=== PATIENT | female | born 1945 | race Caucasian/White ===

== ENCOUNTER → 2016-10-24 | Outpatient (CLI) | payer OTHER ==
[~2016-10-24] MED LIST: ALBUAER2; ATOR-24 PO; CHOL100010 PO; CRG25 PO; DFL150 PO; FURO-85 PO; GLCSC750600; GLIP5TAB11 PO; HYT2 PO; INSDGI SQ; LEVO100T PO; LISI20TA3 PO; MULT-506 PO; NAPR1TAB9 PO; NVLGI SC; NXM/40 PO; SPR25 PO; TOPI100T20 PO; TOPI50TA16 PO; TRAM-10 PO
[2016-10-24 17:45] LABS: BLOOD UREA NITROGEN 21 mg/dl (7-18); CREATININE 0.97 mg/dl (0.60-1.20)
== END | disposition home or self-care (01) ==
LOC: C.LAB1850 16:20
PROVIDERS: ATTEND Surgery
DX: E11.22 Type 2 diabetes mellitus with diabetic chronic kidney disease (principal); N18.1 Chronic kidney disease, stage 1

== ENCOUNTER → 2016-10-31 | Outpatient (CLI) | payer OTHER ==
[~2016-10-31] MED LIST changes: +OPTIRAY 320 IV PRN
--- NOTE | 2016-10-31 08:54 | DIAGNOSTIC IMAGING REPORT ---
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 Change in mental status. TECHNIQUE: Transaxial acquisition pre and postcontrast administration COMPARISON STUDY: None FINDINGS: Normal study. Normal density characteristics of the cerebellar as well as cerebral hemispheres. No evidence for abnormal postcontrast enhancement. IMPRESSION: Normal study Electronically signed by: Bassam Trevino M.D. 10/31/2016 8:53 AM Dictated Date/Time: 10/31/2016 8:51 AM
== END | disposition home or self-care (01) ==
LOC: C.CTS 08:04
PROVIDERS: ATTEND Surgery
DX: R42 Dizziness and giddiness (principal)

== ENCOUNTER → 2017-02-13 | Outpatient (CLI) | payer OTHER ==
[~2017-02-13] MED LIST changes: +ASPI81TA28 PO; +ERGO500037 PO; +INSDGI SC; +IPRA0.03; +METO25TA56 PO; -OPTIRAY 320 IV PRN; +REPA1TAB42 PO; +REPA2TAB13 PO; +SITA100T3 PO; +TRMCR515 TOP
== END | disposition home or self-care (01) ==
LOC: C.LABSPEC 13:59
PROVIDERS: ATTEND Obstetrics & Gynecology
DX: L90.0 Lichen sclerosus et atrophicus (principal)

== ENCOUNTER → 2017-03-25 | Outpatient (CLI) | payer OTHER ==
--- NOTE | 2017-03-26 07:43 | MAMMOGRAPHY REPORT ---
BILATERAL DIGITAL SCREENING MAMMOGRAM WITH CAD: 03/25/2017 CLINICAL HISTORY: Routine screening. Patient has no complaints. TECHNIQUE: Bilateral CC and MLO views were obtained. Current study was also evaluated with a Compute r Aided Detection (CAD) system. COMPARISON: Comparison is made to exams dated: 03/22/2016 mammogram, 11/21/2011 mammogram, 01/26/2010 [facility], 02/15/2008, 08/28/2007, and 08/28/2007. BREAST COMPOSITION: The tissue of both breasts is heterogeneously dense, which may obscure small mas ses. FINDINGS: There is a cluster of microcalcifications in the far posterior lower inner right breast th at has likely been present on prior mammograms dating back to 2009. However, given the far posterior location, additional spot magnification views are recommended for full assessment. There are scattered benign rounded calcifications elsewhere in the breasts. No other suspicious mass , architectural distortion or cluster of suspicious microcalcifications is seen. IMPRESSION: ACR BI-RADS CATEGORY 0: INCOMPLETE EVALUATION: NEED ADDITIONAL IMAGING EVALUATION The cluster of microcalcifications in the lower inner posterior right breast needs additional evaluat ion. The patient will be called to schedule an appointment. Approximately 10% of breast cancers are not detected with mammography. A negative mammographic report should not delay biopsy if a clinically suggestive mass is present. Pamela Morales M.D. ay/:03/25/2017 15:28:51 Safety Advisor: Gosia Angel [facility] letter sent: Addl Imaging 0 BI-RADS Code: ACR BI-RADS Category 0: Incomplete Evaluation: Need Additional Imaging Evaluation
== END | disposition home or self-care (01) ==
LOC: C.MAMM 10:22
PROVIDERS: ATTEND Obstetrics & Gynecology
DX: Z12.31 Encounter for screening mammogram for malignant neoplasm of breast (principal)

== ENCOUNTER → 2017-04-01 | Outpatient (CLI) | payer OTHER ==
--- NOTE | 2017-04-01 14:37 | MAMMOGRAPHY REPORT ---
UNILATERAL RIGHT DIGITAL DIAGNOSTIC MAMMOGRAM: 04/01/2017 CLINICAL HISTORY: 72-year-old woman called back from screening mammography for right breast microcalc ifications. No family history of breast cancer. She has a personal history of sarcoma. TECHNIQUE: Spot magnification right CC and ML views were obtained. COMPARISON: Comparison is made to exams dated: 03/25/2017 mammogram, 03/22/2016 mammogram, 11/21/2011 mamm ogram, 01/26/2010 mammogram - [facility], 02/15/2008, and 08/28/2007. BREAST COMPOSITION: There are scattered areas of fibroglandular density in the right breast. FINDINGS: There is a 13 mm grouping of amorphous microcalcifications in the lower inner posterior ri ght breast. These calcifications appear similar to the 2015 mammograms and were likely present on e 2011 mammograms based on the CC view, but not definitely presents prior to 2011. Given the amorpho us morphology and linear distribution they are indeterminate. Definitive characterization with a natan reotactic guided biopsy is recommended. No associated asymmetry, architectural distortion or mass is identified. IMPRESSION: ACR BI-RADS CATEGORY 4B: INTERMEDIATE SUSPICION FOR MALIGNANCY 1. Right breast stereotactic guided biopsy is recommended for a 13 mm grouping of amorphous microcal cifications in a linear distribution in the lower inner posterior right breast. These results and recommendations were discussed with the patient at the time of the exam. She tenta tively scheduled the biopsy prior to leaving our department. Approximately 10% of breast cancers are not detected with mammography. A negative mammographic report should not delay biopsy if a clinically suggestive mass is present. Pamela Morales M.D. ay/:04/01/2017 10:29:51 Enterprise Application Developer: Dina ROSENBERG(Tc)(Monica), [facility] letter sent: Abnormal 4/5 BI-RADS Code: ACR BI-RADS Category 4B: Intermediate Suspicion For Malignancy
== END | disposition home or self-care (01) ==
LOC: C.MAMM 09:59
PROVIDERS: ATTEND Obstetrics & Gynecology
DX: R92.0 Mammographic microcalcification found on diagnostic imaging of breast (principal)

== ENCOUNTER → 2017-04-08 | Outpatient (CLI) | payer OTHER ==
--- NOTE | 2017-04-08 13:42 | Discharge Instructions ---
Discharge Instructions Procedure Procedure Date: Apr 08, 2017. Reason for visit: Right Calcifications. Discharge Discharge Date: Apr 08, 2017. Discharge Diagnosis: post right breast stereotactic guided biopsy Instructions Activity Recommendations: Additional Limitations (see below) Return to School/Work: no limitations Recommended Home Diet: No Limitations Provider Instructions: ACTIVITY RECOMMENDATIONS: * No lifting, pushing, pulling or exercising the affected side for three days. RETURN TO SCHOOL/WORK: * You may return to work/school after the procedure, but do not perform any strenuous activities for 24 to 48 hours. MEDICATIONS: * Tylenol (two 325 mg) every four to six hours if needed for mild pain (if not allergic to Tylenol). DIET: * Resume previous diet. SPECIAL CARE INSTRUCTIONS: * Keep biopsy site dry for 24 hours. May shower after 24 hours, but do not soak (bathe) incision. * May remove Tegaderm (plastic patch) tomorrow AFTER showering. * Leave the steri-strips on for one week. Allow the steri-strips to fall off by themselves. If not off after one week, you may remove them. You may place a Bandaid crosswise over the strips, if desired. * Apply ice 10 minutes on and 10 minutes off as needed. * Wear a bra at bedtime to sleep more comfortably for 2-3 days. * Your referring physician should have the results after approximately 5 to 7 business days. * Call for unusual bleeding, fever, drainage, etc or if you have any questions call [phone] during normal business hours or after hours call Dr Morales, . FOLLOW UP VISIT: Follow-up with Referring Physician as scheduled. Allergies Coded Allergies: Adhesives (Verified Allergy, Unknown, UNKNOWN, 04/11/15) Barbiturates (Verified Allergy, Unknown, 09/22/09) Hydrochlorothiazide w/Triamterene (Verified Allergy, Unknown, UNKNOWN, ) Loratadine (Verified Allergy, Unknown, UNKNOWN, 04/11/15) Phenobarbital (Verified Allergy, Unknown, UNKNOWN, 04/11/15) Propoxyphene (Verified Allergy, Unknown, 04/11/15) Pseudoephedrine (Verified Allergy, Unknown, UNKNOWN, 04/11/15) Sertraline (Verified Allergy, Unknown, UNKNOWN, 04/11/15) Sulfa Drugs (Verified Allergy, Unknown, 04/11/15) Odalys Hsu Recommendations: Call your doctor if: * Temperature above 101 degrees * Pain not relieved by pain medicine ordered * There is increased drainage or redness from any incision * You have any unanswered questions or concerns. Your Doctors Instructions noted above were prepared by provider Pamela Morales. Patient Signature Section: Patient Instructions Signature Page Yolis Lu Patient (or Guardian) Signature/Date: I have read and understand the instructions given to me by my caregivers. Caregiver/RN/Doctor Signature/Date: The above-named patient and/or guardian has received patient instructions on this date. + Original Patient Signature Page (only) stays with chart. Please make copy for patient.
--- NOTE | 2017-04-08 14:53 | MAMMOGRAPHY REPORT ---
UNILATERAL RIGHT DIGITAL DIAGNOSTIC MAMMOGRAM: 04/08/2017 CLINICAL HISTORY: Status posterior stereotactic biopsy of amorphous microcalcifications in a linear d istribution in the 5:00 posterior right breast. Please refer to the report from right breast stereotactic biopsy performed at the same time for full detail. IMPRESSION: POST PROCEDURE IMAGING FOR MARKER PLACEMENT Please refer to the report from right breast stereotactic biopsy performed at the same time for full detail. Approximately 10% of breast cancers are not detected with mammography. A negative mammographic report should not delay biopsy if a clinically suggestive mass is present. Pamela Morales M.D. ay/:04/08/2017 14:36:58 Production Broacher: Lashonda ROSENBERG(R)(M), [facility] BI-RADS Code: Post Procedure Imaging For Marker Placement
--- NOTE | 2017-04-08 14:53 | MAMMOGRAPHY REPORT ---
STEREOTACTIC GUIDED BIOPSY RIGHT BREAST: 04/08/2017 CLINICAL HISTORY: 13 mm grouping of amorphous microcalcifications in a linear distribution in the 5:0 0 posterior right breast. Patient presents for stereotactic guided biopsy. COMPARISON: Comparison is made to exams dated: 04/01/2017 mammogram, 03/25/2017 mammogram, 03/22/2016 jazzy mogram, 11/21/2011 mammogram, 01/26/2010 mammogram - [facility], and 02/15/2008. PATIENT CONSENT: After explaining the risks, benefits and alternatives of the procedure to the patien t, informed consent was obtained both verbally and in writing. Specific risks include: Bleeding, inf ection, puncture of adjacent structure, pain, nontarget biopsy, sampling error, metal allergy and med ication reaction. PROCEDURE DESCRIPTION: A time-out was performed and the right breast was confirmed as the site of bio psy. The patient was placed prone on the stereotactic biopsy table and the breast was placed in CC fr om below compression. A revenue liaison image was obtained that demonstrated the amorphous microcalcifications in a linear distribution in question. They are amenable to sterotactic biopsy. Then +15 [address] -[address] ereo pair images were obtained. The calcifications were targeted utilizing the coordinates obtained b y the computer. The skin was prepped with Betadine. 1% Lidocaine with and without epinipherine was a dministered as local anesthesia. A small skin incision was made. Through the incision, the needle wa s inserted to the depth determined by the computer. 7 samples were obtained using a [employer] vacuum-assisted biopsy device. The specimen radiograph demonstrated several new accounts banking representative microca lcifications, therefore, a metallic marker was placed at the biopsy site. There was no immediate comp lication. Hemostasis was achieved after several minutes of manual compression. The samples were sent to pathology in a single appropriately labeled container, as calcifications were identified within n early all of the core samples. Postprocedure CC and ML views of the right breast were obtained. A new dumbbell-shaped metallic bio psy marker is seen within the 4-5:00 posterior right breast, at the site of the biopsied microcalcifi cations. Based on the CC projection, there are a few residual amorphous microcalcifications located 12 mm postero-lateral to the biopsy marker clip. During the procedure on the spot magnification views additional small groupings of microcalcification s were seen anterior to the biopsied cluster. They are denoted by an oval annotation #1 on the post procedure right CC view. Pending benign pathology results, would recommend follow-up diagnostic mamm ograms including spot magnification views of these additional non-biopsied microcalcifications, ident ified during the procedure. IMPRESSION: STEREOTACTIC GUIDED BIOPSY 1. Status post stereotactic guided biopsy of amorphous microcalcifications in a linear distribution in the 4:00 to 5:00 posterior right breast, with biopsy marker placed at the site. 2. During the stereotactic biopsy guidance images, a few additional small groupings of amorphous janine rocalcifications were identified anterior to the biopsied cluster. Pending benign pathology results, would recommend follow-up spot magnification views of these additional microcalcifications in 6 susanna hs. The patient will receive notification of the biopsy results from her referring physician. Pamela Morales M.D. ay/:04/08/2017 14:40:51 Mixer Operator: Lashonda MARIE)(Monica), [facility]
== END | disposition home or self-care (01) ==
LOC: C.MAMM 12:54
PROVIDERS: ATTEND Obstetrics & Gynecology
DX: R92.0 Mammographic microcalcification found on diagnostic imaging of breast (principal)

== ENCOUNTER → 2017-05-22 | Outpatient (CLI) | payer OTHER ==
[~2017-05-22] MED LIST changes: -ASPI81TA28 PO; -ERGO500037 PO; -INSDGI SC; -IPRA0.03; -METO25TA56 PO; -REPA1TAB42 PO; -REPA2TAB13 PO; -SITA100T3 PO; -TRMCR515 TOP
[2017-05-22 13:43] LABS: ALT/SGPT 29 U/L (12-78); BLOOD UREA NITROGEN 25 mg/dl (7-18); BUN/CREATININE RATIO 26.3 (10-20); CARBON DIOXIDE 30 mmol/L (21-32); CHLORIDE 104 mmol/L (98-107); CREATININE 0.96 mg/dl (0.60-1.20); GLUCOSE 125 mg/dl (70-99); POTASSIUM 3.5 mmol/L (3.5-5.1); SODIUM 141 mmol/L (136-145)
[2017-05-22 13:56] LABS: CHOLESTEROL 135 mg/dl (0-200); HDL CHOLESTEROL 45 mg/dl; LDL CHOLESTEROL CALCULATED 56 mg/dl; THYROID STIMULATING HORMONE 0.673 uIu/ml (0.300-4.500); TRIGLYCERIDES 168 mg/dl (0-150); VERY LOW DENSITY LIPOPROT CALC 34 mg/dl
[2017-05-22 14:02] LABS: RATIO 27.4 mcg/mg (0-30.0)
== END | disposition home or self-care (01) ==
LOC: C.LAB1850 09:55
PROVIDERS: ATTEND Family Medicine
DX: Z11.59 Encounter for screening for other viral diseases (principal); E55.9 Vitamin D deficiency, unspecified; I12.9 Hypertensive chronic kidney disease with stage 1 through stage 4 chronic kidney disease, or unspecified chronic kidney disease; E03.9 Hypothyroidism, unspecified; E11.22 Type 2 diabetes mellitus with diabetic chronic kidney disease; N18.1 Chronic kidney disease, stage 1

== ENCOUNTER → 2017-05-27 | Outpatient (CLI) | payer OTHER ==
[~2017-05-27] MED LIST changes: +ASPI81TA28 PO; +ERGO500037 PO; +INSDGI SC; +IPRA0.03; +METO25TA56 PO; +REPA1TAB42 PO; +REPA2TAB13 PO; +SITA100T3 PO; +TRMCR515 TOP
[2017-05-27 14:33] LABS: HEMATOCRIT 42.2 % (37-47); MEAN CELL VOLUME 86.7 fL (80-100); MEAN CORPUSCULAR HEMOGLOBIN 30.4 pg (25-34); MEAN CORPUSCULAR HGB CONC 35.1 g/dl (32-36); MEAN PLATELET VOLUME 10.9 fL (7.4-10.4); PLATELET COUNT 170 K/uL (130-400); RED BLOOD COUNT 4.87 M/uL (4.2-5.4); WHITE BLOOD COUNT 5.78 K/uL (4.8-10.8)
[2017-05-27 14:39] LABS: PARTIAL THROMBOPLASTIN RATIO 0.9; PROTHROMBIN TIME (PATIENT) 10.4 SECONDS (9.0-12.0)
== END | disposition home or self-care (01) ==
LOC: C.LAB1850 12:51
PROVIDERS: ATTEND Internal Medicine Cardiovascular Disease
DX: Z01.818 Encounter for other preprocedural examination (principal)

== ENCOUNTER → 2017-05-29 | Day surgery (SDC) | payer OTHER ==
[~2017-05-29] VITALS: Ht 157.5 cm; Wt 83.0 kg
[~2017-05-29] MED LIST changes: +ACETAMINOPHEN 325 MG TAB ONE; +ADENOSINE IV SOLN 3 MG/ML 20 ML VIAL ONE; +FENTANYL CITRATE INJ 50 MCG/1 ML 2 ML VIAL ONE; +HEPARIN SOD (PORCINE) 1000 UNIT/ML 10 ML VIAL ONE; +HydrALAZINE HCL 20 MG/ML VIAL ONE; +MIDAZOLAM HCL 1 MG/ML 2ML VIAL ONE; +NITROGLYCERIN/D5W 100MCG/ML 20ML SYR ONE; +NiCARDipine HCL INJ 2.5 MG/ML 10 ML AMP ONE
[2017-05-29 09:56] VITALS: BP 174/77; PULSE 77; TEMP 36.6; O2SAT 98; Ht 157.5 cm; Wt 83.0 kg
--- NOTE | 2017-05-29 11:10 | History & Physical Bridge Note ---
H&P Re-Evaluation Bridge Note: I have examined the patient, reviewed the History & Physical and in the interval since the performance of the History & Physical I have noted the following changes of clinical significance: No changes noted
--- NOTE | 2017-05-29 11:10 | Procedure Note ---
Pre-Mod Sedation Assessment General Date of Moderate Sedation: May 29, 2017. Vital Signs: Vital Signs Past 12 Hours Date Time Temp Pulse Resp B/P (MAP) Pulse Ox O2 Delivery O2 Flow Rate FiO2 05/29/17 09:56 36.6 77 18 174/77 98 Room Air Review Cardiovascular: regular rate, rhythm, no edema Abdomen: normal bowel sounds, non tender Lungs: chest non-tender, lungs clear Pre-Sedation Airway Assessment Oral Cavity: WNL Able to Visualize Vocal Cords: No Short Thick Neck: No Hx of Sleep Apnea: No Smoking Status: Former Smoker Mallampati Classification: Class III ASA Classification: Class III Procedure Planning Contraindications-for Mod Sed: None Yes Notes The planned sedation has been discussed with the patient and consent obtained. I have identified the patient, determined the appropriateness of sedation and have assessed the patient immediately prior to the procedure. All medicine(s) and interventions are by my order.
--- NOTE | 2017-05-29 12:33 | Procedure Note ---
Post-Mod Sedation Assessment General Date of Moderate Sedation May 29, 2017. Vital Signs: Vital Signs Past 12 Hours Date Time Temp Pulse Resp B/P (MAP) Pulse Ox O2 Delivery O2 Flow Rate FiO2 05/29/17 09:56 36.6 77 18 174/77 98 Room Air Review - Discharge Criteria Vital Signs Stable: Yes Alert/Oriented/Conversant: Yes Returned to Baseline Mental St: Yes Nausea Absent/Minimal: Yes Pain/Discomfort/Absent/Minimal: Yes Normal/Baseline Respirations: Yes Active Bleeding?: No Pt Received D/C Instructions: Yes Prescriptions Given: None Specific Proced. D/C Criteria Distal Pulses Present (Cardiac: Yes Groin site assessed-Card Cath: N/A Voided Prior To Discharge: N/A Discharged Patients Adult Escort/Transportation: Yes
--- NOTE | 2017-05-29 12:43 | Cardiac Catheterization ---
Procedure Note Procedure Date May 29, 2017. Pre-Procedure Diagnosis Positive Stress Test AUC Score 7 Post-Procedure Diagnosis Moderate CAD, Elevated Intracardiac Pressures Procedure(s) Performed Coronary Angiography, Left Heart Cath, Fractional Flow [place] [employer] Referral Clerk(s) Ty Estimated Blood Loss 15 Medication(s) Fentanyl, Heparin, Nicardipine, Nitroglycerin, Versed, Lidocaine 1%, Adenosine Summary of Findings Indication: Dyspnea on exertion/Positive stress test Access: 6Fr slender left radial artery Catheters: JL4, JR4; JL3.5 guide Findings: LM - Angiographically normal LAD - Moderate caliber vessel with luminal irregularities. Circumflex - Co-dominant, mid vessel 30% at bifurcation of large OM; Mid-distal vessel with 50% diffuse stenosis. RCA - Co-dominant, mild mid segment disease, luminal irregularities distally. FFR of mid-distal circumflex : 5Fr JL3.5 guide iFR 0.94 FFR 0.91 LVEDP - 19 Arterial Closure: TR Summary: 1. Moderate non-obstructive single vessel coronary artery disease - 50% mid-distal circumflex (FFR 0.91) 2. Mildly elevated intracardiac filling pressure Recommendations: Continued ASCVD risk factor modification. Antihypertensives, diuretics per Dr. De Jesus/Ty Acharya in setting of mildly elevated filling pressure. Hemodynamics Rest Ao: 158/75/111 Final Ao: 136/58/90 LV: 158/14 Recommendations Medical therapy and/or Counseling Specimens None Radiation Exposure (mGy) 2440 Contrast (mls) 120 Visi Fluids (cc crystalloids) 150 NSS Drains None Anesthesia Moderate Procedural Complication(s) None Disposition Manager [employer]/Recovery ACC Data Cardiac Status Clinical evaluation leading to the procedure CAD Presntation: Positive Stress Test Anginal Classification: CCS III Heart Failure: No, NYHA Class: CCS I Cardiogenic Shock w/in 24Hrs: No Cardiac Arrest w/in 24Hrs: No Imaging studies past 6 months: Yes Stress studies past 6 months: Yes Stress Echocardiogram: Yes - Positive, Risk/Extent of Ischemia (High) Closure Device Percutaneous Entry Location: Radial Closure Device: Radial Band Recommendations: Medical therapy and/or Counseling Intraprocedure Events Significant Dissection: No Perforation: No
--- NOTE | 2017-05-29 12:45 | Discharge Instructions ---
Discharge Instructions Procedure Procedure Date: May 29, 2017. Reason for Visit: Abnormal Stress Test *Dr Snyder To Do*. Discharge Discharge Date: May 29, 2017. Discharge Diagnosis: Nonobstructive Coronary Artery Disease Last Recorded Wt (Kilograms): 83 Anesthesia Post Anesthesia Instructions: If you have had General Anesthesia or IV Sedation: * Do not drive today. * Resume driving when surgeon permits. * Do not make important decisions or sign legal documents today. * Call surgeon for: 1. Temperature elevations greater than 101 degrees F. 2. Uncontrollable pain. 3. Excessive bleeding. 4. Persistent nausea and vomiting. 5. Medication intolerance (nausea, vomiting or rash). * For nausea and vomiting use only clear liquids such as: tea, soda, bouillon until nausea subsides, then gradually increase diet as tolerated. * If you have any concerns or questions, call your surgeon's office. If physician is unavailable and it is an emergency, call 911 or go to the nearest emergency room. Instructions Activity Recommendations: limitations as noted below Recommended Home Diet: resume previous diet, low cholesterol Allergies: Coded Allergies: Adhesives (Verified Allergy, Unknown, UNKNOWN, 04/11/15) Barbiturates (Verified Allergy, Unknown, 09/22/09) Hydrochlorothiazide w/Triamterene (Verified Allergy, Unknown, UNKNOWN, ) Loratadine (Verified Allergy, Unknown, UNKNOWN, 04/11/15) Phenobarbital (Verified Allergy, Unknown, UNKNOWN, 04/11/15) Propoxyphene (Verified Allergy, Unknown, 04/11/15) Pseudoephedrine (Verified Allergy, Unknown, UNKNOWN, 04/11/15) Sertraline (Verified Allergy, Unknown, UNKNOWN, 04/11/15) Sulfa Drugs (Verified Allergy, Unknown, 04/11/15) Follow Up Additional Instructions: ACTIVITY RECOMMENDATIONS: It is common to feel weak and fatigue for a few days. * Do not drive or operate any motorized equipment for the next 2 days. * Limit stair usage (2 or 3 trips a day only) for the next three days. * Do not lift anything heavier than 10 pounds for the next three days. * Do not engage in vigorous exercise or any sports for the next five days. * You may shower the day after your procedure, but do not immerse the area for three days. Cleanse the site gently with soap and water. SPECIAL CARE INSTRUCTIONS: * You may replace the pressure dressing or band-aid the morning after the procedure. * After your procedure, it is normal to have a small bruise or small lump at the site. Examine your site daily for any change in the bruise or lump, redness, swelling, drainage or numbness. Notify your doctor if any change. BLEEDING: * If there is a small amount of bleeding at the site, lie down and apply firm pressure with a clean cloth for ten minutes. When the bleeding stops, lie quietly keeping the procedure limb straight for six hours. Notify your doctor as soon as possible. * If the bleeding does not stop after ten minutes or if there is a large amount of bleeding or spurting, call 911 immediately. Continue to lie down and hold firm pressure until help arrives. SKIN IRRITATION: * You may experience some redness and/or swelling in the area where radiation was administered. If any skin irritation occurs, please contact your family physician. FOLLOW UP VISIT: Keep any scheduled doctor appointments. Follow-up with: Dr. De Jesus/Gamaliel Acharya as scheduled [facility] Recommendations: Call your doctor if: * Temperature above 101 degrees * Pain not relieved by pain medicine ordered * There is increased drainage or redness from any incision * You have any unanswered questions or concerns. Your Doctors Instructions noted above were prepared by provider Faisal nSyder. Patient Signature Section: Patient Instructions Signature Page Yolis Lu Patient (or Guardian) Signature/Date: I have read and understand the instructions given to me by my caregivers. Caregiver/RN/Doctor Signature/Date: The above-named patient and/or guardian has received patient instructions on this date. + Original Patient Signature Page (only) stays with chart. Please make copy for patient.
[2017-05-29 15:30] VITALS: BP 183/99; PULSE 76; O2SAT 98
== END | disposition home or self-care (01) ==
LOC: C.CATH 07:04
PROVIDERS: ATTEND Internal Medicine Interventional Cardiology
DX: I25.10 Atherosclerotic heart disease of native coronary artery without angina pectoris (principal); R94.39 Abnormal result of other cardiovascular function study; I42.9 Cardiomyopathy, unspecified; I50.42 Chronic combined systolic (congestive) and diastolic (congestive) heart failure; R06.09 Other forms of dyspnea; I11.0 Hypertensive heart disease with heart failure; R07.9 Chest pain, unspecified; E78.5 Hyperlipidemia, unspecified; K21.9 Gastro-esophageal reflux disease without esophagitis; E03.9 Hypothyroidism, unspecified; E11.22 Type 2 diabetes mellitus with diabetic chronic kidney disease; N18.1 Chronic kidney disease, stage 1; J45.909 Unspecified asthma, uncomplicated; E66.9 Obesity, unspecified; Z98.51 Tubal ligation status; Z98.890 Other specified postprocedural states; Z88.2 Allergy status to sulfonamides; Z82.49 Family history of ischemic heart disease and other diseases of the circulatory system; Z84.89 Family history of other specified conditions; Z80.0 Family history of malignant neoplasm of digestive organs; Z82.3 Family history of stroke; Z84.1 Family history of disorders of kidney and ureter

== ENCOUNTER → 2017-06-02 | Outpatient (CLI) | payer OTHER ==
[~2017-06-02] MED LIST changes: -ACETAMINOPHEN 325 MG TAB ONE; -ADENOSINE IV SOLN 3 MG/ML 20 ML VIAL ONE; -CHOL100010 PO; -FENTANYL CITRATE INJ 50 MCG/1 ML 2 ML VIAL ONE; -FURO-85 PO; -GLIP5TAB11 PO; -HEPARIN SOD (PORCINE) 1000 UNIT/ML 10 ML VIAL ONE; -HydrALAZINE HCL 20 MG/ML VIAL ONE; -INSDGI SQ; -MIDAZOLAM HCL 1 MG/ML 2ML VIAL ONE; -NAPR1TAB9 PO; -NITROGLYCERIN/D5W 100MCG/ML 20ML SYR ONE; -NVLGI SC; -NiCARDipine HCL INJ 2.5 MG/ML 10 ML AMP ONE; -SPR25 PO; -TOPI100T20 PO; -TOPI50TA16 PO
[2017-06-02 17:45] LABS: BLOOD UREA NITROGEN 21 mg/dl (7-18); BUN/CREATININE RATIO 21.8 (10-20); CALCIUM 8.7 mg/dl (8.5-10.1); CARBON DIOXIDE 27 mmol/L (21-32); CHLORIDE 103 mmol/L (98-107); CREATININE 0.99 mg/dl (0.60-1.20); GLUCOSE 423 mg/dl (70-99); SODIUM 137 mmol/L (136-145)
[2017-06-02 17:57] LABS: BETA-HYDROXYBUTYRATE 1.51 mg/dL (0.2-2.81)
== END | disposition home or self-care (01) ==
LOC: C.LAB 14:39
PROVIDERS: ATTEND Internal Medicine Interventional Cardiology
DX: N28.9 Disorder of kidney and ureter, unspecified (principal)

== ENCOUNTER → 2017-07-30 | Outpatient (CLI) | payer OTHER ==
[~2017-07-30] MED LIST changes: +REPA1TAB40 PO; -REPA1TAB42 PO; +REPA2TAB12 PO; -REPA2TAB13 PO
== END | disposition home or self-care (01) ==
LOC: C.PATHSPEC 13:13
PROVIDERS: ATTEND Obstetrics & Gynecology
DX: L90.0 Lichen sclerosus et atrophicus (principal); L83 Acanthosis nigricans; N90.4 Leukoplakia of vulva

== ENCOUNTER → 2017-10-14 | Outpatient (CLI) | payer OTHER ==
--- NOTE | 2017-10-14 15:15 | MAMMOGRAPHY REPORT ---
UNILATERAL RIGHT DIGITAL DIAGNOSTIC MAMMOGRAM TOMOSYNTHESIS WITH CAD AND TARGETED RIGHT ULTRASOUND: CLINICAL HISTORY: 72-year-old woman presents for follow-up in the right breast for additional non-bio psied microcalcifications anterior to the biopsied calcifications in the posterior lower inner right breast which yielded a benign degenerating fibroadenoma. TECHNIQUE: Right breast CC and MLO 2-D and tomosynthesis images, spot magnification right CC and ML v iews were obtained. Current study was also evaluated with a Computer Aided Detection (CAD) system. COMPARISON: Comparison is made to exams dated: 11/21/2011 mammogram, 03/22/2016 mammogram, 03/25/2017 mamm ogram, 04/01/2017 mammogram, 04/08/2017 stereotactic biopsy, and 04/08/2017 mammogram - [facility]. BREAST COMPOSITION: The tissue of the right breast is heterogeneously dense, which may obscure small masses. FINDINGS: The glandular pattern is similar to prior mammograms on the 2-D fused. There is a conspicu ous 6.7 mm nodular asymmetry with associated coarse calcification in the lateral posterior right aysha st on CC tomosynthesis slice 35/63 that appears somewhat similar to prior 2-D mammograms although a m ass cannot be completely excluded. Further evaluation with ultrasound was performed in the lateral r ight breast. Spot magnification views of the lower inner right breast redemonstrate a dumbbell shaped biopsy marke r clip and a few punctate and coarse heterogeneous calcifications remaining posterior to the biopsy m arker clip, representing the biopsy-proven degenerating fibroadenoma. There are 2 additional faint g roupings of calcifications located 3 cm anterior to the biopsy clip in the CC projection, some of whi ch demonstrate a linear morphology. These microcalcifications appear similar to the spot magnificati on views obtained on 04/01/2017, but longer stability is needed. Repeat spot magnification views of the right breast are recommended in 6 months. Targeted ultrasound was performed in the lateral right breast. Sonographically normal tissue is seen without a discrete solid or cystic mass. This suggests the 6 mm nodular asymmetry may have represen raheel normal overlapping tissue although repeat attention at time of six-month follow-up is recommended . IMPRESSION: ACR-BI-RADS CATEGORY 3: PROBABLY BENIGN, TARGETED ULTRASOUND ACR-BI-RADS CATEGORY 3: PRO BABLY BENIGN 1. Stable postbiopsy changes in the lower inner posterior right breast, representing the biopsy prov en fibroadenoma. 2. Faint smaller groupings of punctate, amorphous and linear microcalcifications located 3 cm anteri or to the biopsy clip in the CC projection are stable compared to the prior spot magnification views although longer stability is needed. Another six-month follow-up right diagnostic mammogram includin g spot magnification views is recommended. 3. There is a conspicuous, 6.7 mm nodular asymmetry in the lateral right breast on the tomosynthesis images, without suspicious sonographic correlate identified. A six-month follow-up right diagnostic tomosynthesis mammogram and possible ultrasound is recommended to ensure stability in 6 months. 4. Annual left mammography will also be due at the time of next follow-up. These results and recommendations were discussed with the patient at the time of the exam. Approximately 10% of breast cancers are not detected with mammography. A negative mammographic report should not delay biopsy if a clinically suggestive mass is present. Pamela Morales M.D. ay/:10/14/2017 12:27:31 Set Up Mechanic Coil Winding Machines: Gosia Angel, [facility] letter sent: Follow Up Recommended 3 BI-RADS Code: ACR-BI-RADS Category 3: Probably Benign Ultrasound BI-RADS: ACR-BI-RADS Category 3: Pr obably Benign
== END | disposition home or self-care (01) ==
LOC: C.MAMM 10:02
PROVIDERS: ATTEND Obstetrics & Gynecology
DX: R20.0 Anesthesia of skin (principal); N64.89 Other specified disorders of breast; D24.1 Benign neoplasm of right breast

== ENCOUNTER → 2018-04-13 | Outpatient (CLI) | payer OTHER ==
[~2018-04-13] MED LIST changes: -HYT2 PO; +TERA2CAP PO
--- NOTE | 2018-04-13 13:56 | MAMMOGRAPHY REPORT ---
BILATERAL DIGITAL DIAGNOSTIC MAMMOGRAM TOMOSYNTHESIS WITH CAD: 04/13/2018 CLINICAL HISTORY: History of benign right breast stereotactic biopsy performed March 2017. The patie nt presents for short interval follow-up of right breast calcifications and right breast asymmetry. T he patient reports no current complaints. TECHNIQUE: Breast tomosynthesis in addition to standard 2D mammography was performed. Current study w as also evaluated with a Computer Aided Detection (CAD) system. Bilateral CC and MLO 2D and tomosynt hesis images and spot magnification right cc and ML views were obtained. COMPARISON: Comparison is made to exams dated: 10/14/2017 mammogram, 04/08/2017 mammogram, 04/01/2017 m ammogram, 03/25/2017 mammogram, 03/22/2016 mammogram, and 10/14/2017 ultrasound - [facility] nter. BREAST COMPOSITION: The tissue of both breasts is heterogeneously dense, which may obscure small mass es. FINDINGS: A biopsy clip is again noted within the right lower inner quadrant at the site of prior stereotactic biopsy right breast calcifications which yielded benign pathology. Again demonstrated are residual c oarse heterogeneous calcifications seen posterior and anterior to the biopsy clip on the cc view, whi ch are not significantly changed dating back to at least the March 2017 exam. The calcifications we re previously biopsied and yielded benign pathology. The calcifications are considered benign given the stability and given the benign pathology on biopsy. The remainder of both breasts are stable compared to prior exams, without suspicious masses, calcific ations, or areas of architectural distortion noted. Other scattered bilateral benign-appearing calci fications are not significantly changed. Small nodular asymmetry within the right lateral breast on the cc view is stable compared to multiple prior exams including the 2011 exam and is considered yoly gn given long-term stability. IMPRESSION: ACR BI-RADS CATEGORY 2: BENIGN There is no mammographic evidence of malignancy in either breast. A 1 year screening mammogram is rec ommended.(04/14/2019) The patient has been verbally notified of the results. Some breast cancers are not detected with mammography. A negative mammographic report should not riaz y biopsy if a clinically suggestive mass is present. Nicole Doll M.D. ah/:04/13/2018 10:34:53 Evaporator Repairer: RT Liana(R)(M), [facility] letter sent: Normal 1/2 BI-RADS Code: ACR BI-RADS Category 2: Benign
== END | disposition home or self-care (01) ==
LOC: C.MAMM 10:05
PROVIDERS: ATTEND Obstetrics & Gynecology
DX: R92.8 Other abnormal and inconclusive findings on diagnostic imaging of breast (principal)

== ENCOUNTER 2018-08-05 13:58 | Observation (INO) ==
--- NOTE | 2018-08-03 07:51 | Anesthesiology Consultation ---
Date of Service August 03, 2018 Assessment & Plan Chart Review Chart Review: charge entry initiated Consults Requested none History Surgery Operation Date: 08/05/18 15:30 Proposed Procedures p Colonoscopy Dr. Silvino Dubois, Height/Weight Height: 5 ft 1 in Weight: 86.183 kg Allergies Allergy/AdvReac Type Severity Reaction Status Date / Time adhesive Allergy Mild tears skin Verified 07/28/18 13:32 Barbiturates Allergy Mild Hives Verified 07/28/18 13:32 hydrochlorothiazide Allergy Mild Gastrointestinal Verified 07/28/18 13:32 Upset loratadine Allergy Mild light Verified 07/28/18 13:32 headed, dizzy, heart racing phenobarbital Allergy Mild heart Verified 07/28/18 13:32 racing pseudoephedrine Allergy Mild light Verified 07/28/18 13:32 headed, heart racing sertraline Allergy Mild light Verified 07/28/18 13:32 headed, dizzy Sulfa (Sulfonamide Allergy Mild Vomiting Verified 07/28/18 13:32 Antibiotics) triamterene Allergy Mild Gastrointestinal Verified 07/28/18 13:32 Upset Dyazide Allergy Unknown UNKNOWN Verified 04/11/15 09:31 propoxyphene Allergy Unknown Unknown Verified 07/28/18 13:32 Medications Home Medications Medication Instructions Recorded Confirmed Last Taken albuterol sulfate [Ventolin HFA] 1 - 2 puff INHALATION Q6H PRN 07/28/18 Unknown aspirin [Aspirin Low Dose] 81 mg PO QAM 07/28/18 07/28/18 Unknown atorvastatin 40 mg PO HS 07/28/18 07/28/18 Unknown biotin 1 mg PO QAM 07/28/18 07/28/18 Unknown carvedilol 25 mg PO BID 07/28/18 07/28/18 Unknown diclofenac sodium [Voltaren] 4 g TOPICAL BID 07/28/18 07/28/18 Unknown furosemide 20 mg PO QAM 07/28/18 07/28/18 Unknown glipizide 5 mg PO BID 07/28/18 07/28/18 Unknown insulin glargine [Basaglar KwikPen 15 unit SUBCUT DAILY 07/28/18 07/28/18 Unknown U-100 Insulin] insulin glargine [Basaglar KwikPen 25 unit SUBCUT QAM 07/28/18 07/28/18 Unknown U-100 Insulin] ipratropium bromide 2 spray INTRANASAL BID PRN 07/28/18 07/28/18 Unknown levothyroxine 50 mcg PO QAM 07/28/18 07/28/18 Unknown lisinopril 20 mg PO BID 07/28/18 07/28/18 Unknown metoprolol tartrate 25 mg PO QPM 07/28/18 07/28/18 Unknown metoprolol tartrate 50 mg PO QAM 07/28/18 07/28/18 Unknown multivitamin 1 tab PO QAM 07/28/18 07/28/18 Unknown omeprazole 20 mg PO BID 07/28/18 07/28/18 Unknown tramadol 50 - 100 mg PO Q6H PRN 07/28/18 07/28/18 Unknown Past Medical History Medical History Asthma inhaler prn Atrial fibrillation Cardiac murmur since childhood Cardiomyopathy Diabetes mellitus, type 2 Fibromyalgia GERD (gastroesophageal reflux disease) Hearing deficit History of anesthesia reaction difficulty waking Hyperlipidemia Hypertension Hypothyroidism 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 "mini ones", last one 2015 Osteoarthritis Poor historian 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, chemo Thrombophlebitis leg right leg Past Family History Family History Mother Family history of diabetes mellitus Grandfather (Maternal) Family history of diabetes mellitus Grandfather (Paternal) Family history of diabetes mellitus Daughter Family hx of colon cancer Past Surgical History Surgical History History of bilateral carpal tunnel release x2 History of bilateral tubal ligation History of cardiac cath 2017 @ [facility]--no stents History of left breast biopsy benign History of left cataract extraction History of surgery on arm sarcoma removal of right arm History of tooth extraction under local History of vascular access device removed 2007 Hx of varicose vein ligation right leg Social History Smoking Status: Never smoker Do You Dip or Chew Tobacco: No Hx Alcohol Use: No Hx Substance Use: No substance use type: does not use Testing Cardiac Catheterization Date: 05/29/17 Summary: 1. Moderate non-obstructive single vessel coronary artery disease - 50% mid-distal circumflex (FFR 0.91) 2. Mildly elevated intracardiac filling pressure Laboratory Results Laboratory Tests 05/27/17 05/27/17 06/09/18 12:53 12:53 14:35 WBC 5.78 Hgb 14.8 Plt Count 170 PT 10.4 INR 1.0 APTT 24.0 Sodium 138 Potassium 3.9 Chloride 102 Carbon Dioxide 30 BUN 21 H Creatinine 0.97 Glucose 283 H Hemoglobin A1c Calcium 8.6 06/09/18 14:35 WBC Hgb Plt Count PT INR APTT Sodium Potassium Chloride Carbon Dioxide BUN Creatinine Glucose Hemoglobin A1c 8.8 H Calcium
--- NOTE | 2018-08-05 15:47 | History & Physical Report ---
Date of Service August 05, 2018 Assessment & Plan (1) Positive FIT (fecal immunochemical test): Proceed with colonoscopy History of Present Illness Chief Complaint: Positive FIT testing Primary Care Provider: Anastacia Rodriges MD 73 yo CF who presents for colonoscopy secondary to positive FIT testing. Allergies Allergy/AdvReac Type Severity Reaction Status Date / Time adhesive Allergy Mild tears skin Verified 08/05/18 15:13 Barbiturates Allergy Mild Hives Verified 08/05/18 15:13 hydrochlorothiazide Allergy Mild Gastrointestinal Verified 08/05/18 15:13 Upset loratadine Allergy Mild light Verified 08/05/18 15:13 headed, dizzy, heart racing phenobarbital Allergy Mild heart Verified 08/05/18 15:13 racing pseudoephedrine Allergy Mild light Verified 08/05/18 15:13 headed, heart racing sertraline Allergy Mild light Verified 08/05/18 15:13 headed, dizzy Sulfa (Sulfonamide Allergy Mild Vomiting Verified 08/05/18 15:13 Antibiotics) triamterene Allergy Mild Gastrointestinal Verified 08/05/18 15:13 Upset Dyazide Allergy Unknown UNKNOWN Verified 04/11/15 09:31 propoxyphene Allergy Unknown Unknown Verified 08/05/18 15:13 Home Medications Home Medications Medication Instructions Recorded Confirmed Type albuterol sulfate [Ventolin HFA] 1 - 2 puff INHALATION Q6H PRN 07/28/18 History aspirin [Aspirin Low Dose] 81 mg PO QAM 07/28/18 08/05/18 History atorvastatin 40 mg PO HS 07/28/18 08/05/18 History biotin 1 mg PO QAM 07/28/18 08/05/18 History carvedilol 25 mg PO BID 07/28/18 08/05/18 History diclofenac sodium [Voltaren] 4 g TOPICAL BID 07/28/18 08/05/18 History furosemide 20 mg PO QAM 07/28/18 08/05/18 History glipizide 5 mg PO BID 07/28/18 08/05/18 History insulin glargine [Basaglar KwikPen 15 unit SUBCUT DAILY 07/28/18 08/05/18 History U-100 Insulin] insulin glargine [Basaglar KwikPen 25 unit SUBCUT QAM 07/28/18 08/05/18 History U-100 Insulin] ipratropium bromide 2 spray INTRANASAL BID PRN 07/28/18 08/05/18 History levothyroxine 50 mcg PO QAM 07/28/18 08/05/18 History lisinopril 20 mg PO BID 07/28/18 08/05/18 History metoprolol tartrate 25 mg PO QPM 07/28/18 08/05/18 History metoprolol tartrate 50 mg PO QAM 07/28/18 08/05/18 History multivitamin 1 tab PO QAM 07/28/18 08/05/18 History omeprazole 20 mg PO BID 07/28/18 08/05/18 History tramadol 50 - 100 mg PO Q6H PRN 07/28/18 08/05/18 History Past Med/Surg History Medical History Asthma inhaler prn Atrial fibrillation Cardiac murmur since childhood Cardiomyopathy Diabetes mellitus, type 2 Fibromyalgia GERD (gastroesophageal reflux disease) Hearing deficit History of anesthesia reaction difficulty waking Hyperlipidemia Hypertension Hypothyroidism 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 "mini ones", last one 2015 Osteoarthritis Poor historian 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, chemo Thrombophlebitis leg right leg Surgical History History of bilateral carpal tunnel release x2 History of bilateral tubal ligation History of cardiac cath 2016 @ [facility]--no stents History of left breast biopsy benign History of left cataract extraction History of surgery on arm sarcoma removal of right arm History of tooth extraction under local History of vascular access device removed 2007 Hx of varicose vein ligation right leg Family History Mother Family history of diabetes mellitus Grandfather (Maternal) Family history of diabetes mellitus Grandfather (Paternal) Family history of diabetes mellitus Daughter Family hx of colon cancer Social History Current Living Situation: Alone Other Information That Helps Us Care for You: No Feels Safe at Home: Yes Safety Concerns: Feels Safe At This Time Smoking Status: Never smoker Do You Dip or Chew Tobacco: No Hx Alcohol Use: No Hx Substance Use: No Beliefs That Will Affect Care: None Preferred Language: Belarusian Communication Ability: Effective Coating Machine Helper Required: No Physical Exam 2 Vital Signs (Past 24 Hours): Last Vital Signs Temp 36.6 C 08/05/18 15:10 Pulse 84 08/05/18 15:10 Resp 20 08/05/18 15:10 BP 177/87 H 08/05/18 15:10 Pulse Ox 97 08/05/18 15:10 Constitutional: WD/WN, vitals as above Respiratory: normal respiratory effort, lungs clear to auscultation Cardiovascular: RRR, no murmur, no edema Gastrointestinal (Abdomen): normal bowel sounds, soft, nontender, no hepatosplenomegaly
[2018-08-05] MEDS ORDERED: LIDOCAINE HCL 2% 2 ML VIAL/AMP(20MG/ML) INFIL ONE ×2 (15:49→15:52)
[2018-08-05] MEDS ORDERED: PROPOFOL IV EMULSION 10 MG/ML 20 ML VIAL IV ONE (15:49)
[2018-08-05] MEDS ORDERED: SODIUM CHLORIDE 0.9% 1000ML 1,000 ML IV SCH (16:00)
[2018-08-05] MEDS ORDERED: ESMOLOL HCL INJ 10 MG/ML 10ML VIAL IV ONE (16:56)
--- NOTE | 2018-08-05 17:13 | GI REPORT ---
Patient Name: Yolis Lu Procedure Date: 08/05/2018 4:38 PM Date of : 1945 Admit Type: Outpatient Age: 73 Gender: Female Attending MD: Joaquín Dubois DO Procedure: Colonoscopy Providers: Joaquín Dubois DO Referring MD: Anastacia Rodriges Md Indications: Positive fecal immunochemical test Medicines: Monitored Anesthesia Care Complications: No immediate complications. Estimated Blood Loss: Estimated blood loss: none. Procedure: Pre-Anesthesia Assessment: - Prior to the procedure, a History and Physical was performed, and patient medications and allergies were reviewed. The patient's tolerance of previous anesthesia was also reviewed. The risks and benefits of the procedure and the sedation options and risks were discussed with the patient. All questions were answered, and informed consent was obtained. Prior Anticoagulants: The patient has taken aspirin, last dose was 1 day prior to procedure. ASA Grade Assessment: III - A patient with severe systemic disease. After reviewing the risks and benefits, the patient was deemed in satisfactory condition to undergo the procedure. After I obtained informed consent, the scope was passed under direct vision. Throughout the procedure, the patient's blood pressure, pulse, and oxygen saturations were monitored continuously. The Colonoscope was introduced through the anus and advanced to the terminal ileum. The colonoscopy was performed without difficulty. The patient tolerated the procedure well. The quality of the bowel preparation was good. The terminal ileum, ileocecal valve, appendiceal orifice, and rectum were photographed. Findings: The perianal and digital rectal examinations were normal. A 10 mm polyp was found in the ascending colon. The polyp was sessile. The polyp was removed with a hot snare. Resection and retrieval were complete. Area was unsuccessfully injected with 6 mL of a 1:10,000 solution of epinephrine for hemostasis of bleeding caused by the procedure. To stop active bleeding, three hemostatic clips were successfully placed (MR conditional). Fulguration to stop the bleeding that was caused by the procedure by heater probe was successful. Non-bleeding internal hemorrhoids were found during retroflexion. The hemorrhoids were small. Impression: - One 10 mm polyp in the ascending colon, removed with a hot snare. Resected and retrieved. Treatment not successful. Clips (MR conditional) were placed. Treated with a heater probe. - Non-bleeding internal hemorrhoids. Recommendation: - Resume previous diet. - Continue present medications. - Repeat colonoscopy for surveillance based on pathology results. - Return to primary care physician as previously scheduled. Joaquín Dubois, DO 08/05/2018 5:13:20 PM This report has been signed electronically. Note Initiated On: 08/05/2018 4:38 PM Number of Addenda: 0 I attest to the content of the Intraoperative Record and orders documented therein, exceptions below {[id number]}
[2018-08-05] MEDS ORDERED: ONDANSETRON INJ 2 MG/ML 2 ML VIAL ONE (17:25)
[2018-08-05] MEDS ORDERED: ONDANSETRON INJ 2 MG/ML 2 ML VIAL IV STA (17:31)
--- NOTE | 2018-08-05 17:32 | Anesthesiology Progress Note ---
Date of Service August 05, 2018 Anesthesia Post Procedure Vital Signs Vital Signs: Temp Pulse Resp BP Pulse Ox 08/05/18 17:14 36.6 C 82 20 178/83 H 99 08/05/18 15:10 36.6 C 84 20 177/87 H 97 Notes Mental Status: alert / awake / arousable Patient Amnestic to Procedure: Yes Nausea / Vomiting: adequately controlled Pain: adequately controlled Airway Patency, RR, SpO2: stable & adequate BP & HR: stable & adequate Hydration State: stable & adequate Anesthetic Complications: no major complications apparent
[2018-08-05] MEDS ORDERED: GLUCAGON FOR INJ 1 MG VIAL SQ PRN (18:24)
[2018-08-05] MEDS ORDERED: DEXTROSE 50% 50 ML SYRINGE IV PRN (18:24)
[2018-08-05] MEDS ORDERED: GLUCOSE 40% GEL 15 GM TUBE PO PRN (18:24)
[2018-08-05] MEDS ORDERED: CARBOHYDRATES FOR HYPOGLYCEMIA PO PRN (18:24)
[2018-08-05] MEDS ORDERED: GLUCOSE 10 TABS/TUBE PO PRN (18:24)
[2018-08-05 18:28] LABS: Basophils # (auto) 0.04 K/uL (0-0.2); Basophils % (auto) 0.5 %; Eosinophils # (auto) 0.14 K/uL (0-0.5); Eosinophils % (auto) 1.8 %; Hematocrit (blood only) 44.5 % (37-47); Hemoglobin 15.8 g/dL (12.0-16.0); Immature Granulocytes # (auto) 0.02 K/uL (0.00-0.02); Immature Granulocytes % (auto) 0.3 %; Lymphocytes # (auto) 2.65 K/uL (1.2-3.4); Lymphocytes % (auto) 33.8 %; Mean Corpuscular Volume 86.1 fL (80-100); Mean Platelet Volume 10.3 fL (7.4-10.4); Monocytes # (auto) 0.57 K/uL (0.11-0.59); Monocytes % (auto) 7.3 %; Neutrophils # (auto) 4.43 K/uL (1.4-6.5); Neutrophils % (auto) 56.3 %; Platelet Count 168 K/uL (130-400); RDW Coefficient of Variation 12.2 % (11.5-14.5); RDW Standard Deviation 38.7 fL (36.4-46.3); Red Blood Count 5.17 M/uL (4.2-5.4); White Blood Count 7.85 K/uL (4.8-10.8)
--- NOTE | 2018-08-05 18:30 | History & Physical Report ---
Date of Service August 05, 2018 Assessment & Plan (1) Hypertensive urgency: 73F kept for observation after being a code purple in the endoscopy recovery suite. Pt was found to be acutely hypertensive and in distress upon awakening s/p colonoscopy polypectomy with acute abdominal pain. Pt will be kept for observation and monitoring. - Observe on telemetry - Stat CT abd/pelvis and CMP, CBC pending to r/o perforation or other organic cause of pain - pain may be due to local side effect of epinephrine injected - pt already recovering nicely with improved BP while awaiting room assignment in the endoscopy suite, likely her presentation consistent with acute pain, and subsequent anxiety. Does not have known psych issues. - ECG during code showed LBBB, rate in 90s and QTc 516. Unsure if this is new, repeat ECG in am. Optimize elytes. Other ongoing medical issues: T2DM: ISS, basal insulin ordered, BSG ACHS. Hold home glipizide. HTN: continue home meds carvedilol furosemide, lisinopril, metoprolol tartrate. HLD: continue statin CAD: hold home aspirin. Asthma: continue inhalers, O2 as needed Chronic pain: tramadol 50mg q6h PRN hypothyroid: continue levothyroxine FEN/GI: no fluids indicated at this time. Diet: heart healthy/diabetic DVT ppx: awaiting labs/r/o perforation. SCDs CODE STATUS: full DISPO: Obs tele (2) CAD (coronary artery disease): (3) Hypertension: Patient be maintained on carvedilol and lisinopril she had metoprolol also on the order sheet which we held at this time she also takes Lasix which can be an aid in blood pressure control (4) Hyperlipidemia: (5) Anxiety: (6) Abdominal pain: (7) Asthma: (8) Type 2 diabetes mellitus: Because the patient's oral intake is questionable her Lantus to be reduced by 50% to once daily 50 in the morning continuing insulin sliding scale (9) Hypothyroid: (10) GERD (gastroesophageal reflux disease): History of Present Illness Chief Complaint: acute anxiety, hypertensive urgency, abdominal pain s/p colonoscopy Primary Care Provider: Anastacia Rodriges MD 73F here after being a code purple in the endoscopy recovery suite. She is s/p colonoscopy with polypectomy after routine FIT testing was found to be positive in the outpatient setting. Per report, Dr. Dubois clipped a few polyps and injected 6 ccs of epinephrine for good hemostasis, and while awakening from anesthesia, pt began to experience acute abdominal pain and developed systolic blood pressure in low 200s. Pt complained of acute anxiety as well. Dr. Dubois and anesthesiologist were at bedside monitoring patient throughout the code, they placed a nasal cannula and gave supplemental oxygen, pt was saturating 100% . BP began to trend back down to SBP 160s. Pt never lost consciousness, was able to speak in full sentences and was aware of her surroundings. ECG was done. Stat labs and abdominal CT ordered as well. Pt's daughter Yaquelin was at bedside as well and provided history that pt struggles with high blood pressure. Allergies Allergy/AdvReac Type Severity Reaction Status Date / Time adhesive Allergy Mild tears skin Verified 08/05/18 15:13 Barbiturates Allergy Mild Hives Verified 08/05/18 15:13 hydrochlorothiazide Allergy Mild Gastrointestinal Verified 08/05/18 15:13 Upset loratadine Allergy Mild light Verified 08/05/18 15:13 headed, dizzy, heart racing phenobarbital Allergy Mild heart Verified 08/05/18 15:13 racing pseudoephedrine Allergy Mild light Verified 08/05/18 15:13 headed, heart racing sertraline Allergy Mild light Verified 08/05/18 15:13 headed, dizzy Sulfa (Sulfonamide Allergy Mild Vomiting Verified 08/05/18 15:13 Antibiotics) triamterene Allergy Mild Gastrointestinal Verified 08/05/18 15:13 Upset Dyazide Allergy Unknown UNKNOWN Verified 04/11/15 09:31 propoxyphene Allergy Unknown Unknown Verified 08/05/18 15:13 Home Medications Home Medications Medication Instructions Recorded Confirmed Type albuterol sulfate [Ventolin HFA] 1 - 2 puff INHALATION Q6H PRN 07/28/18 History aspirin [Aspirin Low Dose] 81 mg PO QAM 07/28/18 08/05/18 History atorvastatin 40 mg PO HS 07/28/18 08/05/18 History biotin 1 mg PO QAM 07/28/18 08/05/18 History carvedilol 25 mg PO BID 07/28/18 08/05/18 History diclofenac sodium [Voltaren] 4 g TOPICAL BID 07/28/18 08/05/18 History furosemide 20 mg PO QAM 07/28/18 08/05/18 History glipizide 5 mg PO BID 07/28/18 08/05/18 History insulin glargine [Basaglar KwikPen 15 unit SUBCUT DAILY 07/28/18 08/05/18 History U-100 Insulin] insulin glargine [Basaglar KwikPen 25 unit SUBCUT QAM 07/28/18 08/05/18 History U-100 Insulin] ipratropium bromide 2 spray INTRANASAL BID PRN 07/28/18 08/05/18 History levothyroxine 50 mcg PO QAM 07/28/18 08/05/18 History lisinopril 20 mg PO BID 07/28/18 08/05/18 History metoprolol tartrate 25 mg PO QPM 07/28/18 08/05/18 History metoprolol tartrate 50 mg PO QAM 07/28/18 08/05/18 History multivitamin 1 tab PO QAM 07/28/18 08/05/18 History omeprazole 20 mg PO BID 07/28/18 08/05/18 History tramadol 50 - 100 mg PO Q6H PRN 07/28/18 08/05/18 History Past Med/Surg History Medical History Asthma inhaler prn Atrial fibrillation Cardiac murmur since childhood Cardiomyopathy Diabetes mellitus, type 2 Fibromyalgia GERD (gastroesophageal reflux disease) Hearing deficit History of anesthesia reaction difficulty waking Hyperlipidemia Hypertension Hypothyroidism 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 "mini ones", last one 2015 Osteoarthritis Poor historian 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, chemo Thrombophlebitis leg right leg Surgical History History of bilateral carpal tunnel release x2 History of bilateral tubal ligation History of cardiac cath 2016 @ [facility]--no stents History of left breast biopsy benign History of left cataract extraction History of surgery on arm sarcoma removal of right arm History of tooth extraction under local History of vascular access device removed 2007 Hx of varicose vein ligation right leg Family History Mother Family history of diabetes mellitus Grandfather (Maternal) Family history of diabetes mellitus Grandfather (Paternal) Family history of diabetes mellitus Daughter Family hx of colon cancer Social History Current Living Situation: Alone Other Information That Helps Us Care for You: No Feels Safe at Home: Yes Safety Concerns: Feels Safe At This Time Smoking Status: Never smoker Do You Dip or Chew Tobacco: No Hx Alcohol Use: No Hx Substance Use: No Beliefs That Will Affect Care: None Preferred Language: Polish Communication Ability: Effective 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 Endorses abdominal pain "all over". Endorses acute anxiety.) Physical Exam 2 Vital Signs (Past 24 Hours): Last Vital Signs Temp 36.6 C 08/05/18 17:14 Pulse 76 08/05/18 17:44 Resp 20 08/05/18 17:44 BP 195/89 H 08/05/18 17:44 Pulse Ox 99 08/05/18 17:44 Physical Exam: Vitals reviewed and noted as above GENERAL: Awake, alert, in moderate distress HENT: Normocephalic, atraumatic. Nasal cannula in place. EYES: Normal conjunctiva. Sclera non-icteric. NECK: Supple. Full range of motion. no JVD RESPIRATORY: Clear to auscultation bilaterally, speaks in full sentences. CARDIAC: Regular rate, normal rhythm. Extremities warm and well perfused. Pulses equal. ABDOMEN: Soft, non-distended. Mild tenderness to palpation in LLQ. No rebound or guarding. No masses. LOWER EXTREMITIES: Calves are equal size bilaterally and non-tender. No edema. No discoloration. NEURO: No gross focal motor deficits noted. SKIN: No rash or jaundice noted. 5mm linear healed scar on RT ant forearm. Results & Data Laboratory Results 08/05/18 08/05/18 08/05/18 Range/Units 18:20 18:20 14:48 WBC 7.85 (4.8-10.8) K/uL RBC 5.17 (4.2-5.4) M/uL Hgb 15.8 (12.0-16.0) g/dL Hct 44.5 (37-47) % MCV 86.1 (80-100) fL MCH 30.6 (25-34) pg MCHC Pending RDW Std Deviation 38.7 (36.4-46.3) fL RDW Coeff of Barbara 12.2 (11.5-14.5) % Plt Count 168 (130-400) K/uL MPV 10.3 (7.4-10.4) fL Immature Gran % (Auto) 0.3 % Neut % (Auto) 56.3 % Lymph % (Auto) 33.8 % Howard % (Auto) 7.3 % Eos % (Auto) 1.8 % Baso % (Auto) 0.5 % Immature Gran # (Auto) 0.02 (0.00-0.02) K/uL Neut # (Auto) 4.43 (1.4-6.5) K/uL Lymph # (Auto) 2.65 (1.2-3.4) K/uL Howard # (Auto) 0.57 (0.11-0.59) K/uL Eos # (Auto) 0.14 (0-0.5) K/uL Baso # (Auto) 0.04 (0-0.2) K/uL Sodium Pending Potassium Pending Chloride Pending Carbon Dioxide Pending Anion Gap Pending BUN Pending Creatinine Pending Est Cr Clr Drug Dosing Pending Est GFR ( Amer) Pending Est GFR (Non-Af Amer) Pending BUN/Creatinine Ratio Pending Glucose Pending POC Glucose 157 H (70-99) Calcium Pending Total Bilirubin Pending AST Pending ALT Pending Alkaline Phosphatase Pending Total Protein Pending Albumin Pending Globulin Pending Albumin/Globulin Ratio Pending Diagnostic Findings s/p colonoscopy -- polyps found and clipped. 6 cc's Epinephrine injected for good hemostasis. Medications Administered Current Inpatient Medications Dextrose (Dextrose 50%) 25 - 50 ml IV UD PRN; Protocol PRN Reason: Hypoglycemia Protocol Stop: 09/04/18 18:23 Glucagon (Glucagen) 1 mg SQ UD PRN; Protocol PRN Reason: Hypoglycemia Protocol Stop: 09/04/18 18:23 Glucose (Dex4 Glucose) 4 - 8 tabs PO UD PRN; Protocol PRN Reason: Hypoglycemia Protocol Stop: 09/04/18 18:23 Glucose (Glucose 40%) 15 - 30 gm PO UD PRN; Protocol PRN Reason: Hypoglycemia Protocol Stop: 09/04/18 18:23 Sodium Chloride (Nss 1000ml) 1,000 mls @ 15 mls/hr IV .Q24H [facility] Stop: 09/04/18 15:59 Insulin Aspart (Novolog Flexpen) 0 units SC ACHS [facility] Stop: 09/04/18 20:59 Insulin Glargine (Lantus Solostar Pen) 15 units SC Q12H [facility] Stop: 09/04/18 18:29 Miscellaneous (Carbohydrates For Hypoglycemia) 15 - 30 gm PO UD PRN PRN Reason: Hypoglycemia Treatment Stop: 09/04/18 18:23 Code Status & VTE Plan Code Status FULL VTE Prophylaxis Plan VTE Prophylaxis will be ordered: No Reason for no VTE drug order: Contraindicated (pending CT abdomen eval to r/o perforation from colonoscopy) Critical Care Time 35min Critical Care Time: Yes Supervising Physician Co-Signing Physician Notes Resident Physician Supervision Note: I was present with Dr. Charlotte Mcrae during the history and exam. I discussed the case with the resident and agree with the findings and plan as documented in the note. Any exceptions or clarifications are listed here: None Patient is seen in the presence of Dr. Mcrae and post EGD suite. Patient was hypertensive and shaky she appeared anxious and agitated she is focused on some pain on the right side abdomen which was be expected due to her epinephrine injection at the site of the polyp removal she had no acute abdomen on physical exam vital signs other than hypertension and tachycardia were normal. I discussed the case with Dr. Mcrae will have the patient brought in for observation controlling her anxiety with lorazepam continuing her home medications of carvedilol lisinopril. She was entered metoprolol but will hold that at this time in lieu of the carvedilol will use as needed blood pressure control with IV hydralazine and clonidine Documented By: Bhupendra Elliott MD Resident Activity Tracking Resident Involvement: Resident Care Provided Care Provided: Adult Hospital Medicine
[2018-08-05] MEDS ORDERED: TRAMADOL HCL 50 MG TABLET PO PRN (18:40)
[2018-08-05] MEDS ORDERED: ALBUTEROL HFA 8 GM INHALER INH PRN (18:40)
[2018-08-05 18:45] LABS: Albumin Level 3.6 gm/dl (3.4-5.0); BUN Creatinine Ratio 11.4 (10-20); Calcium 8.8 mg/dl (8.5-10.1); Creatinine Clr Calc Pharmacy 59.9 ml/min; Est GFR (African American) 80.5; Est GFR (Non-African American) 69.4; Potassium 3.7 mmol/L (3.5-5.1)
[2018-08-05 18:48] LABS: Albumin Globulin Ratio 0.9 (0.9-2); Bilirubin,Total 0.6 mg/dl (0.1-1); Total Protein 7.6 gm/dl (6.4-8.2)
[2018-08-05 18:53] LABS: Mean Corpuscular Hgb Conc 35.5 g/dL (32-36)
--- NOTE | 2018-08-05 19:00 | CT Scan Report ---
ABDOMEN AND PELVIS CT WITHOUT CONTRAST CT DOSE: 711.43 mGy.cm HISTORY: Acute mid abdominal pain with tachycardia and hypertension Large polypectomy with post-proc edure pain TECHNIQUE: Multiaxial CT images of the abdomen and pelvis were performed without contrast. A dose lo wering technique was utilized adhering to the principles of ALARA. COMPARISON STUDY: CT chest 05/14/2010, PET CT 02/05/2006. FINDINGS: Imaged lung bases are generally clear. No pneumatosis or pneumoperitoneum identified. Image d inferior cardiac chambers are unremarkable with coronary arterial and mitral annular calcifications . Trace pericardial effusion. Cholelithiasis without CT evidence of acute cholecystitis. No evidence of choledocholithiasis or intr ahepatic biliary ductal dilation. Liver is unremarkable. Spleen, pancreas and adrenal glands are unre markable. Kidneys and ureters are unremarkable. Mild distention of the urinary bladder. 10 mm cystic structure of the right vagina incidentally noted. Multiple phleboliths of the pelvis. No aortic aneurysm. No adenopathy. There is no bowel obstruction. Linear metallic density structure o f the cecum suggesting postoperative suture measures up to approximately 2 cm in length. Mild wall th ickening of the colon within this distribution. Mildly prominent lymph nodes of the right lower quadr ant mesentery measure up to 7 mm in short axis. No evidence of acute appendicitis. Tiny fat filled pa in focal hernia, diastases 1.4 cm. Bones appear intact. Multilevel spondylitic spurring with facet ar throsis. IMPRESSION: 1. Linear metallic density structure of the cecum suggests surgical suture material measuring up to a pproximately 2.0 cm in length. Mild wall thickening of the adjacent cecum may be on a postprocedural bases. 2. No pneumatosis or pneumoperitoneum. 3. No bowel obstruction. 4. Cholelithiasis without CT evidence of acute cholecystitis. 5. Additional findings as above. Electronically signed by: Parish Jo M.D. 08/05/2018 6:58 PM
[2018-08-05] MEDS ORDERED: LORazepam 0.5 MG/1 ML VIAL IV PRN (19:34)
[2018-08-05] MEDS ORDERED: HydrALAZINE HCL 20 MG/ML VIAL IV PRN (19:42)
[2018-08-05] MEDS ORDERED: cloNIDine HCl 0.1 MG TAB PO PRN (19:42)
[2018-08-05] MEDS ORDERED: MoRPHine SULFATE 4 MG/ML 1 ML CARP\\VIAL IV PRN (19:43)
[2018-08-05] MEDS ORDERED: MoRPHine SULFATE 2 MG/ML CARP IV PRN (19:43)
[2018-08-05] MEDS ORDERED: INSULIN GLARGINE SOLOSTAR 100 UNITS/ML 3 ML PEN SC SCH (20:00)
--- NOTE | 2018-08-05 20:39 | Progress Note ---
DATE: 08/05/2018 RACE: . Yolis Wiley underwent a colonoscopy this afternoon in the GI lab. She underwent a polypectomy of the ascending colon of an approximately 1.5 cm polyp which was removed. She did have bleeding noted postpolypectomy and did have epinephrine 1:10,000 mix, 6 mL was injected into the base of the polypectomy site. She also had 3 Endoclips placed to that site and had heater probe therapy to obliterate a bleeding vessel. Following the procedure, she was taken to the recovery area where she experienced an episode of tachycardia, tachypnea, and hypertension. A code purple was called and the patient was noted to have no signs of decompensation and did have improvement in her vital signs with resumption of normal respiratory rate, pulse rate, and blood pressure. The case was discussed with both Dr. Merino as well as Dr. Elliott who responded to the code purple and decision was made to admit the patient for 23-hour observation. Because the patient had a polypectomy and was complaining of some abdominal pain in the postprocedural area, a CT scan of the abdomen and pelvis was performed which showed no evidence of pneumoperitoneum or evidence of perforation. She had normal postprocedural findings based on the procedure that was performed. Laboratory studies were also performed at that time and she was noted to have a normal CBC with differential as well as a normal CMP with the exception of a slightly elevated alkaline phosphatase and a slightly elevated blood glucose level. The patient subsequently was transferred to the PCU where she will be in observation status. Once again, thank you for allowing me to participate in the care of this patient. If you have any further questions, please do not hesitate in contacting me. Her colonoscopy report is available in [email or web address].
[2018-08-05] MEDS: CARVEDILOL 25 MG TAB PO SCH (20:40)
[2018-08-05] MEDS: DICLOFENAC SOD 1% GEL 100 GM TUBE EXT SCH (20:41)
[2018-08-05] MEDS: LISINOPRIL 20 MG TAB PO SCH (20:41)
[2018-08-05] MEDS: PANTOprazole 40 MG TAB PO SCH (20:41)
[2018-08-05] MEDS ORDERED: METOPROLOL TARTRATE 25 MG TAB PO SCH (21:00)
[2018-08-05] MEDS ORDERED: ATORVASTATIN 40 MG TAB PO SCH (21:00)
[2018-08-05] MEDS: INSULIN ASPART 100 UNITS/ML 3 ML PEN SC SCH (21:54)
[2018-08-06] MEDS ORDERED: LEVOTHYROXINE SODIUM 50 MCG TABLET PO SCH (06:30)
[2018-08-06] MEDS: LISINOPRIL 20 MG TAB PO SCH (07:52)
[2018-08-06] MEDS: CARVEDILOL 25 MG TAB PO SCH (07:52)
[2018-08-06] MEDS: DICLOFENAC SOD 1% GEL 100 GM TUBE EXT SCH (07:52)
[2018-08-06] MEDS: PANTOprazole 40 MG TAB PO SCH (07:53)
[2018-08-06] MEDS: INSULIN ASPART 100 UNITS/ML 3 ML PEN SC SCH ×2 (07:55→12:20)
[2018-08-06] MEDS ORDERED: FUROSEMIDE 20 MG TAB PO SCH (09:00)
[2018-08-06] MEDS ORDERED: MULTIVITAMIN TAB PO SCH (09:00)
[2018-08-06] MEDS ORDERED: NON-FORMULARY MEDICATION (Biotin [Biotin] 1 MG) PO SCH (09:00)
[2018-08-06] MEDS ORDERED: INSULIN GLARGINE SOLOSTAR 100 UNITS/ML 3 ML PEN SC SCH (09:00)
[2018-08-06] MEDS ORDERED: METOPROLOL TARTRATE 50 MG TAB PO SCH (09:00)
--- NOTE | 2018-08-06 09:33 | Discharge Summary ---
Date of Service August 06, 2018 Admission HPI Per Admitting Provider 73F here after being a code purple in the endoscopy recovery suite. She is s/p colonoscopy with polypectomy after routine FIT testing was found to be positive in the outpatient setting. Per report, Dr. Dubois clipped a few polyps and injected 6 ccs of epinephrine for good hemostasis, and while awakening from anesthesia, pt began to experience acute abdominal pain and developed systolic blood pressure in low 200s. Pt complained of acute anxiety as well. Dr. Dubois and anesthesiologist were at bedside monitoring patient throughout the code, they placed a nasal cannula and gave supplemental oxygen, pt was saturating 100% . BP began to trend back down to SBP 160s. Pt never lost consciousness, was able to speak in full sentences and was aware of her surroundings. ECG was done. Stat labs and abdominal CT ordered as well. Pt's daughter Yaquelin was at bedside as well and provided history that pt struggles with high blood pressure. Principal Diagnosis acute abdominal pain, hypertensive urgency Discharge Exam GENERAL: Awake, alert, well-appearing, in no distress HENT: Normocephalic, atraumatic. EYES: Normal conjunctiva. Sclera non-icteric. NECK: Supple. Full range of motion. no JVD RESPIRATORY: Clear to auscultation. CARDIAC: Regular rate, normal rhythm. Extremities warm and well perfused. Pulses equal. ABDOMEN: Soft, non-distended. No tenderness to palpation. No rebound or guarding. No masses. LOWER EXTREMITIES: Calves are equal size bilaterally and non-tender. No edema. No discoloration. NEURO: No motor deficits noted. SKIN: No rash or jaundice noted. Discharge Data Allergies Allergy/AdvReac Type Severity Reaction Status Date / Time adhesive Allergy Mild tears skin Verified 08/05/18 15:13 Barbiturates Allergy Mild Hives Verified 08/05/18 15:13 hydrochlorothiazide Allergy Mild Gastrointestinal Verified 08/05/18 15:13 Upset loratadine Allergy Mild light Verified 08/05/18 15:13 headed, dizzy, heart racing phenobarbital Allergy Mild heart Verified 08/05/18 15:13 racing pseudoephedrine Allergy Mild light Verified 08/05/18 15:13 headed, heart racing sertraline Allergy Mild light Verified 08/05/18 15:13 headed, dizzy Sulfa (Sulfonamide Allergy Mild Vomiting Verified 08/05/18 15:13 Antibiotics) triamterene Allergy Mild Gastrointestinal Verified 08/05/18 15:13 Upset Dyazide Allergy Unknown UNKNOWN Verified 04/11/15 09:31 propoxyphene Allergy Unknown Unknown Verified 08/05/18 15:13 Procedures Performed Operation Date: 08/05/18 15:00 Actual Procedures p Colonoscopy Polypectomy - Joaquín G Case, DO s Colonoscopy Hemostasis - Joaquín G Case, DO s Injection Therapy / Sclerotherapy - Joaquín G Case, DO Ordered Studies 08/05/18 18:10 CT abd pelvis wo con Stat Hospital Course (1) Hypertensive urgency: 73F kept for observation after being a code purple in the endoscopy recovery suite. Pt was found to be acutely hypertensive and in distress upon awakening s/p colonoscopy polypectomy with acute abdominal pain. Pt will be kept for observation and monitoring. ECG during code showed LBBB, rate in 90s and QTc 516. - Observed on telemetry -- no issues overnight. Repeat ECG shows improved QTc to normal. - Normal CT abd/pelvis and CMP, CBC. - Hypertensive reaction possibly due to pain/anxiety - pain subsided -- may have been due to local side effect of epinephrine injected. Other ongoing medical issues: T2DM: no acute issues, continue home meds. HTN: continue home meds carvedilol furosemide, lisinopril, metoprolol tartrate. HLD: continue statin CAD: continue home aspirin. Asthma: continue inhalers Chronic pain: tramadol 50mg q6h PRN hypothyroid: continue levothyroxine (2) CAD (coronary artery disease): (3) Hypertension: (4) Hyperlipidemia: (5) Anxiety: (6) Abdominal pain: (7) Asthma: (8) Type 2 diabetes mellitus: (9) Hypothyroid: (10) GERD (gastroesophageal reflux disease): Total Time Total Time Spent Total Time Spent (In Minutes): 35 Discharge Plan Discharge Items Patient Disposition: Home - Self-Care Reason For Visit: HYPERTENSION URGENCY Discharge Diagnosis: Colon polyp Internal hemorrhoids Hypertensive urgency Condition: Good Discharge Goals: Decrease discomfort, Diagnostic testing, Increase independence and Prevent disease Activity: Per 'Additional Instructions' section Lifting: Gradually increase as tolerated Bathing: No limitations Sexual Activity: When tolerated Exercise/Sports: Gradually increase as tolerated Non-emergency contact: Primary Care Provider and Cheese Maker Call non-emergency contact if: your pain is unusual for you and your temperature is above 101 Follow-up/Referrals: Anastacia Rodriges MD [Primary Care Provider] - Diet: Carb Consistent or DM2 and Heart Healthy Addtl Provider Instructions: You were monitored overnight given your acute symptoms of abdominal pain, anxiety and increased blood pressure. We also did a cat scan of your abdomen to make sure there were no organic complications from your colonoscopy, and the scan appears normal. We recommend you follow up with your primary care provider to discuss your hospital stay within 2-4 weeks from discharge. Please call their office to make this appointment. IF YOU EXPERIENCE ANY OF THE FOLLOWING SYMPTOMS AFTER YOUR PROCEDURE CALL YOUR PRIMARY CARE PHYSICIAN IMMEDIATELY OR SEEK MEDICAL ATTENTION AT YOUR NEAREST EMERGENCY ROOM: 1. SEVERE abdominal pain or bloating 2. FEVER greater than 101.1 degrees within 24 hours after the procedure 3. LARGE AMOUNTS OF BLEEDING greater than 2-3 tablespoons. If you had a polyp/s removed or have hemorrhoids, a small amount of blood from the rectum is to be expected. 4. A localized irritation of the vein may occur at the site of the IV injection. Hot moist packs to the vein applied 4-6 times per day may reduce pain and irritation. A tender lump may develop and remain for several weeks to several months, but goes away eventually. If the area continues to be painful or becomes red and hot to the touch. For routine questions call [facility] at [phone]. * Avoid the use of alcohol and sedatives for 24 hours. Prescriptions: Continue multivitamin Tablet 1 tab PO QAM RF: 0 atorvastatin 40 mg Tablet 40 mg PO HS RF: 0 carvedilol 25 mg Tablet 25 mg PO BID RF: 0 lisinopril 20 mg Tablet 20 mg PO BID RF: 0 aspirin [Aspirin Low Dose] 81 mg Tablet,Delayed Release (Dr/Ec) 81 mg PO QAM RF: 0 tramadol 50 mg Tablet 50 - 100 mg PO Q6H PRN (Reason: Pain) RF: 0 levothyroxine 50 mcg Tablet 50 mcg PO QAM RF: 0 furosemide 20 mg Tablet 20 mg PO QAM RF: 0 albuterol sulfate [Ventolin HFA] 90 mcg/actuation Hfa Aerosol Inhaler 1 - 2 puff INHALATION Q6H PRN (Reason: Shortness Of Breath) RF: 0 ipratropium bromide 0.03 % [place],Non-Aerosol 2 spray INTRANASAL BID PRN (Reason: Nasal Congestion) RF: 0 glipizide 5 mg Tablet 5 mg PO BID RF: 0 metoprolol tartrate 25 mg Tablet 25 mg PO QPM RF: 0 metoprolol tartrate 25 mg Tablet 50 mg PO QAM RF: 0 biotin 1 mg Tablet 1 mg PO QAM RF: 0 insulin glargine [Basaglar KwikPen U-100 Insulin] 100 unit/mL (3 mL) Insulin Pen 25 unit SUBCUT QAM RF: 0 insulin glargine [Basaglar KwikPen U-100 Insulin] 100 unit/mL (3 mL) Insulin Pen 15 unit SUBCUT DAILY RF: 0 diclofenac sodium [Voltaren] 1 % Gel 4 g TOPICAL BID RF: 0 omeprazole 20 mg Tablet,Delayed Release (Dr/Ec) 20 mg PO BID RF: 0 Stand-Alone Forms: Anesthesia/Sedation, Adult Discharge Orders: Discharge Order (Routine); Ordered 08/06/18 Ordered By: Roxie Mcrae Admission Data Admit Date/Time: 08/05/18 18:19 Attending Provider: Bhupendra Elliott Admit Provider: Roxie Mcrae Primary Care Provider: Anastacia Rodriges Service: Telemetry Other Interventions: Discharge Summary Assessment (RN) Last Done: 08/06/18 13:50 Pending Studies at Discharge: Yes Studies:: biopsy results of polypectomy DC Date/Time DO NOT enter until pt leaves facility: 08/06/18 14:16 Supervising Physician Co-Signing Physician Notes Resident Physician Supervision Note: I independently interviewed and examined the patient and verified the kern history and physical, reviewed labs and image studies, discussed the case with the resident Dr. Mcrae and agree with the findings and care plan. Resident Activity Tracking Resident Involvement: Resident Care Provided Care Provided: Adult Hospital Medicine
== END 2018-08-06 14:16 | disposition home or self-care (01) ==
LOC: ENDO 13:58 → 2S 13:58

== ENCOUNTER 2021-08-25 12:30 | Inpatient (IN) ==
[2021-08-25] MEDS ORDERED: ONDANSETRON INJ 2 MG/ML 2 ML VIAL IV STA ×2 (12:51→14:06)
[2021-08-25 13:04] LABS: Basophils # (auto) 0.03 K/uL (0-0.2); Basophils % (auto) 0.3 %; Eosinophils # (auto) 0.13 K/uL (0-0.5); Eosinophils % (auto) 1.4 %; Hematocrit (blood only) 41.9 % (37-47); Immature Granulocytes # (auto) 0.02 K/uL (0.00-0.02); Immature Granulocytes % (auto) 0.2 %; Lymphocytes # (auto) 1.55 K/uL (1.2-3.4); Lymphocytes % (auto) 17.3 %; Mean Corpuscular Hgb Conc 33.4 g/dL (32-36); Mean Corpuscular Volume 89.7 fL (80-100); Mean Platelet Volume 10.3 fL (7.4-10.4); Monocytes # (auto) 0.45 K/uL (0.11-0.59); Neutrophils % (auto) 75.8 %; Platelet Count 186 K/uL (130-400); RDW Coefficient of Variation 12.9 % (11.5-14.5); Red Blood Count 4.67 M/uL (4.2-5.4); White Blood Count 8.98 K/uL (4.8-10.8)
--- NOTE | 2021-08-25 13:16 | XRay Report ---
XR chest 1V portable CLINICAL HISTORY: Atypical chest pain TECHNIQUE: Single frontal radiograph of the chest was obtained. Comparison: Comparison is made to chest 2 views 10/19/2018 FINDINGS: No lines and tubes are seen. The cardiomediastinal silhouette is slightly prominent. There is mild bi basilar atelectasis. Mild cephalization of the vasculature is noted. No evidence of pleural effusion or pneumothorax. IMPRESSION: Mild pulmonary edema. ACT 112: Negative or not required by law. Electronically signed by: Julio Cesar Mosqueda M.D. 08/25/2021 1:14 PM
[2021-08-25 13:34] LABS: Alanine Aminotransferase 127 (12-78); Alkaline Phosphatase 111 U/L (45-117); Aspartate Aminotransferase 159 U/L (15-37); BUN Creatinine Ratio 28.5 (10-20); Bilirubin Direct 1.2 mg/dl (0-0.2); Bilirubin,Total 1.7 mg/dl (0.2-1); Blood Urea Nitrogen 34 mg/dl (7-18); Calcium 8.9 mg/dl (8.5-10.1); Carbon Dioxide 23 mmol/L (21-32); Chloride 105 mmol/L (98-107); Creatinine Clr Calc Pharmacy 42.2 ml/min; Est GFR (African American) 50.7 ml/min; Est GFR (Non-African American) 43.7 ml/min; Glucose 302 mg/dl (70-99); Potassium 4.4 mmol/L (3.5-5.1); Sodium 137 mmol/L (136-145); Total Protein 7.1 gm/dl (6.4-8.2); Troponin I < 0.015 ng/ml (0-0.045)
[2021-08-25 13:52] LABS: Beta-Hydroxybutyrate 2.72 mg/dl (0.2-2.81)
[2021-08-25 14:03] LABS: Albumin Globulin Ratio 0.8 (0.9-2); Albumin Level 3.2 gm/dl (3.4-5.0); Globulin 3.9 gm/dl (2.5-4.0)
[2021-08-25] MEDS ORDERED: HYDROmorphone INJ 0.5 MG/0.5 ML SYR IV STA (14:06)
[2021-08-25] MEDS ORDERED: SODIUM CHLORIDE 0.9% 1000ML 1,000 ML IV SCH (14:15)
[2021-08-25 14:31] LABS: Appearance Urine Clear (Clear); Bilirubin Urine Negative (Negative); Blood Urine Negative (Negative); Color Urine Yellow; Glucose Urine UA 3+ (Negative); Ketones Urine Negative (Negative); Leukocyte Esterase Urine Negative (Negative); Nitrite Urine Negative (Negative); Protein Urine Negative (Negative); Urobilinogen Urine Negative (Negative)
--- NOTE | 2021-08-25 14:32 | Emergency Department Note ---
ED Visit Note I have personally seen and evaluated the patient with the PA. LFTs are noted to be elevated. Patient was evaluated in complaint of pain. Exam of the right upper quadrant was performed and concerning for acute cholecystitis but equivocal. Patient was medicated with IV Dilaudid and Zofran for her discomfort, hydrated with normal saline solution. I agree with the diagnosis and management decisions and have been personally involved in the case. Please see Jonathan Benavides PA-C's notes for further details of the history, physical and visit. .
--- NOTE | 2021-08-25 15:44 | Ultrasound Report ---
US gallbladder CLINICAL HISTORY: elevated LFT TECHNIQUE: Multiple real-time sonographic images of the right upper quadrant were obtained. Comparison: None available at the time of this dictation. FINDINGS: The liver is diffusely homogenous with normal contour and echogenicity. No focal mass lesions are se en. No intrahepatic ductal dilatation is seen. Multiple gallstones are seen. The gallbladder wall is mildly prominent, measuring 0.3 cm. Ulloa's sign cannot be assessed as the patient received pain medication. The common duct measures 0.7 cm in diameter at the level of the hepatic artery. The dias creas is not well visualized secondary to overlying bowel gas. The right kidney shows normal echogenicity, cortical thickness and renal contour. The right kidney sh ows no evidence of hydronephrosis or mass. No ascites or free fluid is seen in Barroso's pouch. IMPRESSION: Multiple layering stones with mildly prominent gallbladder wall. No pericholecystic fluid is seen. Fi ndings are equivocal for acute cholecystitis. If further evaluation is desired, nuclear medicine hepa tobiliary scan can be performed. ACT 112: Negative or not required by law. Electronically signed by: Julio Cesar Mosqueda M.D. 08/25/2021 3:43 PM
--- NOTE | 2021-08-25 17:16 | History & Physical Report ---
Date of Service August 25, 2021 Assessment & Plan (1) Abdominal pain, acute, epigastric: Plan: unclear if this is acute cholecystitis she certainly has gall stones but US is equivocal for cholecystitis discussed getting MRCP to look for choledocholithiasis since bili is up slightly, she cannot get MRI due to severe anxiety could wait and get HIDA scan Friday ultimately defer to general surgery if she needs cholecystectomy will give her Zosyn IV in the meantime, repeat labs in AM consult cardiology given her history in case she needs surgery check echocardiogram, EKG in AM allow liquid diet, NPO after midnight but if no surgery then she can eat tomorrow, diabetic diet LR at 80cc/hr x 1 bag, careful not to give too much volume with h/o cardiomyopathy Heparin 7500 q8 for prophylaxis (2) Abnormal ultrasound of gallbladder: Plan: layered gall stones but no obvious signs of cholecystitis CBD only 7mm which is normal range for her age patient refuses MRCP could get HIDA scan Friday? (3) Elevated liver function tests: Plan: bili 1.7 and AST/ALT mildly elevated repeat tomorrow (4) Uncontrolled type 2 diabetes mellitus with hyperglycemia, with long-term current use of insulin: Plan: sugar 300 she confirms she took her Basaglar 34 units this morning and her Humalog ongoing issue with hyperglycemia in afternoons/evenings she takes set amount with meals and uses sliding scale for higher sugars plan: due to NPO status in AM, will cut Lantus to 20 units use novolog SS q6 with CF 25, if she eats can use carb ratio 8 adjust as needed (5) CAD (coronary artery disease): Plan: no chest pain continue aspirin, Coreg and metoprolol ( she confirms that she is prescribed BOTH by Dr. De Jesus) troponin negative, check EKG in AM echo tomorrow consult cardiology for evaluation in case she needs procedure (6) Hypertension: Plan: BP stable hold lisinopril given her mild rise in Cr at 1.2 continue Coreg and metoprolol (7) Hyperlipidemia: Plan: hold Statin for now given mild elvation in AST/ALT (8) Hypothyroid: Plan: can hold Synthroid for time being (9) GERD (gastroesophageal reflux disease): Plan: PPI History of Present Illness Chief Complaint: I have upper abdominal pain Primary Care Provider: Anastacia Rodriges MD 76 yo female with history of CAD with [place], cardiomyopathy followed by Dr. 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 She says that the pain started at 2am, was sharp, constant and has not gone away until she got Dilaudid in the ED. She says she has never had this pain before, specifically denies any post prandial pain, ever. She says she was eating normally the past few days. The pain this morning stayed in epigastric region, slightly in RUQ. She had a decreased appetite today, some nausea but did not vomit, no diarrhea. Her last BM was yesterday and was normal. She denies any fever/chills, sweats, chest pain, dyspnea, cough. She gets occasional leg swelling, takes Lasix twice a week. She says that her sugars have been elevated the past few days, unsure why as her diet had not changed. She has been taking her Basaglar 34 units and Humalog TID with meals and sliding scale. Her morning sugars are always < 200 but in afternoon and evening sugars are 260-300. In the ED her vitals were stable, no fever. WBC normal, Hb normal, Cr up slightly at 1.2. Mild elevation in her bilirubin at 1.7, AST 159, ALT 127, alk phos 111. US of RUQ showed gall stones, thickened gall bladder wall but the study was equivocal for cholecystitis. Surgery was consulted by the ED, requested medicine admission. Allergies Allergy/AdvReac Type Severity Reaction Status Date / Time adhesive Allergy Mild SKIN TEARS Verified 08/25/21 14:11 AND HEALING ISSUES Barbiturates Allergy Mild Hives Verified 08/25/21 14:11 hydrochlorothiazide Allergy Mild Gastrointestinal Verified 08/25/21 14:11 Upset phenobarbital Allergy Mild heart Verified 08/25/21 14:11 racing pseudoephedrine Allergy Mild light Verified 08/25/21 14:11 headed, heart racing sertraline Allergy Mild light Verified 08/25/21 14:11 headed, dizzy Sulfa (Sulfonamide Allergy Mild Vomiting Verified 08/25/21 14:11 Antibiotics) triamterene Allergy Mild Gastrointestinal Verified 08/25/21 14:11 Upset Dyazide Allergy Unknown UNKNOWN Verified 04/11/15 09:31 gabapentin Allergy Unknown Swelling Verified 08/25/21 14:11 of Lip/Tongue/Throat pantoprazole Allergy Unknown Gastrointestinal Verified 08/25/21 14:11 Upset propoxyphene Allergy Unknown Unknown Verified 08/25/21 14:11 pollen extracts Allergy Verified 08/25/21 14:11 Home Medications Medication Instructions Recorded Confirmed Type aspirin 81 mg tablet,delayed 81 mg PO QAM 07/28/18 08/25/21 History release (Aspirin Low Dose) biotin 1 mg tablet 1 mg PO QAM 07/28/18 08/25/21 History lancets 30 gauge (OneTouch Delica #25 ea 02/08/19 07/23/21 History Lancets) multivitamin 1 tab PO QAM 02/08/19 08/25/21 History glucosam 750 mg-chondroi 100 1 tab PO UD 01/12/20 08/25/21 History mg-hyalur 1.65 mg-CF borate 108 mg tablet ([facility]) albuterol sulfate 90 mcg/actuation 1 - 2 puff INHALATION Q6H PRN #6.7 05/25/20 08/25/21 Rx aerosol inhaler (Ventolin HFA) g ipratropium bromide 21 mcg (0.03 2 spray INTNAS TID #30 ml 05/25/20 08/25/21 Rx %) nasal spray BD Ultra-Fine [place] Pen Needle 32 #400 ea NS 01/01/21 07/23/21 Rx gauge x 5/32" (pen needle, diabetic) [facility]/01/21 07/23/21 History Ultra Blue Test Strip) zinc 50 mg tablet 50 mg PO DAILY 01/01/21 08/25/21 History atorvastatin 40 mg tablet 40 mg PO QPM #90 tab 01/16/21 08/25/21 Rx insulin lispro 100 unit/mL See Rx Instructions .ROUTE 03/13/21 08/25/21 Rx subcutaneous pen (Humalog KwikPen .COMPLEX #60 ml (U-100) Insulin) montelukast 10 mg tablet 10 mg PO DAILY #30 tab 04/19/21 08/25/21 Rx omeprazole 20 mg capsule,delayed 20 mg PO BID #180 cap 04/19/21 08/25/21 Rx release insulin glargine 100 unit/mL (3 34 unit SUBCUT DAILY #4 box 04/20/21 08/25/21 Rx mL) subcutaneous pen (Basaglar IvonnePen U-100 Insulin) carvedilol 25 mg tablet 25 mg PO BID #60 tab 05/17/21 08/25/21 Rx levothyroxine 50 mcg tablet 50 mcg PO QAM #90 tab 05/17/21 08/25/21 Rx cranberry 500 mg capsule 500 mg PO DAILY cap 05/21/21 08/25/21 History empagliflozin 10 mg tablet 10 mg PO DAILY #90 tab 05/21/21 08/25/21 Rx (Jardiance) lisinopril 20 mg tablet 20 mg PO BID #180 tab 05/21/21 08/25/21 Rx turmeric 400 mg capsule 400 mg PO DAILY 05/21/21 08/25/21 History metoprolol tartrate 25 mg tablet See Rx Instructions PO DAILY #270 06/19/21 Rx tab furosemide 40 mg tablet 40 mg PO 2XWK #30 tab 06/21/21 08/25/21 Rx diclofenac sodium 1 % topical gel 4 g TOP QID PRN #500 g 07/18/21 08/25/21 Rx acetaminophen 650 mg 650 mg PO Q8H 07/23/21 08/25/21 History tablet,extended release (Tylenol 8 Hour) tramadol 50 mg tablet See Rx Instructions PO Q6H PRN 08/02/21 08/25/21 Rx #180 tab cholecalciferol (vitamin D3) 50 0 mcg PO DAILY 08/25/21 08/25/21 History mcg (2,000 unit) capsule (Vitamin D3) levothyroxine 50 mcg tablet 50 mcg PO DAILY 08/25/21 08/25/21 History (Euthyrox) Past Med/Surg History Medical History Anxiety Asthma inhaler prn Atrial fibrillation CAD (coronary artery disease) Cardiac murmur since childhood Cardiomyopathy COVID-19 vaccine series completed Diabetes mellitus, type 2 Fibromyalgia GERD (gastroesophageal reflux disease) Hearing deficit History of COVID-19 Hx of myocardial infarction multiple, most recent 2016/cardiac cath 2017 with no stents Hx of sarcoma of soft tissue right elbow- 2001; s/p chemo Hx of thrombophlebitis RLE Hyperlipidemia Hypertension Hypertensive urgency Hypothyroidism Insomnia, persistent Osteoarthritis Surgical History History of anesthesia reaction difficulty waking History of bilateral carpal tunnel release x2 History of bilateral tubal ligation History of cardiac cath 2017 @ [facility]--no stents History of left breast biopsy benign History of left cataract extraction History of surgery on arm sarcoma removal of right arm History of tooth extraction under local History of vascular access device removed 2007 Hx of colonoscopy Hx of varicose vein ligation right leg Family History Mother Family history of diabetes mellitus Myocardial infarction Allergies Cardiac disorder Hypertension Grandfather (Maternal) Family history of diabetes mellitus Grandfather (Paternal) Family history of diabetes mellitus Daughter Family hx of colon cancer Colorectal cancer Allergies Father Stroke Myocardial infarction Brother Brain tumor Renal failure Grandmother (Maternal) Cardiac disorder Other Bleeding disorder Denies family history of Ovarian cancer Prostate cancer Breast cancer Social History Smoking Status: Never smoker Second Hand Exposure: No (when worked); Hx Alcohol Use: No Hx Substance Use: No Preferred Language: Zimbabwean Communication Ability: Effective Visual Impairment: Limited Hearing Ability: Hard of Hearing Audio Visual Facilities Engineer Required: No Beliefs That Will Affect Care: None marital status: Single Current Living Situation: Alone current occupational status: retired How many Children do You have: 4 Feels Safe at Home: Yes Childhood Exposure to Second-Hand Smoke: No caffeine: No Dental Care, Regularly: No Physical Activity Frequency: Does not Exercise Physical Activity Frequency Comment: limited d/t housing Seatbelt Use: always Sunscreen Use: Yes Assistive Devices: Cane and Glasses Review of Systems Review of Systems: All systems reviewed & are unremarkable except as noted in HPI & below Physical Exam Physical Exam: General: well developed, obese female, no acute distress, comfortable Neck: supple, trachea midline, normal thyroid Lungs: clear to auscultation bilaterally, normal respiratory effort, no accessory muscle use, no distress Heart: regular S1 and S2, no murmur, peripheral pulses normal, capillary refill normal, no edema Abdomen: soft, TTP in RUQ, ND, + BS, no hepatomegaly, normal to percussion Extremities: normal in appearance, no cyanosis, no petechiae, strength is 5/5 bilaterally Neuro: awake, cooperative, moves all extremities, no focal motor deficits, CN II-XII intact, sensation in extremities intact, normal speech Skin: warm, dry, no rash, normal turgor Psych: Awake, alert oriented x 3, euthymic affect Results & Data Results & Data ([facility]) Vital Signs (Past 12 Hours) Vital Signs Temp Pulse Pulse Resp BP BP Pulse Ox 08/25/21 17:01 97 H 17 132/74 97 08/25/21 17:00 94 H 21 95 08/25/21 16:31 91 H 24 140/76 96 08/25/21 16:30 92 H 21 96 08/25/21 16:29 97 H 25 H 124/90 96 08/25/21 16:25 88 17 08/25/21 16:01 90 20 124/90 95 08/25/21 15:01 91 H 24 125/95 96 08/25/21 15:00 87 16 96 08/25/21 14:30 75 22 165/70 H 96 08/25/21 14:01 81 14 152/103 H 96 08/25/21 14:00 72 19 98 08/25/21 13:30 72 22 128/75 93 08/25/21 13:02 69 16 123/57 L 95 08/25/21 13:00 76 18 112/53 L 94 08/25/21 12:39 69 16 96 08/25/21 12:16 37.1 C 68 20 123/57 L 95 Laboratory Results Laboratory Results - last 24 hr 08/25/21 08/25/21 08/25/21 Unknown Unknown Unknown WBC 8.98 RBC 4.67 Hgb 14.0 Hct 41.9 MCV 89.7 MCH 30.0 MCHC 33.4 RDW Std Deviation 42.0 RDW Coeff of Barbara 12.9 Plt Count 186 MPV 10.3 Immature Gran % (Auto) 0.2 Neut % (Auto) 75.8 Lymph % (Auto) 17.3 Sherman % (Auto) 5.0 Eos % (Auto) 1.4 Baso % (Auto) 0.3 Neut # (Auto) 6.80 H Lymph # (Auto) 1.55 Sherman # (Auto) 0.45 Eos # (Auto) 0.13 Baso # (Auto) 0.03 Immature Gran # (Auto) 0.02 Sodium 137 Potassium 4.4 Chloride 105 Carbon Dioxide 23 Anion Gap 9.0 BUN 34 H Creatinine 1.21 H Est Cr Clr Drug Dosing 42.2 Est GFR ( Amer) 50.7 Est GFR (Non-Af Amer) 43.7 BUN/Creatinine Ratio 28.5 H Glucose 302 H* Calcium 8.9 Total Bilirubin 1.7 H Direct Bilirubin 1.2 H AST 159 H ALT 127 H Alkaline Phosphatase 111 Troponin I < 0.015 Total Protein 7.1 Albumin 3.2 L Globulin 3.9 Albumin/Globulin Ratio 0.8 L Beta-Hydroxybutyric Acd 2.72 Urine Color Urine Appearance Urine pH Ur Specific [place] Urine Protein Urine Glucose (UA) Urine Ketones Urine Blood Urine Nitrite Urine Bilirubin Urine Urobilinogen Ur Leukocyte Esterase SARS-CoV-2, RNA, NAAT NEGATIVE 08/25/21 Unknown WBC RBC Hgb Hct MCV MCH MCHC RDW Std Deviation RDW Coeff of Barbara Plt Count MPV Immature Gran % (Auto) Neut % (Auto) Lymph % (Auto) Sherman % (Auto) Eos % (Auto) Baso % (Auto) Neut # (Auto) Lymph # (Auto) Sherman # (Auto) Eos # (Auto) Baso # (Auto) Immature Gran # (Auto) Sodium Potassium Chloride Carbon Dioxide Anion Gap BUN Creatinine Est Cr Clr Drug Dosing Est GFR ( Amer) Est GFR (Non-Af Amer) BUN/Creatinine Ratio Glucose Calcium Total Bilirubin Direct Bilirubin AST ALT Alkaline Phosphatase Troponin I Total Protein Albumin Globulin Albumin/Globulin Ratio Beta-Hydroxybutyric Acd Urine Color Yellow Urine Appearance Clear Urine pH 5.0 Ur Specific [place] 1.020 Urine Protein Negative Urine Glucose (UA) 3+ H Urine Ketones Negative Urine Blood Negative Urine Nitrite Negative Urine Bilirubin Negative Urine Urobilinogen Negative Ur Leukocyte Esterase Negative SARS-CoV-2, RNA, NAAT Code Status & VTE Plan VTE Prophylaxis Plan VTE Prophylaxis will be ordered: Yes PG Care Time/CCT Total # of Minutes Spent Total Time Spent with Patient: Total time spent is greater than 50% in coordination of care (as documented) at patient's floor/unit and/or counseling patient: Coding Level of Care Code 99184 Initial Inpt Care Lvl 3 Diagnoses Abdominal pain, acute, epigastric R10.13 Abnormal ultrasound of gallbladder R93.2 Elevated liver function tests R79.89 Uncontrolled type 2 diabetes mellitus with hyperglycemia, with long-term current use of insulin E11.65; Z79.4 CAD (coronary artery disease) I25.10 Hypertension I10 Hyperlipidemia E78.5 Hypothyroid E03.9 GERD (gastroesophageal reflux disease) K21.9
--- NOTE | 2021-08-25 18:29 | Emergency Department Note ---
History of Present Illness General Chief complaint: Chest Pain Stated complaint: CHEST PAIN Time Seen by Provider: 08/25/21 12:42 History of Present Illness Maximum Pain Intensity: 6 This 76-year-old female presents today for evaluation of substernal chest pain that developed around 2 AM. Patient states she was already awake and developed the discomfort. She states she does not sleep well. Pain has been persistent all day. It has not waxed or waned. She states that it has steadily gotten worse. She points to the substernal and epigastric area as her locus of discomfort. She denies any abdominal pain. No nausea or vomiting, until she arrived at the ED. She is now nauseated. She denies any sweats or chills. No change in diet habits. She states she had a slice of pizza last night along with some Jell-O. She does have a history of [place] x4. She states 2 of them she never realized that they had occurred. Her daughter accompanies her today. No other treatment. No other complaints. Home Medications Medication Instructions Recorded Confirmed Type aspirin 81 mg tablet,delayed 81 mg PO QAM 07/28/18 08/25/21 History release (Aspirin Low Dose) biotin 1 mg tablet 1 mg PO QAM 07/28/18 08/25/21 [facility] 02/08/19 07/23/21 History Lancets) multivitamin 1 tab PO QAM 02/08/19 08/25/21 History glucosam 750 mg-chondroi 100 1 tab PO UD 01/12/20 08/25/21 History mg-hyalur 1.65 mg-CF borate 108 mg tablet ([facility]) albuterol sulfate 90 mcg/actuation 1 - 2 puff INHALATION Q6H PRN #6.7 05/25/20 08/25/21 Rx aerosol inhaler (Ventolin HFA) g ipratropium bromide 21 mcg (0.03 2 spray INTNAS TID #30 ml 05/25/20 08/25/21 Rx %) nasal spray BD Ultra-Fine [place] Pen Needle 32 #400 ea NS 01/01/21 07/23/21 Rx gauge x 5/32" (pen needle, diabetic) blood sugar diagnostic (OneTouch ea 01/01/21 07/23/21 History Ultra Blue Test Strip) zinc 50 mg tablet 50 mg PO DAILY 01/01/21 08/25/21 History atorvastatin 40 mg tablet 40 mg PO QPM #90 tab 01/16/21 08/25/21 Rx insulin lispro 100 unit/mL See Rx Instructions .ROUTE 03/13/21 08/25/21 Rx subcutaneous pen (Humalog KwikPen .COMPLEX #60 ml (U-100) Insulin) montelukast 10 mg tablet 10 mg PO DAILY #30 tab 04/19/21 08/25/21 Rx omeprazole 20 mg capsule,delayed 20 mg PO BID #180 cap 04/19/21 08/25/21 Rx release insulin glargine 100 unit/mL (3 34 unit SUBCUT DAILY #4 box 04/20/21 08/25/21 Rx mL) subcutaneous pen (Basaglar KwikPen U-100 Insulin) carvedilol 25 mg tablet 25 mg PO BID #60 tab 05/17/21 08/25/21 Rx levothyroxine 50 mcg tablet 50 mcg PO QAM #90 tab 05/17/21 08/25/21 Rx cranberry 500 mg capsule 500 mg PO DAILY cap 05/21/21 08/25/21 History empagliflozin 10 mg tablet 10 mg PO DAILY #90 tab 05/21/21 08/25/21 Rx (Jardiance) lisinopril 20 mg tablet 20 mg PO BID #180 tab 05/21/21 08/25/21 Rx turmeric 400 mg capsule 400 mg PO DAILY 05/21/21 08/25/21 History metoprolol tartrate 25 mg tablet See Rx Instructions PO DAILY #270 06/19/21 08/25/21 Rx tab furosemide 40 mg tablet 40 mg PO 2XWK #30 tab 06/21/21 08/25/21 Rx diclofenac sodium 1 % topical gel 4 g TOP QID PRN #500 g 07/18/21 08/25/21 Rx acetaminophen 650 mg 650 mg PO Q8H 07/23/21 08/25/21 History tablet,extended release (Tylenol 8 Hour) tramadol 50 mg tablet See Rx Instructions PO Q6H PRN 08/02/21 08/25/21 Rx #180 tab cholecalciferol (vitamin D3) 50 0 mcg PO DAILY 08/25/21 08/25/21 History mcg (2,000 unit) capsule (Vitamin D3) levothyroxine 50 mcg tablet 50 mcg PO DAILY 08/25/21 08/25/21 History (Euthyrox) Allergies Allergy/AdvReac Type Severity Reaction Status Date / Time adhesive Allergy Mild SKIN TEARS Verified 08/25/21 14:11 AND HEALING ISSUES Barbiturates Allergy Mild Hives Verified 08/25/21 14:11 hydrochlorothiazide Allergy Mild Gastrointestinal Verified 08/25/21 14:11 Upset phenobarbital Allergy Mild heart Verified 08/25/21 14:11 racing pseudoephedrine Allergy Mild light Verified 08/25/21 14:11 headed, heart racing sertraline Allergy Mild light Verified 08/25/21 14:11 headed, dizzy Sulfa (Sulfonamide Allergy Mild Vomiting Verified 08/25/21 14:11 Antibiotics) triamterene Allergy Mild Gastrointestinal Verified 08/25/21 14:11 Upset Dyazide Allergy Unknown UNKNOWN Verified 04/11/15 09:31 gabapentin Allergy Unknown Swelling Verified 08/25/21 14:11 of Lip/Tongue/Throat pantoprazole Allergy Unknown Gastrointestinal Verified 08/25/21 14:11 Upset propoxyphene Allergy Unknown Unknown Verified 08/25/21 14:11 pollen extracts Allergy Verified 08/25/21 14:11 Past Med/Surg History Medical History Anxiety Asthma inhaler prn Atrial fibrillation CAD (coronary artery disease) Cardiac murmur since childhood Cardiomyopathy COVID-19 vaccine series completed Diabetes mellitus, type 2 Fibromyalgia GERD (gastroesophageal reflux disease) Hearing deficit History of COVID-19 Hx of myocardial infarction multiple, most recent 2015/cardiac cath 2016 with no stents Hx of sarcoma of soft tissue right elbow- 2001; s/p chemo Hx of thrombophlebitis RLE Hyperlipidemia Hypertension Hypertensive urgency Hypothyroidism Insomnia, persistent Osteoarthritis Surgical History History of anesthesia reaction difficulty waking History of bilateral carpal tunnel release x2 History of bilateral tubal ligation History of cardiac cath 2016 @ [facility]--no stents History of left breast biopsy benign History of left cataract extraction History of surgery on arm sarcoma removal of right arm History of tooth extraction under local History of vascular access device removed 2007 Hx of colonoscopy Hx of varicose vein ligation right leg Family History Mother Family history of diabetes mellitus Myocardial infarction Allergies Cardiac disorder Hypertension Grandfather (Maternal) Family history of diabetes mellitus Grandfather (Paternal) Family history of diabetes mellitus Daughter Family hx of colon cancer Colorectal cancer Allergies Father Stroke Myocardial infarction Brother Brain tumor Renal failure Grandmother (Maternal) Cardiac disorder Other Bleeding disorder Denies family history of Ovarian cancer Prostate cancer Breast cancer Social History Smoking Status: Never smoker Second Hand Exposure: No (when worked); Hx Alcohol Use: No Hx Substance Use: No Preferred Language: [place] Communication Ability: Effective Visual Impairment: Limited Hearing Ability: Hard of Hearing Proof Sorter Required: No Beliefs That Will Affect Care: Alevism marital status: Current Living Situation: Alone current occupational status: retired How many Children do You have: 4 Feels Safe at Home: Yes Childhood Exposure to Second-Hand Smoke: No caffeine: No Dental Care, Regularly: No Physical Activity Frequency: Does not Exercise Physical Activity Frequency Comment: limited d/t housing Seatbelt Use: always Sunscreen Use: Yes Assistive Devices: None Review of Systems A total of 10 systems reviewed and were otherwise negative Physical Exam Vital Signs Vital Signs - 24 hr 08/25/21 12:16 08/25/21 12:39 08/25/21 13:00 Temperature 37.1 C Temperature Source Oral Pulse Rate 68 69 76 Pulse Rate [Left Finger] Pulse Rate from SpO2 Sensor 70 75 Pulse Rhythm Regular Pulse Rhythm [Left Finger] Pulse Strength Normal Pulse Strength [Left Finger] Respiratory Rate 20 16 18 Respiratory Effort / Characteristics Non-Labored Respiratory Depth Normal Respiratory Pattern Regular Blood Pressure 123/57 L 112/53 L Blood Pressure [Left Arm] Blood Pressure Mean 79 72 Blood Pressure Mean [Left Arm] Blood Pressure Position Lying Blood Pressure Position [Left Arm] Pulse Oximetry 95 96 94 Oxygen Delivery Method Room Air Sepsis Recent Fever Within 48 Hours No Sepsis New/Unexplained Change in Mental Status No Sepsis Action Taken by Nursing No Action Required 08/25/21 13:02 08/25/21 13:30 08/25/21 14:00 Temperature Temperature Source Pulse Rate 69 72 72 Pulse Rate [Left Finger] Pulse Rate from SpO2 Sensor 68 74 72 Pulse Rhythm Pulse Rhythm [Left Finger] Pulse Strength Pulse Strength [Left Finger] Respiratory Rate 16 22 19 Respiratory Effort / Characteristics Respiratory Depth Respiratory Pattern Blood Pressure 123/57 L 128/75 Blood Pressure [Left Arm] Blood Pressure Mean 79 92 Blood Pressure Mean [Left Arm] Blood Pressure Position Blood Pressure Position [Left Arm] Pulse Oximetry 95 93 98 Oxygen Delivery Method Sepsis Recent Fever Within 48 Hours Sepsis New/Unexplained Change in Mental Status Sepsis Action Taken by Nursing 08/25/21 14:01 08/25/21 14:30 08/25/21 15:00 Temperature Temperature Source Pulse Rate 81 75 87 Pulse Rate [Left Finger] Pulse Rate from SpO2 Sensor 80 77 87 Pulse Rhythm Pulse Rhythm [Left Finger] Pulse Strength Pulse Strength [Left Finger] Respiratory Rate 14 22 16 Respiratory Effort / Characteristics Respiratory Depth Respiratory Pattern Blood Pressure 152/103 H 165/70 H Blood Pressure [Left Arm] Blood Pressure Mean 119 101 Blood Pressure Mean [Left Arm] Blood Pressure Position Blood Pressure Position [Left Arm] Pulse Oximetry 96 96 96 Oxygen Delivery Method Sepsis Recent Fever Within 48 Hours Sepsis New/Unexplained Change in Mental Status Sepsis Action Taken by Nursing 08/25/21 15:01 08/25/21 16:01 08/25/21 16:25 Temperature Temperature Source Pulse Rate 91 H 88 Pulse Rate [Left Finger] 90 Pulse Rate from SpO2 Sensor 91 H Pulse Rhythm Pulse Rhythm [Left Finger] Regular Pulse Strength Pulse Strength [Left Finger] Normal Respiratory Rate 24 20 17 Respiratory Effort / Characteristics Non-Labored Respiratory Depth Normal Respiratory Pattern Blood Pressure 125/95 Blood Pressure [Left Arm] 124/90 Blood Pressure Mean 105 Blood Pressure Mean [Left Arm] 101 Blood Pressure Position Blood Pressure Position [Left Arm] Lying Pulse Oximetry 96 95 Oxygen Delivery Method Room Air Sepsis Recent Fever Within 48 Hours Sepsis New/Unexplained Change in Mental Status Sepsis Action Taken by Nursing 08/25/21 16:29 08/25/21 16:30 08/25/21 16:31 Temperature Temperature Source Pulse Rate 97 H 92 H 91 H Pulse Rate [Left Finger] Pulse Rate from SpO2 Sensor 97 H 91 H 95 H Pulse Rhythm Pulse Rhythm [Left Finger] Pulse Strength Pulse Strength [Left Finger] Respiratory Rate 25 H 21 24 Respiratory Effort / Characteristics Respiratory Depth Respiratory Pattern Blood Pressure 124/90 140/76 Blood Pressure [Left Arm] Blood Pressure Mean 101 97 Blood Pressure Mean [Left Arm] Blood Pressure Position Blood Pressure Position [Left Arm] Pulse Oximetry 96 96 96 Oxygen Delivery Method Sepsis Recent Fever Within 48 Hours Sepsis New/Unexplained Change in Mental Status Sepsis Action Taken by Nursing 08/25/21 17:00 08/25/21 17:01 Temperature Temperature Source Pulse Rate 94 H 97 H Pulse Rate [Left Finger] Pulse Rate from SpO2 Sensor 93 H 96 H Pulse Rhythm Pulse Rhythm [Left Finger] Pulse Strength Pulse Strength [Left Finger] Respiratory Rate 21 17 Respiratory Effort / Characteristics Respiratory Depth Respiratory Pattern Blood Pressure 132/74 Blood Pressure [Left Arm] Blood Pressure Mean 93 Blood Pressure Mean [Left Arm] Blood Pressure Position Blood Pressure Position [Left Arm] Pulse Oximetry 95 97 Oxygen Delivery Method Sepsis Recent Fever Within 48 Hours Sepsis New/Unexplained Change in Mental Status Sepsis Action Taken by Nursing General: Well-developed, well-nourished, elderly white female, in obvious discom fort. Laying on her bed. Alert and oriented. Skin: Warm and dry with good turgor. No rashes or lesions. No ecchymosis or erythema. The patient is not diaphoretic. No abrasions. HEENT: Normocephalic atraumatic. Eyes PERRLA, EOMI. No conjunctiva or scleral injection. Ears TMs intact bilaterally with good light reflexes. No erythema or bulging. No hemotympanum. Canals are patent. Nares patent bilaterally without turbinate enlargement. No significant drainage. No epistaxis. Oropharynx without erythema or exudate. Uvula midline, oral mucosa moist. No lesions present. Lymphatics are palpated without anterior or posterior chain enlargement or tenderness. Heart: Heart RRR. Soft systolic ejection murmur is noted. No GR. Peripheral pulses are 2+. Lungs: Lungs are clear to auscultation. No crackles rhonchi or wheezing. Good air movement. The patient is able to take a deep breath. Abdomen: Abdomen was inspected, auscultated, and palpated. Moderately obese. Bowel sounds present x 4. Soft, epigastric and right upper quadrant tenderness to palpation. No hepato-splenomegaly. No masses noted. Positive right upper quadrant rebound, positive Ulloa sign. No pain over McBurney's point. No CVA tenderness. Musculoskeletal: Gross motor function of the upper and lower extremities is intact and unremarkable. There is no discomfort with light squeezing of the chest wall. Neurologic: Gross sensation is intact across the upper and lower extremities by self touch. Course Administered Medications Carvedilol (Carvedilol 25 Mg Tab) 25 mg PO BID [facility] Stop: 09/24/21 20:59 Last Admin: 08/28/21 20:38 Dose: 25 mg Documented by: [id number] Admin: 08/28/21 07:46 Dose: 25 mg Documented by: [id number] Admin: 08/27/21 21:33 Dose: 25 mg Documented by: [id number] Admin: 08/27/21 08:38 Dose: 25 mg Documented by: [id number] Admin: 08/26/21 21:38 Dose: 25 mg Documented by: [id number] Admin: 08/26/21 08:11 Dose: 25 mg Documented by: [id number] Admin: 08/25/21 22:46 Dose: 25 mg Documented by: [id number] Heparin Sodium (Porcine) (Heparin Sod 5,000 Unit/0.5 Ml Vial) 7,500 units SQ Q8 [facility] Stop: 09/24/21 21:59 Last Admin: 08/28/21 21:23 Dose: Not Given Documented by: [id number] Admin: 08/28/21 15:10 Dose: 7,500 units Documented by: [id number] Admin: 08/28/21 06:03 Dose: Not Given Documented by: [id number] Admin: 08/27/21 21:32 Dose: 7,500 units Documented by: [id number] Admin: 08/27/21 14:55 Dose: 7,500 units Documented by: [id number] Admin: 08/27/21 06:00 Dose: 7,500 units Documented by: [id number] Admin: 08/26/21 21:39 Dose: 7,500 units Documented by: [id number] Admin: 08/26/21 14:17 Dose: 7,500 units Documented by: [id number] Admin: 08/26/21 06:10 Dose: 7,500 units Documented by: [id number] Admin: 08/25/21 22:55 Dose: Not Given Documented by: [id number] Piperacillin Sod/Tazobactam (Sod 4.5 gm/ Dextrose) 120 mls @ 30 mls/hr IV Q8H [facility]; Protocol Stop: 09/05/21 02:59 Last Admin: 08/28/21 20:27 Dose: 30 mls/hr Documented by: [id number] Infusion: 08/28/21 19:14 Dose: 0 mls/hr Documented by: [id number] Admin: 08/28/21 15:10 Dose: 30 mls/hr Documented by: [id number] Infusion: 08/28/21 09:32 Dose: 0 mls/hr Documented by: [id number] Admin: 08/28/21 05:16 Dose: 30 mls/hr Documented by: [id number] Infusion: 08/28/21 01:34 Dose: 0 mls/hr Documented by: [id number] Admin: 08/27/21 21:28 Dose: 30 mls/hr Documented by: [id number] Infusion: 08/27/21 16:00 Dose: 0 mls/hr Documented by: [id number] Admin: 08/27/21 11:32 Dose: 30 mls/hr Documented by: [id number] Infusion: 08/27/21 09:01 Dose: 0 mls/hr Documented by: [id number] Admin: 08/27/21 04:04 Dose: 30 mls/hr Documented by: [id number] Infusion: 08/27/21 01:41 Dose: 0 mls/hr Documented by: [id number] Admin: 08/26/21 21:38 Dose: 30 mls/hr Documented by: [id number] Infusion: 08/26/21 16:15 Dose: 0 mls/hr Documented by: [id number] Admin: 08/26/21 12:10 Dose: 30 mls/hr Documented by: [id number] Infusion: 08/26/21 07:55 Dose: 0 mls/hr Documented by: [id number] Admin: 08/26/21 03:50 Dose: 30 mls/hr Documented by: [id number] Potassium Chloride/Dextrose/Sod Cl (D5nss + 20meq Kcl) 20 meq in 1,000 mls @ 80 mls/hr IV .[id number] [facility] Stop: 09/26/21 17:14 Last Admin: 08/28/21 20:27 Dose: 80 mls/hr Documented by: [id number] Infusion: 08/28/21 20:23 Dose: 0 mls/hr Documented by: [id number] Admin: 08/28/21 07:43 Dose: 80 mls/hr Documented by: [id number] Infusion: 08/28/21 07:07 Dose: 80 mls/hr Documented by: [id number] Admin: 08/27/21 18:37 Dose: 80 mls/hr Documented by: [id number] Insulin Aspart (Insulin Aspart Per Unit) 0 units SC ACHS [facility] Stop: 09/26/21 16:29 Last Admin: 08/28/21 20:36 Dose: 5 units Documented by: [id number] Cosigned by: [id number] Admin: 08/28/21 17:28 Dose: 4 units Documented by: [id number] Cosigned by: [id number] Admin: 08/28/21 12:18 Dose: Not Given Documented by: [id number] Admin: 08/28/21 07:39 Dose: Not Given Documented by: [id number] Admin: 08/27/21 21:29 Dose: 2 units Documented by: [id number] Cosigned by: [id number] Admin: 08/27/21 17:05 Dose: 4 units Documented by: [id number] Cosigned by: [id number] Lisinopril (Lisinopril 20 Mg Tab) 20 mg PO BID [facility] Stop: 09/26/21 20:59 Last Admin: 08/28/21 20:38 Dose: 20 mg Documented by: [id number] Admin: 08/28/21 07:45 Dose: 20 mg Documented by: [id number] Admin: 08/27/21 21:31 Dose: 20 mg Documented by: [id number] Metoprolol Tartrate (Metoprolol Tartrate 25 Mg Tab) 25 mg PO HS [facility] Stop: 09/24/21 21:14 Last Admin: 08/28/21 07:45 Dose: 25 mg Documented by: [id number] Admin: 08/27/21 21:31 Dose: 25 mg Documented by: [id number] Admin: 08/26/21 21:39 Dose: 25 mg Documented by: [id number] Admin: 08/25/21 22:46 Dose: 25 mg Documented by: [id number] Metoprolol Tartrate (Metoprolol Tartrate 25 Mg Tab) 50 mg PO DAILY [facility] Stop: 09/25/21 08:59 Last Admin: 08/28/21 07:46 Dose: 50 mg Documented by: [id number] Admin: 08/27/21 08:38 Dose: 50 mg Documented by: [id number] Admin: 08/26/21 08:11 Dose: 50 mg Documented by: [id number] Discontinued Medications Aspirin (Aspirin 81 Mg Ectab) 81 mg PO QAM [facility] Stop: 09/25/21 08:59 Last Admin: 08/26/21 08:11 Dose: 81 mg Documented by: [id number] Hydralazine HCl (Hydralazine Hcl 20 Mg/Ml Vial) Confirm Administered Dose 20 mg .ROUTE .STK-MED ONE Stop: 08/28/21 13:19 Last Admin: 08/28/21 13:20 Dose: Not Given Documented by: [id number] Hydralazine HCl (Hydralazine Hcl 20 Mg/Ml Vial) 10 mg IV NOW STA Stop: 08/28/21 13:19 Last Admin: 08/28/21 13:20 Dose: 10 mg Documented by: [id number] Hydromorphone HCl (Hydromorphone Inj 0.5 Mg/0.5 Ml Syr) 0.25 mg IV NOW STA Stop: 08/25/21 14:07 Last Admin: 08/25/21 14:31 Dose: 0.25 mg Documented by: [id number] Hydromorphone HCl (Hydromorphone Inj 0.5 Mg/0.5 Ml Syr) 0.25 mg IV Q3H PRN PRN Reason: Pain Stop: 09/08/21 20:59 Last Admin: 08/28/21 20:27 Dose: 0.25 mg Documented by: [id number] Admin: 08/28/21 17:34 Dose: 0.25 mg Documented by: [id number] Admin: 08/27/21 21:27 Dose: 0.25 mg Documented by: [id number] Admin: 08/26/21 16:19 Dose: 0.25 mg Documented by: [id number] Hyoscyamine (Hyoscyamine Sulfate 0.125 Mg Tab) 0.125 mg SL NOW STA Stop: 08/28/21 14:12 Last Admin: 08/28/21 14:23 Dose: 0.125 mg Documented by: [id number] Sodium Chloride (Nss 1000ml) 1,000 mls @ 125 mls/hr IV .Q8H [facility] Stop: 09/24/21 14:14 Last Infusion: 08/25/21 23:11 Dose: 0 mls/hr Documented by: [id number] Admin: 08/25/21 14:27 Dose: 125 mls/hr Documented by: [id number] Lactated Ringer's (Lr) 1,000 mls @ 80 mls/hr IV .[id number] [facility] Stop: 08/26/21 09:29 Last Infusion: 08/26/21 09:59 Dose: 0 mls/hr Documented by: [id number] Admin: 08/25/21 22:47 Dose: 80 mls/hr Documented by: [id number] Piperacillin Sod/Tazobactam (Sod 4.5 gm/ Dextrose) 120 mls @ 200 mls/hr IV NOW ONE; Protocol Stop: 08/25/21 22:05 Last Infusion: 08/26/21 00:35 Dose: 0 mls/hr Documented by: [id number] Admin: 08/25/21 23:36 Dose: 200 mls/hr Documented by: [id number] Dextrose/Lactated Ringer's (D5w And Lactated Ringers) 1,000 mls @ 80 mls/hr IV .[id number] [facility] Stop: 08/27/21 14:44 Last Infusion: 08/27/21 11:27 Dose: 0 mls/hr Documented by: [id number] Admin: 08/27/21 02:44 Dose: 80 mls/hr Documented by: [id number] Infusion: 08/27/21 02:44 Dose: 80 mls/hr Documented by: [id number] Admin: 08/26/21 14:17 Dose: 80 mls/hr Documented by: [id number] Indomethacin (Indomethacin 50 Mg Supp) 100 mg FL ONCE ONE Stop: 08/28/21 12:22 Last Admin: 08/28/21 12:55 Dose: 100 mg Documented by: [id number] Insulin Aspart (Insulin Aspart Per Unit) 0 units SC ACHS [facility] Stop: 09/24/21 20:59 Last Admin: 08/27/21 08:42 Dose: 3 units Documented by: [id number] Cosigned by: [id number] Admin: 08/26/21 21:38 Dose: 1 units Documented by: [id number] Cosigned by: [id number] Admin: 08/26/21 16:41 Dose: Not Given Documented by: [id number] Admin: 08/26/21 12:25 Dose: 1 units Documented by: [id number] Cosigned by: [id number] Admin: 08/26/21 08:15 Dose: 1 units Documented by: [id number] Cosigned by: [id number] Admin: 08/25/21 22:54 Dose: 6 units Documented by: [id number] Cosigned by: [id number] Insulin Aspart (Insulin Aspart Per Unit) 0 units SC Q6 [facility] Stop: 09/24/21 20:59 Last Admin: 08/27/21 12:45 Dose: 7 units Documented by: [id number] Cosigned by: [id number] Insulin Glargine (Insulin Glargine Solostar 100 Units/Ml 3 Ml Pen) 20 units SC QAM [facility] Stop: 09/25/21 08:59 Last Admin: 08/27/21 08:39 Dose: 20 units Documented by: [id number] Cosigned by: [id number] Admin: 08/26/21 08:11 Dose: 20 units Documented by: [id number] Cosigned by: [id number] Insulin Glargine (Insulin Glargine Solostar 100 Units/Ml 3 Ml Pen) 0 units SC HS [facility]; Protocol Stop: 09/26/21 20:59 Last Admin: 08/27/21 21:30 Dose: 10 units Documented by: [id number] Cosigned by: [id number] Insulin Glargine (Insulin Glargine Solostar 100 Units/Ml 3 Ml Pen) 16 units SC ONE ONE Stop: 08/28/21 16:31 Last Admin: 08/28/21 17:29 Dose: 16 units Documented by: [id number] Cosigned by: [id number] Labetalol HCl (Labetalol Hcl Iv 5 Mg/Ml 20ml) 5 mg IV Q5M PRN PRN Reason: PACU Use-SBP>160 or DBP>100 Stop: 08/28/21 21:13 Last Admin: 08/28/21 13:58 Dose: 5 mg Documented by: [id number] Cosigned by: [id number] Admin: 08/28/21 13:51 Dose: 5 mg Documented by: [id number] Cosigned by: [id number] Admin: 08/28/21 13:45 Dose: 5 mg Documented by: [id number] Cosigned by: [id number] Labetalol HCl (Labetalol Hcl Iv 5 Mg/Ml 20ml) Confirm Administered Dose 5 mg IV .STK-MED ONE Stop: 08/28/21 13:44 Last Admin: 08/28/21 14:04 Dose: Not Given Documented by: [id number] Ondansetron HCl (Ondansetron Inj 2 Mg/Ml 2 Ml Vial) 4 mg IV NOW STA Stop: 08/25/21 12:52 Last Admin: 08/25/21 13:03 Dose: 4 mg Documented by: [id number] Ondansetron HCl (Ondansetron Inj 2 Mg/Ml 2 Ml Vial) 4 mg IV NOW STA Stop: 08/25/21 14:07 Last Admin: 08/25/21 17:38 Dose: Not Given Documented by: [id number] Impression & Plan Acute cholecystitis Admission with or consideration. Discharge Plan Visit Data Chief Complaint: Chest Pain Stated Complaint: CHEST PAIN ED Provider: Miriam Rosa ED Midlevel Provider: Jonathan Benavides Discharge Problem: Acute cholecystitis Patient Disposition: Admitted As Inpatient Discharge Instructions Interventions: ED Discharge Assessment Last Done: 08/25/21 21:49 Medical Decision Making Differential Diagnosis ACS, acute KS, acute cholecystitis, bowel obstruction, muscle strain, contusion Medical Records Attestation: I reviewed the patient's medical records. Home Medications Current Medication List: was personally reviewed by me Laboratory Data Troponin, UA, COVID test ,CBC and chemistry panel obtained today were reviewed. CBC is unremarkable. White count is normal at 8.98. Chemistry panel shows elevated glucose at 302. Bilirubin is elevated at 1.7. Direct bilirubin is very elevated at 1.2. AST of 5159, ALT elevated at 127. Troponin is normal. Urine shows 3+ glucose, otherwise unremarkable. COVID test is negative. Result diagrams: 08/28/21 05:38 08/28/21 05:38 Lab Results 08/25/21 08/25/21 08/25/21 Range/Units Unknown Unknown Unknown WBC 8.98 (4.8-10.8) K/uL RBC 4.67 (4.2-5.4) M/uL Hgb 14.0 (12.0-16.0) g/dL Hct 41.9 (37-47) % MCV 89.7 (80-100) fL MCH 30.0 (25-34) pg MCHC 33.4 (32-36) g/dL RDW Std Deviation 42.0 (36.4-46.3) fL RDW Coeff of Barbara 12.9 (11.5-14.5) % Plt Count 186 (130-400) K/uL MPV 10.3 (7.4-10.4) fL Immature Gran % (Auto) 0.2 % Neut % (Auto) 75.8 % Lymph % (Auto) 17.3 % [place] % (Auto) 5.0 % Eos % (Auto) 1.4 % Baso % (Auto) 0.3 % Neut # (Auto) 6.80 H (1.4-6.5) K/uL Lymph # (Auto) 1.55 (1.2-3.4) K/uL [place] # (Auto) 0.45 (0.11-0.59) K/uL Eos # (Auto) 0.13 (0-0.5) K/uL Baso # (Auto) 0.03 (0-0.2) K/uL Immature Gran # (Auto) 0.02 (0.00-0.02) K/uL Sodium 137 (136-145) mmol/L Potassium 4.4 (3.5-5.1) mmol/L Chloride 105 (98-107) mmol/L Carbon Dioxide 23 (21-32) mmol/L Anion Gap 9.0 (3-11) BUN 34 H (7-18) mg/dl Creatinine 1.21 H (0.6-1.2) mg/dl Est Cr Clr Drug Dosing 42.2 ml/min Est GFR ( Amer) 50.7 ml/min Est GFR (Non-Af Amer) 43.7 ml/min BUN/Creatinine Ratio 28.5 H (10-20) Glucose 302 H* (70-99) mg/dl Calcium 8.9 (8.5-10.1) mg/dl Total Bilirubin 1.7 H (0.2-1) mg/dl Direct Bilirubin 1.2 H (0-0.2) mg/dl AST 159 H (15-37) U/L ALT 127 H (12-78) Alkaline Phosphatase 111 (45-117) U/L Troponin I < 0.015 (0-0.045) ng/ml Total Protein 7.1 (6.4-8.2) gm/dl Albumin 3.2 L (3.4-5.0) gm/dl Globulin 3.9 (2.5-4.0) gm/dl Albumin/Globulin Ratio 0.8 L (0.9-2) Beta-Hydroxybutyric Acd 2.72 (0.2-2.81) mg/dl Urine Color Urine Appearance (Clear) Urine pH (4.5-7.5) Ur Specific [place] (1.000-1.030) Urine Protein (Negative) Urine Glucose (UA) (Negative) Urine Ketones (Negative) Urine Blood (Negative) Urine Nitrite (Negative) Urine Bilirubin (Negative) Urine Urobilinogen (Negative) Ur Leukocyte Esterase (Negative) SARS-CoV-2, RNA, NAAT NEGATIVE (NEGATIVE) 08/25/21 Range/Units Unknown WBC (4.8-10.8) K/uL RBC (4.2-5.4) M/uL Hgb (12.0-16.0) g/dL Hct (37-47) % MCV (80-100) fL MCH (25-34) pg MCHC (32-36) g/dL RDW Std Deviation (36.4-46.3) fL RDW Coeff of Barbara (11.5-14.5) % Plt Count (130-400) K/uL MPV (7.4-10.4) fL Immature Gran % (Auto) % Neut % (Auto) % Lymph % (Auto) % [place] % (Auto) % Eos % (Auto) % Baso % (Auto) % Neut # (Auto) (1.4-6.5) K/uL Lymph # (Auto) (1.2-3.4) K/uL [place] # (Auto) (0.11-0.59) K/uL Eos # (Auto) (0-0.5) K/uL Baso # (Auto) (0-0.2) K/uL Immature Gran # (Auto) (0.00-0.02) K/uL Sodium (136-145) mmol/L Potassium (3.5-5.1) mmol/L Chloride (98-107) mmol/L Carbon Dioxide (21-32) mmol/L Anion Gap (3-11) BUN (7-18) mg/dl Creatinine (0.6-1.2) mg/dl Est Cr Clr Drug Dosing ml/min Est GFR ( Amer) ml/min Est GFR (Non-Af Amer) ml/min BUN/Creatinine Ratio (10-20) Glucose (70-99) mg/dl Calcium (8.5-10.1) mg/dl Total Bilirubin (0.2-1) mg/dl Direct Bilirubin (0-0.2) mg/dl AST (15-37) U/L ALT (12-78) Alkaline Phosphatase (45-117) U/L Troponin I (0-0.045) ng/ml Total Protein (6.4-8.2) gm/dl Albumin (3.4-5.0) gm/dl Globulin (2.5-4.0) gm/dl Albumin/Globulin Ratio (0.9-2) Beta-Hydroxybutyric Acd (0.2-2.81) mg/dl Urine Color Yellow Urine Appearance Clear (Clear) Urine pH 5.0 (4.5-7.5) Ur Specific [place] 1.020 (1.000-1.030) Urine Protein Negative (Negative) Urine Glucose (UA) 3+ H (Negative) Urine Ketones Negative (Negative) Urine Blood Negative (Negative) Urine Nitrite Negative (Negative) Urine Bilirubin Negative (Negative) Urine Urobilinogen Negative (Negative) Ur Leukocyte Esterase Negative (Negative) SARS-CoV-2, RNA, NAAT (NEGATIVE) Imaging Data My Impression: Chest x-ray obtained today was reviewed by me and read by radiology. There is mild pulmonary edema. No acute changes are noted. Mild bibasilar atelectasis. Gallbladder ultrasound shows multiple layering stones with mildly prominent gallbladder wall. No Pericholecystic fluid is present. Findings are equivocal for acute cholecystitis. Given her physical exam, I suspect this is accurate. Radiologist's Impression: Chest X-Ray 08/25/21 12:51 XR chest 1V portable CLINICAL HISTORY: Atypical chest pain TECHNIQUE: Single frontal radiograph of the chest was obtained. Comparison: Comparison is made to chest 2 views 10/19/2018 FINDINGS: No lines and tubes are seen. The cardiomediastinal silhouette is slightly prominent. There is mild bibasilar atelectasis. Mild cephalization of the vasculature is noted. No evidence of pleural effusion or pneumothorax. IMPRESSION: Mild pulmonary edema. ACT 112: Negative or not required by law. Electronically signed by: Julio Cesar Mosqueda M.D. 08/25/2021 1:14 PM Gallbladder Ultrasound 08/25/21 13:57 US gallbladder CLINICAL HISTORY: elevated LFT TECHNIQUE: Multiple real-time sonographic images of the right upper quadrant were obtained. Comparison: None available at the time of this dictation. FINDINGS: The liver is diffusely homogenous with normal contour and echogenicity. No focal mass lesions are seen. No intrahepatic ductal dilatation is seen. Multiple gallstones are seen. The gallbladder wall is mildly prominent, measuring 0.3 cm. Ulloa's sign cannot be assessed as the patient received pain medication. The common duct measures 0.7 cm in diameter at the level of the hepa tic artery. The pancreas is not well visualized secondary to overlying bowel gas. The right kidney shows normal echogenicity, cortical thickness and renal contour. The right kidney shows no evidence of hydronephrosis or mass. No ascites or free fluid is seen in Barroso's pouch. IMPRESSION: Multiple layering stones with mildly prominent gallbladder wall. No pericholecystic fluid is seen. Findings are equivocal for acute cholecystitis. If further evaluation is desired, nuclear medicine hepatobiliary scan can be performed. ACT 112: Negative or not required by law. Electronically signed by: Julio Cesar Mosqueda M.D. 08/25/2021 3:43 PM ECG Data Additional Comments: EKG obtained today shows normal sinus rhythm with a rate of 75. Left axis deviation and left bundle branch block. Unchanged when compared to her previous EKG. This was reviewed with Dr. Rosa Blood Pressure Blood Pressure Findings: Elevated blood pressure Blood Pressure Disposition: elevated BP felt to be situational MDM Narrative Patient was evaluated in room A10. Conservative care measures were discussed. 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 IV was established. Labs were obtained. EKG was also obtained. It is unremarkable for acute changes. Labs are suspicious for cholecystitis. They are negative for cardiac source. Because of this, ultrasound of the gallbladder was obtained. It is suspicious for acute cholecystitis. Patient was given Zofran 4 mg IV with improvement in her nausea. She was hydrated gently using normal sterile saline at 125 mL/h. She did require second dose of Zofran due to nausea. She was given Dilaudid 0.25 mg IV for pain control. COVID swab was obtained and was negative. General surgery was consulted. I did speak with Dr. Sofie Stanton. She recommended admission with surgical consultation. Hospitalist service was contacted. Please see Dr. Huizar's dictation for final management. Patient remained stable while in the ED. her glucose was elevated, but was not fasting. She is a known type II diabetic with use of insulin. Patient was seen in conjunction with Dr. Rosa, who also evaluated the patient and concurred with today's diagnosis and treatment plan.
--- NOTE | 2021-08-25 18:57 | Surgery Consultation ---
Date of Consultation August 25, 2021 Assessment & Plan (1) Elevated liver function tests: Prior lfts were normal in April 2021. No evidence of biliary dilation but I would like to see trend of lft's and consider clearance of common duct prior to surgery. Could consider MRCP (pt unsure if she can tolerate MRI scans due to issues with hypertension/ anxiety with these prior) vs EUS. (2) Abnormal ultrasound of gallbladder: Gallstones, small layering. Will need cholecystectomy. Timing to be determined by liver test trend and results of mrcp. Discussed lap dash with risks of bleeding, infection, conversion to open, retained stones, postop bile leak, diarrhea and intolerance to foods. She is interested in proceeding. (3) Abdominal pain, acute, epigastric: Improved. Will monitor. History of Present Illness Reason for Consultation: abdominal pain Requesting Physician: IVÁN Garcia History of Present Illness 76 yr old woman who presents to the ER complaining of constant epigastric pain that started at 2 am. Intense, very severe, no associated nausea or vomiting, no change in bowel habits, did not radiate to her back. 10/10 in severity, now resolved after morphine. No dark urine or jaundice. Was not aware of gallbladder disease prior. History of diabetes and notes her sugars have been trending higher the last few days. Also with CAD and cardiomyopathy - last note from cardiology reviewed and her EF was up to 40-45% in 2020. Allergies Allergy/AdvReac Type Severity Reaction Status Date / Time adhesive Allergy Mild SKIN TEARS Verified 08/25/21 14:11 AND HEALING ISSUES Barbiturates Allergy Mild Hives Verified 08/25/21 14:11 hydrochlorothiazide Allergy Mild Gastrointestinal Verified 08/25/21 14:11 Upset phenobarbital Allergy Mild heart Verified 08/25/21 14:11 racing pseudoephedrine Allergy Mild light Verified 08/25/21 14:11 headed, heart racing sertraline Allergy Mild light Verified 08/25/21 14:11 headed, dizzy Sulfa (Sulfonamide Allergy Mild Vomiting Verified 08/25/21 14:11 Antibiotics) triamterene Allergy Mild Gastrointestinal Verified 08/25/21 14:11 Upset Dyazide Allergy Unknown UNKNOWN Verified 04/11/15 09:31 gabapentin Allergy Unknown Swelling Verified 08/25/21 14:11 of Lip/Tongue/Throat pantoprazole Allergy Unknown Gastrointestinal Verified 08/25/21 14:11 Upset propoxyphene Allergy Unknown Unknown Verified 08/25/21 14:11 pollen extracts Allergy Verified 08/25/21 14:11 Home Medications Medication Instructions Recorded Confirmed Type aspirin 81 mg tablet,delayed 81 mg PO QAM 07/28/18 08/25/21 History release (Aspirin Low Dose) biotin 1 mg tablet 1 mg PO QAM 07/28/18 08/25/21 History lancets 30 gauge ([facility] Delica #25 ea 02/08/19 07/23/21 History Lancets) multivitamin 1 tab PO QAM 02/08/19 08/25/21 History glucosam 750 mg-chondroi 100 1 tab PO UD 01/12/20 08/25/21 History mg-hyalur 1.65 mg-CF borate 108 mg tablet ([facility]) albuterol sulfate 90 mcg/actuation 1 - 2 puff INHALATION Q6H PRN #6.7 05/25/20 08/25/21 Rx aerosol inhaler (Ventolin HFA) g ipratropium bromide 21 mcg (0.03 2 spray INTNAS TID #30 ml 05/25/20 08/25/21 Rx %) nasal spray BD Ultra-Fine [place] Pen Needle 32 #400 ea NS 01/01/21 07/23/21 Rx gauge x 5/32" (pen needle, diabetic) blood sugar diagnostic ([facility] ea 01/01/21 07/23/21 History Ultra Blue Test Strip) zinc 50 mg tablet 50 mg PO DAILY 01/01/21 08/25/21 History atorvastatin 40 mg tablet 40 mg PO QPM #90 tab 01/16/21 08/25/21 Rx insulin lispro 100 unit/mL See Rx Instructions .ROUTE 03/13/21 08/25/21 Rx subcutaneous pen (Humalog KwikPen .COMPLEX #60 ml (U-100) Insulin) montelukast 10 mg tablet 10 mg PO DAILY #30 tab 04/19/21 08/25/21 Rx omeprazole 20 mg capsule,delayed 20 mg PO BID #180 cap 04/19/21 08/25/21 Rx release insulin glargine 100 unit/mL (3 34 unit SUBCUT DAILY #4 box 04/20/21 08/25/21 Rx mL) subcutaneous pen (Basaglar KwikPen U-100 Insulin) carvedilol 25 mg tablet 25 mg PO BID #60 tab 05/17/21 08/25/21 Rx levothyroxine 50 mcg tablet 50 mcg PO QAM #90 tab 05/17/21 08/25/21 Rx cranberry 500 mg capsule 500 mg PO DAILY cap 05/21/21 08/25/21 History empagliflozin 10 mg tablet 10 mg PO DAILY #90 tab 05/21/21 08/25/21 Rx (Jardiance) lisinopril 20 mg tablet 20 mg PO BID #180 tab 05/21/21 08/25/21 Rx turmeric 400 mg capsule 400 mg PO DAILY 05/21/21 08/25/21 History metoprolol tartrate 25 mg tablet See Rx Instructions PO DAILY #270 06/19/21 08/25/21 Rx tab furosemide 40 mg tablet 40 mg PO 2XWK #30 tab 06/21/21 08/25/21 Rx diclofenac sodium 1 % topical gel 4 g TOP QID PRN #500 g 07/18/21 08/25/21 Rx acetaminophen 650 mg 650 mg PO Q8H 07/23/21 08/25/21 History tablet,extended release (Tylenol 8 Hour) tramadol 50 mg tablet See Rx Instructions PO Q6H PRN 08/02/21 08/25/21 Rx #180 tab cholecalciferol (vitamin D3) 50 0 mcg PO DAILY 08/25/21 08/25/21 History mcg (2,000 unit) capsule (Vitamin D3) levothyroxine 50 mcg tablet 50 mcg PO DAILY 08/25/21 08/25/21 History (Euthyrox) Patient History Medical History Anxiety Asthma inhaler prn Atrial fibrillation CAD (coronary artery disease) Cardiac murmur since childhood Cardiomyopathy COVID-19 vaccine series completed Diabetes mellitus, type 2 Fibromyalgia GERD (gastroesophageal reflux disease) Hearing deficit History of COVID-19 Hx of myocardial infarction multiple, most recent 2016/cardiac cath 2017 with no stents Hx of sarcoma of soft tissue right elbow- 2001; s/p chemo Hx of thrombophlebitis RLE Hyperlipidemia Hypertension Hypertensive urgency Hypothyroidism Insomnia, persistent Osteoarthritis Surgical History History of anesthesia reaction difficulty waking History of bilateral carpal tunnel release x2 History of bilateral tubal ligation History of cardiac cath 2017 @ [facility]--no stents History of left breast biopsy benign History of left cataract extraction History of surgery on arm sarcoma removal of right arm History of tooth extraction under local History of vascular access device removed 2007 Hx of colonoscopy Hx of varicose vein ligation right leg Family History Mother Family history of diabetes mellitus Myocardial infarction Allergies Cardiac disorder Hypertension Grandfather (Maternal) Family history of diabetes mellitus Grandfather (Paternal) Family history of diabetes mellitus Daughter Family hx of colon cancer Colorectal cancer Allergies Father Stroke Myocardial infarction Brother Brain tumor Renal failure Grandmother (Maternal) Cardiac disorder Other Bleeding disorder Denies family history of Ovarian cancer Prostate cancer Breast cancer Social History Smoking Status: Never smoker Second Hand Exposure: No (when worked); Hx Alcohol Use: No Hx Substance Use: No Preferred Language: Senegalese Communication Ability: Effective Visual Impairment: Limited Hearing Ability: Hard of Hearing Hard Candy Spinner Required: No Beliefs That Will Affect Care: None marital status: Single Current Living Situation: Alone current occupational status: retired How many Children do You have: 4 Feels Safe at Home: Yes Childhood Exposure to Second-Hand Smoke: No caffeine: No Dental Care, Regularly: No Physical Activity Frequency: Does not Exercise Physical Activity Frequency Comment: limited d/t housing Seatbelt Use: always Sunscreen Use: Yes Assistive Devices: Cane and Glasses Review of Systems Review of Systems: All systems reviewed & are unremarkable except as noted in HPI & below Physical Exam Constitutional: WD/WN, vitals as above Eyes: PERRL, conjunctivae normal, anicteric sclerae Neck: normal visual inspection and trachea midline Respiratory: normal respiratory effort, lungs clear to auscultation Cardiovascular: Rate/Rhythm: regular rate and regular rhythm Heart Sounds: + murmur Extremities: no edema Gastrointestinal (Abdomen): Inspection/Auscultation: abdomen normal to inspection and normal bowel sounds; abdomen not distended Percussion/Palpation: abdomen soft; abdomen nontender and no guarding Musculoskeletal: no cyanosis or clubbing, extremities motor strength 5/5 Neurologic: no focal motor deficits Psychiatric: A+Ox3, euthymic affect Results & Data ([facility]) Vital Signs (Past 12 Hours) Vital Signs Temp Pulse Pulse Resp BP BP Pulse Ox 08/25/21 18:00 94 H 20 113/60 92 08/25/21 17:01 97 H 17 132/74 97 08/25/21 17:00 94 H 21 95 08/25/21 16:31 91 H 24 140/76 96 08/25/21 16:30 92 H 21 96 08/25/21 16:29 97 H 25 H 124/90 96 08/25/21 16:25 88 17 08/25/21 16:01 90 20 124/90 95 08/25/21 15:01 91 H 24 125/95 96 08/25/21 15:00 87 16 96 08/25/21 14:30 75 22 165/70 H 96 08/25/21 14:01 81 14 152/103 H 96 08/25/21 14:00 72 19 98 08/25/21 13:30 72 22 128/75 93 08/25/21 13:02 69 16 123/57 L 95 08/25/21 13:00 76 18 112/53 L 94 08/25/21 12:39 69 16 96 08/25/21 12:16 37.1 C 68 20 123/57 L 95 Laboratory Results Abnormal lab results 08/25/21 08/25/21 08/25/21 Range/Units Unknown Unknown Unknown Neut # (Auto) 6.80 H (1.4-6.5) K/uL BUN 34 H (7-18) mg/dl Creatinine 1.21 H (0.6-1.2) mg/dl BUN/Creatinine Ratio 28.5 H (10-20) Glucose 302 H* (70-99) mg/dl Total Bilirubin 1.7 H (0.2-1) mg/dl Direct Bilirubin 1.2 H (0-0.2) mg/dl AST 159 H (15-37) U/L ALT 127 H (12-78) Albumin 3.2 L (3.4-5.0) gm/dl Albumin/Globulin Ratio 0.8 L (0.9-2) Urine Glucose (UA) 3+ H (Negative) Diagnostic Findings US gallbladder: [facility], [place] [phone] Ultrasound Report Patient:KUMAR JACOBO Admit Date:08/25/21 MR#:[id number] Address1:[address] Acct ID:[id number] Address2: Date:1945 [facility] Zip:[place] [address] Age:76 Location:ED Sex:F Room/Bed: Att Phy: Diagnosis:CHEST PAIN [place] Phy:Anastacia Rodriges MD Service Date:08/25/21 [facility] Phy: Interpreting Phy:Julio Cesar Mosqueda MDAdmit Phy: Ordering Phy:Miriam Rsoa M.D. cc: ~ US gallbladder CLINICAL HISTORY: elevated LFT TECHNIQUE: Multiple real-time sonographic images of the right upper quadrant were obtained. Comparison: None available at the time of this dictation. FINDINGS: The liver is diffusely homogenous with normal contour and echogenicity. No focal mass lesions are seen. No intrahepatic ductal dilatation is seen. Multiple gallstones are seen. The gallbladder wall is mildly prominent, measuring 0.3 cm. Ulloa's sign cannot be assessed as the patient received pain medication. The common duct measures 0.7 cm in diameter at the level of the hepatic artery. The pancreas is not well visualized secondary to overlying bowel gas. The right kidney shows normal echogenicity, cortical thickness and renal contour. The right kidney shows no evidence of hydronephrosis or mass. No ascites or free fluid is seen in Barroso's pouch. IMPRESSION: Multiple layering stones with mildly prominent gallbladder wall. No pericholecystic fluid is seen. Findings are equivocal for acute cholecystitis. If further evaluation is desired, nuclear medicine hepatobiliary scan can be performed.
[2021-08-25] MEDS ORDERED: PIPERACILL/TAZOBAC CONSULT ACTIVE PRN (21:00)
[2021-08-25] MEDS ORDERED: LACTATED RINGER'S 1,000 ML IV SCH (21:00)
[2021-08-25] MEDS ORDERED: PIPERACILLIN/TAZOBACTAM 3.375 GM in DEXTROSE 5% 100 ML IV SCH (21:00)
[2021-08-25] MEDS ORDERED: PIPERACILLIN/TAZOBACTAM 4.5 GM in DEXTROSE 5% 100 ML IV ONE (21:30)
[2021-08-25] MEDS: carvediloL 25 MG TAB PO SCH (22:46)
[2021-08-25] MEDS: METOPROLOL TARTRATE 25 MG TAB PO SCH (22:46)
[2021-08-25] MEDS: INSULIN ASPART PER UNIT SC SCH (22:54)
[2021-08-25] MEDS: HEPARIN SOD 5,000 UNIT/0.5 ML VIAL SQ SCH (22:55)
[2021-08-26] MEDS: PIPERACILLIN/TAZOBACTAM 4.5 GM in DEXTROSE 5% 100 ML IV SCH ×3 (03:50→21:38)
[2021-08-26] MEDS: HEPARIN SOD 5,000 UNIT/0.5 ML VIAL SQ SCH ×3 (06:10→21:39)
[2021-08-26 07:40] LABS: Basophils # (auto) 0.02 K/uL (0-0.2); Basophils % (auto) 0.4 %; Eosinophils # (auto) 0.15 K/uL (0-0.5); Hematocrit (blood only) 39.6 % (37-47); Hemoglobin 13.3 g/dL (12.0-16.0); Immature Granulocytes # (auto) 0.01 K/uL (0.00-0.02); Immature Granulocytes % (auto) 0.2 %; Lymphocytes # (auto) 1.35 K/uL (1.2-3.4); Lymphocytes % (auto) 26.9 %; Mean Corpuscular Hgb Conc 33.6 g/dL (32-36); Mean Corpuscular Volume 89.4 fL (80-100); Mean Platelet Volume 10.6 fL (7.4-10.4); Monocytes # (auto) 0.52 K/uL (0.11-0.59); Monocytes % (auto) 10.4 %; Neutrophils # (auto) 2.96 K/uL (1.4-6.5); Neutrophils % (auto) 59.1 %; Platelet Count 167 K/uL (130-400); RDW Coefficient of Variation 12.9 % (11.5-14.5); RDW Standard Deviation 42.3 fL (36.4-46.3); Red Blood Count 4.43 M/uL (4.2-5.4); White Blood Count 5.01 K/uL (4.8-10.8)
[2021-08-26 07:56] LABS: Alanine Aminotransferase 372 (12-78); Aspartate Aminotransferase 346 U/L (15-37); BUN Creatinine Ratio 25.3 (10-20); Blood Urea Nitrogen 32 mg/dl (7-18); Carbon Dioxide 26 mmol/L (21-32); Chloride 105 mmol/L (98-107); Creatinine Clr Calc Pharmacy 39.7 ml/min; Est GFR (African American) 47.4 ml/min; Est GFR (Non-African American) 40.9 ml/min; Glucose 192 mg/dl (70-99); Sodium 138 mmol/L (136-145)
[2021-08-26 08:00] LABS: Albumin Globulin Ratio 0.8 (0.9-2); Alkaline Phosphatase 142 U/L (45-117); Troponin I < 0.015 ng/ml (0-0.045)
[2021-08-26] MEDS: carvediloL 25 MG TAB PO SCH ×2 (08:11→21:38)
[2021-08-26] MEDS: INSULIN GLARGINE SOLOSTAR 100 UNITS/ML 3 ML PEN SC SCH (08:11)
[2021-08-26] MEDS: METOPROLOL TARTRATE 25 MG TAB PO SCH ×2 (08:11→21:39)
[2021-08-26 08:15] LABS: Bilirubin,Total 4.3 mg/dl (0.2-1)
[2021-08-26] MEDS: INSULIN ASPART PER UNIT SC SCH ×4 (08:15→21:38)
[2021-08-26] MEDS ORDERED: ASPIRIN 81 MG ECTAB PO SCH (09:00)
--- NOTE | 2021-08-26 10:12 | XCELERA ---
[id number] \\[id number]
--- NOTE | 2021-08-26 11:30 | Surgery Progress Note ---
Date of Service August 26, 2021 Assessment & Plan (1) Elevated liver function tests: Plan: Prior lfts were normal in April 2021. No evidence of biliary dilation liver tests have increased today. Explained that this can be suggestive of common duct stone/ sludge and clearance of the common duct should be done prior to surgery. Pt is unable to tolerate MRCP. EUS has been recommended by GI and scheduling is in progress. (2) Abnormal ultrasound of gallbladder: Plan: Gallstones, small layering. Will need cholecystectomy. Timing to be determined by liver test trend and results of EUS. Discussed lap dash with risks of bleeding, infection, conversion to open, retained stones, postop bile leak, diarrhea and intolerance to foods. She is interested in proceeding. (3) Abdominal pain, acute, epigastric: Plan: Resolved. If EUS is unable to happen in next day, OK to advance diet until that time. Admission and Anticipated Discharge Date Admission Date: August 25, 2021 Subjective Pt much more comfortable. Pain had resolved after administration of pain meds in ER and has not recurred. No nausea or vomiting. Review of Systems Review of Systems: All systems reviewed & are unremarkable except as noted in HPI & below Physical Exam Constitutional: WD/WN, vitals as above Eyes: PERRL, conjunctivae normal, anicteric sclerae Neck: normal visual inspection and trachea midline Cardiovascular: Extremities: no edema Gastrointestinal (Abdomen): Inspection/Auscultation: abdomen normal to inspection and normal bowel sounds; abdomen not distended Percussion/Palpation: abdomen soft; abdomen nontender and no guarding Musculoskeletal: no cyanosis or clubbing, extremities motor strength 5/5 Neurologic: no focal motor deficits Psychiatric: A+Ox3, euthymic affect Results & Data ([facility]) Vital Signs (Past 12 Hours) Vital Signs Temp Pulse Pulse Resp BP Pulse Ox 08/26/21 07:15 89 08/26/21 06:46 37.1 C 104 H 18 150/74 H 93 08/26/21 03:37 36.4 C L 87 18 114/69 95 Laboratory Results Abnormal lab results 08/25/21 08/25/21 08/25/21 Range/Units 19:31 22:35 Unknown MPV (7.4-10.4) fL Neut # (Auto) 6.80 H (1.4-6.5) K/uL BUN (7-18) mg/dl Creatinine (0.6-1.2) mg/dl BUN/Creatinine Ratio (10-20) Glucose (70-99) mg/dl POC Glucose 366 H* 298 H (70-99) mg/dl Total Bilirubin (0.2-1) mg/dl Direct Bilirubin (0-0.2) mg/dl AST (15-37) U/L ALT (12-78) Alkaline Phosphatase (45-117) U/L Albumin (3.4-5.0) gm/dl Albumin/Globulin Ratio (0.9-2) Urine Glucose (UA) (Negative) 08/25/21 08/25/21 08/26/21 Range/Units Unknown Unknown 06:55 MPV 10.6 H (7.4-10.4) fL Neut # (Auto) (1.4-6.5) K/uL BUN 34 H (7-18) mg/dl Creatinine 1.21 H (0.6-1.2) mg/dl BUN/Creatinine Ratio 28.5 H (10-20) Glucose 302 H* (70-99) mg/dl POC Glucose (70-99) mg/dl Total Bilirubin 1.7 H (0.2-1) mg/dl Direct Bilirubin 1.2 H (0-0.2) mg/dl AST 159 H (15-37) U/L ALT 127 H (12-78) Alkaline Phosphatase (45-117) U/L Albumin 3.2 L (3.4-5.0) gm/dl Albumin/Globulin Ratio 0.8 L (0.9-2) Urine Glucose (UA) 3+ H (Negative) 08/26/21 08/26/21 Range/Units 06:55 08:03 MPV (7.4-10.4) fL Neut # (Auto) (1.4-6.5) K/uL BUN 32 H (7-18) mg/dl Creatinine 1.28 H (0.6-1.2) mg/dl BUN/Creatinine Ratio 25.3 H (10-20) Glucose 192 H (70-99) mg/dl POC Glucose 183 H (70-99) mg/dl Total Bilirubin 4.3 H D (0.2-1) mg/dl Direct Bilirubin (0-0.2) mg/dl AST 346 H (15-37) U/L ALT 372 H (12-78) Alkaline Phosphatase 142 H (45-117) U/L Albumin 3.0 L (3.4-5.0) gm/dl Albumin/Globulin Ratio 0.8 L (0.9-2) Urine Glucose (UA) (Negative)
--- NOTE | 2021-08-26 12:52 | Hospitalist Progress Note ---
Date of Service August 26, 2021 Assessment & Plan (1) Abdominal pain, acute, epigastric: Plan: * 76-year-old white female with an underlying past medical history of CAD s/p IL in the past presented with epigastric discomfort after eating pizza * EKG nonacute and troponin negative X2 * RUQ U/S with layering stones and equivocal for cholecystitis * With associated hyperbilirubinemia and transaminitis, would suspect choledocholithiasis--> consult GI * general surgery already consulted and evaluated this patient. Suspect will need cholecystectomy but likely in need of ERCP first --> appreciate recommendations * continue Empiric IV abx (zosyn) * lipase added and WNL * follow labs closely (2) Abnormal ultrasound of gallbladder: Plan: * Layering stones as outlined above * Suspect obstructing stone given abnormalities * patient had refused MRCP * GI/general surgery on board as outlined above (3) Elevated liver function tests: Plan: * Total Bilirubin 1.7 --> 4.3 * AST/ALT 159/127--> 346/372 * Again, suspect choledocholithiasis. * Consult GI. Likely needs EUS +/- ERCP--> appreciate recommendations * Continue n.p.o. status for likely need for procedure (4) Uncontrolled type 2 diabetes mellitus with hyperglycemia, with long-term current use of insulin: Plan: sugar 300 upon arrival--> 192 currently she confirms she took her Basaglar 34 units on the day of arrival morning and her Humalog ongoing issue with hyperglycemia in afternoons/evenings she takes set amount with meals and uses sliding scale for higher sugars plan: due to NPO status lantus decreased. She remains NPO and has yet to be seen by GI (? procedure today). Will need Lantus adjusted once started on PO intake continue novolog SS q6 with CF 25/ CR 8 adjust as needed A1C to assess control (5) CAD (coronary artery disease): Plan: has ruled out for ACS hold ASA (given need for surgical intervention) but continue her Coreg and metoprolol ( she confirms that she is prescribed BOTH by Dr. De Jesus) troponin negative x2, EKG nonacute echo: EF 45 to 50%. Severe hypokinesis to akinesis of the mid inferior septum and mid anterior septum otherwise mild global hypokinesis. No significant change compared to prior study done 02/04 cardiology consulted given need for procedure--> appreciate recommendations Patient's revised cardiac risk index is 2; however, given lab data and ultrasoundlikely with obstructing stone/elevated LFT's. Needs procedure (6) Hypertension: Plan: BP stable hold lisinopril given her mild rise in Cr at 1.2 (continue IVF for this) continue Coreg and metoprolol (7) Hyperlipidemia: Plan: hold Statin for now given elvation in AST/ALT (8) Hypothyroid: Plan: can hold Synthroid for time being while NPO but resume once started on oral intake (9) GERD (gastroesophageal reflux disease): Plan: PPI Plan: Patient n.p.o. and likely needs surgical procedure (ERCP and cholecystectomy). Awaiting GI consultation Start IV fluids (D5 LR given underlying diabetes and risk for ketosis) plan of care D/W Dr. Reaves. Admission and Anticipated Discharge Date Admission Date: August 25, 2021 Supervising Physician Co-Signing Physician Notes chart reviewed and case d/w Emily Esquivel PAC Subjective Patient seen on daily rounds today. Hospitalized yesterday after presenting to the ED with epigastric and right upper quadrant discomfort. Does have an underlying history of cardiac disease but thus far, troponin negative X2. Right upper quadrant ultrasound showing layering stonesequivocal for cholecystitis Presenting bilirubin 1.7. Has since up-trended and is currently 4.3 In addition, AST/ALT rising and currently 346/372 respectively. Still having some mild abdominal discomfort but denies further vomiting or nausea. Review of Systems Review of Systems: All systems reviewed and are unremarkable except as noted in HPI and below Denies fevers, chills, headache, nasal congestion, sore throat, cough, shortness of breath, palpitations, orthopnea, PND, diarrhea, constipation, dysuria, hematuria, frequency, back pain, joint pain or swelling, easy bruising or bleeding, skin lesions or rashes. Physical Exam Physical Exam: General: Resting comfortably in her hospital bed. NAD. HEENT: Head is AT/NC buccal mucosa is moist and pink Neck: No JVD. Negative hepatojugular reflex Cardiac: RRR without M/G/R Lungs: CTA without W/R/R Abdomen: Normoactive X4. With mild right upper quadrant tenderness Extremities: No peripheral clubbing cyanosis or edema Neuro: A&O X4 cranial nerves II through XII are grossly intact no focal neuro deficits Skin: No obvious skin lesions or rashes Psych: Appropriate affect pleasant and cooperative Results & Data Results & Data ([facility]) Vital Signs (Past 12 Hours) Vital Signs Temp Pulse Pulse Resp BP Pulse Ox 08/26/21 11:30 36.8 C 82 18 149/71 H 95 08/26/21 07:15 89 08/26/21 06:46 37.1 C 104 H 18 150/74 H 93 08/26/21 03:37 36.4 C L 87 18 114/69 95 PG Care Time/CCT Total # of Minutes Spent Total Time Spent with Patient: Total time spent is greater than 50% in coordination of care (as documented) at patient's floor/unit and/or counseling patient: Coding Level of Care Code 17116 Subseq Hosp Care Lvl 2 Diagnoses Uncontrolled type 2 diabetes mellitus with hyperglycemia, with long-term current use of insulin E11.65; Z79.4 CAD (coronary artery disease) I25.10 Hypertension I10 Hyperlipidemia E78.5 Hypothyroid E03.9 GERD (gastroesophageal reflux disease) K21.9 Abdominal pain, acute, epigastric R10.13 Abnormal ultrasound of gallbladder R93.2 Elevated liver function tests R79.89
[2021-08-26] MEDS: D5W AND LACTATED RINGERS 1,000 ML IV SCH (14:17)
--- NOTE | 2021-08-26 15:35 | Cardiology Consultation ---
Date of Consultation August 26, 2021 Assessment & Plan (1) Preop cardiovascular exam: (2) Cardiomyopathy: (3) Chronic combined systolic and diastolic heart failure: (4) CAD (coronary artery disease): ASSESSMENT/PLAN: 1. Preoperative cardiac assessment: No angina. Able to achieve > 4 METS without angina. Exercise tolerance chronic and stable. No ischemic evaluation recommended at this time. Would be cautious with fluid administration given reduced LV systolic function and history of CHF. Continue beta-lucia throughout the perioperative period. Appears to be low cardiac risk for TX. 2. Nonischemic cardiomyopathy: Mildly reduced LV systolic function. Appears compensated and euvolemic. Monitor fluid balance and dose diuretics if needed. 3. CAD: Described as nonobstructive. No angina. Continue chronic high- intensity statin therapy when transaminase levels and. Continue beta-lucia. 4. Chronic combined systolic/diastolic CHF: She appears compensated. She takes Lasix 40 mg twice weekly at home. Monitor fluid balance. 5. Disposition: Cardiology will sign off at this time. Please call with any other questions or concerns. Thank you for allowing me to participate in the care of your patient. Please call for any other questions or concerns. Sincerely, Huber Barrett M.D. History of Present Illness Reason for Consultation: Preoperative cardiac assessment Requesting Physician: Dr. Huizar Attending Physician: Jesus Reaves DO History of Present Illness Ms. 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 Atrial fibrillation is listed in her problem list, however no details are known about this diagnosis. Her primary poll watcher is Dr. De Jesus. She was hospitalized on 08/25/2021 with acute epigastric pain with elevated transaminase levels. She has been seen by surgery with plans of EUS and cholecystectomy. Cardiology was consulted in anticipation of surgery for preoperative evaluation. She was found to have nonocclusive CAD in 2017. She denies angina. She walks for exercise for approximately 5 minutes or so in the hallway at her apartment building. Exercise tolerance described as stable. She has dyspnea with exertion with more strenuous activities which is also chronic and stable, but not with every day activities. She has been on Lasix 40 mg 2 days per week. Prior to that she took 20 mg daily but had increased edema after discontinuation. She also has been diagnosed with venous insufficiency with plans of venous ablation on the left lower extremity. She reports appointment with vascular later this month. She denies orthopnea, shortness of breath at rest, syncope, near-syncope, palpitations, or bleeding. During hospitalization, her abdominal pain has resolved. She admits that she has had nausea but no vomiting. She denies diarrhea or other bowel complaints. Review of systems: As above. Review of systems otherwise negative/unremarkable. Family history: Mother with CHF. Father had stroke. Social history: She denies tobacco, alcohol, or drug abuse. She lives alone. after being for over 30 years. Her and her ex- are not on good terms and they have no contact with 1 another. She has 4 children which are part of her life. She lives alone in an apartment at [facility]. She was unaccompanied today. Allergies Allergy/AdvReac Type Severity Reaction Status Date / Time adhesive Allergy Mild SKIN TEARS Verified 08/25/21 14:11 AND HEALING ISSUES Barbiturates Allergy Mild Hives Verified 08/25/21 14:11 hydrochlorothiazide Allergy Mild Gastrointestinal Verified 08/25/21 14:11 Upset phenobarbital Allergy Mild heart Verified 08/25/21 14:11 racing pseudoephedrine Allergy Mild light Verified 08/25/21 14:11 headed, heart racing sertraline Allergy Mild light Verified 08/25/21 14:11 headed, dizzy Sulfa (Sulfonamide Allergy Mild Vomiting Verified 08/25/21 14:11 Antibiotics) triamterene Allergy Mild Gastrointestinal Verified 08/25/21 14:11 Upset Dyazide Allergy Unknown UNKNOWN Verified 04/11/15 09:31 gabapentin Allergy Unknown Swelling Verified 08/25/21 14:11 of Lip/Tongue/Throat pantoprazole Allergy Unknown Gastrointestinal Verified 08/25/21 14:11 Upset propoxyphene Allergy Unknown Unknown Verified 08/25/21 14:11 pollen extracts Allergy Verified 08/25/21 14:11 Home Medications Medication Instructions Recorded Confirmed Type aspirin 81 mg tablet,delayed 81 mg PO QAM 07/28/18 08/25/21 History release (Aspirin Low Dose) biotin 1 mg tablet 1 mg PO QAM 07/28/18 08/25/21 History lancets 30 gauge (OneTouch Delica #25 ea 02/08/19 07/23/21 History Lancets) multivitamin 1 tab PO QAM 02/08/19 08/25/21 History glucosam 750 mg-chondroi 100 1 tab PO UD 01/12/20 08/25/21 History mg-hyalur 1.65 mg-CF borate 108 mg tablet (Move Free [facility]) albuterol sulfate 90 mcg/actuation 1 - 2 puff INHALATION Q6H PRN #6.7 05/25/20 08/25/21 Rx aerosol inhaler (Ventolin HFA) g ipratropium bromide 21 mcg (0.03 2 spray INTNAS TID #30 ml 05/25/20 08/25/21 Rx %) nasal spray BD Ultra-Fine [place] Pen Needle 32 #400 ea NS 01/01/21 07/23/21 Rx gauge x 5/32" (pen needle, diabetic) blood sugar diagnostic (OneTouch ea 01/01/21 07/23/21 History Ultra Blue Test Strip) zinc 50 mg tablet 50 mg PO DAILY 01/01/21 08/25/21 History atorvastatin 40 mg tablet 40 mg PO QPM #90 tab 01/16/21 08/25/21 Rx insulin lispro 100 unit/mL See Rx Instructions .ROUTE 03/13/21 08/25/21 Rx subcutaneous pen (Humalog KwikPen .COMPLEX #60 ml (U-100) Insulin) montelukast 10 mg tablet 10 mg PO DAILY #30 tab 04/19/21 08/25/21 Rx omeprazole 20 mg capsule,delayed 20 mg PO BID #180 cap 04/19/21 08/25/21 Rx release insulin glargine 100 unit/mL (3 34 unit SUBCUT DAILY #4 box 04/20/21 08/25/21 Rx mL) subcutaneous pen (Basaglar KwikPen U-100 Insulin) carvedilol 25 mg tablet 25 mg PO BID #60 tab 05/17/21 08/25/21 Rx levothyroxine 50 mcg tablet 50 mcg PO QAM #90 tab 05/17/21 08/25/21 Rx cranberry 500 mg capsule 500 mg PO DAILY cap 05/21/21 08/25/21 History empagliflozin 10 mg tablet 10 mg PO DAILY #90 tab 05/21/21 08/25/21 Rx (Jardiance) lisinopril 20 mg tablet 20 mg PO BID #180 tab 05/21/21 08/25/21 Rx turmeric 400 mg capsule 400 mg PO DAILY 05/21/21 08/25/21 History metoprolol tartrate 25 mg tablet See Rx Instructions PO DAILY #270 06/19/21 08/25/21 Rx tab furosemide 40 mg tablet 40 mg PO 2XWK #30 tab 06/21/21 08/25/21 Rx diclofenac sodium 1 % topical gel 4 g TOP QID PRN #500 g 07/18/21 08/25/21 Rx acetaminophen 650 mg 650 mg PO Q8H 07/23/21 08/25/21 History tablet,extended release (Tylenol 8 Hour) tramadol 50 mg tablet See Rx Instructions PO Q6H PRN 08/02/21 08/25/21 Rx #180 tab cholecalciferol (vitamin D3) 50 0 mcg PO DAILY 08/25/21 08/25/21 History mcg (2,000 unit) capsule (Vitamin D3) levothyroxine 50 mcg tablet 50 mcg PO DAILY 08/25/21 08/25/21 History (Euthyrox) Patient History Medical History Anxiety Asthma inhaler prn Atrial fibrillation CAD (coronary artery disease) Cardiac murmur since childhood Cardiomyopathy COVID-19 vaccine series completed Diabetes mellitus, type 2 Fibromyalgia GERD (gastroesophageal reflux disease) Hearing deficit History of COVID-19 Hx of myocardial infarction multiple, most recent 2015/cardiac cath 2016 with no stents Hx of sarcoma of soft tissue right elbow- 2001; s/p chemo Hx of thrombophlebitis RLE Hyperlipidemia Hypertension Hypertensive urgency Hypothyroidism Insomnia, persistent Osteoarthritis Surgical History History of anesthesia reaction difficulty waking History of bilateral carpal tunnel release x2 History of bilateral tubal ligation History of cardiac cath 2016 @ [facility]--no stents History of left breast biopsy benign History of left cataract extraction History of surgery on arm sarcoma removal of right arm History of tooth extraction under local History of vascular access device removed 2007 Hx of colonoscopy Hx of varicose vein ligation right leg Family History Mother Family history of diabetes mellitus Myocardial infarction Allergies Cardiac disorder Hypertension Grandfather (Maternal) Family history of diabetes mellitus Grandfather (Paternal) Family history of diabetes mellitus Daughter Family hx of colon cancer Colorectal cancer Allergies Father Stroke Myocardial infarction Brother Brain tumor Renal failure Grandmother (Maternal) Cardiac disorder Other Bleeding disorder Denies family history of Ovarian cancer Prostate cancer Breast cancer Social History Smoking Status: Never smoker Second Hand Exposure: No (when worked); Hx Alcohol Use: No Hx Substance Use: No Preferred Language: Martiniquais Communication Ability: Effective Visual Impairment: Limited Hearing Ability: Hard of Hearing 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 Alert and oriented. HEENT: Anicteric sclera. Neck: No JVD. No bruits. Normal carotid upstrokes bilaterally. Cardiac: PMI was nonpalpable. No ventricular heave. Regular. Normal S1-S2. No murmurs, rubs, or gallops. Pulmonary: Clear to auscultation bilaterally without wheezes, rales, or rhonchi. Abdomen: Soft, nontender, nondistended, with normoactive bowel sounds. No bruits noted. Extremities: 2+ radial pulses bilaterally. 2+ posterior tibialis pulses bilaterally. No pitting edema or cyanosis. Psychiatric: Affect appears appropriate. Results & Data ([facility]) Vital Signs (Past 12 Hours) Vital Signs Temp Pulse Pulse Resp BP Pulse Ox 08/26/21 11:30 36.8 C 82 18 149/71 H 95 08/26/21 07:15 89 08/26/21 06:46 37.1 C 104 H 18 150/74 H 93 08/26/21 03:37 36.4 C L 87 18 114/69 95 Laboratory Results Laboratory Results - last 24 hr 08/25/21 08/25/21 08/26/21 19:31 22:35 06:55 WBC RBC Hgb Hct MCV MCH MCHC RDW Std Deviation RDW Coeff of Barbara Plt Count MPV Immature Gran % (Auto) Neut % (Auto) Lymph % (Auto) [place] % (Auto) Eos % (Auto) Baso % (Auto) Neut # (Auto) Lymph # (Auto) [place] # (Auto) Eos # (Auto) Baso # (Auto) Immature Gran # (Auto) Sodium Potassium Chloride Carbon Dioxide Anion Gap BUN Creatinine Est Cr Clr Drug Dosing Est GFR ( Amer) Est GFR (Non-Af Amer) BUN/Creatinine Ratio Glucose POC Glucose 366 H* 298 H Estimat Average Glucose Hemoglobin A1c Calcium Total Bilirubin AST ALT Alkaline Phosphatase Troponin I Total Protein Albumin Globulin Albumin/Globulin Ratio Lipase Hepatitis C Ab Screen Pending 08/26/21 08/26/21 08/26/21 06:55 06:55 08:03 WBC 5.01 RBC 4.43 Hgb 13.3 Hct 39.6 MCV 89.4 MCH 30.0 MCHC 33.6 RDW Std Deviation 42.3 RDW Coeff of Barbara 12.9 Plt Count 167 MPV 10.6 H Immature Gran % (Auto) 0.2 Neut % (Auto) 59.1 Lymph % (Auto) 26.9 [place] % (Auto) 10.4 Eos % (Auto) 3.0 Baso % (Auto) 0.4 Neut # (Auto) 2.96 Lymph # (Auto) 1.35 [place] # (Auto) 0.52 Eos # (Auto) 0.15 Baso # (Auto) 0.02 Immature Gran # (Auto) 0.01 Sodium 138 Potassium 4.0 Chloride 105 Carbon Dioxide 26 Anion Gap 7.0 BUN 32 H Creatinine 1.28 H Est Cr Clr Drug Dosing 39.7 Est GFR ( Amer) 47.4 Est GFR (Non-Af Amer) 40.9 BUN/Creatinine Ratio 25.3 H Glucose 192 H POC Glucose 183 H Estimat Average Glucose Hemoglobin A1c Calcium 9.0 Total Bilirubin 4.3 H D AST 346 H ALT 372 H Alkaline Phosphatase 142 H Troponin I < 0.015 Total Protein 7.0 Albumin 3.0 L Globulin 4.0 Albumin/Globulin Ratio 0.8 L Lipase Hepatitis C Ab Screen 08/26/21 08/26/21 08/26/21 09:21 11:35 13:30 WBC RBC Hgb Hct MCV MCH MCHC RDW Std Deviation RDW Coeff of Barbara Plt Count MPV Immature Gran % (Auto) Neut % (Auto) Lymph % (Auto) [place] % (Auto) Eos % (Auto) Baso % (Auto) Neut # (Auto) Lymph # (Auto) [place] # (Auto) Eos # (Auto) Baso # (Auto) Immature Gran # (Auto) Sodium Potassium Chloride Carbon Dioxide Anion Gap BUN Creatinine Est Cr Clr Drug Dosing Est GFR ( Amer) Est GFR (Non-Af Amer) BUN/Creatinine Ratio Glucose POC Glucose 164 H Estimat Average Glucose Pending Hemoglobin A1c Pending Calcium Total Bilirubin AST ALT Alkaline Phosphatase Troponin I Total Protein Albumin Globulin Albumin/Globulin Ratio Lipase 187 Hepatitis C Ab Screen Diagnostic Findings Telemetry personally reviewed: Sinus rhythm. Echo 08/26/2021: EF 45-50%. Severe hypokinesis to akinesis of the mid inferoseptum and mid anteroseptum. Otherwise, mild global hypokinesis. No significant valvular abnormalities. RVSP 23. No significant change from 01/19/2020 echo. ECG personally reviewed: ECG 08/25/2021: Sinus 75 beats per minute. LBBB. ECG 08/26/2021: Sinus 91 beats per minute. LBBB. Gallbladder ultrasound 08/25/2021: Multiple layering stones with mildly prominent gallbladder wall. Findings equivocal for acute cholecystitis. Medications Administered Current Inpatient Medications Carvedilol (Carvedilol 25 Mg Tab) 25 mg PO BID [facility] Stop: 09/24/21 20:59 Last Admin: 08/26/21 08:11 Dose: 25 mg Documented by: Heparin Sodium (Porcine) (Heparin Sod 5,000 Unit/0.5 Ml Vial) 7,500 units SQ Q8 NOMAN Stop: 09/24/21 21:59 Last Admin: 08/26/21 14:17 Dose: 7,500 units Documented by: Hydromorphone HCl (Hydromorphone Inj 0.5 Mg/0.5 Ml Syr) 0.25 mg IV Q3H PRN PRN Reason: Pain Stop: 09/08/21 20:59 Piperacillin Sod/Tazobactam (Sod 4.5 gm/ Dextrose) 120 mls @ 30 mls/hr IV Q8H [facility]; Protocol Stop: 09/05/21 02:59 Last Admin: 08/26/21 12:10 Dose: 30 mls/hr Documented by: Dextrose/Lactated Ringer's (D5w And Lactated Ringers) 1,000 mls @ 80 mls/hr IV .[id number] [facility] Stop: 08/27/21 14:44 Last Admin: 08/26/21 14:17 Dose: 80 mls/hr Documented by: Insulin Aspart (Insulin Aspart Per Unit) 0 units SC ACHS [facility] Stop: 09/24/21 20:59 Last Admin: 08/26/21 12:25 Dose: 1 units Documented by: Insulin Glargine (Insulin Glargine Solostar 100 Units/Ml 3 Ml Pen) 20 units SC QAM [facility] Stop: 09/25/21 08:59 Last Admin: 08/26/21 08:11 Dose: 20 units Documented by: Metoprolol Tartrate (Metoprolol Tartrate 25 Mg Tab) 25 mg PO HS [facility] Stop: 09/24/21 21:14 Last Admin: 08/25/21 22:46 Dose: 25 mg Documented by: Metoprolol Tartrate (Metoprolol Tartrate 25 Mg Tab) 50 mg PO DAILY [facility] Stop: 09/25/21 08:59 Last Admin: 08/26/21 08:11 Dose: 50 mg Documented by: Miscellaneous Information (Piperacill/Tazobac Consult Active) 1 ea N/A UD PRN PRN Reason: Consult Stop: 09/24/21 20:59 PG Care Time/CCT Total # of Minutes Spent Total Time Spent with Patient: Total time spent is greater than 50% in coordination of care (as documented) at patient's floor/unit and/or counseling patient: Coding Level of Care Code 13150 Initial Inpt Care Lvl 2 Diagnoses Cardiomyopathy I42.9 Chronic combined systolic and diastolic heart failure I50.42 Preop cardiovascular exam Z01.810 CAD (coronary artery disease) I25.10
[2021-08-26] MEDS: HYDROmorphone INJ 0.5 MG/0.5 ML SYR IV PRN (16:19)
--- NOTE | 2021-08-26 21:56 | Electrocardiogram Report ---
Test Reason : Blood Pressure : / mmHG Vent. Rate : 075 BPM Atrial Rate : 075 BPM P-R Int : 148 ms QRS Dur : 156 ms QT Int : 452 ms P-R-T Axes : 065 -30 134 degrees QTc Int : 504 ms Poor data quality, interpretation may be adversely affected Normal sinus rhythm Left axis deviation Left bundle branch block Abnormal ECG When compared with ECG of 06-AUG-2018 06:10, No significant change was found Confirmed by Mehul Barrett ([id number]) on 08/26/2021 9:55:37 PM Referred By: Confirmed By:Mehul Barrett
--- NOTE | 2021-08-27 00:19 | Consultation Report ---
GASTROENTEROLOGY CONSULTATION RACE: . ATTENDING PHYSICIAN: Jesus Reaves DO CONSULTING PHYSICIAN: Joaquín Dubois DO REASON FOR CONSULTATION: Right upper quadrant abdominal pain, elevated liver panel, and abnormal ult rasound of the gallbladder. HISTORY OF PRESENT ILLNESS: Yolis Wiley is a 76-year-old female who presented to the department of emergency medicine late last evening with complaints [facility] and epigastric area, which began at approximately 2:00 a.m. this morning. She ini tially complained of pain that was 10/10 in severity; however, her pain did resolve with morphine. U blayne arrival to the department of emergency medicine, she was noted to have elevated liver panel with an AST of 159, an ALT of 127, alkaline phosphatase of 111, and a total bilirubin of 1.7. She subsequ ently had a right upper quadrant ultrasound, in which she was noted to have multiple layering stones with mildly prominent gallbladder wall, but no pericholecystic fluid was seen and findings were equiv ocal for acute cholecystitis. Repeat laboratory studies from this morning revealed a bump in her tot al bilirubin up to 4.3 with an AST of 346, an ALT of 372, and alkaline phosphatase of 142. The patie nt refused MRCP stating that she is claustrophobic and did not want to go through this test and I did discuss this case in detail with Dr. Sofie Stanton of general surgery and decision was made to proceed with EUS plus or minus ERCP. The patient was in agreement with this plan. At the time that I saw t he patient, her abdominal pain had greatly improved, though she still considered her pain to be appro ximately a 2/10 in intensity in the epigastric area, nonradiating. She did state that the morphine d id help alleviate her symptoms. She denied any nausea, vomiting, fevers, chills, hematemesis, melena , or hematochezia. She did receive IV antibiotics as per the primary team and was resting comfortabl y in bed, tolerating ice chips and sips of water. She denied any further complaints. PAST MEDICAL HISTORY: Significant for coronary artery disease, seasonal allergies, sarcoma, uncontro lled type 2 diabetes, on chronic Coumadin therapy, insomnia, anxiety, hypertension, hyperlipidemia, a sthma, hypothyroidism, GERD, vitamin D deficiency, urinary incontinence, sensorineural hearing loss i n both ears, polyarthritis, peripheral neuropathy, mitral valve regurgitation, lymphedema, gait distu rbance, cardiomyopathy, combined systolic and diastolic heart failure. PAST SURGICAL HISTORY: Includes carpal tunnel release, tubal ligation, left breast biopsy, left donald ract Extraction, tooth extraction, and varicose vein ligation. ALLERGIES: ADHESIVES, BARBITURATES, HYDROCHLOROTHIAZIDE, PHENOBARBITAL, PSEUDOEPHEDRINE, SERTRALINE, SULFA, TRIAMTERENE, DYAZIDE, GABAPENTIN, PANTOPRAZOLE, PROPOXYPHENE, AND POLLEN EXTRACTS. CURRENT MEDICATIONS: Include Coreg 25 mg p.o. b.i.d., heparin 7500 units subcutaneously q. 8 hours, hydromorphone 0.25 mg IV q. 3 hours p.r.n. pain, insulin glargine 20 units subcutaneously q.a.m., sli ding scale insulin, metoprolol 25 mg p.o. at bedtime, metoprolol 50 mg p.o. daily, Zosyn 4.5 grams IV q. 8 hours, aspirin 81 mg p.o. q.a.m. SOCIAL HISTORY: She denies any tobacco, alcohol, or illicit drug use. She is . FAMILY HISTORY: Positive for colorectal cancer in daughter and no history of inflammatory bowel dise ase in the family. REVIEW OF SYSTEMS: Negative other than pertinent positives listed in the HPI. PHYSICAL EXAMINATION: VITAL SIGNS: Include a temperature of 36.8, pulse 82, respirations 18, blood pressure 149/71, pulse ox 95% on room air. GENERAL: Awake, cooperative, in no acute distress. HEAD: Normocephalic, atraumatic. EYES: Pupils equally round. Extraocular muscles are intact. ENT: External evaluation of ears and nose are normal. Oropharynx is clear. NECK: Soft and supple. There is no JVD or lymphadenopathy. CHEST: Clear to auscultation bilaterally. CARDIOVASCULAR: Regular rate and rhythm. ABDOMEN: Soft, nontender in the midepigastric area, nondistended. Positive bowel sounds. There is no appreciable hepatosplenomegaly. EXTREMITIES: No clubbing, cyanosis or edema. SKIN: Soft, pink, good turgor. PSYCHIATRIC: Alert and oriented x3. Normal mood. No anxiety or pressured speech. DIAGNOSTIC STUDIES: Laboratory studies and radiographic studies were reviewed in the HPI. IMPRESSION: A 76-year-old female with acute epigastric abdominal pain, elevated liver pane l, and abnormal ultrasound of the gallbladder with cholelithiasis. PLAN: High likelihood that the patient has choledocholithiasis. Therefore, we will arrange for EUS plus or minus an ERCP with Dr. Stanton of gastroenterology. I already spoke with him and he is arrang ing for this in the next few days based on availability in the OR due to continued limitations from t he COVID-19 pandemic. I would recommend that she be kept n.p.o. after midnight and would continue he r on IV Zosyn as per the primary team. I would recommend continuing supportive care. I will follow her clinical course and make further recommendations as needed. Once again, thanks for allowing me t o participate in the care of this patient. If you have any further questions, please do not hesitate in contacting me. Job ID: [id number]
[2021-08-27] MEDS: D5W AND LACTATED RINGERS 1,000 ML IV SCH (02:44)
[2021-08-27] MEDS: PIPERACILLIN/TAZOBACTAM 4.5 GM in DEXTROSE 5% 100 ML IV SCH ×3 (04:04→21:28)
[2021-08-27] MEDS: HEPARIN SOD 5,000 UNIT/0.5 ML VIAL SQ SCH ×3 (06:00→21:32)
--- NOTE | 2021-08-27 06:06 | Electrocardiogram Report ---
Test Reason : Blood Pressure : / mmHG Vent. Rate : 091 BPM Atrial Rate : 091 BPM P-R Int : 182 ms QRS Dur : 154 ms QT Int : 428 ms P-R-T Axes : 086 -30 142 degrees QTc Int : 526 ms Poor data quality, interpretation may be adversely affected Normal sinus rhythm Left axis deviation Left bundle branch block Abnormal ECG When compared with ECG of 25-AUG-2021 12:45, No significant change was found Confirmed by Mehul Barrett ([id number]) on 08/27/2021 6:06:32 AM Referred By: REFERRED SELF Confirmed By:Mehul Barrett
[2021-08-27 07:22] LABS: Estimated Average Glucose 197 mg/dl; Hemoglobin A1C 8.5 % (4.5-5.6)
[2021-08-27 08:04] LABS: Basophils # (auto) 0.04 K/uL (0-0.2); Basophils % (auto) 0.7 %; Eosinophils # (auto) 0.24 K/uL (0-0.5); Eosinophils % (auto) 4.2 %; Hemoglobin 14.4 g/dL (12.0-16.0); Immature Granulocytes # (auto) 0.02 K/uL (0.00-0.02); Immature Granulocytes % (auto) 0.4 %; Lymphocytes # (auto) 1.97 K/uL (1.2-3.4); Lymphocytes % (auto) 34.7 %; Mean Corpuscular Hemoglobin 29.6 pg (25-34); Mean Corpuscular Hgb Conc 33.5 g/dL (32-36); Mean Corpuscular Volume 88.5 fL (80-100); Mean Platelet Volume 10.4 fL (7.4-10.4); Monocytes # (auto) 0.51 K/uL (0.11-0.59); Neutrophils # (auto) 2.89 K/uL (1.4-6.5); Platelet Count 175 K/uL (130-400); RDW Coefficient of Variation 12.9 % (11.5-14.5); RDW Standard Deviation 41.8 fL (36.4-46.3); Red Blood Count 4.86 M/uL (4.2-5.4); White Blood Count 5.67 K/uL (4.8-10.8)
[2021-08-27] MEDS: carvediloL 25 MG TAB PO SCH ×2 (08:38→21:33)
[2021-08-27] MEDS: METOPROLOL TARTRATE 25 MG TAB PO SCH ×2 (08:38→21:31)
[2021-08-27] MEDS: INSULIN GLARGINE SOLOSTAR 100 UNITS/ML 3 ML PEN SC SCH (08:39)
[2021-08-27] MEDS: INSULIN ASPART PER UNIT SC SCH ×3 (08:42→21:29)
[2021-08-27 09:24] LABS: Albumin Globulin Ratio 0.7 (0.9-2); Albumin Level 3.2 gm/dl (3.4-5.0); Calcium 9.2 mg/dl (8.5-10.1); Creatinine Clr Calc Pharmacy 42.5 ml/min; Est GFR (African American) 51.2 ml/min; Est GFR (Non-African American) 44.2 ml/min; Globulin 4.4 gm/dl (2.5-4.0); Total Protein 7.6 gm/dl (6.4-8.2)
--- NOTE | 2021-08-27 09:24 | Hospitalist Progress Note ---
Date of Service August 27, 2021 Assessment & Plan (1) Abdominal pain, acute, epigastric: Plan: Right upper quadrant ultrasound with layering stones an equivocal for cholecystitis. Await GI consult for possible endoscopic ultrasound. Surgery has already been consulted. Continue IV antibiotics for now. Continue IV fluids for now Continue to follow labs closely. (2) Abnormal ultrasound of gallbladder: Plan: GI and surgery consult as above. (3) Elevated liver function tests: Plan: AST 346. ALT 372 -continue to follow. (4) Uncontrolled type 2 diabetes mellitus with hyperglycemia, with long-term current use of insulin: Plan: Patient remains NPO. No change in insulin as of now but may need re-evaluated once the patient is able to eat. Pharmacy consult for management of insulin (5) Hypertension: Plan: Elevated today. Resume Lisinopril 20mg BID Monitor renal function. (6) CAD (coronary artery disease): Plan: Patient had preoperative clearance from Cardiology already. Patient is on Metoprolol and Carvedilol. I checked with Dr. De Jesus and patient should remain on Metoprolol and Carvedilol. (7) Cardiomyopathy: Plan: Was on Lisinopril as an outpatient. It was held on admission due to creatinine of 1.2. Will review lab work in the morning. Admission and Anticipated Discharge Date Admission Date: August 25, 2021 Subjective 76-year-old that was admitted 08/25/2021 for epigastric and right upper quadrant discomfort seen today for routine rounds. Gallbladder ultrasound upon admission showed multiple layering stones with mildly prominent gallbladder wall. Findings were equivocal for acute cholecystitis. Patient had associated elevated bilirubin and transaminases. GI and surgery were consulted. Patient was seen by surgery and they recommended clearance of common bile duct stones prior surgery. The patient is unable to tolerate an MRCP. GI was consulted to perform an endoscopic ultrasound. Patient does not have any complaints today. No abdominal pain. No current nausea. Blood sugar was 222 today. Review of Systems Constitutional: no fever Ear, Nose, Mouth, Throat: no nasal congestion, no nasal discharge and no sore throat Respiratory: no cough and no dyspnea on exertion Cardiovascular: no chest pain, no palpitations and no edema Gastrointestinal: no abdominal pain and no nausea Physical Exam Constitutional: well developed and well nourished; no acute distress Eyes: PERRL, conjunctivae normal, anicteric sclerae Respiratory: normal respiratory effort, lungs clear to auscultation Cardiovascular: RRR, no murmur, no edema Gastrointestinal (Abdomen): Inspection/Auscultation: abdomen normal to inspection and normal bowel sounds; abdomen not distended Percussion/Palpation: abdomen nontender Results & Data Results & Data ([facility]) Vital Signs (Past 12 Hours) Vital Signs Temp Pulse Pulse Resp BP Pulse Ox 08/27/21 08:16 98.2 F 73 20 181/70 H 96 08/27/21 07:24 71 08/27/21 03:36 98.2 F 83 16 170/80 H 96 08/27/21 00:56 74 08/26/21 23:55 97.9 F 84 18 149/72 H 92 PG Care Time/CCT Total # of Minutes Spent Total Time Spent with Patient: Total time spent is greater than 50% in coordination of care (as documented) at patient's floor/unit and/or counseling patient: Coding Level of Care Code 24054 Subseq Hosp Care Lvl 2 Diagnoses Abdominal pain, acute, epigastric R10.13 Abnormal ultrasound of gallbladder R93.2 Elevated liver function tests R79.89 Uncontrolled type 2 diabetes mellitus with hyperglycemia, with long-term current use of insulin E11.65; Z79.4 Hypertension I10 CAD (coronary artery disease) I25.10 Cardiomyopathy I42.9
[2021-08-27] MEDS ORDERED: PHARMACY GLYCEMIC MGMT CONSULT PRN (10:13)
--- NOTE | 2021-08-27 10:46 | Cardiology Progress Note ---
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 Volume status appropriate presently. She has been on a combination of carvedilol and metoprolol for a number of years, this was previously titrated to achieve adequate alpha and beta blockade. Somewhat hypertensive, possibly due to IV fluids/withholding her usual diuretics (furosemide 40 mg twice weekly). In the absence of evidence for overt heart failure, would not overtreat transient hypertension in this context. If she does show evidence of volume overload at some point, may need to hold IV fluids and/or administer diuretic (however neither needed at this time). Her coronary artery disease was previously nonocclusive and her troponin was negative on admission, no ongoing ischemic symptoms. Okay to proceed with ERCP/gallbladder surgery as necessary. Admission and Anticipated Discharge Date Admission Date: August 25, 2021 Subjective Patient doing well. Only occasional epigastric discomfort which has responded to Dilaudid. No chest pain, dyspnea, palpitations, or other cardiopulmonary complaints. Physical Exam Physical Exam: No distress. Weight up 2 pounds from admission. Moderately hypertensive. Pulse 72 bpm and regular. Skin: no ecchymoses or generalized lesions. HEENT: unremarkable. Neck: Jugular venous pulse at the clavicle at 90 degrees, no JVD or carotid bruits. Lungs: clear. Cardiac: regular rhythm with 2/6 basal systolic ejection murmur which is nonradiating, no diastolic murmur. Abdomen: benign. Extremities: no edema, pulses intact. Neurologic: normal affect and conversation, nonfocal. Results & Data ([facility]) Vital Signs (Past 12 Hours) Vital Signs Temp Pulse Pulse Resp BP Pulse Ox 08/27/21 08:16 98.2 F 73 20 181/70 H 96 08/27/21 07:24 71 08/27/21 03:36 98.2 F 83 16 170/80 H 96 08/27/21 00:56 74 08/26/21 23:55 97.9 F 84 18 149/72 H 92 Laboratory Results Normal electrolytes, BUN 19, creatinine 1.2 (down from 1.28). Troponin on admission was negative. PG Care Time/CCT Total # of Minutes Spent Total Time Spent with Patient: Total time spent is greater than 50% in coordination of care (as documented) at patient's floor/unit and/or counseling patient: Coding Level of Care Code 61426 Subseq Hosp Care Lvl 3 Diagnoses Cardiomyopathy I42.9 Chronic combined systolic and diastolic heart failure I50.42 Non-occlusive coronary artery disease requiring drug therapy I25.10
[2021-08-27 10:54] LABS: Bilirubin,Total 1.5 mg/dl (0.2-1)
--- NOTE | 2021-08-27 11:20 | Surgery Progress Note ---
Date of Service August 27, 2021 Assessment & Plan (1) Elevated liver function tests: Plan: Prior lfts were normal in April 2021. No evidence of biliary dilation on US. Explained that this can be suggestive of common duct stone/ sludge and clearance of the common duct should be done prior to surgery. Pt is unable to tolerate MRCP. EUS has been recommended by GI and scheduling is in progress. LFTS improved today (08/27/2021) (2) Abnormal ultrasound of gallbladder: Plan: Gallstones, small layering. Will need cholecystectomy. Timing to be determined by liver test trend and results of EUS/ERCP. Will await results of EUS/ERCP. Will likely plan for laparoscopic cholecystectomy day after the EUS/ERCP given cardiomyopathy and Dr. Woods wanting to avoid prolonged anesthesia with combined EUS/ERCP and cholecystectomy. (3) Abdominal pain, acute, epigastric: Plan: Resolved. If EUS is unable to happen today, OK to advance diet until that time and NPO after midnight. Dr. Woods was present during rounds and my examination with patient and agrees with above. Admission and Anticipated Discharge Date Admission Date: August 25, 2021 Subjective feeling well this morning other than starting to feel slightly lightheaded no further abdominal pain, had Dilaudid in ED and yesterday no nausea or vomiting Physical Exam Constitutional: WD/WN, vitals as above no acute distress and not ill appearing Neck: normal visual inspection and trachea midline Respiratory: normal respiratory effort; no respiratory distress, no labored breathing and no retractions Gastrointestinal (Abdomen): Inspection/Auscultation: abdomen normal to inspection and + abdominal surgical scar (infraumbilical laparoscopic scar); no abdominal surgical incision Percussion/Palpation: abdomen soft; abdomen nontender, no guarding and abdomen not rigid Skin: no rashes, warm and dry no jaundice Psychiatric: A+Ox3, euthymic affect Results & Data ([facility]) Vital Signs (Past 12 Hours) Vital Signs Temp Pulse Pulse Resp BP Pulse Ox 08/27/21 08:16 36.8 C 73 20 181/70 H 96 08/27/21 07:24 71 08/27/21 03:36 36.8 C 83 16 170/80 H 96 08/27/21 00:56 74 08/26/21 23:55 36.6 C 84 18 149/72 H 92 Laboratory Results 08/27/21 08/27/2122 Range/Units 07:54 07:47 07:47 WBC 5.67 (4.8-10.8) K/uL RBC 4.86 (4.2-5.4) M/uL Hgb 14.4 (12.0-16.0) g/dL Hct 43.0 (37-47) % MCV 88.5 (80-100) fL MCH 29.6 (25-34) pg MCHC 33.5 (32-36) g/dL RDW Std Deviation 41.8 (36.4-46.3) fL RDW Coeff of Barbara 12.9 (11.5-14.5) % Plt Count 175 (130-400) K/uL MPV 10.4 (7.4-10.4) fL Immature Gran % (Auto) 0.4 % Neut % (Auto) 51.0 % Lymph % (Auto) 34.7 % [place] % (Auto) 9.0 % Eos % (Auto) 4.2 % Baso % (Auto) 0.7 % Neut # (Auto) 2.89 (1.4-6.5) K/uL Lymph # (Auto) 1.97 (1.2-3.4) K/uL [place] # (Auto) 0.51 (0.11-0.59) K/uL Eos # (Auto) 0.24 (0-0.5) K/uL Baso # (Auto) 0.04 (0-0.2) K/uL Immature Gran # (Auto) 0.02 (0.00-0.02) K/uL Sodium 141 (136-145) mmol/L Potassium 4.0 (3.5-5.1) mmol/L Chloride 109 H (98-107) mmol/L Carbon Dioxide 24 (21-32) mmol/L Anion Gap 8.0 (3-11) BUN 19 H (7-18) mg/dl Creatinine 1.20 (0.6-1.2) mg/dl Est Cr Clr Drug Dosing 42.5 ml/min Est GFR ( Amer) 51.2 ml/min Est GFR (Non-Af Amer) 44.2 ml/min BUN/Creatinine Ratio 16.0 (10-20) Glucose 242 H (70-99) mg/dl POC Glucose 222 H (70-99) mg/dl Estimat Average Glucose mg/dl Hemoglobin A1c (4.5-5.6) % Calcium 9.2 (8.5-10.1) mg/dl Total Bilirubin 1.5 H D (0.2-1) mg/dl AST 152 H (15-37) U/L ALT 261 H (12-78) Alkaline Phosphatase 155 H (45-117) U/L Total Protein 7.6 (6.4-8.2) gm/dl Albumin 3.2 L (3.4-5.0) gm/dl Globulin 4.4 H (2.5-4.0) gm/dl Albumin/Globulin Ratio 0.7 L (0.9-2) 08/26/21 08/26/21 08/26/21 Range/Units 20:35 16:40 13:30 WBC (4.8-10.8) K/uL RBC (4.2-5.4) M/uL Hgb (12.0-16.0) g/dL Hct (37-47) % MCV (80-100) fL MCH (25-34) pg MCHC (32-36) g/dL RDW Std Deviation (36.4-46.3) fL RDW Coeff of Barbara (11.5-14.5) % Plt Count (130-400) K/uL MPV (7.4-10.4) fL Immature Gran % (Auto) % Neut % (Auto) % Lymph % (Auto) % [place] % (Auto) % Eos % (Auto) % Baso % (Auto) % Neut # (Auto) (1.4-6.5) K/uL Lymph # (Auto) (1.2-3.4) K/uL [place] # (Auto) (0.11-0.59) K/uL Eos # (Auto) (0-0.5) K/uL Baso # (Auto) (0-0.2) K/uL Immature Gran # (Auto) (0.00-0.02) K/uL Sodium (136-145) mmol/L Potassium (3.5-5.1) mmol/L Chloride (98-107) mmol/L Carbon Dioxide (21-32) mmol/L Anion Gap (3-11) BUN (7-18) mg/dl Creatinine (0.6-1.2) mg/dl Est Cr Clr Drug Dosing ml/min Est GFR ( Amer) ml/min Est GFR (Non-Af Amer) ml/min BUN/Creatinine Ratio (10-20) Glucose (70-99) mg/dl POC Glucose 169 H 148 H (70-99) mg/dl Estimat Average Glucose 197 mg/dl Hemoglobin A1c 8.5 H (4.5-5.6) % Calcium (8.5-10.1) mg/dl Total Bilirubin (0.2-1) mg/dl AST (15-37) U/L ALT (12-78) Alkaline Phosphatase (45-117) U/L Total Protein (6.4-8.2) gm/dl Albumin (3.4-5.0) gm/dl Globulin (2.5-4.0) gm/dl Albumin/Globulin Ratio (0.9-2) 08/26/21 Range/Units 11:35 WBC (4.8-10.8) K/uL RBC (4.2-5.4) M/uL Hgb (12.0-16.0) g/dL Hct (37-47) % MCV (80-100) fL MCH (25-34) pg MCHC (32-36) g/dL RDW Std Deviation (36.4-46.3) fL RDW Coeff of Barbara (11.5-14.5) % Plt Count (130-400) K/uL MPV (7.4-10.4) fL Immature Gran % (Auto) % Neut % (Auto) % Lymph % (Auto) % [place] % (Auto) % Eos % (Auto) % Baso % (Auto) % Neut # (Auto) (1.4-6.5) K/uL Lymph # (Auto) (1.2-3.4) K/uL [place] # (Auto) (0.11-0.59) K/uL Eos # (Auto) (0-0.5) K/uL Baso # (Auto) (0-0.2) K/uL Immature Gran # (Auto) (0.00-0.02) K/uL Sodium (136-145) mmol/L Potassium (3.5-5.1) mmol/L Chloride (98-107) mmol/L Carbon Dioxide (21-32) mmol/L Anion Gap (3-11) BUN (7-18) mg/dl Creatinine (0.6-1.2) mg/dl Est Cr Clr Drug Dosing ml/min Est GFR ( Amer) ml/min Est GFR (Non-Af Amer) ml/min BUN/Creatinine Ratio (10-20) Glucose (70-99) mg/dl POC Glucose 164 H (70-99) mg/dl Estimat Average Glucose mg/dl Hemoglobin A1c (4.5-5.6) % Calcium (8.5-10.1) mg/dl Total Bilirubin (0.2-1) mg/dl AST (15-37) U/L ALT (12-78) Alkaline Phosphatase (45-117) U/L Total Protein (6.4-8.2) gm/dl Albumin (3.4-5.0) gm/dl Globulin (2.5-4.0) gm/dl Albumin/Globulin Ratio (0.9-2)
[2021-08-27] MEDS ORDERED: INSULIN ASPART PER UNIT SC SCH (12:00)
--- NOTE | 2021-08-27 13:03 | Pharmacy Report ---
Pharmacy Glycemic Short Note 2 - Date of Service August 27, 2021 - Glycemic Short BSG Results (Last 24 hours): 08/26/21 08/26/21 08/27/21 16:40 20:35 07:47 Glucose 242 H POC Glucose 148 H 169 H 08/27/21 08/27/21 07:54 12:00 Glucose POC Glucose 222 H 171 H OUTPATIENT ANTIDIABETIC REGIMEN: * Lantus 34 units SC daily * Humalog 12 units SC with breakfast, 16 units with lunch and dinner * Jardiance 10 mg PO daily * HbA1c: 8.5% (08/26/21) ASSESSMENT: * CECELIA is a 76 year old female presented on 08/25/21 with acute epigastric abdominal pain * Patient scheduled to be NPO after midnight for ERCP tomorrow * Receiving D5/LR @ 80 mL/hr, now discontinued with advance to clear liquid diet * BSGs yesterday ranging, 148-183 mg/dL, fasting BSG of 222 mg/dL this morning (pharmacy consulted for glycemic management at that time) * 20 units of Lantus given prior to consult * Will add on scaled dose of Lantus HS to possibly provide increased basal dose and will tighten Novolog parameters * Receiving Zosyn 4.5 g IV q8h PLAN FOR INPATIENT GLYCEMIC CONTROL: * Hold outpatient oral diabetes medications * Basal insulin * Lantus 20 units SC daily * Lantus 0-10 units SC HS (see EHR for details) * Bolus insulin * NovoLog per scale ACHS or Q6hrs while NPO * Goal Range: Low 110 mg/dL - High 140 mg/dL * Correction Factor: 20 mg/dL/unit * Nutritional / Prandial insulin per carb ratio of 1 unit per 7 grams CHO consumed PLAN FOR DISCHARGE: * tbd
--- NOTE | 2021-08-27 15:21 | Gastroenterology Progress Note ---
Date of Service August 27, 2021 Assessment & Plan (1) Elevated liver function tests: (2) Abnormal ultrasound of gallbladder: Plan: EUS/ +/- ERCP tomorrow 08/28/21. Surgery on board and planning cholecystectomy (likely 08/29/[address] Chuck Estrada, the Surgery PA-C). Clear liquids po today. NPO after midnight. Admission and Anticipated Discharge Date Admission Date: August 25, 2021 Supervising Physician Co-Signing Physician Notes Attg add: I interviewed and examined pt, reviewed chart and labs. Pt with re solved pain, falling LFT's. Adamantly refusing MRCP. Plan EUS +/- ERCP. Subjective 76 yr old female admitted on 08/25 for biliary colic type abd pain. US with gallstones. LFTs elevated (improving). Lipase normal. Pain has resolved. Review of Systems Review of Systems: ROS: Gen: Denies weakness, fevers, weight loss Eyes: No eye redness, or pain, no recent vision changes Resp: No SOB, no cough Cardio: No palpitations/irregular beats, no chest pain GI: As per HPI, otherwise (-). : Denies pain on urination Skin: No jaundice, itching or new rashes Physical Exam Constitutional: well developed and cooperative Eyes: PERRL, conjunctivae normal, anicteric sclerae ENMT: external ear and nose normal, oropharynx normal Neck: trachea midline, no thyromegaly Respiratory: normal respiratory effort, lungs clear to auscultation Cardiovascular: RRR, no murmur, no edema Gastrointestinal (Abdomen): normal bowel sounds, soft, nontender, no hepatosplenomegaly Skin: no rashes, warm and dry Neurologic: PERRL, EOMI, accommodation nl, no face palsy, no dysarthria awake; not confused Psychiatric: A+Ox3, euthymic affect Results & Data ([facility]) Vital Signs (Past 12 Hours) Vital Signs Temp Pulse Pulse Resp BP Pulse Ox 08/27/21 15:14 36.5 C 80 20 170/83 H 96 08/27/21 11:34 36.2 C L 78 20 178/82 H 96 08/27/21 08:16 36.8 C 73 20 181/70 H 96 08/27/21 07:24 71 08/27/21 03:36 36.8 C 83 16 170/80 H 96 Laboratory Results WBC 5.6, HB 14.4, HCT 43, PLTs 175, Na 141, K 4.0, Cl 109, CO2 24, BUN 19, Cr 1.2, Glucose 242. T Bili 1.5, AST 152, ALT 261, Alk Phos 155, lipase normal. Diagnostic Findings US 08/25/21: Multiple layering stones with mildly prominent gallbladder wall. No pericholecystic fluid is seen. Findings are equivocal for acute cholecystitis. If further evaluation is desired, nuclear medicine hepatobiliary scan can be performed.
[2021-08-27] MEDS: D5NSS + 20MEQ KCL 20 MEQ/1,000 ML BAG IV SCH (18:37)
--- NOTE | 2021-08-27 19:59 | Anesthesiology Consultation ---
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 Volume status appropriate presently. She has been on a combination of carvedilol and metoprolol for a number of years, this was previously titrated to achieve adequate alpha and beta blockade. Somewhat hypertensive, possibly due to IV fluids/withholding her usual diuretics (furosemide 40 mg twice weekly). In the absence of evidence for overt heart failure, would not overtreat transient hypertension in this context. If she does show evidence of volume overload at some point, may need to hold IV fluids and/or administer diuretic (however neither needed at this time). Her coronary artery disease was previously nonocclusive and her troponin was negative on admission, no ongoing ischemic symptoms. Okay to proceed with ERCP/gallbladder surgery as necessary. Consults Requested none History Surgery Operation Date: 08/28/21 13:30 Proposed Procedures p Upper Endoscopic Ultrasonography - Juan Stanton DO s Endoscopic Retrograde Cholangiopancreatogram - Juan Stanton DO Operation Date: 08/29/21 07:00 Proposed Procedures p Laparoscopic Cholecystectomy - Jordan Woods MD Height/Weight Height: 5 ft 1 in Weight: 94.4 kg Allergies Allergy/AdvReac Type Severity Reaction Status Date / Time adhesive Allergy Mild SKIN TEARS Verified 08/25/21 14:11 AND HEALING ISSUES Barbiturates Allergy Mild Hives Verified 08/25/21 14:11 hydrochlorothiazide Allergy Mild Gastrointestinal Verified 08/25/21 14:11 Upset phenobarbital Allergy Mild heart Verified 08/25/21 14:11 racing pseudoephedrine Allergy Mild light Verified 08/25/21 14:11 headed, heart racing sertraline Allergy Mild light Verified 08/25/21 14:11 headed, dizzy Sulfa (Sulfonamide Allergy Mild Vomiting Verified 08/25/21 14:11 Antibiotics) triamterene Allergy Mild Gastrointestinal Verified 08/25/21 14:11 Upset Dyazide Allergy Unknown UNKNOWN Verified 04/11/15 09:31 gabapentin Allergy Unknown Swelling Verified 08/25/21 14:11 of Lip/Tongue/Throat pantoprazole Allergy Unknown Gastrointestinal Verified 08/25/21 14:11 Upset propoxyphene Allergy Unknown Unknown Verified 08/25/21 14:11 pollen extracts Allergy Verified 08/25/21 14:11 Medications Home Medications Medication Instructions Recorded Confirmed Last Taken aspirin 81 mg tablet,delayed 81 mg PO QAM 07/28/18 08/25/21 08/25/21 release (Aspirin Low Dose) biotin 1 mg tablet 1 mg PO QAM 07/28/18 08/25/21 08/25/21 lancets 30 gauge (OneTouch Delica #25 ea 02/08/19 07/23/21 Unknown Lancets) multivitamin 1 tab PO QAM 02/08/19 08/25/21 08/25/21 glucosam 750 mg-chondroi 100 1 tab PO UD 01/12/20 08/25/21 08/25/21 mg-hyalur 1.65 mg-CF borate 108 mg tablet ([facility]) albuterol sulfate 90 mcg/actuation 1 - 2 puff INHALATION Q6H PRN #6.7 05/25/20 08/25/21 Unknown aerosol inhaler (Ventolin HFA) g ipratropium bromide 21 mcg (0.03 2 spray INTNAS TID #30 ml 05/25/20 08/25/21 08/25/21 %) nasal spray BD Ultra-Fine [place] Pen Needle 32 #400 ea NS 01/01/21 07/23/21 Unknown gauge x 5/32" (pen needle, diabetic) blood sugar diagnostic (OneTouch ea 01/01/21 07/23/21 Unknown Ultra Blue Test Strip) zinc 50 mg tablet 50 mg PO DAILY 01/01/21 08/25/21 08/25/21 atorvastatin 40 mg tablet 40 mg PO QPM #90 tab 01/16/21 08/25/21 08/24/21 insulin lispro 100 unit/mL See Rx Instructions .ROUTE 03/13/21 08/25/21 08/25/21 subcutaneous pen (Humalog KwikPen .COMPLEX #60 ml (U-100) Insulin) montelukast 10 mg tablet 10 mg PO DAILY #30 tab 04/19/21 08/25/21 08/25/21 omeprazole 20 mg capsule,delayed 20 mg PO BID #180 cap 04/19/21 08/25/21 08/25/21 release insulin glargine 100 unit/mL (3 34 unit SUBCUT DAILY #4 box 04/20/21 08/25/21 08/25/21 mL) subcutaneous pen (Basaglar KwikPen U-100 Insulin) carvedilol 25 mg tablet 25 mg PO BID #60 tab 05/17/21 08/25/21 08/25/21 levothyroxine 50 mcg tablet 50 mcg PO QAM #90 tab 05/17/21 08/25/21 08/25/21 cranberry 500 mg capsule 500 mg PO DAILY cap 05/21/21 08/25/21 08/25/21 empagliflozin 10 mg tablet 10 mg PO DAILY #90 tab 05/21/21 08/25/21 08/25/21 (Jardiance) lisinopril 20 mg tablet 20 mg PO BID #180 tab 05/21/21 08/25/21 08/25/21 turmeric 400 mg capsule 400 mg PO DAILY 05/21/21 08/25/21 08/25/21 metoprolol tartrate 25 mg tablet See Rx Instructions PO DAILY #270 06/19/21 08/25/21 08/25/21 tab furosemide 40 mg tablet 40 mg PO 2XWK #30 tab 06/21/21 08/25/21 Unknown diclofenac sodium 1 % topical gel 4 g TOP QID PRN #500 g 07/18/21 08/25/21 Unknown acetaminophen 650 mg 650 mg PO Q8H 07/23/21 08/25/21 08/25/21 tablet,extended release (Tylenol 8 Hour) tramadol 50 mg tablet See Rx Instructions PO Q6H PRN 08/02/21 08/25/21 08/25/21 #180 tab cholecalciferol (vitamin D3) 50 0 mcg PO DAILY 08/25/21 08/25/21 08/25/21 mcg (2,000 unit) capsule (Vitamin D3) levothyroxine 50 mcg tablet 50 mcg PO DAILY 08/25/21 08/25/21 Unknown (Euthyrox) Active Medications Generic Name Dose Route Start Last Admin Trade Name Freq PRN Reason Stop Dose Admin Carvedilol 25 mg 08/25/21 21:00 08/27/21 08:38 Carvedilol 25 Mg Tab PO 09/24/21 20:59 25 mg BID NOMAN Administration Heparin Sodium (Porcine) 7,500 units 08/25/21 22:00 08/27/21 14:55 Heparin Sod 5,000 Unit/0.5 Ml Vial SQ 09/24/21 21:59 7,500 units Q8 NOMAN Administration Hydromorphone HCl 0.25 mg 08/25/21 21:00 08/26/21 16:19 Hydromorphone Inj 0.5 Mg/0.5 Ml Syr IV 09/08/21 20:59 0.25 mg Q3H PRN Administration Pain Piperacillin Sod/Tazobactam 120 mls @ 30 mls/hr 08/26/21 03:00 08/27/21 16:00 Sod 4.5 gm/ Dextrose IV 09/05/21 02:59 Infused Q8H NOMAN Infusion Protocol Potassium Chloride/Dextrose/Sod Cl 20 meq in 1,000 mls @ 80 mls/hr 08/27/21 17:15 08/27/21 18:37 D5nss + 20meq Kcl IV 09/26/21 17:14 80 mls/hr .[id number] NOMAN Administration Insulin Aspart 0 units 08/27/21 16:30 08/27/21 17:05 Insulin Aspart Per Unit SC 09/26/21 16:29 4 units ACHS NOMAN Administration Insulin Glargine 20 units 08/26/21 09:00 08/27/21 08:39 Insulin Glargine Solostar 100 Units/Ml 3 Ml Pen SC 09/25/21 08:59 20 units QAM NOMAN Administration Metoprolol Tartrate 25 mg 08/25/21 21:15 08/26/21 21:39 Metoprolol Tartrate 25 Mg Tab PO 09/24/21 21:14 25 mg HS NOMAN Administration Metoprolol Tartrate 50 mg 08/26/21 09:00 08/27/21 08:38 Metoprolol Tartrate 25 Mg Tab PO 09/25/21 08:59 50 mg DAILY NOMAN Administration Past Medical History Medical History Anxiety Asthma inhaler prn Atrial fibrillation CAD (coronary artery disease) Cardiac murmur since childhood Cardiomyopathy COVID-19 vaccine series completed Diabetes mellitus, type 2 Fibromyalgia GERD (gastroesophageal reflux disease) Hearing deficit History of COVID-19 Hx of myocardial infarction multiple, most recent 2016/cardiac cath 2017 with no stents Hx of sarcoma of soft tissue right elbow- 2001; s/p chemo Hx of thrombophlebitis RLE Hyperlipidemia Hypertension Hypertensive urgency Hypothyroidism Insomnia, persistent Osteoarthritis Past Family History Family History Mother Family history of diabetes mellitus Myocardial infarction Allergies Cardiac disorder Hypertension Grandfather (Maternal) Family history of diabetes mellitus Grandfather (Paternal) Family history of diabetes mellitus Daughter Family hx of colon cancer Colorectal cancer Allergies Father Stroke Myocardial infarction Brother Brain tumor Renal failure Grandmother (Maternal) Cardiac disorder Other Bleeding disorder Denies family history of Ovarian cancer Prostate cancer Breast cancer Past Surgical History Surgical History History of anesthesia reaction difficulty waking History of bilateral carpal tunnel release x2 History of bilateral tubal ligation History of cardiac cath 2016 @ [facility]--no stents History of left breast biopsy benign History of left cataract extraction History of surgery on arm sarcoma removal of right arm History of tooth extraction under local History of vascular access device removed 2007 Hx of colonoscopy Hx of varicose vein ligation right leg Social History Smoking Status: Never smoker Hx Alcohol Use: No Hx Substance Use: No substance use type: does not use Physical Exam Vital Signs Last Vital Signs Temp 36.5 C 08/27/21 15:14 Pulse 75 08/27/21 15:29 Resp 20 08/27/21 15:14 BP 170/83 H 08/27/21 15:14 Pulse Ox 96 08/27/21 15:14 Testing Laboratory Results 08/27/21 07:47 08/27/21 07:47 Hemoglobin A1c 8.5 % (4.5-5.6) H 08/26/21 13:30 Urine Color Yellow 08/25/21 Unknown Urine Appearance Clear (Clear) 08/25/21 Unknown Urine pH 5.0 (4.5-7.5) 08/25/21 Unknown Ur Specific [place] 1.020 (1.000-1.030) 08/25/21 Unknown Urine Protein Negative (Negative) 08/25/21 Unknown Urine Glucose (UA) 3+ (Negative) H 08/25/21 Unknown Urine Ketones Negative (Negative) 08/25/21 Unknown Urine Nitrite Negative (Negative) 08/25/21 Unknown Ur Leukocyte Esterase Negative (Negative) 08/25/21 Unknown 08/27/21 08/27/21 08/27/21 16:56 14:48 12:00 POC Glucose 101 H 173 H 171 H 08/27/21 07:54 POC Glucose 222 H Electrocardiogram Date: 08/27/21 HR 74. Normal sinus rhythm Left axis deviation Left bundle branch block Abnormal ECG When compared with ECG of 26-AUG-2021 06:01, No significant change was found Chest X-Ray Date: 08/25/21 XR chest 1V portable CLINICAL HISTORY: Atypical chest pain TECHNIQUE: Single frontal radiograph of the chest was obtained. Comparison: Comparison is made to chest 2 views 10/19/2018 FINDINGS: No lines and tubes are seen. The cardiomediastinal silhouette is slightly prominent. There is mild bibasilar atelectasis. Mild cephalization of the vasculature is noted. No evidence of pleural effusion or pneumothorax. IMPRESSION: Mild pulmonary edema. Echocardiogram Date: 08/26/21 Normal LV size with mildly reduced systolic function. EF 45-50%. Severe hypokinesis to akinesis of the mid inferoseptum and mid anteroseptum. Otherwise global hypokinesis. No Valvular stenosis/regurg. No change from previous study 01/19/2020.
[2021-08-27] MEDS ORDERED: INSULIN GLARGINE SOLOSTAR 100 UNITS/ML 3 ML PEN SC SCH (21:00)
[2021-08-27] MEDS: HYDROmorphone INJ 0.5 MG/0.5 ML SYR IV PRN (21:27)
[2021-08-27] MEDS: lisinopril 20 MG TAB PO SCH (21:31)
[2021-08-28] MEDS: PIPERACILLIN/TAZOBACTAM 4.5 GM in DEXTROSE 5% 100 ML IV SCH ×3 (05:16→20:27)
[2021-08-28] MEDS: HEPARIN SOD 5,000 UNIT/0.5 ML VIAL SQ SCH ×3 (06:03→21:23)
[2021-08-28 06:19] LABS: Basophils # (auto) 0.03 K/uL (0-0.2); Basophils % (auto) 0.6 %; Eosinophils # (auto) 0.24 K/uL (0-0.5); Eosinophils % (auto) 4.8 %; Hematocrit (blood only) 41.2 % (37-47); Hemoglobin 13.5 g/dL (12.0-16.0); Immature Granulocytes # (auto) 0.02 K/uL (0.00-0.02); Immature Granulocytes % (auto) 0.4 %; Lymphocytes # (auto) 1.91 K/uL (1.2-3.4); Lymphocytes % (auto) 37.8 %; Mean Corpuscular Hemoglobin 29.5 pg (25-34); Mean Corpuscular Hgb Conc 32.8 g/dL (32-36); Mean Platelet Volume 10.3 fL (7.4-10.4); Monocytes # (auto) 0.65 K/uL (0.11-0.59); Monocytes % (auto) 12.9 %; Neutrophils % (auto) 43.5 %; Platelet Count 159 K/uL (130-400); RDW Coefficient of Variation 12.9 % (11.5-14.5); RDW Standard Deviation 42.5 fL (36.4-46.3); Red Blood Count 4.58 M/uL (4.2-5.4); White Blood Count 5.05 K/uL (4.8-10.8)
[2021-08-28 07:01] LABS: Albumin Globulin Ratio 0.8 (0.9-2); BUN Creatinine Ratio 14.7 (10-20); Bilirubin,Total 0.9 mg/dl (0.2-1); Calcium 9.1 mg/dl (8.5-10.1); Creatinine Clr Calc Pharmacy 56.9 ml/min; Est GFR (African American) 74.5 ml/min; Est GFR (Non-African American) 64.3 ml/min; Potassium 3.5 mmol/L (3.5-5.1)
[2021-08-28] MEDS: INSULIN ASPART PER UNIT SC SCH ×4 (07:39→20:36)
[2021-08-28] MEDS: D5NSS + 20MEQ KCL 20 MEQ/1,000 ML BAG IV SCH ×2 (07:43→20:27)
[2021-08-28] MEDS: lisinopril 20 MG TAB PO SCH ×2 (07:45→20:38)
[2021-08-28] MEDS: METOPROLOL TARTRATE 25 MG TAB PO SCH ×2 (07:45→07:46)
[2021-08-28] MEDS: carvediloL 25 MG TAB PO SCH ×2 (07:46→20:38)
--- NOTE | 2021-08-28 08:04 | Electrocardiogram Report ---
Test Reason : Blood Pressure : / mmHG Vent. Rate : 074 BPM Atrial Rate : 074 BPM P-R Int : 178 ms QRS Dur : 160 ms QT Int : 442 ms P-R-T Axes : 040 -36 123 degrees QTc Int : 490 ms Normal sinus rhythm Left axis deviation Left bundle branch block Abnormal ECG When compared with ECG of 26-AUG-2021 06:01, No significant change was found Confirmed by Nikita De Jesus ([id number]) on 08/28/2021 8:03:53 AM Referred By: REFERRED SELF Confirmed By:Nikita De Jesus
--- NOTE | 2021-08-28 08:44 | Hospitalist Progress Note ---
Date of Service August 28, 2021 Assessment & Plan (1) Abdominal pain, acute, epigastric: (2) Abnormal ultrasound of gallbladder: (3) Elevated liver function tests: (4) Uncontrolled type 2 diabetes mellitus with hyperglycemia, with long-term current use of insulin: (5) Hypertension: (6) CAD (coronary artery disease): (7) Cardiomyopathy: Plan: 1. Acute abdominal pain / abnormal ultrasound of gallbladder / elevated liver function tests -patient is scheduled for an EUS/ERCP today and tentative cholecystectomy tomorrow. Will hold heparin after tonight's dose as well as insulin. 2. Uncontrolled type 2 diabetes with hyperglycemia, with long-term current use of insulin -continue to monitor blood sugars. Insulin will be managed by pharmacy. 3. Hypertension - blood pressure remains elevated today. Lisinopril recently resumed yesterday. Continue monitor. Renal function is stable. 4. Coronary artery disease / cardiomyopathy -the patient was seen by Cardiology-continue current medications And lisinopril was resumed yesterday. Admission and Anticipated Discharge Date Admission Date: August 25, 2021 Subjective 76-year-old admitted 08/25/2019 today to for epigastric and right upper quadrant discomfort. Gallbladder ultrasound showed multiple layering stones with mildly prominent gallbladder wall. Findings were equivocal for acute cholecystitis. Patient also had associated elevated bilirubin and transaminases. GI and surgery were both consulted. GI is planning on endoscopic ultrasound/ ERCP today. Surgery is planning on a tentative cholecystectomy 08/29/2021. Patient denies any nausea. She denies any current abdominal pain. White blood cell count is normal at 5.05. Hemoglobin is normal at 13.5. AST is 78 and ALT is 171 which has improved. Blood pressure remains elevated however her lisinopril was resumed yesterday evening. Review of Systems Constitutional: no fever Ear, Nose, Mouth, Throat: no nasal congestion, no nasal discharge and no sore throat Respiratory: no cough and no dyspnea on exertion Cardiovascular: no chest pain, no palpitations and no edema Gastrointestinal: as per Subjective / HPI; no abdominal pain Physical Exam Constitutional: well developed and well nourished; no acute distress Respiratory: normal respiratory effort, lungs clear to auscultation Cardiovascular: RRR, no murmur, no edema Gastrointestinal (Abdomen): Inspection/Auscultation: abdomen normal to inspection and normal bowel sounds; abdomen not distended Results & Data Results & Data ([facility]) Vital Signs (Past 12 Hours) Vital Signs Temp Pulse Pulse Resp BP Pulse Ox 08/28/21 07:55 98.2 F 71 18 171/81 H 98 08/28/21 04:00 98.1 F 68 18 180/82 H 98 08/28/21 00:31 70 08/27/21 23:10 98.2 F 72 18 161/80 H 95 PG Care Time/CCT Total # of Minutes Spent Total Time Spent with Patient: Total time spent is greater than 50% in coordination of care (as documented) at patient's floor/unit and/or counseling patient: Coding Level of Care Code 26027 Subseq Hosp Care Lvl 2 Diagnoses Abdominal pain, acute, epigastric R10.13 Abnormal ultrasound of gallbladder R93.2 Elevated liver function tests R79.89 Uncontrolled type 2 diabetes mellitus with hyperglycemia, with long-term current use of insulin E11.65; Z79.4 Hypertension I10 CAD (coronary artery disease) I25.10 Cardiomyopathy I42.9
[2021-08-28 09:07] LABS: Prothrombin Time 10.3 Seconds (9.0-12.0)
--- NOTE | 2021-08-28 09:56 | Gastroenterology Progress Note ---
Date of Service August 28, 2021 Assessment & Plan (1) Elevated liver function tests: (2) Abnormal ultrasound of gallbladder: Plan: EUS/ +/- ERCP this afternoon by Dr. Juan Stanton. Surgery on board and planning cholecystectomy (likely 08/29/21). Keep NPO. Further recommendations to follow endoscopy. . Admission and Anticipated Discharge Date Admission Date: August 25, 2021 Supervising Physician Co-Signing Physician Notes I saw and evaluated the patient. We rachel plan for EUS and possible ERCP today. I have discussed the risks to include bleeding, infection, perfroation, pain, pancreatiitis, and failed biliary cannulation. Plan EUs with posislbe ERCP Subjective 76 yr old female admitted on 08/25 for biliary colic type abd pain. US with gallstones. LFTs elevated (improving). Lipase normal. Pain has resolved. Pt is awake, alert, afebrile, w/o leukocytosis. LFTs improving. Review of Systems Review of Systems: ROS: Gen: Denies weakness, fevers, weight loss Eyes: No eye redness, or pain, no recent vision changes Resp: No SOB, no cough Cardio: No palpitations/irregular beats, no chest pain GI: As per HPI, otherwise (-). : Denies pain on urination Skin: No jaundice, itching or new rashes Physical Exam Constitutional: well developed and cooperative Eyes: PERRL, conjunctivae normal, anicteric sclerae ENMT: external ear and nose normal, oropharynx normal Neck: trachea midline, no thyromegaly Respiratory: normal respiratory effort, lungs clear to auscultation Cardiovascular: RRR, no murmur, no edema Gastrointestinal (Abdomen): normal bowel sounds, soft, nontender, no hepatosplenomegaly Skin: no rashes, warm and dry Neurologic: PERRL, EOMI, accommodation nl, no face palsy, no dysarthria awake; not confused Psychiatric: A+Ox3, euthymic affect Results & Data ([facility]) Vital Signs (Past 12 Hours) Vital Signs Temp Pulse Pulse Resp BP Pulse Ox 08/28/21 07:55 36.8 C 71 18 171/81 H 98 08/28/21 04:00 36.7 C 68 18 180/82 H 98 08/28/21 00:31 70 08/27/21 23:10 36.8 C 72 18 161/80 H 95 Laboratory Results WBC 5, Hb 13, Hct 41, Plts 159,INR 1.0 glucose 159, Na 141, K 3.5, Cl 112, CO2 26, BUN 13, Cr 0.88, glucose 120. T bili 0.9, AST 78, ALT 171, ALk Phos 126. Diagnostic Findings 08/25/21: GB US Multiple layering stones with mildly prominent gallbladder wall. No pericholecystic fluid is seen. Findings are equivocal for acute cholecystitis. If further evaluation is desired, nuclear medicine hepatobiliary scan can be performed.
[2021-08-28] MEDS ORDERED: ROCURONIUM BROMIDE 10 MG/ML 5 ML VIAL IV ONE (11:00)
[2021-08-28] MEDS ORDERED: LIDOCAINE 2% 2 ML VIAL/AMP(20MG/ML) INFIL ONE (11:00)
[2021-08-28] MEDS ORDERED: fentaNYL citrate 100 MCG/2 ML VIAL ONE (11:00)
[2021-08-28] MEDS ORDERED: ONDANSETRON INJ 2 MG/ML 2 ML VIAL ONE (11:00)
[2021-08-28] MEDS ORDERED: PROPOFOL IV EMULSION 10 MG/ML 20 ML VIAL IV ONE (11:00)
[2021-08-28] MEDS ORDERED: SUCCINYLCHOLINE CHLORIDE 20 MG/ML 10 ML VIAL IV ONE (11:00)
--- NOTE | 2021-08-28 12:02 | History & Physical Bridge Note ---
Date of Service August 28, 2021 History & Physical Bridge Note I have examined the patient, reviewed the History & Physical and in the interval since the performance of the History & Physical I have noted the following changes of clinical significance: no changes noted
[2021-08-28] MEDS ORDERED: INDOMETHACIN 50 MG SUPP PR ONE (12:21)
--- NOTE | 2021-08-28 13:04 | Surgery Progress Note ---
Date of Service August 28, 2021 Assessment & Plan (1) Elevated liver function tests: Plan: Prior lfts were normal in April 2021. No evidence of biliary dilation on US. Explained that this can be suggestive of common duct stone/ sludge and clearance of the common duct should be done prior to surgery. Pt is unable to tolerate MRCP. EUS has been recommended by GI and scheduling is in progress. LFTS improved today (08/27/2021) (2) Abnormal ultrasound of gallbladder: Plan: Gallstones, small layering. Will need cholecystectomy. Timing to be determined by liver test trend and results of EUS/ERCP. Will await results of EUS/ERCP. Will likely plan for laparoscopic cholecystectomy day after the EUS/ERCP given cardiomyopathy and Dr. Woods wanting to avoid prolonged anesthesia with combined EUS/ERCP and cholecystectomy. 08/28/2021 1:06PM DR. Woods I recommend to do laparoscopic cholecystectomy, possible open or cholangiogram, tomorrow, D/W benefits, risks and alternatives of the surgery, the risks - infection, bleeding, injury other organs, NC, DVT, stroke, , pt understood, she agrees with the surgery, I answered all questions, NPO after MN, (3) Abdominal pain, acute, epigastric: Plan: Resolved. If EUS is unable to happen today, OK to advance diet until that time and NPO after midnight. Dr. Woods was present during rounds and my examination with patient and agrees with above. Admission and Anticipated Discharge Date Admission Date: August 25, 2021 Supervising Physician Co-Signing Physician Notes Attg add: I interviewed and examined pt, reviewed chart and labs. Pt with resolved pain, falling LFT's. Adamantly refusing MRCP. Plan EUS +/- ERCP. Subjective 76 yr old female admitted on 08/25 for biliary colic type abd pain. US with gallstones. LFTs elevated (improving). Lipase normal. Pain has resolved. Pt is awake, alert, afebrile, w/o leukocytosis. LFTs improving. 08/28/2021 1:02PM Dr. Woods doing fine, no significant abdominal pain, no nausea, no vomiting, no fever, pt will have ERCP done today, Physical Exam Constitutional: WD/WN, vitals as above Eyes: PERRL, conjunctivae normal, anicteric sclerae Neck: trachea midline, no thyromegaly Respiratory: normal respiratory effort, lungs clear to auscultation Cardiovascular: RRR, no murmur, no edema Gastrointestinal (Abdomen): soft, mild tenderness at RUQ, no rebound pain ,no distend, BS + Neurologic: patellar DTR's 2+ bilat, sensation intact Psychiatric: A+Ox3, euthymic affect Results & Data ([facility]) Vital Signs (Past 12 Hours) Vital Signs Temp Pulse Pulse Resp BP Pulse Ox 08/28/21 11:42 36.7 C 73 18 173/84 H 99 08/28/21 11:28 36.7 C 75 20 175/84 H 97 08/28/21 10:16 75 08/28/21 07:55 36.8 C 71 18 171/81 H 98 08/28/21 04:00 36.7 C 68 18 180/82 H 98 Laboratory Results Abnormal lab results 08/27/21 08/27/21 08/27/21 Range/Units 14:48 16:56 20:29 [place] # (Auto) (0.11-0.59) K/uL Chloride (98-107) mmol/L Glucose (70-99) mg/dl POC Glucose 173 H 101 H 171 H (70-99) mg/dl AST (15-37) U/L ALT (12-78) Alkaline Phosphatase (45-117) U/L Albumin (3.4-5.0) gm/dl Albumin/Globulin Ratio (0.9-2) 08/28/21 08/28/21 08/28/21 Range/Units 05:38 05:38 06:12 [place] # (Auto) 0.65 H (0.11-0.59) K/uL Chloride 112 H (98-107) mmol/L Glucose 120 H (70-99) mg/dl POC Glucose 116 H (70-99) mg/dl AST 78 H (15-37) U/L ALT 171 H (12-78) Alkaline Phosphatase 126 H (45-117) U/L Albumin 3.0 L (3.4-5.0) gm/dl Albumin/Globulin Ratio 0.8 L (0.9-2) Diagnostic Findings [facility], [place] [phone] Ultrasound Report Patient:KUMAR JACOBO Admit Date:08/25/21 MR#:[id number] Address1:[address] Acct ID:[id number] Address2: Date:1945 [facility] Zip:[place] [address] Age:76 Location:ED Sex:F Room/Bed: Att Phy: Diagnosis:CHEST PAIN Shagufta Phy:Anastacia Rodriges MD Service Date:08/25/21 Fam Phy: Interpreting Phy:Julio Cesar Mosqueda MDAdmit Phy: Ordering Phy:Miriam Rosa M.D. cc: ~ US gallbladder CLINICAL HISTORY: elevated LFT TECHNIQUE: Multiple real-time sonographic images of the right upper quadrant were obtained. Comparison: None available at the time of this dictation. FINDINGS: The liver is diffusely homogenous with normal contour and echogenicity. No focal mass lesions are seen. No intrahepatic ductal dilatation is seen. Multiple gallstones are seen. The gallbladder wall is mildly prominent, measuring 0.3 cm. Ulloa's sign cannot be assessed as the patient received pain medication. The common duct measures 0.7 cm in diameter at the level of the hepatic artery. The pancreas is not well visualized secondary to overlying bowel gas. The right kidney shows normal echogenicity, cortical thickness and renal contour. The right kidney shows no evidence of hydronephrosis or mass. No ascites or free fluid is seen in Barroso's pouch. IMPRESSION: Multiple layering stones with mildly prominent gallbladder wall. No pericholecystic fluid is seen. Findings are equivocal for acute cholecystitis. If further evaluation is desired, nuclear medicine hepatobiliary scan can be performed.
--- NOTE | 2021-08-28 13:11 | Post Operative Brief Note ---
Immediate Post Op Note v1 Date of Surgery August 28, 2021 Pre & Post Diagnosis Operation Date: 08/28/21 13:30 Pre-Op Diagnosis: CHOLECYSTITIS Post-Op Diagnosis: choledocholithiasis I identified the patient and participated in the time-out.: Yes Procedure Operation Date: 08/28/21 13:30 Actual Procedures p endosocpic utlrasound and Endoscopic Retrograde Cholangiopancreato - Juan Stanton DO Surgeon Juan Stanton DO [employer] none Estimated Blood Loss 0 Findings Consistent with Post-Op Diagnosis
[2021-08-28] MEDS ORDERED: PROMETHAZINE HCL 12.5 MG in SODIUM CHLORIDE 0.9% 50 ML IV PRN (13:12)
[2021-08-28] MEDS ORDERED: FLUMAZENIL 0.1 MG/1 ML 10 ML VIAL IV PRN (13:12)
[2021-08-28] MEDS ORDERED: ATROPINE SULFATE 0.1 MG/ML 10ML SYR IV PRN (13:12)
[2021-08-28] MEDS ORDERED: ONDANSETRON INJ 2 MG/ML 2 ML VIAL IV PRN (13:12)
[2021-08-28] MEDS ORDERED: NALOXONE HCL 0.4 MG/1 ML VIAL/CARP IV PRN (13:12)
[2021-08-28] MEDS ORDERED: fentaNYL citrate 100 MCG/2 ML VIAL IV PRN (13:12)
--- NOTE | 2021-08-28 13:14 | Communication Note ---
Date of Service: August 28, 2021 The patient underwent endoscopic ultrasound which identified a small stone in the distal common bile duct. This was treated with an ERCP during which time we did a sphincterotomy and gallstone extraction. I placed a biliary stent as well. Recommendations Continue IV hydration Patient may have a clear liquid diet today Surgical consult with regard to timing of cholecystectomy Repeat ERCP for stent removal in 6 to 8 weeks Avoid nonsteroidals for 5 days please Please call with any questions or concerns
[2021-08-28] MEDS ORDERED: hydrALAZINE HCL 20 MG/ML VIAL IV STA (13:18)
[2021-08-28] MEDS ORDERED: hydrALAZINE HCL 20 MG/ML VIAL ONE (13:18)
--- NOTE | 2021-08-28 13:25 | GI REPORT ---
Patient Name: Yolis Lu Procedure Date: 08/28/2021 12:13 PM Date of : 1945 Admit Type: Inpatient Age: 76 Gender: Female Attending MD: Juan Stanton DO Procedure: Upper EUS Providers: Juan Stanton DO Referring MD: Dimple Ghotra, Heavenly Parks Indications: Elevated liver enzymes, Suspected choledocholithiasis, Epigastric abdominal pain, Abdominal pain in the right upper quadrant Medicines: General Anesthesia Complications: No immediate complications. Estimated blood loss: Minimal. Estimated Blood Loss: Estimated blood loss was minimal. Procedure: Pre-Anesthesia Assessment: - Prior to the procedure, a History and Physical was performed, and patient medications, allergies and sensitivities were reviewed. The patient's tolerance of previous anesthesia was reviewed. - The risks and benefits of the procedure and the sedation options and risks were discussed with the patient. All questions were answered and informed consent was obtained. - Patient identification and proposed procedure were verified prior to the procedure by the physician, the nurse and the upholstery mechanic. The procedure was verified in the procedure room. - Pre-procedure physical examination revealed no contraindications to sedation. - ASA Grade Assessment: IV - A patient with severe systemic disease that is a constant threat to life. - After reviewing the risks and benefits, the patient was deemed in satisfactory condition to undergo the procedure. - The anesthesia plan was to use general anesthesia. - Immediately prior to administration of medications, the patient was re-assessed for adequacy to receive sedatives. - The heart rate, respiratory rate, oxygen saturations, blood pressure, adequacy of pulmonary ventilation, and response to care were monitored throughout the procedure. - The physical status of the patient was re-assessed after the procedure. After obtaining informed consent, the endoscope was passed under direct vision. Throughout the procedure, the patient's blood pressure, pulse, and oxygen saturations were monitored continuously. The Endosonoscope was introduced through the mouth, and advanced to the second part of duodenum. The upper EUS was accomplished without difficulty. The patient tolerated the procedure well. Findings: ENDOSONOGRAPHIC FINDING: : There was no sign of significant endosonographic abnormality in the ampulla. No masses were identified. One stone was visualized endosonographically in the distal common bile duct. The stone measured 5 mm in greatest dimension. It was hyperechoic. Multiple stones were visualized endosonographically in the gallbladder. They were hyperechoic and characterized by shadowing. There was no sign of significant endosonographic abnormality in the entire pancreas. The pancreatic duct measured up to 3 mm in diameter. No masses, no cysts, no calcifications. There was no sign of significant endosonographic abnormality in the left lobe of the liver. Homogeneous parenchyma and no focal pathology were identified. There was no sign of significant endosonographic abnormality in the left adrenal gland. No adrenal gland enlargement was identified. Impression: - There was no sign of significant pathology in the ampulla. - One stone was visualized endosonographically in the common bile duct. - Multiple stones were visualized endosonographically in the gallbladder. - There was no sign of significant pathology in the entire pancreas. - There was no evidence of significant pathology in the left lobe of the liver. - Endosonographic images of the left adrenal gland were unremarkable. - No specimens collected. Recommendation: - Perform an ERCP today. Juan Stanton D.O. Juan Stanotn, 08/28/2021 1:24:43 PM This report has been signed electronically. Note Initiated On: 08/28/2021 12:13 PM Number of Addenda: 0 I attest to the content of the Intraoperative Record and orders documented therein, exceptions below {[id number]}
--- NOTE | 2021-08-28 13:30 | GI REPORT ---
Patient Name: Yolis Lu Procedure Date: 08/28/2021 12:14 PM Date of : 1945 Admit Type: Inpatient Age: 76 Gender: Female Attending MD: Juan Stanton DO Procedure: ERCP Providers: Juan Stanton DO Referring MD: Emil Ledezma Indications: Abdominal pain of suspected biliary origin, Abnormal endoscopic ultrasound of the biliary system, Elevated liver enzymes Medicines: General Anesthesia Complications: No immediate complications. Estimated blood loss: Minimal. Estimated Blood Loss: Estimated blood loss was minimal. Procedure: Pre-Anesthesia Assessment: - Prior to the procedure, a History and Physical was performed, and patient medications, allergies and sensitivities were reviewed. The patient's tolerance of previous anesthesia was reviewed. - The risks and benefits of the procedure and the sedation options and risks were discussed with the patient. All questions were answered and informed consent was obtained. - Pre-procedure physical examination revealed no contraindications to sedation. - ASA Grade Assessment: IV - A patient with severe systemic disease that is a constant threat to life. - After reviewing the risks and benefits, the patient was deemed in satisfactory condition to undergo the procedure. - The anesthesia plan was to use general anesthesia. - Immediately prior to administration of medications, the patient was re-assessed for adequacy to receive sedatives. - The heart rate, respiratory rate, oxygen saturations, blood pressure, adequacy of pulmonary ventilation, and response to care were monitored throughout the procedure. - The physical status of the patient was re-assessed after the procedure. After obtaining informed consent, the scope was passed under direct vision. Throughout the procedure, the patient's blood pressure, pulse, and oxygen saturations were monitored continuously. The Duodenoscope was introduced through the mouth, and advanced to the duodenum and used to inject contrast into the bile duct. The patient tolerated the procedure well. The ERCP was performed with moderate difficulty due to challenging cannulation because of papillary stenosis. Successful completion of the procedure was aided by performing the maneuvers documented (below) in this report. Findings: The material expediter film was normal. The esophagus was successfully intubated under direct vision without detailed examination of the pharynx, larynx, and associated structures, and upper GI tract. The upper GI tract was grossly normal. The major papilla was normal. The bile duct could not be cannulated with the short-nosed traction sphincterotome and guidewire. A biliary pre-cut sphincterotomy measuring 2 mm in length was made with a needle knife using a freehand technique using ERBE electrocautery. There was no post-sphincterotomy bleeding. The bile duct was deeply cannulated with the short-nosed traction sphincterotome and guidewire. Contrast was injected. I personally interpreted the bile duct images. Contrast extended to the entire biliary tree. The lower third of the main bile duct contained filling defect(s) thought to be a stone. The biliary orifice was stenotic. This appeared benign. To discover objects, the biliary tree was swept with an 11.5 mm balloon starting at the bifurcation. One stone was removed. No stones remained. One 10 Fr by 7 cm biliary stent with a single external flap and a single internal flap was placed 7 cm into the common bile duct. Bile flowed through the stent. The stent was in good position. The endoscope was withdrawn from the patient. Indomethacin 100 mg was given via suppository to decrease the risk of post-ERCP pancreatitis (PEP). The total fluoroscopy exposure time was 21 seconds. Impression: - The major papilla appeared normal. - Biliary papillary stenosis, benign. - A filling defect consistent with a stone was seen on the cholangiogram. - Choledocholithiasis was found. Complete removal was accomplished by biliary sphincterotomy and balloon extraction. - A biliary sphincterotomy was performed. - The biliary tree was swept. - One biliary stent was placed into the common bile duct. - Indomethacin given to decrease risk of post-ERCP pancreatitis. Recommendation: - Avoid aspirin and nonsteroidal anti-inflammatory medicines for 5 days. - Clear liquid diet today. - Cholecytectomy per General Surgery - Repeat ERCP in 6 weeks to remove stent. Juan Stanton D.O. Juan Stanton, 08/28/2021 1:30:13 PM This report has been signed electronically. Note Initiated On: 08/28/2021 12:14 PM Number of Addenda: 0 I attest to the content of the Intraoperative Record and orders documented therein, exceptions below {[id number]}
--- NOTE | 2021-08-28 13:32 | Fluoroscopy Report ---
[place] ERCP biliary ductal CLINICAL HISTORY: W/EUS. Status post placement of a stent COMPARISON STUDY: The gallbladder ultrasound from 08/25/2021 FLUOROSCOPY TIME: 22 seconds. FLUOROSCOPIC IMAGES: 5 FINDINGS: Multiple spot films were obtained following cannulization of the common bile duct and place ment of a biliary stent. IMPRESSION: Status post placement of a biliary stent. ACT 112: Negative or not required by law. Electronically signed by: Tone Hooks M.D. 08/28/2021 1:30 PM
[2021-08-28] MEDS ORDERED: LABETALOL HCL IV 5 MG/ML 20ML IV ONE (13:43)
[2021-08-28] MEDS: LABETALOL HCL IV 5 MG/ML 20ML IV PRN ×3 (13:45→13:58)
[2021-08-28] MEDS ORDERED: HYOSCYAMINE SULFATE 0.125 MG TAB SL STA (14:11)
--- NOTE | 2021-08-28 14:26 | Anesthesiology Progress Note ---
Date of Service August 28, 2021 Anesthesia Post Procedure Vital Signs Vital Signs: Temp Pulse Pulse Pulse Resp BP Pulse Ox 08/28/21 14:10 36.2 C L 80 15 145/52 H 97 08/28/21 14:00 69 15 198/88 H 99 08/28/21 13:50 75 14 190/76 H 99 08/28/21 13:40 74 16 192/78 H 98 08/28/21 13:30 77 16 180/66 H 100 08/28/21 13:20 72 12 184/85 H 99 08/28/21 13:13 36.1 C L 72 12 194/89 H 97 08/28/21 11:42 36.7 C 73 18 173/84 H 99 08/28/21 11:28 36.7 C 75 20 175/84 H 97 08/28/21 10:16 75 08/28/21 07:55 36.8 C 71 18 171/81 H 98 08/28/21 04:00 36.7 C 68 18 180/82 H 98 08/28/21 00:31 70 08/27/21 23:10 36.8 C 72 18 161/80 H 95 08/27/21 20:07 36.7 C 75 18 165/89 H 96 08/27/21 15:29 75 08/27/21 15:14 36.5 C 80 20 170/83 H 96 Pain Intensity Medial Chest: Pain Intensity: 1 Transfer of Care Handoff Completed per policy Notes Mental Status: alert / awake / arousable Patient Amnestic to Procedure: Yes Nausea / Vomiting: adequately controlled Pain: adequately controlled Airway Patency, RR, SpO2: stable & adequate BP & HR: stable & adequate Hydration State: stable & adequate Anesthetic Complications: no major complications apparent
--- NOTE | 2021-08-28 15:09 | Pharmacy Report ---
Pharmacy Glycemic Short Note 2 - Date of Service August 28, 2021 - Glycemic Short BSG Results (Last 24 hours): 08/27/21 08/27/21 08/28/21 16:56 20:29 05:38 Glucose 120 H POC Glucose 101 H 171 H 08/28/21 08/28/21 06:12 13:15 Glucose POC Glucose 116 H 145 H OUTPATIENT ANTIDIABETIC REGIMEN: * Lantus 34 units SC daily * Humalog 12 units SC with breakfast, 16 units with lunch and dinner * Jardiance 10 mg PO daily * HbA1c: 8.5% (08/26/21) ASSESSMENT: 08/28 * BSGs yesterday of 222, 171, 101, 171 mg/dL * Received 46 units of insulin (30 of which was basal) * NPO today for ERCP/EUS with plan for laparoscopic cholecystectomy tomorrow * Plan for clear liquid diet postprocedure today 08/27: * BM is a 76 year old female presented on 08/25/21 with acute epigastric abdominal pain * Patient scheduled to be NPO after midnight for ERCP tomorrow * Receiving D5/LR @ 80 mL/hr, now discontinued with advance to clear liquid diet * BSGs yesterday ranging, 148-183 mg/dL, fasting BSG of 222 mg/dL this morning (pharmacy consulted for glycemic management at that time) * 20 units of Lantus given prior to consult * Will add on scaled dose of Lantus HS to possibly provide increased basal dose and will tighten Novolog parameters * Receiving Zosyn 4.5 g IV q8h PLAN FOR INPATIENT GLYCEMIC CONTROL: * Hold outpatient oral diabetes medications * Basal insulin - reduce dose in light of NPO status * Lantus 16 units SC x 1 this evening * Reassess in AM * Bolus insulin - continue * NovoLog per scale ACHS or Q6hrs while NPO * Goal Range: Low 110 mg/dL - High 140 mg/dL * Correction Factor: 20 mg/dL/unit * Nutritional / Prandial insulin per carb ratio of 1 unit per 7 grams CHO consumed PLAN FOR DISCHARGE: * tbd
[2021-08-28] MEDS ORDERED: INSULIN GLARGINE SOLOSTAR 100 UNITS/ML 3 ML PEN SC ONE (16:30)
[2021-08-28] MEDS: HYDROmorphone INJ 0.5 MG/0.5 ML SYR IV PRN ×2 (17:34→20:27)
[2021-08-28] MEDS ORDERED: Nursing to Pharmacy Communication SCH (19:00)
[2021-08-29] MEDS: HYDROmorphone INJ 0.5 MG/0.5 ML SYR IV PRN ×3 (00:13→19:19)
[2021-08-29] MEDS: PIPERACILLIN/TAZOBACTAM 4.5 GM in DEXTROSE 5% 100 ML IV SCH ×3 (04:34→20:49)
[2021-08-29] MEDS: D5NSS + 20MEQ KCL 20 MEQ/1,000 ML BAG IV SCH (07:31)
[2021-08-29] MEDS ORDERED: LIDOCAINE 2% 2 ML VIAL/AMP(20MG/ML) INFIL ONE (07:42)
[2021-08-29] MEDS ORDERED: DEXAMETHASONE SOD INJ 4 MG/ML VIAL ONE (07:42)
[2021-08-29] MEDS ORDERED: fentaNYL citrate 100 MCG/2 ML VIAL ONE (07:42)
[2021-08-29] MEDS ORDERED: PROPOFOL IV EMULSION 10 MG/ML 20 ML VIAL IV ONE (07:42)
[2021-08-29] MEDS ORDERED: ONDANSETRON INJ 2 MG/ML 2 ML VIAL ONE (07:42)
[2021-08-29] MEDS ORDERED: NEOSTIGMINE METHYLSULFATE 1 MG/ML 10ML VIAL ONE (07:42)
[2021-08-29] MEDS ORDERED: GLYCOPYRROLATE 0.2 MG/ML VIAL ONE (07:42)
[2021-08-29] MEDS: INSULIN ASPART PER UNIT SC SCH ×4 (07:44→20:48)
[2021-08-29] MEDS ORDERED: INSULIN GLARGINE SOLOSTAR 100 UNITS/ML 3 ML PEN SC ONE ×2 (08:00→14:45)
--- NOTE | 2021-08-29 08:20 | Anesthesiology Consultation ---
Date of Service August 29, 2021 Assessment & Plan (1) Encounter for pre-operative examination: Chart Review Chart Review: Acceptable Risk for Surgery (necessary surgery) and Patient NOT seen in Pre Admission Testing Consults Requested none History Surgery Operation Date: 08/28/21 13:30 Proposed Procedures p Upper Endoscopic Ultrasonography - Juan Stanton DO s Endoscopic Retrograde Cholangiopancreatogram - Juan Stanton DO Operation Date: 08/29/21 08:40 Proposed Procedures p Laparoscopic Cholecystectomy - Jordan Woods MD Height/Weight Height: 5 ft 1 in Weight: 91.6 kg Allergies Allergy/AdvReac Type Severity Reaction Status Date / Time adhesive Allergy Mild SKIN TEARS Verified 08/25/21 14:11 AND HEALING ISSUES Barbiturates Allergy Mild Hives Verified 08/25/21 14:11 hydrochlorothiazide Allergy Mild Gastrointestinal Verified 08/25/21 14:11 Upset phenobarbital Allergy Mild heart Verified 08/25/21 14:11 racing pseudoephedrine Allergy Mild light Verified 08/25/21 14:11 headed, heart racing sertraline Allergy Mild light Verified 08/25/21 14:11 headed, dizzy Sulfa (Sulfonamide Allergy Mild Vomiting Verified 08/25/21 14:11 Antibiotics) triamterene Allergy Mild Gastrointestinal Verified 08/25/21 14:11 Upset Dyazide Allergy Unknown UNKNOWN Verified 04/11/15 09:31 gabapentin Allergy Unknown Swelling Verified 08/25/21 14:11 of Lip/Tongue/Throat pantoprazole Allergy Unknown Gastrointestinal Verified 08/25/21 14:11 Upset propoxyphene Allergy Unknown Unknown Verified 08/25/21 14:11 pollen extracts Allergy Verified 08/25/21 14:11 Medications Home Medications Medication Instructions Recorded Confirmed Last Taken aspirin 81 mg tablet,delayed 81 mg PO QAM 07/28/18 08/25/21 08/25/21 release (Aspirin Low Dose) biotin 1 mg tablet 1 mg PO QAM 07/28/18 08/25/21 08/25/21 lancets 30 gauge (OneTouch Delica #25 ea 02/08/19 07/23/21 Unknown Lancets) multivitamin 1 tab PO QAM 02/08/19 08/25/21 08/25/21 glucosam 750 mg-chondroi 100 1 tab PO UD 01/12/20 08/25/21 08/25/21 mg-hyalur 1.65 mg-CF borate 108 mg tablet (Move Free [facility]) albuterol sulfate 90 mcg/actuation 1 - 2 puff INHALATION Q6H PRN #6.7 05/25/20 08/25/21 Unknown aerosol inhaler (Ventolin HFA) g ipratropium bromide 21 mcg (0.03 2 spray INTNAS TID #30 ml 05/25/20 08/25/21 0 08/25/21 %) nasal spray BD Ultra-Fine [place] Pen Needle 32 #400 ea NS 01/01/21 07/23/21 Unknown gauge x 5/32" (pen needle, diabetic) blood sugar diagnostic (OneTouch ea 01/01/21 07/23/21 Unknown Ultra Blue Test Strip) zinc 50 mg tablet 50 mg PO DAILY 01/01/21 08/25/21 08/25/21 atorvastatin 40 mg tablet 40 mg PO QPM #90 tab 01/16/21 08/25/21 08/24/21 insulin lispro 100 unit/mL See Rx Instructions .ROUTE 03/13/21 08/25/21 08/25/21 subcutaneous pen (Humalog KwikPen .COMPLEX #60 ml (U-100) Insulin) montelukast 10 mg tablet 10 mg PO DAILY #30 tab 04/19/21 08/25/21 08/25/21 omeprazole 20 mg capsule,delayed 20 mg PO BID #180 cap 04/19/21 08/25/21 08/25/21 release insulin glargine 100 unit/mL (3 34 unit SUBCUT DAILY #4 box 04/20/21 08/25/21 08/25/21 mL) subcutaneous pen (Basaglar KwikPen U-100 Insulin) carvedilol 25 mg tablet 25 mg PO BID #60 tab 05/17/21 08/25/21 08/25/21 levothyroxine 50 mcg tablet 50 mcg PO QAM #90 tab 05/17/21 08/25/21 08/25/21 cranberry 500 mg capsule 500 mg PO DAILY cap 05/21/21 08/25/21 08/25/21 empagliflozin 10 mg tablet 10 mg PO DAILY #90 tab 05/21/21 08/25/21 08/25/21 (Jardiance) lisinopril 20 mg tablet 20 mg PO BID #180 tab 05/21/21 08/25/21 08/25/21 turmeric 400 mg capsule 400 mg PO DAILY 05/21/21 08/25/21 08/25/21 metoprolol tartrate 25 mg tablet See Rx Instructions PO DAILY #270 06/19/21 08/25/21 08/25/21 tab furosemide 40 mg tablet 40 mg PO 2XWK #30 tab 06/21/21 08/25/21 Unknown diclofenac sodium 1 % topical gel 4 g TOP QID PRN #500 g 07/18/21 08/25/21 Unknown acetaminophen 650 mg 650 mg PO Q8H 07/23/21 08/25/21 08/25/21 tablet,extended release (Tylenol 8 Hour) tramadol 50 mg tablet See Rx Instructions PO Q6H PRN 08/02/21 08/25/21 08/25/21 #180 tab cholecalciferol (vitamin D3) 50 0 mcg PO DAILY 08/25/21 08/25/21 08/25/21 mcg (2,000 unit) capsule (Vitamin D3) levothyroxine 50 mcg tablet 50 mcg PO DAILY 08/25/21 08/25/21 Unknown (Euthyrox) Active Medications Generic Name Dose Route Start Last Admin Trade Name Freq PRN Reason Stop Dose Admin Carvedilol 25 mg 08/25/21 21:00 08/28/21 20:38 Carvedilol 25 Mg Tab PO 09/24/21 20:59 25 mg BID NOMAN Administration Heparin Sodium (Porcine) 7,500 units 08/25/21 22:00 08/28/21 21:23 Heparin Sod 5,000 Unit/0.5 Ml Vial SQ 09/24/21 21:59 Not Given Q8 NOMAN Hydromorphone HCl 0.5 mg 08/28/21 20:28 08/29/21 00:13 Hydromorphone Inj 0.5 Mg/0.5 Ml Syr IV 09/08/21 20:59 0.5 mg Q3H PRN Administration Pain Piperacillin Sod/Tazobactam 120 mls @ 30 mls/hr 08/26/21 03:00 08/29/21 04:34 Sod 4.5 gm/ Dextrose IV 09/05/21 02:59 30 mls/hr Q8H NOMAN Administration Protocol Potassium Chloride/Dextrose/Sod Cl 20 meq in 1,000 mls @ 80 mls/hr 08/27/21 17:15 08/29/21 07:31 D5nss + 20meq Kcl IV 09/26/21 17:14 80 mls/hr .[id number] NOMAN Administration Insulin Aspart 0 units 08/27/21 16:30 08/29/21 07:44 Insulin Aspart Per Unit SC 09/26/21 16:29 Not Given ACHS NOMAN Lisinopril 20 mg 08/27/21 21:00 08/28/21 20:38 Lisinopril 20 Mg Tab PO 09/26/21 20:59 20 mg BID NOMAN Administration Metoprolol Tartrate 25 mg 08/25/21 21:15 08/28/21 07:45 Metoprolol Tartrate 25 Mg Tab PO 09/24/21 21:14 25 mg HS NOMAN Administration Metoprolol Tartrate 50 mg 08/26/21 09:00 08/28/21 07:46 Metoprolol Tartrate 25 Mg Tab PO 09/25/21 08:59 50 mg DAILY NOMAN Administration NPO Date Last Intake of Fluids: 08/27/21 Time Last Intake of Fluids: 18:00 Date Last Intake of Solids: 08/27/21 Time Last Intake of Solids: 18:00 Past Medical History Medical History Anxiety Asthma inhaler prn Atrial fibrillation CAD (coronary artery disease) Cardiac murmur since childhood Cardiomyopathy COVID-19 vaccine series completed Diabetes mellitus, type 2 Fibromyalgia GERD (gastroesophageal reflux disease) Hearing deficit History of COVID-19 Hx of myocardial infarction multiple, most recent 2016/cardiac cath 2017 with no stents Hx of sarcoma of soft tissue right elbow- 2001; s/p chemo Hx of thrombophlebitis RLE Hyperlipidemia Hypertension Hypertensive urgency Hypothyroidism Insomnia, persistent Osteoarthritis Past Family History Family History Mother Family history of diabetes mellitus Myocardial infarction Allergies Cardiac disorder Hypertension Grandfather (Maternal) Family history of diabetes mellitus Grandfather (Paternal) Family history of diabetes mellitus Daughter Family hx of colon cancer Colorectal cancer Allergies Father Stroke Myocardial infarction Brother Brain tumor Renal failure Grandmother (Maternal) Cardiac disorder Other Bleeding disorder Denies family history of Ovarian cancer Prostate cancer Breast cancer Past Surgical History Surgical History History of anesthesia reaction difficulty waking History of bilateral carpal tunnel release x2 History of bilateral tubal ligation History of cardiac cath 2017 @ [facility]--no stents History of left breast biopsy benign History of left cataract extraction History of surgery on arm sarcoma removal of right arm History of tooth extraction under local History of vascular access device removed 2007 Hx of colonoscopy Hx of varicose vein ligation right leg Social History Smoking Status: Never smoker Hx Alcohol Use: No Hx Substance Use: No substance use type: does not use Physical Exam Vital Signs Last Vital Signs Temp 37.0 C 08/29/21 06:34 Pulse 71 08/29/21 07:13 Resp 18 08/29/21 06:34 BP 151/68 H 08/29/21 06:34 Pulse Ox 96 08/29/21 06:34 Testing Laboratory Results 08/28/21 05:38 08/28/21 05:38 PT 10.3 Seconds (9.0-12.0) 08/28/21 08:40 INR 1.0 (0.9-1.1) 08/28/21 08:40 Hemoglobin A1c 8.5 % (4.5-5.6) H 08/26/21 13:30 Urine Color Yellow 08/25/21 Unknown Urine Appearance Clear (Clear) 08/25/21 Unknown Urine pH 5.0 (4.5-7.5) 08/25/21 Unknown Ur Specific [place] 1.020 (1.000-1.030) 08/25/21 Unknown Urine Protein Negative (Negative) 08/25/21 Unknown Urine Glucose (UA) 3+ (Negative) H 08/25/21 Unknown Urine Ketones Negative (Negative) 08/25/21 Unknown Urine Nitrite Negative (Negative) 08/25/21 Unknown Ur Leukocyte Esterase Negative (Negative) 08/25/21 Unknown 08/29/21 08/28/21 06:05 19:57 POC Glucose 157 H 238 H Electrocardiogram Date: 08/27/21 HR 74. Normal sinus rhythm Left axis deviation Left bundle branch block Abnormal ECG When compared with ECG of 26-AUG-2021 06:01, No significant change was found Chest X-Ray Date: 08/25/21 XR chest 1V portable CLINICAL HISTORY: Atypical chest pain TECHNIQUE: Single frontal radiograph of the chest was obtained. Comparison: Comparison is made to chest 2 views 10/19/2018 FINDINGS: No lines and tubes are seen. The cardiomediastinal silhouette is slightly prominent. There is mild bibasilar atelectasis. Mild cephalization of the vasculature is noted. No evidence of pleural effusion or pneumothorax. IMPRESSION: Mild pulmonary edema. Echocardiogram Date: 08/26/21 Normal LV size with mildly reduced systolic function. EF 45-50%. Severe hypokinesis to akinesis of the mid inferoseptum and mid anteroseptum. Otherwise global hypokinesis. No Valvular stenosis/regurg. No change from previous study 01/19/2020.
[2021-08-29] MEDS ORDERED: HYDROmorphone INJ 1 MG/ML SYRINGE IV PRN (08:21)
[2021-08-29] MEDS ORDERED: ePHEDrine sulfate 50 MG/ML AMP IV PRN (08:21)
[2021-08-29] MEDS ORDERED: ONDANSETRON INJ 2 MG/ML 2 ML VIAL IV PRN (08:21)
[2021-08-29] MEDS ORDERED: fentaNYL citrate 100 MCG/2 ML VIAL IV PRN (08:21)
[2021-08-29] MEDS ORDERED: PHENYLEPHRINE 100MCG/ML 5ML SYR IV PRN (08:21)
[2021-08-29] MEDS ORDERED: LABETALOL HCL IV 5 MG/ML 20ML IV PRN (08:21)
[2021-08-29] MEDS ORDERED: ATROPINE SULFATE 0.1 MG/ML 10ML SYR IV PRN (08:21)
[2021-08-29] MEDS ORDERED: BACITRACIN OINT 15 GM TUBE ONE (08:31)
[2021-08-29] MEDS ORDERED: BUPIVACAINE 0.5 % 5 MG/1 ML MPF 30ML VIAL ONE (08:31)
[2021-08-29] MEDS ORDERED: LIDOCAINE 1% LOCAL 20 ML VIAL ONE (08:31)
--- NOTE | 2021-08-29 08:32 | History & Physical Bridge Note ---
Date of Service August 29, 2021 History & Physical Bridge Note I have examined the patient, reviewed the History & Physical and in the interval since the performance of the History & Physical I have noted the following changes of clinical significance: no changes noted Supervising Physician Co-Signing Physician Notes Attg add: I interviewed and examined pt, reviewed chart and labs. Pt with resolved pain, falling LFT's. Adamantly refusing MRCP. Plan EUS +/- ERCP.
[2021-08-29] MEDS ORDERED: SUGAMMADEX SODIUM 200 MG/2 ML VIAL IV ONE (09:32)
--- NOTE | 2021-08-29 09:35 | Post Operative Brief Note ---
Immediate Post Op Note v1 Date of Surgery August 29, 2021 Pre & Post Diagnosis Operation Date: 08/28/21 13:30 Pre-Op Diagnosis: CHOLECYSTITIS Post-Op Diagnosis: Choledocholithiasis Operation Date: 08/29/21 08:40 Pre-Op Diagnosis: acute cholecystitis, Cholecystitis Post-Op Diagnosis: acute cholecystitis, Cholecystitis I identified the patient and participated in the time-out.: Yes Procedure Operation Date: 08/28/21 13:30 Actual Procedures p Endoscopic Retrograde Cholangiopancreato - Juan Stanton DO Operation Date: 08/29/21 08:40 Actual Procedures p Laparoscopic Cholecystectomy(Not Applicable) - Jordan Woods MD Surgeon Jordan Woods MD Registered Dietician IVÁN Swenson Estimated Blood Loss 10 Findings Consistent with Post-Op Diagnosis Fluids 500ml Specimens gallbladder Anesthesia Type General Complications none Disposition Accompanied Patient To Recovery: Yes
--- NOTE | 2021-08-29 10:54 | Anesthesiology Progress Note ---
Date of Service August 29, 2021 Anesthesia Post Procedure Vital Signs Vital Signs: Temp Pulse Pulse Pulse Pulse Resp BP 08/29/21 10:25 75 16 174/75 H 08/29/21 10:15 36.8 C 80 16 179/81 H 08/29/21 10:05 78 14 171/82 H 08/29/21 09:57 37.0 C 85 14 176/75 H 08/29/21 08:17 36.8 C 70 18 162/66 H 08/29/21 07:13 71 08/29/21 06:34 37.0 C 73 18 151/68 H 08/29/21 03:34 36.7 C 73 18 129/90 08/29/21 00:28 66 08/28/21 22:15 36.5 C 66 18 133/76 08/28/21 19:15 36.8 C 69 18 165/77 H 08/28/21 17:11 36.4 C L 71 18 143/68 H 08/28/21 16:42 36.5 C 73 18 141/75 H 08/28/21 16:22 72 08/28/21 15:50 36.7 C 66 18 156/61 H 08/28/21 15:16 36.8 C 71 18 169/83 H 08/28/21 15:02 36.8 C 68 18 166/76 H 08/28/21 14:46 36.5 C 65 20 149/72 H 08/28/21 14:20 74 20 142/66 H 08/28/21 14:10 36.2 C L 80 15 145/52 H 08/28/21 14:00 69 15 198/88 H 08/28/21 13:50 75 14 190/76 H 08/28/21 13:40 74 16 192/78 H 08/28/21 13:30 77 16 180/66 H 08/28/21 13:20 72 12 184/85 H 08/28/21 13:13 36.1 C L 72 12 194/89 H 08/28/21 11:42 36.7 C 73 18 173/84 H 08/28/21 11:28 36.7 C 75 20 175/84 H Pulse Ox 08/29/21 10:25 97 08/29/21 10:15 94 08/29/21 10:05 96 08/29/21 09:57 96 08/29/21 08:17 96 08/29/21 07:13 08/29/21 06:34 96 08/29/21 03:34 96 08/29/21 00:28 08/28/21 22:15 98 08/28/21 19:15 96 08/28/21 17:11 98 08/28/21 16:42 97 08/28/21 16:22 08/28/21 15:50 97 08/28/21 15:16 95 08/28/21 15:02 95 08/28/21 14:46 97 08/28/21 14:20 95 08/28/21 14:10 97 08/28/21 14:00 99 08/28/21 13:50 99 08/28/21 13:40 98 08/28/21 13:30 100 08/28/21 13:20 99 08/28/21 13:13 97 08/28/21 11:42 99 08/28/21 11:28 97 Pain Intensity Medial Chest: Pain Intensity: 1 Abdomen: Pain Intensity: 3 Transfer of Care Handoff Completed per policy Notes Mental Status: alert / awake / arousable Patient Amnestic to Procedure: Yes Nausea / Vomiting: adequately controlled Pain: adequately controlled Airway Patency, RR, SpO2: stable & adequate BP & HR: stable & adequate Hydration State: stable & adequate Anesthetic Complications: no major complications apparent and Pt Satisfied with anesthetic care
[2021-08-29 11:03] LABS: Basophils # (auto) 0.02 K/uL (0-0.2); Basophils % (auto) 0.3 %; Eosinophils # (auto) 0.04 K/uL (0-0.5); Eosinophils % (auto) 0.5 %; Hematocrit (blood only) 36.8 % (37-47); Hemoglobin 11.8 g/dL (12.0-16.0); Immature Granulocytes # (auto) 0.01 K/uL (0.00-0.02); Immature Granulocytes % (auto) 0.1 %; Lymphocytes # (auto) 1.19 K/uL (1.2-3.4); Mean Corpuscular Hemoglobin 29.7 pg (25-34); Mean Corpuscular Hgb Conc 32.1 g/dL (32-36); Mean Corpuscular Volume 92.7 fL (80-100); Mean Platelet Volume 9.6 fL (7.4-10.4); Monocytes # (auto) 0.21 K/uL (0.11-0.59); Monocytes % (auto) 2.6 %; Neutrophils # (auto) 6.47 K/uL (1.4-6.5); Neutrophils % (auto) 81.5 %; Platelet Count 123 K/uL (130-400); RDW Coefficient of Variation 13.1 % (11.5-14.5); RDW Standard Deviation 44.8 fL (36.4-46.3); Red Blood Count 3.97 M/uL (4.2-5.4); White Blood Count 7.94 K/uL (4.8-10.8)
--- NOTE | 2021-08-29 11:08 | Operative Report (OR) ---
DATE OF PROCEDURE: 08/29/2021 PREOPERATIVE DIAGNOSES: Acute cholecystitis, cholelithiasis. POSTOPERATIVE DIAGNOSES: Acute cholecystitis, cholelithiasis. OPERATION: Laparoscopic cholecystectomy. SURGEON: Jordan Woods MD. CITY MAIL CARRIER: Riya Centeno PA-C. ANESTHESIA: General. ESTIMATED BLOOD LOSS: About 10 mL. FINDINGS: Acute cholecystitis with significant inflammation on the gallbladder wall and cholelithias is. COMPLICATIONS: None. INDICATIONS FOR THE PROCEDURE: This is a 76-year-old female who was admitted to the hospital for acu te cholecystitis. The patient had an ERCP done yesterday with removal of common bile duct stone and I recommended to do laparoscopic cholecystectomy, possible open, possible cholangiogram. I did talk to the patient about the benefit, risk, alternate procedure. I indicated the risks may include, but not limited to, such as bleeding, infection, injury to other organs, incisional hernia, myocardial in farction, DVT, stroke, even . The patient understands. She signed informed consent and I answe red all questions. DETAILS OF PROCEDURE: After we identified the patient and verified the procedure, we brought the pat ient to the OR, put the patient in supine position on the OR table. The patient received SCD on bila teral legs to prevent DVT. Also, patient received 3.375 grams of Zosyn IV for prophylactic antibioti c. The patient received general anesthesia without difficulty. The abdomen was prepped and draped i n routine sterile fashion. After timeout, I injected the local anesthesia by using 1% lidocaine mixe d with 0.5% Marcaine just above the umbilicus, then I made a small incision just above umbilicus, ope nidia fascia, opened peritoneum. Under direct vision, put a Nicolas trocar in, connected to CO2 to crea te pneumoperitoneum, flow rate at 6 liters per minute, pressure not more than 14 mmHg. Once we got a nice pneumoperitoneum, we put a camera in, looked around the abdomen, it shows normal f inding on the liver; however, the gallbladder showed significant inflammation with edema of gallbladd er wall confirming the diagnosis of acute cholecystitis. Once we confirmed the diagnosis, we put ano ther three 5 mm trocars on the right upper quadrant. Once all trocars in, we used the grasper to hol d the base of gallbladder, put in the direction to the diaphragm, another grasper to hold the pouch o f gallbladder, put a lateral to explore the triangle of Calot. The cystic duct was identified and mobilized. I put two 5 mm metal clips on the proximal cystic duct , one on the distal cystic duct, then I used a scissor for transection of cystic duct; rechecked, no bile leak. The cystic artery was identified and mobilized. I put two 5 mm metal clips on the proxim al cystic artery and one on the distal cystic artery, then I used a scissor for transection of cystic artery; rechecked, no active bleeding. Then, we used the Bovie to take down gallbladder from the li tc bed; rechecked, no active bleeding, no bile leak from the liver bed. Then, we removed gallbladde r through the catch bag. Then, we reinserted the Nicolas trocar in, connected to CO2 to create pneumoperitoneum, again looked a round the abdomen, no active bleeding, no bile leak from the liver bed. Pneumoperitoneum was release d, then I closed the umbilical incision fascial layer by using 0 Vicryl [id number] x2, closed fitzpatrick bcutaneous layer by using 2-0 Vicryl interruptedly, closed skin by using 4-0 Vicryl continuous runnin g, closed another three 5 mm trocar site of skin only by using 4-0 Vicryl. Then, we put the dressing on. The patient tolerated the procedure well. All instrument, needle and sponge counts were correct x2 a t the end of the case. The patient was transferred to recovery room in stable condition. The specim en was sent to pathology. After the procedure, I did talk to the patient about the OR finding and th e procedure we did, the patient understands. The preschool teacher assistant, Riya, is necessary. Her role was to hold the camera, retraction and exposure . Job ID: [id number]
[2021-08-29] MEDS ORDERED: NON-FORMULARY MEDICATION (Turmeric 400 mg capsule) PO SCH (11:27)
[2021-08-29] MEDS ORDERED: oxyCODONE/ACETAMINOPHEN 5mg/325mg TAB PO PRN (11:27)
[2021-08-29] MEDS ORDERED: NON-FORMULARY MEDICATION (Glucosam-Chond-Hyalu-Cf Borate [Move Free Joint Health] 750 mg-1 PO SCH (11:27)
[2021-08-29] MEDS ORDERED: LEVOTHYROXINE SODIUM 50 MCG TABLET PO SCH (11:27)
[2021-08-29] MEDS ORDERED: ALBUTEROL HFA 8 GM INHALER INH PRN (11:27)
[2021-08-29] MEDS ORDERED: NON-FORMULARY MEDICATION (Insulin Lispro [Humalog Kwikpen Insulin] 100 unit/mL insulin pen SCH (11:27)
[2021-08-29] MEDS ORDERED: NON-FORMULARY MEDICATION (Omeprazole 20 mg capsule,delayed release(DR/EC)) PO SCH (11:27)
[2021-08-29] MEDS ORDERED: DICLOFENAC SOD 1% GEL 100 GM TUBE EXT PRN (11:27)
--- NOTE | 2021-08-29 11:40 | Hospitalist Progress Note ---
Date of Service August 29, 2021 Assessment & Plan (1) Acute cholecystitis: Plan: POD#1 s/p ERCP by Dr Stanton which revealed choledocholithiasis and had removal with biliary sphincterotomy and balloon extraction. Biliary sphincterotomy performed and one biliary stent placed into CBD * To avoid ASA/NSAIDs x 5 days, repeat ERCP 6 weeks to remove stent WBC wnl Remains on Zosyn NPO for dash today --> Evaluated following, and pain currently controlled TB wnl 0.9 , AST wnl 38 (from 78), ALT 79 (171), and ALP 89 (from 126) Heparin on hold for dash, will message general surgery about timing to resume -- ok to resume tomorrow AM, 08/30 Continue pain control, antiemetics, bowel regimen Continue to monitor (2) Hypertension: Plan: BP 174/75 currently Continue lisinopril 20mg BID, carvediolol 25mg BID, metoprolol 50mg daily takes lasix 20mg 2x/wk -- none needed at this time Continue to monitor (3) CAD (coronary artery disease): Plan: and 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 nonobstructive CAD (2017 catheterization) trop negative on admission eval by cardiology while inpatient, symptoms stable at this time (4) Cardiomyopathy: Plan: as above (5) Uncontrolled type 2 diabetes mellitus with hyperglycemia, with long-term current use of insulin: Plan: A1c 8.5 (prior 7.6) Pharmacy consulted for glycemic management BSGs acceptable Continue to monitor (6) Abnormal ultrasound of gallbladder: Plan: as above (7) Elevated liver function tests: Plan: 2nd to above improving continue to trend (8) Abdominal pain, acute, epigastric: Plan: 2nd to above pain reported to be controlled at this time lipase almost 3000--> likely secondary to ERCP if asymptomatic, no concerns (9) Choledocholithiasis: Plan: tx as above Plan: clear liquid diet, adv as tolerated. Heparin to be resumed in AM per surgery IVF, abx continued and will need repeat ERCP in 6 wk for stent removal Labs in AM Admission and Anticipated Discharge Date Admission Date: August 25, 2021 Supervising Physician Co-Signing Physician Notes PA Supervision Note: I did not personally see or examine the patient today, but I verified all kern points of IVÁN Walls's assessment and plan with the following exceptions/additions: None Subjective patient evaluated this morning following surgery still a little drowsy per RN, and had been drowsy following anesthesia yesterday for her ERCP. Pain reported as controlled at the moment, no nausea or vomiting. States moved bowels a little last evening, but nothing today. has not eaten yet but just waking up. no fever, chills, chest pain, shortness of breath reported at this time. Review of Systems Review of Systems: All systems reviewed & are unremarkable except as noted in HPI & below Physical Exam Constitutional: WD/WN, vitals as above no acute distress and not ill appearing just returned from PACU Eyes: anicteric, pupils equal and reactive ENMT: mmm Neck: normal visual inspection and trachea midline Respiratory: normal respiratory effort; no respiratory distress, no labored breathing and no retractions 97% on 2L Oxymask Cardiovascular: RRR, +murmur, no calf tenderness/edema, pulses palpable, SCDs in place Gastrointestinal (Abdomen): active/hypoactive BS, +tenderness to palpation around surgical incisions with ecchymosis to lower abdominal wall, no rebound, +voluntary guarding dressings c/d/i to lap dash sites Skin: no jaundice warm, dry Neurologic: PERRL, EOMI, accommodation nl, no face palsy, no dysarthria Psychiatric: A+Ox3, euthymic affect drowsy from anesthesia Genitourinary: no holman Results & Data Results & Data ([facility]) Vital Signs (Past 12 Hours) Vital Signs Temp Pulse Pulse Pulse Resp BP Pulse Ox 08/29/21 10:25 75 16 174/75 H 97 08/29/21 10:15 36.8 C 80 16 179/81 H 94 08/29/21 10:05 78 14 171/82 H 96 08/29/21 09:57 37.0 C 85 14 176/75 H 96 08/29/21 08:17 36.8 C 70 18 162/66 H 96 08/29/21 07:13 71 08/29/21 06:34 37.0 C 73 18 151/68 H 96 08/29/21 03:34 36.7 C 73 18 129/90 96 08/29/21 00:28 66 Laboratory Results 01/12/22 01/12/22 01/12/22 Range/Units 11:31 10:49 10:49 WBC 7.94 (4.8-10.8) K/uL RBC 3.97 L (4.2-5.4) M/uL Hgb 11.8 L (12.0-16.0) g/dL Hct 36.8 L (37-47) % MCV 92.7 (80-100) fL MCH 29.7 (25-34) pg MCHC 32.1 (32-36) g/dL RDW Std Deviation 44.8 (36.4-46.3) fL RDW Coeff of Barbara 13.1 (11.5-14.5) % Plt Count 123 L (130-400) K/uL MPV 9.6 (7.4-10.4) fL Immature Gran % (Auto) 0.1 % Neut % (Auto) 81.5 % Lymph % (Auto) 15.0 % Patrick % (Auto) 2.6 % Eos % (Auto) 0.5 % Baso % (Auto) 0.3 % Neut # (Auto) 6.47 (1.4-6.5) K/uL Lymph # (Auto) 1.19 L (1.2-3.4) K/uL Patrick # (Auto) 0.21 (0.11-0.59) K/uL Eos # (Auto) 0.04 (0-0.5) K/uL Baso # (Auto) 0.02 (0-0.2) K/uL Immature Gran # (Auto) 0.01 (0.00-0.02) K/uL Sodium 140 (136-145) mmol/L Potassium 4.3 (3.5-5.1) mmol/L Chloride 110 H (98-107) mmol/L Carbon Dioxide 22 (21-32) mmol/L Anion Gap 8 (3-11) BUN 12 (6-23) mg/dl Creatinine 0.79 (0.6-1.2) mg/dl Est Cr Clr Drug Dosing 63.4 ml/min Est GFR ( Amer) 84.9 ml/min Est GFR (Non-Af Amer) 73.2 ml/min BUN/Creatinine Ratio 15.2 (10-20) Glucose 147 H (70-99) mg/dl POC Glucose 170 H (70-99) mg/dl Calcium 7.7 L (8.5-10.1) mg/dl Total Bilirubin Pending Direct Bilirubin Pending AST Pending ALT Pending Alkaline Phosphatase Pending Total Protein Pending Albumin Pending Lipase Pending 08/29/21 08/29/21 08/28/21 Range/Units 10:01 06:05 19:57 WBC (4.8-10.8) K/uL RBC (4.2-5.4) M/uL Hgb (12.0-16.0) g/dL Hct (37-47) % MCV (80-100) fL MCH (25-34) pg MCHC (32-36) g/dL RDW Std Deviation (36.4-46.3) fL RDW Coeff of Barbara (11.5-14.5) % Plt Count (130-400) K/uL MPV (7.4-10.4) fL Immature Gran % (Auto) % Neut % (Auto) % Lymph % (Auto) % Patrick % (Auto) % Eos % (Auto) % Baso % (Auto) % Neut # (Auto) (1.4-6.5) K/uL Lymph # (Auto) (1.2-3.4) K/uL Patrick # (Auto) (0.11-0.59) K/uL Eos # (Auto) (0-0.5) K/uL Baso # (Auto) (0-0.2) K/uL Immature Gran # (Auto) (0.00-0.02) K/uL Sodium (136-145) mmol/L Potassium (3.5-5.1) mmol/L Chloride (98-107) mmol/L Carbon Dioxide (21-32) mmol/L Anion Gap (3-11) BUN (6-23) mg/dl Creatinine (0.6-1.2) mg/dl Est Cr Clr Drug Dosing ml/min Est GFR ( Amer) ml/min Est GFR (Non-Af Amer) ml/min BUN/Creatinine Ratio (10-20) Glucose (70-99) mg/dl POC Glucose 156 H 157 H 238 H (70-99) mg/dl Calcium (8.5-10.1) mg/dl Total Bilirubin Direct Bilirubin AST ALT Alkaline Phosphatase Total Protein Albumin Lipase 08/28/21 08/28/21 Range/Units 16:40 13:15 WBC (4.8-10.8) K/uL RBC (4.2-5.4) M/uL Hgb (12.0-16.0) g/dL Hct (37-47) % MCV (80-100) fL MCH (25-34) pg MCHC (32-36) g/dL RDW Std Deviation (36.4-46.3) fL RDW Coeff of Barbara (11.5-14.5) % Plt Count (130-400) K/uL MPV (7.4-10.4) fL Immature Gran % (Auto) % Neut % (Auto) % Lymph % (Auto) % Patrick % (Auto) % Eos % (Auto) % Baso % (Auto) % Neut # (Auto) (1.4-6.5) K/uL Lymph # (Auto) (1.2-3.4) K/uL Patrick # (Auto) (0.11-0.59) K/uL Eos # (Auto) (0-0.5) K/uL Baso # (Auto) (0-0.2) K/uL Immature Gran # (Auto) (0.00-0.02) K/uL Sodium (136-145) mmol/L Potassium (3.5-5.1) mmol/L Chloride (98-107) mmol/L Carbon Dioxide (21-32) mmol/L Anion Gap (3-11) BUN (6-23) mg/dl Creatinine (0.6-1.2) mg/dl Est Cr Clr Drug Dosing ml/min Est GFR ( Amer) ml/min Est GFR (Non-Af Amer) ml/min BUN/Creatinine Ratio (10-20) Glucose (70-99) mg/dl POC Glucose 220 H 145 H (70-99) mg/dl Calcium (8.5-10.1) mg/dl Total Bilirubin Direct Bilirubin AST ALT Alkaline Phosphatase Total Protein Albumin Lipase PG Care Time/CCT Total # of Minutes Spent Total Time Spent with Patient: Total time spent is greater than 50% in coordination of care (as documented) at patient's floor/unit and/or counseling patient: Coding Level of Care Code 68432 Subseq Hosp Care Lvl 2 Diagnoses Abdominal pain, acute, epigastric R10.13 Abnormal ultrasound of gallbladder R93.2 Elevated liver function tests R79.89 Uncontrolled type 2 diabetes mellitus with hyperglycemia, with long-term current use of insulin E11.65; Z79.4 Hypertension I10 CAD (coronary artery disease) I25.10 Cardiomyopathy I42.9 Acute cholecystitis K81.0 Choledocholithiasis K80.50
[2021-08-29 11:41] LABS: BUN Creatinine Ratio 15.2 (10-20); Calcium 7.7 mg/dl (8.5-10.1); Creatinine Clr Calc Pharmacy 63.4 ml/min; Est GFR (African American) 84.9 ml/min; Est GFR (Non-African American) 73.2 ml/min; Potassium 4.3 mmol/L (3.5-5.1)
[2021-08-29 11:47] LABS: Albumin Level 2.8 gm/dl (3.4-5.0); Bilirubin Direct 0.3 mg/dl (0-0.2); Bilirubin,Total 0.9 mg/dl (0.2-1.0); Total Protein 5.3 gm/dl (6.0-8.3)
[2021-08-29] MEDS: METOPROLOL TARTRATE 25 MG TAB PO SCH ×2 (12:05→20:50)
[2021-08-29] MEDS: lisinopril 20 MG TAB PO SCH (12:05)
[2021-08-29] MEDS: carvediloL 25 MG TAB PO SCH ×2 (12:05→20:50)
[2021-08-29] MEDS: IPRATROPIUM BROMIDE NASAL SPRAY 0.06% 15ML NAE SCH ×2 (13:21→20:50)
[2021-08-29] MEDS: LEVOTHYROXINE SODIUM 50 MCG TABLET PO SCH (13:21)
[2021-08-29] MEDS: ZINC SULFATE 220 MG CAPSULE PO SCH (13:21)
[2021-08-29] MEDS: MONTELUKAST SODIUM 10 MG TABLET PO SCH (13:21)
--- NOTE | 2021-08-29 14:58 | Pharmacy Report ---
Pharmacy Glycemic Short Note 2 - Date of Service August 29, 2021 - Glycemic Short BSG Results (Last 24 hours): 08/28/21 08/28/21 08/29/21 16:40 19:57 06:05 Glucose POC Glucose 220 H 238 H 157 H 08/29/21 08/29/21 08/29/21 10:01 10:49 11:31 Glucose 147 H POC Glucose 156 H 170 H 08/29/21 14:25 Glucose POC Glucose 292 H OUTPATIENT ANTIDIABETIC REGIMEN: * Lantus 34 units SC daily * Humalog 12 units SC with breakfast, 16 units with lunch and dinner * Jardiance 10 mg PO daily * HbA1c: 8.5% (08/26/21) ASSESSMENT: 08/29 * POD #0 s/p laparoscopic cholecystectomy * Patient received 8 mg IV dexamethasone intraoperatively * Ordered clear liquid diet postoperatively * Will give 32 units of Lantus postop (~full weight-based stress of 2 dosing) * Postop BSG of 170 mg/dL * IV fluids changed from dextrose-containing to LR @ 75 mL/hr 08/28 * BSGs yesterday of 222, 171, 101, 171 mg/dL * Received 46 units of insulin (30 of which was basal) * NPO today for ERCP/EUS with plan for laparoscopic cholecystectomy tomorrow * Plan for clear liquid diet postprocedure today 08/27: * BM is a 76 year old female presented on 08/25/21 with acute epigastric abdominal pain * Patient scheduled to be NPO after midnight for ERCP tomorrow * Receiving D5/LR @ 80 mL/hr, now discontinued with advance to clear liquid diet * BSGs yesterday ranging, 148-183 mg/dL, fasting BSG of 222 mg/dL this morning (pharmacy consulted for glycemic management at that time) * 20 units of Lantus given prior to consult * Will add on scaled dose of Lantus HS to possibly provide increased basal dose and will tighten Novolog parameters * Receiving Zosyn 4.5 g IV q8h PLAN FOR INPATIENT GLYCEMIC CONTROL: * Hold outpatient oral diabetes medications * Basal insulin * Lantus 32 units SC x 1 postoperatively * Reassess in AM * Bolus insulin - continue * NovoLog per scale ACHS or Q6hrs while NPO * Goal Range: Low 110 mg/dL - High 140 mg/dL * Correction Factor: 20 mg/dL/unit * Nutritional / Prandial insulin per carb ratio of 1 unit per 7 grams CHO consumed * , checks with same parameters PLAN FOR DISCHARGE: * HbA1c of 8.5% is above goal, reasonable goal for most adults is less than 7%, but could consider more lenient goal in light of patients age and comorbidities (i.e. 7.5-8%) * Likely could use adjustment to outpatient insulin doses - will follow inpatient insulin needs once diet reintroduced and make recommendations as able * TBD
[2021-08-29] MEDS: LACTATED RINGER'S 1,000 ML IV SCH (15:27)
[2021-08-29] MEDS: traMADol HCL 50 MG TABLET PO PRN ×2 (15:38→22:25)
[2021-08-29] MEDS: ACETAMINOPHEN 325 MG TAB PO PRN ×2 (15:38→22:27)
--- NOTE | 2021-08-29 16:23 | Cardiology Progress Note ---
Date of Service August 29, 2021 Assessment & Plan (1) Cardiomyopathy: (2) Chronic combined systolic and diastolic heart failure: (3) Non-occlusive coronary artery disease requiring drug therapy: (4) Hypertension: Plan: Patient doing well status postcholecystectomy, her nonischemic cardiomyopathy is well compensated currently. Volume status remains appropriate, no evidence of heart failure. Still mildly hypertensive, likely due to combination of withholding diuretics and intermittent pain. Continue to follow postoperatively, perhaps her BP well moderate since the etiology of her pain (gallbladder) is no longer present. When she returns home, if she remains hypertensive despite resumption of her twice weekly diuretic regimen, recommended that she increase her carvedilol from 25 mg twice daily to 37.5 mg twice daily. She inquired about COVID booster, recommended she obtain this in a few weeks (so as not to confound any vaccine side effects with postoperative symptoms). Admission and Anticipated Discharge Date Admission Date: August 25, 2021 Subjective Patient doing well after laparoscopic cholecystectomy earlier today. She denied chest pain, dyspnea, or any symptoms other than mild abdominal tenderness. BP mildly hypertensive, heart rate normal. Physical Exam Physical Exam: No distress. Weight down 7 pounds from admission. Mildly hypertensive. Pulse 90 bpm and regular. Skin: no ecchymoses or generalized lesions. HEENT: unremarkable. Neck: Jugular venous pulse at the clavicle at 90 degrees, no JVD or carotid bruits. Lungs: clear. Cardiac: regular rhythm with 2/6 basal systolic ejection murmur which is nonradiating, no diastolic murmur. Abdomen: Nondistended. Extremities: no edema, pulses intact. Neurologic: normal affect and conversation, nonfocal. Results & Data ([facility]) Vital Signs (Past 12 Hours) Vital Signs Temp Pulse Pulse Pulse Resp BP Pulse Ox 08/29/21 16:06 99.1 F 90 18 158/75 H 92 08/29/21 12:00 89 08/29/21 10:25 75 16 174/75 H 97 08/29/21 10:15 98.2 F 80 16 179/81 H 94 08/29/21 10:05 78 14 171/82 H 96 08/29/21 09:57 98.6 F 85 14 176/75 H 96 08/29/21 08:17 98.2 F 70 18 162/66 H 96 08/29/21 07:13 71 08/29/21 06:34 98.6 F 73 18 151/68 H 96 Laboratory Results Normal electrolytes, BUN 12, creatinine 0.79 (down from 1.21 on admission) PG Care Time/CCT Total # of Minutes Spent Total Time Spent with Patient: Total time spent is greater than 50% in coordination of care (as documented) at patient's floor/unit and/or counseling patient: Coding Level of Care Code 76506 Subseq Hosp Care Lvl 3 Diagnoses Cardiomyopathy I42.9 Chronic combined systolic and diastolic heart failure I50.42 Non-occlusive coronary artery disease requiring drug therapy I25.10 Hypertension I10
[2021-08-29] MEDS ORDERED: ATORVASTATIN 40 MG TAB PO SCH (21:00)
[2021-08-29] MEDS ORDERED: lisinopril 20 MG TAB PO SCH (21:00)
[2021-08-29] MEDS ORDERED: diphenhydrAMINE Capsule 25 MG CAP PO ONE (23:49)
[2021-08-30] MEDS: INSULIN ASPART PER UNIT SC SCH ×4 (00:07→13:13)
[2021-08-30] MEDS: LACTATED RINGER'S 1,000 ML IV SCH ×2 (02:32→13:14)
[2021-08-30] MEDS: PIPERACILLIN/TAZOBACTAM 4.5 GM in DEXTROSE 5% 100 ML IV SCH ×2 (04:51→13:14)
[2021-08-30] MEDS: LEVOTHYROXINE SODIUM 50 MCG TABLET PO SCH (06:27)
[2021-08-30 07:47] LABS: Basophils # (auto) 0.01 K/uL (0-0.2); Basophils % (auto) 0.1 %; Eosinophils # (auto) 0.02 K/uL (0-0.5); Eosinophils % (auto) 0.2 %; Hematocrit (blood only) 36.5 % (37-47); Hemoglobin 12.1 g/dL (12.0-16.0); Immature Granulocytes # (auto) 0.02 K/uL (0.00-0.02); Immature Granulocytes % (auto) 0.2 %; Lymphocytes # (auto) 1.48 K/uL (1.2-3.4); Lymphocytes % (auto) 17.5 %; Mean Corpuscular Hemoglobin 30.1 pg (25-34); Mean Corpuscular Hgb Conc 33.2 g/dL (32-36); Mean Corpuscular Volume 90.8 fL (80-100); Monocytes # (auto) 0.77 K/uL (0.11-0.59); Monocytes % (auto) 9.1 %; Neutrophils # (auto) 6.16 K/uL (1.4-6.5); Neutrophils % (auto) 72.9 %; Platelet Count 129 K/uL (130-400); RDW Standard Deviation 43.5 fL (36.4-46.3); Red Blood Count 4.02 M/uL (4.2-5.4); White Blood Count 8.46 K/uL (4.8-10.8)
[2021-08-30 08:26] LABS: Albumin Globulin Ratio 1.1 (0.9-2); Albumin Level 3.3 gm/dl (3.4-5.0); BUN Creatinine Ratio 15.1 (10-20); Calcium 8.4 mg/dl (8.5-10.1); Creatinine Clr Calc Pharmacy 58.1 ml/min; Est GFR (African American) 76.6 ml/min; Est GFR (Non-African American) 66.1 ml/min; Globulin 2.9 gm/dl (2.5-4.0); Total Protein 6.2 gm/dl (6.0-8.3)
[2021-08-30] MEDS ORDERED: NON-FORMULARY MEDICATION (Biotin 1 mg Tablet) PO SCH (09:00)
[2021-08-30] MEDS ORDERED: INSULIN GLARGINE SOLOSTAR 100 UNITS/ML 3 ML PEN SQ SCH (09:00)
[2021-08-30] MEDS ORDERED: MULTIVITAMIN TAB PO SCH (09:00)
[2021-08-30] MEDS ORDERED: INSULIN GLARGINE SOLOSTAR 100 UNITS/ML 3 ML PEN SC SCH (09:00)
[2021-08-30] MEDS: carvediloL 25 MG TAB PO SCH (09:50)
[2021-08-30] MEDS: MONTELUKAST SODIUM 10 MG TABLET PO SCH (09:50)
[2021-08-30] MEDS: ZINC SULFATE 220 MG CAPSULE PO SCH (09:51)
[2021-08-30] MEDS: METOPROLOL TARTRATE 25 MG TAB PO SCH (09:51)
[2021-08-30] MEDS: IPRATROPIUM BROMIDE NASAL SPRAY 0.06% 15ML NAE SCH ×3 (09:53→13:15)
--- NOTE | 2021-08-30 10:36 | Discharge Summary ---
Date of Service August 30, 2021 Admission HPI Per Admitting Provider 76 yo female with history of CAD with DE, cardiomyopathy followed by Dr. 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 She says that the pain started at 2am, was sharp, constant and has not gone away until she got Dilaudid in the ED. She says she has never had this pain before, specifically denies any post prandial pain, ever. She says she was eating normally the past few days. The pain this morning stayed in epigastric region, slightly in RUQ. She had a decreased appetite today, some nausea but did not vomit, no diarrhea. Her last BM was yesterday and was normal. She denies any fever/chills, sweats, chest pain, dyspnea, cough. She gets occasional leg swelling, takes Lasix twice a week. She says that her sugars have been elevated the past few days, unsure why as her diet had not changed. She has been taking her Basaglar 34 units and Humalog TID with meals and sliding scale. Her morning sugars are always < 200 but in afternoon and evening sugars are 260-300. In the ED her vitals were stable, no fever. WBC normal, Hb normal, Cr up sligh tly at 1.2. Mild elevation in her bilirubin at 1.7, AST 159, ALT 127, alk phos 111. US of RUQ showed gall stones, thickened gall bladder wall but the study was equivocal for cholecystitis. Surgery was consulted by the ED, requested medicine admission. Admission Exam Per Admitting Provider General: well developed, obese female, no acute distress, comfortable Neck: supple, trachea midline, normal thyroid Lungs: clear to auscultation bilaterally, normal respiratory effort, no accessory muscle use, no distress Heart: regular S1 and S2, no murmur, peripheral pulses normal, capillary refill normal, no edema Abdomen: soft, TTP in RUQ, ND, + BS, no hepatomegaly, normal to percussion Extremities: normal in appearance, no cyanosis, no petechiae, strength is 5/5 bilaterally Neuro: awake, cooperative, moves all extremities, no focal motor deficits, CN II-XII intact, sensation in extremities intact, normal speech Skin: warm, dry, no rash, normal turgor Psych: Awake, alert oriented x 3, euthymic affect Principal Diagnosis Acute cholecystitis Acute choledocholithiasis HTN Elevated liver function tests Elevated lipase - likely secondary to ERCP- improving Discharge Exam Constitutional well developed and well nourished; no acute distress Respiratory normal respiratory effort, lungs clear to auscultation Cardiovascular RRR, no murmur, no edema Gastrointestinal (Abdomen) Inspection/Auscultation: abdomen normal to inspection and normal bowel sounds; abdomen not distended Percussion/Palpation: abdomen nontender and no guarding Dressing to abdominal incision sites - clean, dry and intact Discharge Data Allergies Allergy/AdvReac Type Severity Reaction Status Date / Time adhesive Allergy Mild SKIN TEARS Verified 08/25/21 14:11 AND HEALING ISSUES Barbiturates Allergy Mild Hives Verified 08/25/21 14:11 hydrochlorothiazide Allergy Mild Gastrointestinal Verified 08/25/21 14:11 Upset phenobarbital Allergy Mild heart Verified 08/25/21 14:11 racing pseudoephedrine Allergy Mild light Verified 08/25/21 14:11 headed, heart racing sertraline Allergy Mild light Verified 08/25/21 14:11 headed, dizzy Sulfa (Sulfonamide Allergy Mild Vomiting Verified 08/25/21 14:11 Antibiotics) triamterene Allergy Mild Gastrointestinal Verified 08/25/21 14:11 Upset Dyazide Allergy Unknown UNKNOWN Verified 04/11/15 09:31 gabapentin Allergy Unknown Swelling Verified 08/25/21 14:11 of Lip/Tongue/Throat pantoprazole Allergy Unknown Gastrointestinal Verified 08/25/21 14:11 Upset propoxyphene Allergy Unknown Unknown Verified 08/25/21 14:11 pollen extracts Allergy Verified 08/25/21 14:11 Consultations 08/25/21 16:23 ED Decision to Admit Stat 08/25/21 21:00 Consult Cardiology Routine Consult General Surgery Routine 08/26/21 08:14 Consult Gastroenterology Routine 08/28/21 11:06 Consult Anesthesiology Routine Procedures Performed Operation Date: 08/28/21 13:30 Actual Procedures p Endoscopic Retrograde Cholangiopancreato - Juan Stanton DO Operation Date: 08/29/21 08:40 Actual Procedures p Laparoscopic Cholecystectomy(Not Applicable) - Jordan Woods MD Ordered Studies 08/25/21 13:57 US gallbladder Stat 08/28/21 12:10 US upper EUS PACS images Routine 08/28/21 13:30 FL ERCP biliary ductal Routine Hospital Course (1) Choledocholithiasis: Patient had ERCP on 08/28/[address] Stanton that revealed choledocholithiasis and had removal with biliary sphincterotomy and balloon extraction. One biliary stent was placed. - the patient should schedule a repeat ERCP in 6 weeks to have the stent removed. On the date of discharge the patient's pain was controlled and she was tolerating her diet. (2) Acute cholecystitis: Patient had cholecystectomy on 08/29/2021. Pain is currently controlled on the date of discharge she is tolerating her diet. (3) Non-occlusive coronary artery disease requiring drug therapy: Patient was seen in consultation by Cardiology preoperatively. Echocardiogram on 08/26/2021 showed an EF of 45-50%, severe hypokinesis to akinesis of the mid inferior septum and mid anterior septum. Otherwise, mild global hypokinesis. Moderate concentric left ventricular hypertrophy. No significant valvular stenosis or regurgitation. No significant change from echocardiogram on 01/19/2020. (4) Abdominal pain, acute, epigastric: The patient did have an episode after surgery of epigastric pain. Lipase was initially elevated at 2938 on 08/29/2021. Repeat on the dated discharge has improved to 319. (5) Elevated liver function tests: improving after surgery. On the date of discharge AST 31, ALT 75. Follow-up as an outpatient (6) Hypertension: elevated during her stay. She was seen in consultation Cardiology. Dr. Myers recommended checking her blood pressures at home and calling his office if they remain elevated. The patient will be discharged home in stable condition. She should follow up with General surgery further recommendations. The patient should follow up with Gastroenterology in 6 weeks for stent removal. She should follow up with PCP in 1-2 weeks. Continue to monitor blood pressures at home and call the cardiology office if remains elevated. No NSAIDs or aspirin until after 09/02/2021 due to procedure/surgery Total Time Total Time Spent Total Time Spent (In Minutes): 20 minutes Total Time Includes: Examination of the Patient and Communication With Other Providers Discharge Plan Discharge Items Patient Disposition: Home - Self-Care Reason For Visit: CHOLECYSTITIS Discharge Diagnosis: Acute cholecystitis Acute choledocholithiasis, bilary stent placement (08/28/2021) Hypertension Elevated liver function tests Condition on Discharge: Good Activity: Per Instructions section Non-emergency contact: Primary Care Provider, Surgeon and Massage Operator Call non-emergency contact if: you have any medication questions, your symptoms worsen, your pain is not controlled, your pain is worsening, your temperature is above 101.5, your wound has increased redness and your wound has increased drainage Follow-up/Referrals: Anastacia Rodriges MD [Primary Care Provider] - 09/10/21 4:00 pm Juan Stanton DO [Physician] - (Follow up for stent removal in 6 weeks. Please call for appointment.) Jordan Woods MD [Physician] - (Follow up as directed by Surgery) Diet: Carb Consistent or DM2 and Low Fat Addtl Attending Provider Instructions: Continue to check blood pressures at home. If blood pressure remains elevate, contact Dr. De Jesus's office. Do not use aspirin or NSAIDs until after 09/02/2021 due to procedure during this hospitalization. Follow up with Dr. Stanton in 6 weeks for stent removal. Please call for an appointment, if not already arranged. Follow up with Dr. Woods - call to schedule 2 week follow up if not already arranged Follow up with PCP in 1-2 weeks, call for appointment is not already arranged Addtl Broadcast Maintenance Technician Provider Instructions: Post-Surgical ~Discharge Instructions Activity Recommendations: - lifting limitation: (25 pounds for 4 weeks), - exercise/sex/sports limit: (nonstrenuous for 2 weeks), - driving or machine use limit: (none for 1 week, until pain free and no longer taking narcotic pain medication), - Shower/bathe limit: (may shower beginning Friday) Diet: - Would recommend low fat diet for 2 weeks and then advance as tolerated. SPECIAL CARE INSTRUCTIONS: - May shower on Friday. Keep incision areas dry. Sponge bath around incisions and wash hair in meantime. On Friday, remove outer dressings and shower. Let water run over area and pat dry. - Leave steri strips on for one week and then remove. They may fall off on their own that is okay - Call the surgeon's office with any questions or concerns - - (ex. temperature higher than 101 degrees F, excessive bleeding or pain). MEDICATIONS: - Resume previous medications unless instructed otherwise by your surgeon. - AVOID NSAIDS (Ibuprofen, aspirin , Aleve) as directed until after 09/02/2021 given the ERCP procedure you had. - You can take Tylenol as needed for mild pain - You can continue your home Tramadol every 6 hours as needed for moderate to severe pain. FOLLOW UP VISIT: - If not already scheduled, please call the office to schedule a two week follow-up appointment. Office number Pending Studies at Discharge: Yes (gallbladder pathology, will be reviewed at follow-up visit) Stand-Alone Forms: My [facility] Namely, Smoking Cessation Medications and DC Order Prescriptions: Continued atorvastatin 40 mg tablet 40 mg PO QPM Qty: 90 RF: 3 insulin lispro [Humalog KwikPen Insulin] 100 unit/mL insulin pen See Rx Instructions .ROUTE .COMPLEX Qty: 60 RF: 1 omeprazole 20 mg capsule,delayed release(DR/EC) 20 mg PO BID Qty: 180 RF: 1 montelukast 10 mg tablet 10 mg PO DAILY Qty: 30 RF: 5 Basaglar KwikPen U-100 Insulin 100 unit/mL (3 mL) insulin pen 34 unit SUBCUT DAILY Qty: 4 RF: 3 levothyroxine 50 mcg tablet 50 mcg PO QAM Qty: 90 RF: 1 carvedilol 25 mg tablet 25 mg PO BID Qty: 60 RF: 5 metoprolol tartrate 25 mg tablet See Rx Instructions PO DAILY Qty: 270 RF: 3 diclofenac sodium 1 % gel 4 g TOP QID PRN (Reason: pain) Qty: 500 RF: 2 acetaminophen [Tylenol 8 Hour] 650 mg tablet extended release 650 mg PO Q8H RF: 0 tramadol 50 mg tablet See Rx Instructions PO Q6H PRN (Reason: Pain) Qty: 180 RF: 0 (DME) OneTouch Ultra Blue Test Strip Strip See Rx Instructions .ROUTE .MEDSUPPLY RF: 0 zinc 50 mg tablet 50 mg PO DAILY RF: 0 (DME) pen needle, diabetic [BD Ultra-Fine [place] Pen Needle] 32 gauge x 5/32" needle See Rx Instructions .ROUTE .MEDSUPPLY Qty: 400 RF: 3 furosemide 40 mg tablet 40 mg PO 2XWK Qty: 30 RF: 3 cranberry 500 mg capsule 500 mg PO DAILY RF: 0 turmeric 400 mg capsule 400 mg PO DAILY RF: 0 Jardiance 10 mg tablet 10 mg PO DAILY Qty: 90 RF: 3 lisinopril 20 mg tablet 20 mg PO BID Qty: 180 RF: 3 multivitamin tablet 1 tab PO QAM RF: 0 (DME) lancets [OneTouch Delica Lancets] 30 gauge misc See Dose Instructions .ROUTE .MEDSUPPLY Qty: 25 RF: 0 Move Free Joint Health 750 mg-100 mg- 1.65 mg-108 mg tablet 1 tab PO UD RF: 0 albuterol sulfate [Ventolin HFA] 90 mcg/actuation HFA aerosol inhaler 1 - 2 puff INHALATION Q6H PRN (Reason: Shortness Of Breath) Qty: 6.7 RF: 3 ipratropium bromide 0.03 % spray,non-aerosol 2 spray INTNAS TID Qty: 30 RF: 5 aspirin [Aspirin Low Dose] 81 mg Tablet,Delayed Release (Dr/Ec) 81 mg PO QAM RF: 0 biotin 1 mg Tablet 1 mg PO QAM RF: 0 cholecalciferol (vitamin D3) [Vitamin D3] 50 mcg (2,000 unit) Capsule 0 mcg PO DAILY RF: 0 Discontinued levothyroxine [Euthyrox] 50 mcg tablet 50 mcg PO DAILY RF: 0 Discharge Orders: Discharge Order (Routine); Ordered 08/30/21 Ordered By: Carmita Pantoja/Other Patient Handouts: After Gallbladder Surgery, Cholecystectomy, Having Laparoscopic Cholecystectomy Admission Data Admit Date/Time: 08/25/21 16:44 Attending Provider: Carmita Moffett Admit Provider: Julio Cesar Huizar Primary Care Provider: Anastacia Rodriges Other Providers: Julio Cesar Huizar ; Nikita De Jesus ; Sofie Stanton ; Joaquín Dubois ; Lisa David ; Karen Rousseau ; Freya Garcia ; Cathi Andersen ; Garrett Lewis ; William Landis ; Nils Loyola ; Manuel Gutierrez ; Doreen Gutierrez ; Bobo Goldsmith ; Ivelisse Albarran ; Santiago Sargent ; Teddy Esqueda ; Charlie Craig ; Garfield Oconnor ; Maricruz Alvarado ; Bassam Veronica ; Julianna Smith ; Nicole Veronica ; Berhane Toro ; Zari Treviño ; Armaan Pierre ; Lavern Fraire ; Rosa Skinner ; Zari Gary ; Aurora Huizar ; Angel Azevedo ; Joelle Alberts ; Mirella Villasenor ; Yudi Duggan ; Miriam Collado ; Chris Collado V ; Rolan Tucker ; Karen Worley ; Mike Esquivel ; Love Bran ; Lillie Ramírez ; Chris Shaw ; Aly Alvarado ; Julio Cesar Richards ; Corin Sanches ; Bibi Vargas ; Chris Carmichael ; Yudi Parmar ; Alcon Hartman ; Evan Oconnor ; Radha Renner ; Faisal Fan ; Bello Gutierrez ; Rashaad Montejo ; Henry Mancuso ; Faisal Christian ; Garrett Ledesma Jr ; Elda Vigil Other Interventions: Discharge Summary Assessment (RN) Last Done: 08/30/21 13:42 Supervising Physician Co-Signing Physician Notes PA Supervision Note: I personally saw and examined the patient. I verified all kern points and agree with IVÁN Cisneros with the following exceptions and/or additions: S-patient having some soreness at the abdominal incision sites but overall doing well, tolerating diet, ambulating, no chest pain or shortness of breath. O- Vitals reviewed Gen: AAOx3, NAD HEENT: Anicteric sclerae, EOMI CV: RRR no mgr nl S1S2 Pulm: CTAB no wcr Abd: +BS soft minimal tenderness palpation incisions without guarding or rebound, no hernias, dressings clean dry and intact Ext: No edema, 2+ DP pulses Skin: No rashes, warm/dry Neuro: Full strength throughout [id number] female here with acute cholecystitis with choledocholithiasis- now resolved, status post ERCP with sphincterotomy and stent placement as well as cholecystectomy Stable for discharge to home. No need for antibiotics Follow-up with surgery and GI for stent removal Coding Level of Care Code D/C DAY MANAGEMENT <30 MINS Diagnoses Choledocholithiasis K80.50 Acute cholecystitis K81.0 Non-occlusive coronary artery disease requiring drug therapy I25.10 Abdominal pain, acute, epigastric R10.13 Elevated liver function tests R79.89 Hypertension I10 Time Spent (min) 20
--- NOTE | 2021-08-30 12:23 | Cardiology Progress Note ---
Date of Service August 30, 2021 Assessment & Plan (1) Cardiomyopathy: (2) Chronic combined systolic and diastolic heart failure: (3) Non-occlusive coronary artery disease requiring drug therapy: (4) Hypertension: Plan: Patient doing well status postcholecystectomy, her nonischemic cardiomyopathy is well compensated currently. Volume status remains appropriate, no evidence of heart failure. When she returns home, if she remains hypertensive despite resumption of her twice weekly diuretic regimen, recommended that she increase her carvedilol from 25 mg twice daily to 37.5 mg twice daily. Admission and Anticipated Discharge Date Admission Date: August 25, 2021 Subjective Patient doing well after laparoscopic cholecystectomy yesterday. She denied chest pain, dyspnea, or any symptoms other than mild abdominal tenderness. BP mildly hypertensive, heart rate normal. Physical Exam Physical Exam: No distress. Weight down 1 pound overnight. Mildly hypertensive. Pulse 80 bpm and regular. Skin: no ecchymoses or generalized lesions. HEENT: unremarkable. Neck: Jugular venous pulse at the clavicle at 90 degrees, no JVD or carotid bruits. Lungs: clear. Cardiac: regular rhythm with 2/6 basal systolic ejection murmur which is nonradiating, no diastolic murmur. Abdomen: Nondistended. Extremities: no edema, pulses intact. Neurologic: normal affect and conversation, nonfocal. Results & Data ([facility]) Vital Signs (Past 12 Hours) Vital Signs Temp Pulse Resp BP Pulse Ox 08/30/21 11:52 98.2 F 81 16 149/63 H 95 08/30/21 08:30 97.5 F L 93 H 16 155/72 H 94 08/30/21 03:57 97.7 F 73 20 166/77 H 97 Laboratory Results Normal electrolytes, BUN 13, creatinine 0.86. PG Care Time/CCT Total # of Minutes Spent Total Time Spent with Patient: Total time spent is greater than 50% in coordination of care (as documented) at patient's floor/unit and/or counseling patient: Coding Level of Care Code 01865 Subseq Hosp Care Lvl 2 Diagnoses Cardiomyopathy I42.9 Chronic combined systolic and diastolic heart failure I50.42 Non-occlusive coronary artery disease requiring drug therapy I25.10 Hypertension I10
--- NOTE | 2021-08-30 12:30 | Surgery Progress Note ---
Date of Service August 30, 2021 Assessment & Plan (1) Elevated liver function tests: Plan: improved (2) Abnormal ultrasound of gallbladder: (3) Abdominal pain, acute, epigastric: Plan: Resolved Plan: POD # 1 s/p laparoscopic cholecystectomy and POD # 2 s/p ERCP with biliary stent placement for choledocholithiasis -afebrile, vss - leukocytosis resolved - lipase elevated last evening but down to 300 today - postop pain minimal and controlled - no n/v, tolerating diet - t. bili normalized, lfts mostly normalized Plan: okay from surgical standpoint for discharge discharge instructions reviewed f/u surgery office in 2 weeks f/u GI for stent removal in [address] Woods was present during my examination and agrees with above. Admission and Anticipated Discharge Date Admission Date: August 25, 2021 Subjective feeling better, no abdominal pain, had pain last night but that has resolved no n,v tolerated full liquids no chest pain or shortness of breath incisional pain, controlled Physical Exam Constitutional: WD/WN, vitals as above no acute distress and not ill appearing Neck: normal visual inspection and trachea midline Respiratory: normal respiratory effort; no respiratory distress, no labored breathing and no retractions Gastrointestinal (Abdomen): Inspection/Auscultation: abdomen normal to inspection and + abdominal surgical incision (covered with clean/dry dressings); abdomen not distended Percussion/Palpation: abdomen soft; abdomen nontender, no guarding and abdomen not rigid ecchymosis present at site of Heparin injections Skin: no rashes, warm and dry no jaundice Psychiatric: A+Ox3, euthymic affect Results & Data ([facility]) Vital Signs (Past 12 Hours) Vital Signs Temp Pulse Resp BP Pulse Ox 08/30/21 11:52 36.8 C 81 16 149/63 H 95 08/30/21 08:30 36.4 C L 93 H 16 155/72 H 94 08/30/21 03:57 36.5 C 73 20 166/77 H 97 Laboratory Results 08/30/21 08/30/21 08/30/21 Range/Units 11:29 07:32 07:30 WBC (4.8-10.8) K/uL RBC (4.2-5.4) M/uL Hgb (12.0-16.0) g/dL Hct (37-47) % MCV (80-100) fL MCH (25-34) pg MCHC (32-36) g/dL RDW Std Deviation (36.4-46.3) fL RDW Coeff of Barbara (11.5-14.5) % Plt Count (130-400) K/uL MPV (7.4-10.4) fL Immature Gran % (Auto) % Neut % (Auto) % Lymph % (Auto) % [place] % (Auto) % Eos % (Auto) % Baso % (Auto) % Neut # (Auto) (1.4-6.5) K/uL Lymph # (Auto) (1.2-3.4) K/uL [place] # (Auto) (0.11-0.59) K/uL Eos # (Auto) (0-0.5) K/uL Baso # (Auto) (0-0.2) K/uL Immature Gran # (Auto) (0.00-0.02) K/uL Sodium (136-145) mmol/L Potassium (3.5-5.1) mmol/L Chloride (98-107) mmol/L Carbon Dioxide (21-32) mmol/L Anion Gap (3-11) BUN (6-23) mg/dl Creatinine (0.6-1.2) mg/dl Est Cr Clr Drug Dosing ml/min Est GFR ( Amer) ml/min Est GFR (Non-Af Amer) ml/min BUN/Creatinine Ratio (10-20) Glucose (70-99) mg/dl POC Glucose 171 H 104 H (70-99) mg/dl Calcium (8.5-10.1) mg/dl Total Bilirubin (0.2-1.0) mg/dl AST (13-39) U/L ALT (7-52) U/L Alkaline Phosphatase (34-104) U/L Total Protein (6.0-8.3) gm/dl Albumin (3.4-5.0) gm/dl Globulin (2.5-4.0) gm/dl Albumin/Globulin Ratio (0.9-2) Lipase 319 H (11-82) U/L 08/30/21 08/30/21 08/30/21 Range/Units 07:30 07:30 03:46 WBC 8.46 (4.8-10.8) K/uL RBC 4.02 L (4.2-5.4) M/uL Hgb 12.1 (12.0-16.0) g/dL Hct 36.5 L (37-47) % MCV 90.8 (80-100) fL MCH 30.1 (25-34) pg MCHC 33.2 (32-36) g/dL RDW Std Deviation 43.5 (36.4-46.3) fL RDW Coeff of Barbara 13.0 (11.5-14.5) % Plt Count 129 L (130-400) K/uL MPV 10.0 (7.4-10.4) fL Immature Gran % (Auto) 0.2 % Neut % (Auto) 72.9 % Lymph % (Auto) 17.5 % [place] % (Auto) 9.1 % Eos % (Auto) 0.2 % Baso % (Auto) 0.1 % Neut # (Auto) 6.16 (1.4-6.5) K/uL Lymph # (Auto) 1.48 (1.2-3.4) K/uL [place] # (Auto) 0.77 H (0.11-0.59) K/uL Eos # (Auto) 0.02 (0-0.5) K/uL Baso # (Auto) 0.01 (0-0.2) K/uL Immature Gran # (Auto) 0.02 (0.00-0.02) K/uL Sodium 141 (136-145) mmol/L Potassium 4.0 (3.5-5.1) mmol/L Chloride 109 H (98-107) mmol/L Carbon Dioxide 26 (21-32) mmol/L Anion Gap 6 (3-11) BUN 13 (6-23) mg/dl Creatinine 0.86 (0.6-1.2) mg/dl Est Cr Clr Drug Dosing 58.1 ml/min Est GFR ( Amer) 76.6 ml/min Est GFR (Non-Af Amer) 66.1 ml/min BUN/Creatinine Ratio 15.1 (10-20) Glucose 106 H (70-99) mg/dl POC Glucose 133 H (70-99) mg/dl Calcium 8.4 L (8.5-10.1) mg/dl Total Bilirubin 1.0 (0.2-1.0) mg/dl AST 31 (13-39) U/L ALT 75 H (7-52) U/L Alkaline Phosphatase 96 (34-104) U/L Total Protein 6.2 (6.0-8.3) gm/dl Albumin 3.3 L (3.4-5.0) gm/dl Globulin 2.9 (2.5-4.0) gm/dl Albumin/Globulin Ratio 1.1 (0.9-2) Lipase (11-82) U/L 08/30/21 08/30/21 08/29/21 Range/Units 03:30 00:01 20:10 WBC (4.8-10.8) K/uL RBC (4.2-5.4) M/uL Hgb (12.0-16.0) g/dL Hct (37-47) % MCV (80-100) fL MCH (25-34) pg MCHC (32-36) g/dL RDW Std Deviation (36.4-46.3) fL RDW Coeff of Barbara (11.5-14.5) % Plt Count (130-400) K/uL MPV (7.4-10.4) fL Immature Gran % (Auto) % Neut % (Auto) % Lymph % (Auto) % [place] % (Auto) % Eos % (Auto) % Baso % (Auto) % Neut # (Auto) (1.4-6.5) K/uL Lymph # (Auto) (1.2-3.4) K/uL [place] # (Auto) (0.11-0.59) K/uL Eos # (Auto) (0-0.5) K/uL Baso # (Auto) (0-0.2) K/uL Immature Gran # (Auto) (0.00-0.02) K/uL Sodium (136-145) mmol/L Potassium (3.5-5.1) mmol/L Chloride (98-107) mmol/L Carbon Dioxide (21-32) mmol/L Anion Gap (3-11) BUN (6-23) mg/dl Creatinine (0.6-1.2) mg/dl Est Cr Clr Drug Dosing ml/min Est GFR ( Amer) ml/min Est GFR (Non-Af Amer) ml/min BUN/Creatinine Ratio (10-20) Glucose (70-99) mg/dl POC Glucose 111 H 162 H 214 H (70-99) mg/dl Calcium (8.5-10.1) mg/dl Total Bilirubin (0.2-1.0) mg/dl AST (13-39) U/L ALT (7-52) U/L Alkaline Phosphatase (34-104) U/L Total Protein (6.0-8.3) gm/dl Albumin (3.4-5.0) gm/dl Globulin (2.5-4.0) gm/dl Albumin/Globulin Ratio (0.9-2) Lipase (11-82) U/L 08/29/21 08/29/21 Range/Units 16:33 14:25 WBC (4.8-10.8) K/uL RBC (4.2-5.4) M/uL Hgb (12.0-16.0) g/dL Hct (37-47) % MCV (80-100) fL MCH (25-34) pg MCHC (32-36) g/dL RDW Std Deviation (36.4-46.3) fL RDW Coeff of Barbara (11.5-14.5) % Plt Count (130-400) K/uL MPV (7.4-10.4) fL Immature Gran % (Auto) % Neut % (Auto) % Lymph % (Auto) % [place] % (Auto) % Eos % (Auto) % Baso % (Auto) % Neut # (Auto) (1.4-6.5) K/uL Lymph # (Auto) (1.2-3.4) K/uL [place] # (Auto) (0.11-0.59) K/uL Eos # (Auto) (0-0.5) K/uL Baso # (Auto) (0-0.2) K/uL Immature Gran # (Auto) (0.00-0.02) K/uL Sodium (136-145) mmol/L Potassium (3.5-5.1) mmol/L Chloride (98-107) mmol/L Carbon Dioxide (21-32) mmol/L Anion Gap (3-11) BUN (6-23) mg/dl Creatinine (0.6-1.2) mg/dl Est Cr Clr Drug Dosing ml/min Est GFR ( Amer) ml/min Est GFR (Non-Af Amer) ml/min BUN/Creatinine Ratio (10-20) Glucose (70-99) mg/dl POC Glucose 237 H 292 H (70-99) mg/dl Calcium (8.5-10.1) mg/dl Total Bilirubin (0.2-1.0) mg/dl AST (13-39) U/L ALT (7-52) U/L Alkaline Phosphatase (34-104) U/L Total Protein (6.0-8.3) gm/dl Albumin (3.4-5.0) gm/dl Globulin (2.5-4.0) gm/dl Albumin/Globulin Ratio (0.9-2) Lipase (11-82) U/L
[2021-08-30] MEDS: HEPARIN SOD 5,000 UNIT/0.5 ML VIAL SQ SCH (13:14)
[2021-08-31] MEDS ORDERED: FUROSEMIDE 40 MG TAB PO SCH (09:00)
== END 2021-08-30 14:36 | disposition home or self-care (01) | DRG 418 ==
LOC: ED 12:30 → EDINP 16:44 → SUATTDRO 16:44 → 2N 21:49

== ENCOUNTER 2022-04-11 09:34 | Inpatient (IN) ==
--- NOTE | 2022-03-27 13:11 | Anesthesiology Consultation ---
Date of Service March 27, 2022 Assessment & Plan (1) Encounter for pre-operative examination: - COVID screening: Per assessment on 03/27: No known COVID-19 positive contacts or current COVID-19 related symptoms. Travel screen negative. Patient vaccinated. Surgeon arranging preop COVID testing. Awaiting results. - Check BSG AM DOS - Hx glidescope intubation: Cholecystectomy (08/29/21): Grade 1 view, elective glidescope #3, ETT#7.0. - Cardiology office visit (12/25/21): "Patient with history of remote and initially severe cardiomyopathy (felt chemotherapy-induced) whose systolic function has varied over the years (EF 55% in 2010, EF 30-35% in 2014, 35-40% in 2016, 40-45% 2019). Cardiac catheterization 2016 showing nonocclusive coronary disease and mildly elevated LVEDP. She appears euvolemic currently. In an attempt to reduce her diuretic regimen, recommended that given her current weight of 203 pounds, she take furosemide 40 mg daily for any weight of greater than 205 pounds, no diuretic needed for weight less than this.Lipids reasonable (LDL 81) on medium dose of high potency statin, however increased over prior LDL in the 50s. If her LDL rises further would increase her statin. Check follow-up echocardiogram to reassess systolic function at the time of her next office visit in 6 months. Other than changing her diuretic regimen to sliding scale, no other medication changes. Cardiology follow-up 6 months. - S/P EGD/colonoscopy (03/18/22): MAC at [facility]. No issues noted per post-op anesthesia progress note. Chart Review Chart Review: Acceptable Risk for Surgery (pending evaluation AM DOS) and Patient NOT seen in Pre Admission Testing History Surgery Operation Date: 04/11/22 08:35 Proposed Procedures p Laparoscopic Sigmoid Colectomy Possible Open - Jonathan Nation, DO Height/Weight Height: 5 ft 1 in Weight: 90.718 kg Allergies Allergy/AdvReac Type Severity Reaction Status Date / Time adhesive Allergy Mild SKIN TEARS Verified 03/27/22 12:37 AND HEALING ISSUES Barbiturates Allergy Mild Hives Verified 03/27/22 12:37 hydrochlorothiazide Allergy Mild Gastrointestinal Verified 03/27/22 12:37 Upset phenobarbital Allergy Mild heart Verified 03/27/22 12:37 racing pollen extracts Allergy Mild Difficulty Verified 03/27/22 12:37 Breathing pseudoephedrine Allergy Mild light Verified 03/27/22 12:37 headed, heart racing sertraline Allergy Mild light Verified 03/27/22 12:37 headed, dizzy Sulfa (Sulfonamide Allergy Mild Vomiting Verified 03/27/22 12:37 Antibiotics) triamterene Allergy Mild Gastrointestinal Verified 03/27/22 12:37 Upset Dyazide Allergy Unknown UNKNOWN Verified 04/11/15 09:31 gabapentin Allergy Unknown Swelling Verified 03/27/22 12:37 of Lip/Tongue/Throat pantoprazole Allergy Unknown Gastrointestinal Verified 03/27/22 12:37 Upset propoxyphene Allergy Unknown Unknown Verified 03/27/22 12:37 Medications Home Medications Medication Instructions Recorded Confirmed Last Taken aspirin 81 mg tablet,delayed 81 mg PO QAM 07/28/18 03/27/22 03/17/22 release (Gerda Low Dose Aspirin) biotin 1 mg tablet 1 mg PO QAM 07/28/18 03/27/22 03/17/22 lancets 30 gauge (OneTouch Delica #25 ea 02/08/19 03/25/22 Unknown Lancets) multivitamin 1 tab PO QAM 02/08/19 03/27/22 03/17/22 glucosam 750 mg-chondroi 100 1 tab PO UD 01/12/20 03/27/22 03/17/22 mg-hyalur 1.65 mg-CF borate 108 mg tablet ([facility]) cranberry 500 mg capsule 500 mg PO QAM 05/21/21 03/27/22 03/17/22 turmeric 400 mg capsule 400 mg PO QAM 05/21/21 03/27/22 03/17/22 metoprolol tartrate 25 mg tablet See Rx Instructions PO DAILY #270 06/19/21 03/27/22 03/18/22 06:00 tabs cholecalciferol (vitamin D3) 50 0 mcg PO QAM 08/25/21 03/27/22 03/17/22 mcg (2,000 unit) capsule (Vitamin D3) albuterol sulfate 90 mcg/actuation 1 - 2 puff inhalation Q6H PRN 09/28/21 03/27/22 Unknown aerosol inhaler (Ventolin HFA) Shortness Of Breath #6.7 grams omeprazole 20 mg capsule,delayed 20 mg PO BID #180 caps 10/19/21 03/27/22 03/18/22 06:00 release montelukast 10 mg tablet 10 mg PO PM 10/26/21 03/27/22 03/17/22 carvedilol 25 mg tablet 25 mg PO BID #60 tabs 11/15/21 03/27/22 03/18/22 06:00 blood sugar diagnostic #300 ea 11/22/21 03/25/22 Unknown insulin lispro 100 unit/mL See Rx Instructions .Route 11/22/21 03/27/22 03/17/22 subcutaneous pen (Humalog KwikPen .COMPLEX #60 mL (U-100) Insulin) acetaminophen 500 mg tablet 500 mg PO TID PRN Pain 12/12/21 03/27/22 03/17/22 (Tylenol Extra Strength) empagliflozin 25 mg tablet 25 mg PO QAM #90 tabs 12/12/21 03/27/22 03/17/22 zinc gluconate 30 mg tablet 30 mg PO QAM 12/12/21 03/27/22 03/17/22 levothyroxine 50 mcg tablet 50 mcg PO QAM #90 tabs 12/18/21 03/27/22 03/18/22 06:00 diclofenac sodium 1 % topical gel 4 g topical QID PRN pain #500 grams 01/17/22 03/27/22 03/18/22 atorvastatin 40 mg tablet 40 mg PO QPM #90 tabs 02/12/22 03/27/22 03/17/22 insulin glargine U-300 conc 300 35 unit subcut QDD 02/12/22 03/27/22 03/17/22 unit/mL (1.5 mL) subcutaneous pen (Toujeo SoloStar U-300 Insulin) ipratropium bromide 21 mcg (0.03 2 spray intranasal TID PRN Allergy 02/12/22 03/27/22 03/16/22 %) nasal spray Symptoms #30 mL olmesartan 40 mg tablet 40 mg PO DAILY #90 tabs 02/12/22 03/27/22 03/17/22 BD Ultra-Fine [place] Pen Needle 32 #400 ea 02/15/22 03/25/22 Unknown gauge x 5/32" (pen needle, diabetic) furosemide 40 mg tablet 40 mg PO 2XWK weight gain #30 tabs 02/15/22 03/27/22 03/17/22 Past Medical History Medical History Anxiety Asthma inhaler prn- uses rarely CAD (coronary artery disease) non-occlusive per [place] cardio records Cardiomyopathy non-ischemic, severe, suspected to be d/t prior chemotherapy per [place] cardio records Chronic combined systolic and diastolic heart failure Colon cancer Diabetes mellitus, type 2 Fibromyalgia GERD (gastroesophageal reflux disease) Hearing deficit History of COVID-19 08/2019 Hx of myocardial infarction multiple, most recent 2016 cardiac cath 2017 with no stents Hx of sarcoma of soft tissue right elbow- 2001; s/p chemo Hx of thrombophlebitis RLE Hyperlipidemia Hypertension Hypothyroidism LBBB (left bundle branch block) Lymphedema bilat arms Obesity Past Family History Family History Mother Family history of diabetes mellitus Myocardial infarction Allergies Cardiac disorder Hypertension Grandfather (Maternal) Family history of diabetes mellitus Grandfather (Paternal) Family history of diabetes mellitus Daughter Family hx of colon cancer Colorectal cancer Allergies Father Stroke Myocardial infarction Brother Brain tumor Renal failure Grandmother (Maternal) Cardiac disorder Other Bleeding disorder Denies family history of Ovarian cancer Prostate cancer Breast cancer Past Surgical History Surgical History History of anesthesia reaction difficulty waking History of bilateral carpal tunnel release x2 History of bilateral tubal ligation History of cardiac cath 2017 @ [facility] > no stents History of cholecystectomy 08/29/2021: Grade 1 view, elective glidescope #3, ETT#7.0. History of laparoscopic cholecystectomy Aug 2021 [facility] History of left breast biopsy benign History of left cataract extraction History of surgery of liver stent placed and removed History of surgery on arm sarcoma removal of right arm History of tooth extraction under local History of vascular access device removed 2007 Hx of colonoscopy 2021 Hx of varicose vein ligation right leg Past Anesthesia History Difficult Airway (Cholecystctomy (08/29/21): Grade 1 view, elective glidescope #3, ETT#7.0. ) Social History Smoking Status: Never smoker Do You Dip or Chew Tobacco: No Hx Alcohol Use: No Hx Substance Use: No substance use type: does not use Lab Results Anesthesia Preop Results Results Anesthesia Widget: WBC 8.10 K/ul (4.8-10.8) 03/25/22 Hgb 13.9 g/dl (12.0-16.0) 03/25/22 Hct 43.4 % (34.1-44.9) 03/25/22 Plt 187 K/uL (130-400) 03/25/22 Na 140 mmol/L (136-145) 03/25/22 K 4.2 mmol/L (3.5-5.1) 03/25/22 Cl 106 mmol/L (98-107) 03/25/22 CO2 26 mmol/L (21-32) 03/25/22 BUN 26 mg/dl (6-23) H 03/25/22 Creat 0.93 mg/dl (0.6-1.2) 03/25/22 Glucose Level 161 mg/dl (70-99(Fasting)) H 03/25/22 PT 10.3 Seconds (9.0-12.0) 03/25/22 INR 1.0 (0.9-1.1) 03/25/22 HA1c 9.3 % (4.5-5.6) H 03/25/22 Testing Electrocardiogram Date: 08/27/21 NSR at 74bpm. LAD. LBBB. No significant change compared to 08/26/21- Echo done 08/26/21* Echocardiogram Date: 08/26/21 Normal LV size with mildly reduced systolic function. EF 45-50%. Severe hypokinesis to akinesis of the mid inferoseptum and mid anteroseptum. Otherwise, mild global HK. Moderate cLVH. No significant valvular disease. RVSP 23 mmhg. Type I DD. No significant change compared to 01/19/2020 per report. Cardiac Catheterization Date: 05/29/17 Moderate, non-obstructive single vessel CAD. 50% mid-distal circumflex. Mildly elevated intracardiac filling pressure. Continued ASCVD risk factor modification recommended. Other Testing Chest CT (03/25/22) FINDINGS: No enlarged axillary, mediastinal or hilar lymph nodes are present. Note is made of moderate cardiomegaly and coronary artery calcification. There is no pericardial effusion. No suspicious pulmonary nodules are present. A few tiny pulmonary nodules are unchanged since chest CT April 24, 2010. No new nodules are present. Minimal subpleural groundglass opacities represent atelectasis. There is no consolidation to suggest pneumonia. Central airways are patent. No suspicious lesions are identified within the visualized bony thorax. The abdomen and pelvis CT will be reported separately. IMPRESSION: No evidence of metastatic disease within the chest. Abd/Pelvis CT (03/25/22) No evidence of metastatic disease in the abdomen.
[~2022-04-11 09:34] MED LIST changes: -ALBUAER2; -ASPI81TA28 PO; -ATOR-24 PO; +CIPROFLOXACIN / D5W 400 MG/200 ML BAG IV SCH; -CRG25 PO; -DFL150 PO; -ERGO500037 PO; -GLCSC750600; +HEPARIN SOD (PORCINE) 5,000 UNITS/ML VIAL IV SCH; +HEPARIN SOD 5,000 UNIT/0.5 ML VIAL SQ SCH; -INSDGI SC; -IPRA0.03; -LEVO100T PO; -LISI20TA3 PO; +LR 15ML/HR IV SCH; -METO25TA56 PO; -MULT-506 PO; -NXM/40 PO; -REPA1TAB40 PO; -REPA2TAB12 PO; -SITA100T3 PO; -TERA2CAP PO; -TRAM-10 PO; -TRMCR515 TOP; +metroNIDAZOLE 500 MG/100 ML BAG IV SCH
[2022-04-11] MEDS ORDERED: MIDAZOLAM HCL 1 MG/ML 2ML VIAL ONE (10:16)
[2022-04-11] MEDS ORDERED: fentaNYL citrate 100 MCG/2 ML VIAL ONE ×3 (10:16→16:10)
--- NOTE | 2022-04-11 11:06 | History & Physical Bridge Note ---
Date of Service April 11, 2022 History & Physical Bridge Note I have examined the patient, reviewed the History & Physical and in the interval since the performance of the History & Physical I have noted the following changes of clinical significance: no changes noted
[2022-04-11] MEDS ORDERED: PROPOFOL IV EMULSION 10 MG/ML 20 ML VIAL IV ONE (11:30)
[2022-04-11] MEDS ORDERED: LIDOCAINE 2% MPF LOCAL 5 ML VIAL INFIL ONE (11:30)
[2022-04-11] MEDS ORDERED: DEXAMETHASONE SOD INJ 4 MG/ML VIAL ONE ×2 (11:30)
[2022-04-11] MEDS ORDERED: ONDANSETRON INJ 2 MG/ML 2 ML VIAL ONE (11:30)
[2022-04-11] MEDS ORDERED: ROCURONIUM BROMIDE 10 MG/ML 5 ML VIAL IV ONE ×2 (11:30→14:00)
[2022-04-11] MEDS ORDERED: ACETAMINOPHEN 1000 MG/100 ML IV IV ONE (11:32)
[2022-04-11] MEDS ORDERED: PROMETHAZINE HCL 6.25 MG in SODIUM CHLORIDE 0.9% 50 ML IV PRN (11:45)
[2022-04-11] MEDS ORDERED: KETOROLAC 30 MG/ML VIAL IV PRN (11:45)
[2022-04-11] MEDS ORDERED: ONDANSETRON INJ 2 MG/ML 2 ML VIAL IV PRN (11:45)
[2022-04-11] MEDS ORDERED: ATROPINE SULFATE 0.1 MG/ML 10ML SYR IV PRN (11:45)
[2022-04-11] MEDS ORDERED: EPINEPHrine INJ 1 MG/ML AMP ONE (12:15)
[2022-04-11] MEDS ORDERED: ETOMIDATE 2 MG/ML 20 ML VIAL IV ONE (12:23)
[2022-04-11] MEDS ORDERED: ALBUMIN HUMAN 5% 12.5 GM/250 ML VIAL IV ONE (14:51)
[2022-04-11] MEDS ORDERED: KETAMINE 50 MG/5 ML SYRINGE ONE (14:56)
[2022-04-11] MEDS ORDERED: SUGAMMADEX SODIUM 200 MG/2 ML VIAL IV ONE (16:05)
[2022-04-11] MEDS ORDERED: HYDROmorphone INJ 2 MG/ML SYR/VIAL ONE (16:10)
--- NOTE | 2022-04-11 16:45 | Operative Report ---
PG Post Operative Report Pre & Post Diagnosis Operation Date: 04/11/22 12:05 Pre-Op Diagnosis: Colon Cancer Post-Op Diagnosis: Colon Cancer I identified the patient and participated in the time-out.: Yes Procedure Operation Date: 04/11/22 12:05 Actual Procedures p Laparoscopic convert to laparotomy low anterior resection colectomy (Not Applicable) - Jonathan Nation DO Surgeon Jonathan Nation DO Plumbing Manager 1. abdulkadir Love 2. abdulkadir Buckley Estimated Blood Loss 200 Findings Consistent with Post-Op Diagnosis Specimens rectomsigmoid Description of Procedure After informed consent was obtained the patient was taken to the operating room and placed in supine position. After successful intubation a Liu catheter was placed sterilely. The patient was placed into a low lithotomy position and the entire abdomen and perineum were sterilely prepped and draped in usual fashion. I began with an infraumbilical incision with an 11 blade scalpel. This was carried down through the soft tissue using cautery. The anterior fascia was opened using cautery and two #0 Vicryl stay sutures were placed. Peritoneum was entered using blunt finger penetration and a finger sweep performed. A 12 mm on trocar was placed and the abdomen was insufflated to 18 mmHg. Laparoscope was inserted and the abdomen examined 360 degrees. A right lower quadrant 12 mm port and a right mid abdominal 5 mm port and a left lower quadrant 5 mm port were all placed under direct vision. Began by examining the sigmoid colon. We were unable to identify the tattoo rony. We opened the white line of Toldt laterally using the harmonic scalpel. As we carried this distally towards the peritoneal reflection we noted that the tattoo was very low below the peritoneal reflection. We continued to carried this distally on both sides of the colon. We used a ROBERTO CARLOS purple cartridge stapler to transect the sigmoid colon several inches proximal to the tattoo rony. We continued to use traction/ countertraction and harmonic scalpel to take down the lateral pedicles. Eventually we were able to get distal to the tattoo rony. We created a small window underneath the rectum. We used ROBERTO CARLOS 30 mm purple staplers to transect the rectum. The patient still had her tubes and uterus which made visualization quite difficult. At 1 point it appeared as though we had a hole in the staple line and we had difficulty safely taking down the mesentery of the specimen. Therefore we converted to an open procedure. We made a lower midline incision after removing all the trochars. Once in the abdomen we used a Bookwalter retractor to help with exposure. It appeared as though the staple line on the rectum had skived and the specimen was not completely detached. We therefore made a retrorectal window with blunt finger dissection and used a ROBERTO CARLOS purple cartridge linear stapler to transect the rectum below the previous staple line. We then took down the mesentery using the harmonic scalpel. We did open it on the back table to verify that the previous lesion was within it and it appeared to be. We marked the distal end with a stitch. Next we changed our gloves. We then opened the proximal staple line and used 2-0 silk to create a pursestring. We used sizers to estimate the staple size to be 28 mm. The anvil of 28 mm circular staple was placed and secured using the pursestring device. We then brought in the handle of the circular stapler. The spike was deployed in the central portion of the staple line. The handle was connected to the anvil and they were secured together and fired creating an end-to-end anastomosis. Both donuts were intact. We insufflated the anastomosis under water under pressure and it was in fact airtight. There was adequate hemostasis. We thoroughly irrigated the wound. No other abnormalities were seen. 10 flat Darrin-Sahu drain was brought in through one of the trocar sites and placed in the pelvis. Secured the skin using 2-0 silk. The fascia was closed using 1 PDS starting either pole and running them and securing them in the midline. Soft tissue was irrigated. The incision was closed using skin mayi over a Wingate drain. The remainder of the trochars were closed using mayi as well. Silver dressing and abdominal binder were used as a dressing. The patient was placed back into a supine position extubated and transferred to recovery in stable condition. Both my physician assistants were present for the majority of the case. 1 was instrumental in assisting in the abdominal portion and 1 instrumental in the rectal/anastomotic portion. I attest to the content of the Intraoperative Record and any orders documented therein. Any exceptions are noted below.
[2022-04-11] MEDS ORDERED: LABETALOL HCL IV 5 MG/ML 20ML IV STA ×3 (17:14→17:35)
[2022-04-11] MEDS ORDERED: LABETALOL HCL IV 5 MG/ML 20ML IV ONE (17:16)
[2022-04-11] MEDS: HYDROmorphone INJ 1 MG/ML SYRINGE IV PRN ×6 (17:55→18:25)
--- NOTE | 2022-04-11 18:05 | Anesthesiology Progress Note ---
Date of Service April 11, 2022 Anesthesia Post Procedure Vital Signs Vital Signs: Temp Pulse Resp BP Pulse Ox O2 Del Method O2 Flow Rate 04/11/22 17:46 79 16 134/70 94 Nasal Cannula 2 04/11/22 17:35 36.1 C L 77 18 163/74 H 97 Oxymask 4 04/11/22 17:25 76 16 186/90 H 98 Oxymask 4 04/11/22 17:15 77 14 184/77 H 97 Oxymask 4 04/11/22 17:05 77 16 182/73 H 97 Oxymask 4 04/11/22 16:55 77 18 195/84 H 100 Oxymask 7 04/11/22 16:45 73 16 178/65 H 97 Oxymask 7 04/11/22 16:35 36.2 C L 72 19 140/87 97 Oxymask 7 04/11/22 10:38 36.6 C 84 20 112/63 95 Room Air Transfer of Care Handoff Completed per policy Notes Mental Status: alert / awake / arousable Patient Amnestic to Procedure: Yes Nausea / Vomiting: adequately controlled Pain: adequately controlled Airway Patency, RR, SpO2: stable & adequate BP & HR: stable & adequate Hydration State: stable & adequate Anesthetic Complications: no major complications apparent and Pt Satisfied with anesthetic care
[2022-04-11] MEDS ORDERED: GLUCAGON FOR INJ 1 MG VIAL SQ PRN (19:30)
[2022-04-11] MEDS ORDERED: CARBOHYDRATES FOR HYPOGLYCEMIA PO PRN (19:30)
[2022-04-11] MEDS ORDERED: NALOXONE HCL 0.4 MG/1 ML VIAL/CARP IV PRN (19:30)
[2022-04-11] MEDS ORDERED: GLUCOSE 40% GEL 15 GM TUBE PO PRN (19:30)
[2022-04-11] MEDS ORDERED: DEXTROSE 50% 50 ML SYRINGE IV PRN (19:30)
[2022-04-11] MEDS ORDERED: PHARMACY GLYCEMIC MGMT CONSULT PRN (19:30)
[2022-04-11] MEDS ORDERED: GLUCOSE 10 TAB/TUBE PO PRN (19:30)
[2022-04-11] MEDS ORDERED: ALBUTEROL HFA 8 GM INHALER INH PRN ×2 (19:30→21:30)
--- NOTE | 2022-04-11 20:10 | Hospitalist Consultation ---
Date of Consultation April 11, 2022 Assessment & Plan (1) S/P colectomy: Patient is POD # 0 for colon cancer (adenocarcinoma)- converted open laparotomy - Pain control per primary service- with THERMAL ENGINEER and EtCO2 monitor and rescue Narcan is Available - IVF per primary service - Drains per primary service - NGT and SANTO drain, Liu catheter - Dressing changes per primary service - Diet per primary service - Blood transfusions for primary service - PT/OT per primary service - DVT prophy per primary service - SCDS, Lovenox - ABX per primary service (2) Chronic combined systolic and diastolic heart failure: History of NICM cardiomyopathy that is resolving on ECHO thought secondary to 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 De Jesus is on service this week- he is aware and will touch base with medicine in regards to continuing both, but for now as above - Hold Olmesartan until hemodynamics proven stable and renal function stable- Olmesartan or equivalent - She takes her Lasix 40mg twice a week - Thursday 04/12; will be next dose- hold follow volume status and PRN dosing (3) Hypertension: As above (4) CAD (coronary artery disease): As above- with CATH 2016 - moderate non-obstructive disease- 50% mid distal circ (5) Dysphagia: Patient with workup for something feeling stuck in her throat- her EGD was placed on hold for current above - continue with NGT as above - GEOPHYSICAL ENGINEER consultation if needed but patient endorses that she can swallow food and liquids well (6) Uncontrolled type 2 diabetes mellitus with hyperglycemia, with long-term current use of insulin: Pharmacy consultation placed - follow (7) GERD (gastroesophageal reflux disease): History of GERD- on home omeprazole - continue with PPI will place on BID Protonix - Discontinue Famotidine (8) Asthma: Continue albuterol 2 puffs PRN (9) Hyperlipidemia: Continue statin to start 04/12/22 History of Present Illness Reason for Consultation: medical managment Requesting Physician: Dr. Nation Attending Physician: Jonathan Nation, DO History of Present Illness 77 YOF that is POD #0 following open laparotomy with anterior resection colectomy performed by Dr. Nation. Patient was intubated and received General Anesthesia. No pressors needed during case. EBL was 200ml. History of difficult to wake up after Anesthesia, but is awake now Patient was diagnosed with colon cancer during recent colonoscopy on 03/18/22, biopsy revealed differentiated adenocarcinoma. Patient with medical problems of HFmEF non- ischemic cardiomyopathy thought to be secondary to chemotherapy. She normally follows with Cardiology with EF improved from 30% in to 45-55% in 2021; HTN, CAD, HLD, DMII, asthma, and Sarcoma of forearm. Patient was evaluated in her room postoperatively. She is on THERMAL ENGINEER with EtCO2 monitoring. NGT is in place. Is with some postoperative tremor to her left arm likely at this time from GA. She is with Pharmacy consult for glycemic management. Rest of medications r eviewed- will clarify her double BB with Director Automotive as he is concrete mixing plant laborer this week. BMP and CBC are ordered for morning. Overall she is awake on 2LNC, abdominal binder is on and dressing underneath is without strike through, she is with SNATO drain with some serous sang drainage. NPO except medications. Recommendations: - Metoprolol on hold until hemodynamics proven stable - Continue Carvedilol (Dr. De Jesus will weigh in on whether need to continue both in future) - Restart Olmesartan or equivalent within 48 hours as long as hemodynamics and renal function stable - Patient on PPI at home will discontinue IV H2 Famotidine and place on IV Protonix BID - Glycemic Pharmacy Consult placed by primary service - If unable to use NGT in am would need to convert Synthroid to IV (30-50% reduction in dose) - Continue Atorvastatin - to start 04/12/22 Allergies Allergy/AdvReac Type Severity Reaction Status Date / Time adhesive Allergy Mild SKIN TEARS Verified 04/11/22 10:26 AND HEALING ISSUES Barbiturates Allergy Mild Hives Verified 04/11/22 10:26 hydrochlorothiazide Allergy Mild Gastrointestinal Verified 04/11/22 10:26 Upset phenobarbital Allergy Mild heart Verified 04/11/22 10:26 racing pollen extracts Allergy Mild Difficulty Verified 04/11/22 10:26 Breathing pseudoephedrine Allergy Mild light Verified 04/11/22 10:26 headed, heart racing sertraline Allergy Mild light Verified 04/11/22 10:26 headed, dizzy Sulfa (Sulfonamide Allergy Mild Vomiting Verified 04/11/22 10:26 Antibiotics) triamterene Allergy Mild Gastrointestinal Verified 04/11/22 10:26 Upset Dyazide Allergy Unknown UNKNOWN Verified 04/11/15 09:31 gabapentin Allergy Unknown Swelling Verified 04/11/22 10:26 of Lip/Tongue/Throat pantoprazole Allergy Unknown Gastrointestinal Verified 04/11/22 10:26 Upset propoxyphene Allergy Unknown Unknown Verified 04/11/22 10:26 Home Medications Medication Instructions Recorded Confirmed Type aspirin 81 mg tablet,delayed 81 mg PO QAM 07/28/18 04/11/22 History release (Gerda Low Dose Aspirin) biotin 1 mg tablet 1 mg PO QAM 07/28/18 04/11/22 History lancets 30 gauge (OneTouch Delica #25 ea 02/08/19 03/25/22 History Lancets) multivitamin 1 tab PO QAM 02/08/19 04/11/22 History glucosam 750 mg-chondroi 100 1 tab PO UD 01/12/20 04/11/22 History mg-hyalur 1.65 mg-CF borate 108 mg tablet ([facility] Active Scaler [facility]) cranberry 500 mg capsule 500 mg PO QAM 05/21/21 04/11/22 History turmeric 400 mg capsule 400 mg PO QAM 05/21/21 04/11/22 History metoprolol tartrate 25 mg tablet See Rx Instructions PO DAILY #270 06/19/21 04/11/22 Rx tabs cholecalciferol (vitamin D3) 50 0 mcg PO QAM 08/25/21 04/11/22 History mcg (2,000 unit) capsule (Vitamin D3) albuterol sulfate 90 mcg/actuation 1 - 2 puff inhalation Q6H PRN 09/28/21 03/27/22 Rx aerosol inhaler (Ventolin HFA) Shortness Of Breath #6.7 grams omeprazole 20 mg capsule,delayed 20 mg PO BID #180 caps 10/19/21 04/11/22 Rx release montelukast 10 mg tablet 10 mg PO PM 10/26/21 04/11/22 History carvedilol 25 mg tablet 25 mg PO BID #60 tabs 11/15/21 04/11/22 Rx blood sugar diagnostic #300 ea 11/22/21 03/25/22 Rx insulin lispro 100 unit/mL See Rx Instructions .Route 11/22/21 04/11/22 Rx subcutaneous pen (Humalog KwikPen .COMPLEX #60 mL (U-100) Insulin) acetaminophen 500 mg tablet 500 mg PO TID PRN Pain 12/12/21 04/11/22 History (Tylenol Extra Strength) zinc gluconate 30 mg tablet 30 mg PO QAM 12/12/21 04/11/22 History levothyroxine 50 mcg tablet 50 mcg PO QAM #90 tabs 12/18/21 04/11/22 Rx diclofenac sodium 1 % topical gel 4 g topical QID PRN pain #500 grams 01/17/22 04/11/22 Rx atorvastatin 40 mg tablet 40 mg PO QPM #90 tabs 02/12/22 04/11/22 Rx insulin glargine U-300 conc 300 35 unit subcut QDD 02/12/22 04/11/22 History unit/mL (1.5 mL) subcutaneous pen (Toujeo SoloStar U-300 Insulin) ipratropium bromide 21 mcg (0.03 2 spray intranasal TID PRN Allergy 02/12/22 04/11/22 Rx %) nasal spray Symptoms #30 mL BD Ultra-Fine [place] Pen Needle 32 #400 ea 02/15/22 03/25/22 Rx gauge x 5/32" (pen needle, diabetic) furosemide 40 mg tablet 40 mg PO 2XWK weight gain #30 tabs 02/15/22 04/11/22 Rx empagliflozin 25 mg tablet 25 mg PO QAM 04/11/22 04/11/22 History (Jardiance) olmesartan 40 mg tablet (Benicar) 40 mg PO DAILY 04/11/22 04/11/22 History Patient History Medical History Anxiety Asthma inhaler prn- uses rarely CAD (coronary artery disease) non-occlusive per [place] [facility] records Cardiomyopathy non-ischemic, severe, suspected to be d/t prior chemotherapy per [place] [facility] records Chronic combined systolic and diastolic heart failure Colon cancer Diabetes mellitus, type 2 Fibromyalgia GERD (gastroesophageal reflux disease) Hearing deficit History of COVID-19 08/2019 Hx of myocardial infarction multiple, most recent 2016 cardiac cath 2017 with no stents Hx of sarcoma of soft tissue right elbow- 2001; s/p chemo Hx of thrombophlebitis RLE Hyperlipidemia Hypertension Hypothyroidism LBBB (left bundle branch block) Lymphedema bilat arms Obesity Surgical History History of anesthesia reaction difficulty waking History of bilateral carpal tunnel release x2 History of bilateral tubal ligation History of cardiac cath 2016 @ [facility] > no stents History of cholecystectomy 08/29/2021: Grade 1 view, elective glidescope #3, ETT#7.0. History of laparoscopic cholecystectomy Aug 2021 [facility] History of left breast biopsy benign History of left cataract extraction History of surgery of liver stent placed and removed History of surgery on arm sarcoma removal of right arm History of tooth extraction under local History of vascular access device removed 2007 Hx of colonoscopy 2021 Hx of varicose vein ligation right leg Family History Mother Family history of diabetes mellitus Myocardial infarction Allergies Cardiac disorder Hypertension Grandfather (Maternal) Family history of diabetes mellitus Grandfather (Paternal) Family history of diabetes mellitus Daughter Family hx of colon cancer Colorectal cancer Allergies Father Stroke Myocardial infarction Brother Brain tumor Renal failure Grandmother (Maternal) Cardiac disorder Other Bleeding disorder Denies family history of Ovarian cancer Prostate cancer Breast cancer Social History Smoking Status: Never smoker Second Hand Exposure: No; Hx Alcohol Use: No Hx Substance Use: No Preferred Language: [place] Communication Ability: Effective Visual Impairment: Limited Hearing Ability: Hard of Hearing Excellence Specialist Required: No Beliefs That Will Affect Care: None marital status: Current Living Situation: Alone 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 How many Children do You have: 4 Feels Safe at Home: Yes Childhood Exposure to Second-Hand Smoke: Yes caffeine: No during the past year weight has: increased > 10 lbs Dental Care, Regularly: No Physical Activity Frequency: Does not Exercise Physical Activity Frequency Comment: limited d/t housing Seatbelt Use: always Sunscreen Use: Yes Assistive Devices: Cane Review of Systems Review of Systems: REVIEW OF SYSTEMS: Constitutional: No fever, sweats or chills Eyes: No diplopia, no worsening or blurred vision ENT: normal hearing, Respiratory: No cough, sputum, dyspnea at rest or on exertion Cardiovascular: No chest pain, tightness or palpitations Abdomen: (+) pain, nausea, NO vomiting, diarrhea or constipation Musculoskeletal: No joint pain, calf pain, swelling Neurologic: (+) tremor, No weakness, numbness/tingling, or balance problems Psychiatric: No anxiety or depression Skin: No rash or itch Physical Exam Physical Exam: PHYSICAL EXAM: General: awake, alert, no apparent distress Head: Normocephalic, atraumatic ENT: PERRL, EOMI, no pharyngeal exudate, mucous membranes moist Neuro: AAO x 3, speech clear and appropriate, strength intact bilaterally 5/5, sensation intact and equal all extremities and dermatomes, no pronator drift, tremors to left arm and shivering following GA Chest: equal rise and fall of the chest, no accessory muscle use, no heaves or thrills, Clear to auscultation, on room air, Cardiac: Regular rate and rhythm, S1S2, skin warm dry, cap refill <3 seconds, peripheral pulses +2 no JVD, no murmur, no edema GI: Incision covered with abd pads, abdominal binder, no strike through with SANTO drain with serous sang drainage in place : (+) Liu in place draining yellow colored urine Extremities: Normal inspection, no peripheral edema or erythema, calfs nontender to palpation Psych: Normal mood and affect Skin: no rash or erythema Results & Data Results & Data ([facility]) Vital Signs (Past 12 Hours) Vital Signs Temp Pulse Pulse Resp BP Pulse Ox O2 Del Method 04/11/22 19:55 36.6 C 92 H 17 122/72 97 Nasal Cannula 04/11/22 19:25 36.6 C 91 H 18 131/62 98 Nasal Cannula 04/11/22 18:55 36.5 C 84 16 140/76 100 Nasal Cannula 04/11/22 18:05 83 18 147/53 H 97 Nasal Cannula 04/11/22 18:15 82 15 147/87 H 99 Nasal Cannula 04/11/22 17:55 85 19 126/62 95 Nasal Cannula 04/11/22 17:45 79 16 134/70 94 Nasal Cannula 04/11/22 17:35 36.1 C L 77 18 163/74 H 97 Oxymask 04/11/22 17:25 76 16 186/90 H 98 Oxymask 04/11/22 17:15 77 14 184/77 H 97 Oxymask 04/11/22 17:05 77 16 182/73 H 97 Oxymask 04/11/22 16:55 77 18 195/84 H 100 Oxymask 04/11/22 16:45 73 16 178/65 H 97 Oxymask 04/11/22 16:35 36.2 C L 72 19 140/87 97 Oxymask 04/11/22 10:38 36.6 C 84 20 112/63 95 Room Air O2 Flow Rate 04/11/22 19:55 2 04/11/22 19:25 2 04/11/22 18:55 4 04/11/22 18:05 2 04/11/22 18:15 2 04/11/22 17:55 2 04/11/22 17:45 2 04/11/22 17:35 4 04/11/22 17:25 4 04/11/22 17:15 4 04/11/22 17:05 4 04/11/22 16:55 7 04/11/22 16:45 7 04/11/22 16:35 7 04/11/22 10:38 Laboratory Results Abnormal lab results 04/11/22 04/11/22 04/11/22 Range/Units 10:23 18:18 19:02 POC Glucose 137 H 145 H 124 H (70-99) mg/dl Diagnostic Findings none avialable for reveiw Medications Administered Home Medications aspirin 81 mg tablet,delayed release (Gerda Low Dose Aspirin) 81 mg PO QAM 07/28/18 [History Confirmed 04/11/22] biotin 1 mg tablet 1 mg PO QAM 07/28/18 [History Confirmed 04/11/22] lancets 30 gauge (Tasspass[employer] Merchant[employer] Lancets) #25 ea 02/08/19 [History Confirmed 03/25/22] multivitamin 1 tab PO QAM 02/08/19 [History Confirmed 04/11/22] glucosam 750 mg-chondroi 100 mg-hyalur 1.65 mg-CF borate 108 mg tablet ([facility] oBaz) 1 tab PO UD 01/12/20 [History Confirmed 04/11/22] cranberry 500 mg capsule 500 mg PO QAM 05/21/21 [History Confirmed 04/11/22] turmeric 400 mg capsule 400 mg PO QAM 05/21/21 [History Confirmed 04/11/22] metoprolol tartrate 25 mg tablet See Rx Instructions PO DAILY #270 tabs 06/19/21 [Rx Confirmed 04/11/22] cholecalciferol (vitamin D3) 50 mcg (2,000 unit) capsule (Vitamin D3) 0 mcg PO QAM 08/25/21 [History Confirmed 04/11/22] albuterol sulfate 90 mcg/actuation aerosol inhaler (Ventolin HFA) 1 - 2 puff inhalation Q6H PRN Shortness Of Breath #6.7 grams 09/28/21 [Rx Confirmed 03/27/22] omeprazole 20 mg capsule,delayed release 20 mg PO BID #180 caps 10/19/21 [Rx Confirmed 04/11/22] montelukast 10 mg tablet 10 mg PO PM 10/26/21 [History Confirmed 04/11/22] carvedilol 25 mg tablet 25 mg PO BID #60 tabs 11/15/21 [Rx Confirmed 04/11/22] blood sugar diagnostic #300 ea 11/22/21 [Rx Confirmed 03/25/22] insulin lispro 100 unit/mL subcutaneous pen (Humalog KwikPen (U-100) Insulin) See Rx Instructions .Route .COMPLEX #60 mL 11/22/21 [Rx Confirmed 04/11/22] acetaminophen 500 mg tablet (Tylenol Extra Strength) 500 mg PO TID PRN Pain 12/12/21 [History Confirmed 04/11/22] zinc gluconate 30 mg tablet 30 mg PO QAM 12/12/21 [History Confirmed 04/11/22] levothyroxine 50 mcg tablet 50 mcg PO QAM #90 tabs 12/18/21 [Rx Confirmed 04/11/22] diclofenac sodium 1 % topical gel 4 g topical QID PRN pain #500 grams 01/17/22 [Rx Confirmed 04/11/22] atorvastatin 40 mg tablet 40 mg PO QPM #90 tabs 02/12/22 [Rx Confirmed 04/11/22] insulin glargine U-300 conc 300 unit/mL (1.5 mL) subcutaneous pen (Toujeo SoloStar U-300 Insulin) 35 unit subcut QDD 02/12/22 [History Confirmed 04/11/22] ipratropium bromide 21 mcg (0.03 %) nasal spray 2 spray intranasal TID PRN Allergy Symptoms #30 mL 02/12/22 [Rx Confirmed 04/11/22] BD Ultra-Fine [place] Pen Needle 32 gauge x 5/32" (pen needle, diabetic) #400 ea 02/15/22 [Rx Confirmed 03/25/22] furosemide 40 mg tablet 40 mg PO 2XWK weight gain #30 tabs 02/15/22 [Rx Confirmed 04/11/22] empagliflozin 25 mg tablet (Jardiance) 25 mg PO QAM 04/11/22 [History Confirmed 04/11/22] olmesartan 40 mg tablet (Benicar) 40 mg PO DAILY 04/11/22 [History Confirmed 0 04/11/22] Active Medications Albuterol (Albuterol Hfa 8 Gm Inhaler) 1 - 2 puffs INH Q6H PRN PRN Reason: Shortness Of Breath Stop: 05/11/22 19:29 Aspirin (Aspirin 81 Mg Ectab) 81 mg PO QAM NOMAN Stop: 05/12/22 08:59 Carvedilol (Carvedilol 25 Mg Tab) 25 mg PO BID NOMAN Stop: 05/11/22 20:59 Dextrose (Dextrose 50% 50 Ml Syringe) 25 - 50 ml IV UD PRN; Protocol PRN Reason: Hypoglycemia Protocol Stop: 05/11/22 19:29 Enoxaparin Sodium (Enoxaparin Inj 40 Mg/0.4 Ml Syr) 40 mg SQ QAM NOMAN Stop: 05/12/22 08:59 Glucagon (Glucagon For Inj 1 Mg Vial) 1 mg SQ UD PRN; Protocol PRN Reason: Hypoglycemia Protocol Stop: 05/11/22 19:29 Glucose (Glucose 40% Gel 15 Gm Tube) 15 - 30 gm PO UD PRN; Protocol PRN Reason: Hypoglycemia Protocol Stop: 05/11/22 19:29 Glucose (Glucose 10 Tab/Tube) 4 - 8 tab PO UD PRN; Protocol PRN Reason: Hypoglycemia Treatment Stop: 05/11/22 19:29 Metronidazole (Flagyl) 500 mg in 100 mls @ 100 mls/hr IV Q8H NOMAN; Protocol Stop: 04/12/22 19:59 Ciprofloxacin (Cipro / D5w) 400 mg in 200 mls @ 100 mls/hr IV Q12H NOMAN; Protocol Stop: 04/13/22 00:00 Acetaminophen (Ofirmev) 1,000 mg in 100 mls @ 400 mls/hr IV Q8 NOMAN Stop: 04/14/22 20:59 Potassium Chloride/Sodium Chloride (Normal Saline W/20 Meq Kcl) 20 meq in 1,000 mls @ 130 mls/hr IV .Q7H42M NOMAN; Protocol Stop: 05/11/22 20:14 Sodium Chloride (Nss 1000ml) 1,000 mls @ 15 mls/hr IV .Q24H NOMAN Stop: 04/25/22 19:31 Pantoprazole Sodium 40 mg/ (Syringe) 10 mls @ 5 mls/min IV BID NOMAN Stop: 05/11/22 20:59 Insulin Aspart (Insulin Aspart Per Unit) 0 units SC ACHS NOMAN Stop: 05/11/22 20:59 Levothyroxine Sodium (Levothyroxine Sodium 50 Mcg Tablet) 50 mcg PO DAILYBB [facility] Stop: 05/12/22 06:29 Miscellaneous (Carbohydrates For Hypoglycemia ) 15 - 30 gm PO UD PRN PRN Reason: Hypoglycemia Protocol Stop: 05/11/22 19:29 Miscellaneous Information (Pharmacy Glycemic Mgmt Consult) 1 each N/A UD PRN PRN Reason: Consult Stop: 05/11/22 19:29 Morphine Sulfate (Morphine Sulfate Skoog Operator 30 Mg/30 Ml) 30 mg IV PRN PRN; Protocol PRN Reason: THERMAL ENGINEER Pain Titration Stop: 04/25/22 19:29 Last Admin: 04/11/22 20:30 Dose: 30 mg Naloxone HCl (Naloxone Hcl 0.4 Mg/1 Ml Vial/Carp) 0.1 mg IV Q5M PRN; Protocol PRN Reason: Oversedation/Resp Depression Stop: 04/25/22 19:29 Ondansetron HCl (Ondansetron Inj 2 Mg/Ml 2 Ml Vial) 4 mg IV Q4H PRN PRN Reason: Nausea And Vomiting Stop: 05/11/22 19:29 PG Care Time/CCT Total # of Minutes Spent Total Time Spent with Patient: Total time spent is greater than 50% in coordination of care (as documented) at patient's floor/unit and/or counseling patient: Coding Level of Care Code 33877 Office/OBS Consult Lvl 3 Diagnoses S/P colectomy Z90.49 Chronic combined systolic and diastolic heart failure I50.42 Hypertension I10 CAD (coronary artery disease) I25.10 Dysphagia R13.10 Uncontrolled type 2 diabetes mellitus with hyperglycemia, with long-term current use of insulin E11.65; Z79.4 GERD (gastroesophageal reflux disease) K21.9 Asthma J45.909 Hyperlipidemia E78.5
[2022-04-11] MEDS: MoRPHine SULFATE PCA 30 MG/30 ML IV PRN (20:30)
[2022-04-11] MEDS ORDERED: FAMOTIDINE 20 MG in SYRINGE 3 ML IV SCH (21:00)
[2022-04-11] MEDS ORDERED: INSULIN ASPART PER UNIT SC SCH (21:00)
[2022-04-11] MEDS: NSS + 20MEQ KCL 20 MEQ/1,000 ML BAG IV SCH (21:38)
[2022-04-11] MEDS: SODIUM CHLORIDE 0.9% 1000ML 1,000 ML IV SCH (21:38)
[2022-04-11] MEDS: ACETAMINOPHEN 1,000 MG/100 ML VIAL IV SCH (21:39)
[2022-04-11] MEDS: carvediloL 25 MG TAB PO SCH (21:39)
[2022-04-11] MEDS: PANTOprazole 40 MG in SYRINGE 0 ML IV SCH (21:40)
[2022-04-11] MEDS: ONDANSETRON INJ 2 MG/ML 2 ML VIAL IV PRN (22:01)
[2022-04-11] MEDS: metroNIDAZOLE 500 MG/100 ML BAG IV SCH (22:08)
[2022-04-11] MEDS ORDERED: CHLORASEPTIC 1.4% SOLN 180 ML BTL MT PRN (22:25)
[2022-04-11] MEDS ORDERED: Nursing to Pharmacy Communication SCH (22:30)
[2022-04-11] MEDS: CIPROFLOXACIN / D5W 400 MG/200 ML BAG IV SCH (23:58)
[2022-04-12] MEDS: metroNIDAZOLE 500 MG/100 ML BAG IV SCH ×2 (03:50→14:30)
[2022-04-12] MEDS: LEVOTHYROXINE SODIUM 50 MCG TABLET PO SCH (06:05)
[2022-04-12] MEDS: ACETAMINOPHEN 1,000 MG/100 ML VIAL IV SCH ×3 (06:05→21:23)
[2022-04-12] MEDS: INSULIN ASPART PER UNIT SC SCH ×3 (06:13→18:06)
[2022-04-12] MEDS: MoRPHine SULFATE PCA 30 MG/30 ML IV PRN (06:26)
[2022-04-12 07:15] LABS: Basophils # (auto) 0.03 K/uL (0-0.2); Basophils % (auto) 0.3 %; Hematocrit (blood only) 37.7 % (34.1-44.9); Hemoglobin 11.9 g/dl (12.0-16.0); Immature Granulocytes # (auto) 0.07 K/uL (0.00-0.02); Immature Granulocytes % (auto) 0.6 %; Lymphocytes # (auto) 1.19 K/uL (1.2-3.4); Lymphocytes % (auto) 10.3 %; Mean Corpuscular Hemoglobin 27.5 pg (25.0-34.0); Mean Corpuscular Hgb Conc 31.6 g/dL (32.0-36.0); Mean Corpuscular Volume 87.3 fL (80.0-100.0); Mean Platelet Volume 10.3 fL (9.4-12.3); Monocytes % (auto) 7.8 %; Neutrophils # (auto) 9.31 K/uL (1.4-6.5); Platelet Count 142 K/uL (130-400); RDW Coefficient of Variation 13.1 % (11.5-14.5); RDW Standard Deviation 41.6 fL (36.4-46.3); Red Blood Count 4.32 M/uL (3.93-5.22)
--- NOTE | 2022-04-12 07:42 | Surgery Progress Note ---
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 Nation as above. doing well pod 1 SANTO scant/serous hopefully can d/c ngt and holman tomorrow Dr. Nelson covering for weekend. Admission and Anticipated Discharge Date Admission Date: April 11, 2022 Subjective pain control good, some nausea last night but resolved, taking some ice/sips Physical Exam Constitutional: WD/WN, vitals as above Respiratory: normal respiratory effort Gastrointestinal (Abdomen): Inspection/Auscultation: + abdominal surgical incision (dressing intact) and + abdominal surgical drain present (80 cc) NG 700 cc UOP 325 overnight Results & Data ([facility]) Vital Signs (Past 12 Hours) Vital Signs Temp Pulse Resp BP Pulse Ox O2 Del Method O2 Flow Rate 04/12/22 02:58 36.9 C 93 H 18 121/67 93 Nasal Cannula 1 04/11/22 20:10 Nasal Cannula 2 04/11/22 22:55 36.6 C 99 H 18 122/71 94 Nasal Cannula 2 04/11/22 21:55 36.6 C 103 H 18 141/69 H 92 Nasal Cannula 04/11/22 20:55 99 H 17 128/70 92 Nasal Cannula 2 04/11/22 19:55 36.6 C 92 H 17 122/72 97 Nasal Cannula 2 PG Care Time/CCT Total # of Minutes Spent Total Time Spent with Patient: Total time spent is greater than 50% in coordination of care (as documented) at patient's floor/unit and/or counseling patient: Coding Level of Care Code None Diagnoses S/P colectomy Z90.49
[2022-04-12 07:44] LABS: BUN Creatinine Ratio 19.3 (10-20); Calcium 7.8 mg/dl (8.5-10.1); Creatinine Clr Calc Pharmacy 45.6 ml/min; Est GFR (African American) 57.1 ml/min; Est GFR (Non-African American) 49.3 ml/min
[2022-04-12] MEDS: ASPIRIN 81 MG ECTAB PO SCH (08:18)
[2022-04-12] MEDS: PANTOprazole 40 MG in SYRINGE 0 ML IV SCH ×2 (08:18→20:20)
[2022-04-12] MEDS: carvediloL 25 MG TAB PO SCH ×2 (08:18→20:20)
[2022-04-12] MEDS ORDERED: METOPROLOL TARTRATE 25 MG TAB PO SCH (09:00)
[2022-04-12] MEDS: ENOXAPARIN INJ 40 MG/0.4 ML SYR SQ SCH (09:34)
--- NOTE | 2022-04-12 09:35 | Pharmacy Report ---
Pharmacy Glycemic Short Note 2 - Date of Service April 12, 2022 - Glycemic Short BSG Results (Last 24 hours): 04/11/22 04/11/22 04/11/22 10:23 18:18 19:02 Glucose POC Glucose 137 H 145 H 124 H 04/12/22 04/12/22 04/12/22 00:22 06:09 07:00 Glucose 133 H POC Glucose 138 H 130 H OUTPATIENT ANTIDIABETIC REGIMEN: * Toujeo 35 units daily with dinner, Lispro 14 units with breakfast, 16 units with lunch, 20 units with dinner + SSI, jardiance * A1c 9.3% 03/2022 ASSESSMENT: * 77 year old female, now s/p colectomy POD 1 - pharmacy consulted for glycemic management * No insulin given yesterday, fasting BSG 133 mg/dL - continues NPO status * Likely will resume basal insulin with dinner time today, may consider adding a scale in case she remains NPO PLAN FOR INPATIENT GLYCEMIC CONTROL: * Hold outpatient oral diabetes medications * Basal insulin * Lantus 10-20 units with dinner * Bolus insulin * NovoLog per scale ACHS or Q6hrs while NPO * Goal Range: Low 110 mg/dL - High 140 mg/dL * Correction Factor: 25 mg/dL/unit * Nutritional / Prandial insulin per carb ratio of 1 unit per 8 grams CHO consumed
[2022-04-12] MEDS: ONDANSETRON INJ 2 MG/ML 2 ML VIAL IV PRN (10:25)
[2022-04-12] MEDS: CIPROFLOXACIN / D5W 400 MG/200 ML BAG IV SCH (11:38)
[2022-04-12] MEDS: NSS + 20MEQ KCL 20 MEQ/1,000 ML BAG IV SCH ×3 (12:58→20:20)
[2022-04-12] MEDS: CHLORASEPTIC 1.4% SOLN 180 ML BTL MT PRN ×3 (14:21→20:34)
[2022-04-12] MEDS ORDERED: LANTUS PER UNIT CHARGE SQ SCH (18:00)
[2022-04-12] MEDS: SODIUM CHLORIDE 0.9% 1000ML 1,000 ML IV SCH (20:10)
[2022-04-12] MEDS: METOPROLOL TARTRATE 25 MG TAB PO SCH (20:20)
[2022-04-12] MEDS: ATORVASTATIN 40 MG TAB PO SCH (20:20)
--- NOTE | 2022-04-12 22:24 | Hospitalist Progress Note ---
Date of Service April 12, 2022 Assessment & Plan (1) S/P colectomy: Plan: Patient is POD # 1 for colon cancer (adenocarcinoma)- converted open laparotomy - Pain control per primary service- with JACK FRAME TENDER and EtCO2 monitor and rescue Narcan is Available - IVF per primary service - Drains per primary service - NGT and SANTO drain, Liu catheter - Dressing changes per primary service - Diet per primary service - Blood transfusions for primary service - PT/OT per primary service - DVT prophy per primary service - SCDS, Lovenox - ABX per primary service (2) Chronic combined systolic and diastolic heart failure: Plan: History of NICM cardiomyopathy that is resolving on ECHO thought secondary to 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 De Jesus is on service this week- he is aware and will touch base with medicine in regards to continuing both, but for now as above - Hold Olmesartan until hemodynamics proven stable and renal function stable- Olmesartan or equivalent - She takes her Lasix 40mg twice a week -resumed on Thursday 04/12; -restarted metoprolol and continue carvedilol. (3) Hypertension: Plan: As above (4) CAD (coronary artery disease): Plan: As above- with CATH 2017 - moderate non-obstructive disease- 50% mid distal circ (5) Dysphagia: Plan: Patient with workup for something feeling stuck in her throat- her EGD was placed on hold for current above - continue with NGT as above - ORACLE SCM CONSULTANT consultation if needed but patient endorses that she can swallow food and liquids well (6) Uncontrolled type 2 diabetes mellitus with hyperglycemia, with long-term current use of insulin: Plan: Pharmacy consultation placed - follow (7) GERD (gastroesophageal reflux disease): Plan: History of GERD- on home omeprazole - continue with PPI will place on BID Protonix - Discontinue Famotidine (8) Asthma: Plan: Continue albuterol 2 puffs PRN (9) Hyperlipidemia: Plan: Continue statin to start 04/12/22 Admission and Anticipated Discharge Date Admission Date: April 11, 2022 Subjective Patient reports feeling well. She has no new complaints. Review of Systems Review of Systems: All systems reviewed & are unremarkable except as noted in HPI & below Physical Exam Physical Exam: General: awake, alert, no apparent distress Head: Normocephalic, atraumatic ENT: PERRL, EOMI, no pharyngeal exudate, mucous membranes moist Neuro: AAO x 3, speech clear and appropriate, strength intact bilaterally 5/5, sensation intact and equal all extremities and dermatomes, no pronator drift, tremors to left arm and shivering following GA Chest: equal rise and fall of the chest, no accessory muscle use, no heaves or thrills, Clear to auscultation, on room air, Cardiac: Regular rate and rhythm, S1S2, skin warm dry, cap refill <3 seconds, peripheral pulses +2 no JVD, no murmur, no edema GI: Incision covered with abd pads, abdominal binder, no strike through with SANTO drain with serous sang drainage in place : (+) Liu in place draining yellow colored urine Extremities: Normal inspection, no peripheral edema or erythema, calfs nontender to palpation Psych: Normal mood and affect Skin: no rash or erythema Results & Data Results & Data ([facility]) Vital Signs (Past 12 Hours) Vital Signs Temp Pulse Resp BP Pulse Ox O2 Del Method O2 Flow Rate 04/12/22 20:17 96 H 20 143/82 H 98 Nasal Cannula 1 04/12/22 16:04 37.6 C H 95 H 16 122/68 96 Nasal Cannula 1 04/12/22 13:23 36.9 C 101 H 16 142/71 H 95 Nasal Cannula 2 04/12/22 11:00 37.2 C 86 16 123/70 96 Nasal Cannula 1 PG Care Time/CCT Total # of Minutes Spent Total Time Spent with Patient: Total time spent is greater than 50% in coordination of care (as documented) at patient's floor/unit and/or counseling patient: Coding Level of Care Code 04846 Subseq Hosp Care Lvl 2 Diagnoses S/P colectomy Z90.49 Chronic combined systolic and diastolic heart failure I50.42 Hypertension I10 CAD (coronary artery disease) I25.10 Dysphagia R13.10 Uncontrolled type 2 diabetes mellitus with hyperglycemia, with long-term current use of insulin E11.65; Z79.4 GERD (gastroesophageal reflux disease) K21.9 Asthma J45.909 Hyperlipidemia E78.5
[2022-04-13] MEDS: CIPROFLOXACIN / D5W 400 MG/200 ML BAG IV SCH (00:09)
[2022-04-13] MEDS: CHLORASEPTIC 1.4% SOLN 180 ML BTL MT PRN ×2 (00:09→06:02)
[2022-04-13] MEDS: INSULIN ASPART PER UNIT SC SCH ×5 (00:17→20:47)
[2022-04-13] MEDS: NSS + 20MEQ KCL 20 MEQ/1,000 ML BAG IV SCH ×3 (04:01→18:29)
[2022-04-13] MEDS: LEVOTHYROXINE SODIUM 50 MCG TABLET PO SCH (05:59)
[2022-04-13] MEDS: ACETAMINOPHEN 1,000 MG/100 ML VIAL IV SCH ×3 (06:00→22:53)
--- NOTE | 2022-04-13 06:05 | Surgery Progress Note ---
Date of Service April 13, 2022 Assessment & Plan (1) S/P colectomy: Plan: Status post low anterior resection which was converted from laparoscopic to open on 04/11/2022 (postop day #2) Continue analgesics Continue antiemetics Continue n.p.o. status until improved bowel function noted Continue NG tube for the present time Continue IV fluids until oral intake can be advanced A.m. labs are ordered which are pending at this time Continue antibiotics in the form of Cipro and Flagyl Increase activity as able We will inspect wound when rounding with attending physician Lovenox is in place for DVT prevention Admission and Anticipated Discharge Date Admission Date: April 11, 2022 Supervising Physician Co-Signing Physician Notes I personally saw and evaluated the patient with Berhane Delgado PA-C and agree with the assessment and plan. 77-year-old female postoperative day 2 laparoscopic converted to open LAR Remove NG tube and Liu today and start clear liquids Encourage ambulation and incentive spirometry Lovenox for DVT prophylaxis Keep SANTO drain to bulb suction Pain control with PRODUCT DEVELOPMENT WORKER for today, if tolerates clears we will try to transition to p.o. meds tomorrow Subjective Patient is resting comfortably in bed at the present time. She does note that she has been having issues with surgical pain but at the present time is well controlled. She denies any shortness of breath. She does report some intermittent nausea but no vomiting. She notes that she began passing flatus over the last shift. She notes she has been out of bed to chair. Chart was reviewed and patient did have 1 low-grade fever last shift which resolved without intervention. Physical Exam Constitutional: well developed and well nourished; no acute distress Respiratory: Breath sounds have slight decrease component at bases but otherwise no rales, rhonchi, or wheezing Cardiovascular: Rate/Rhythm: regular rate and regular rhythm Gastrointestinal (Abdomen): Abdomen is minimally distended. Bowel sounds are hypoactive. Appropriate pain noted with palpation near surgical incisions. SANTO drain is in place draining serosanguineous fluid. Incision with Acticoat in place, this was lifted and no signs of any erythema or drainage were noted Musculoskeletal: No calf tenderness Results & Data ([facility]) Vital Signs (Past 12 Hours) Vital Signs Temp Pulse Resp BP Pulse Ox O2 Del Method O2 Flow Rate 04/12/22 20:15 Nasal Cannula 1 04/13/22 04:01 90 18 133/70 100 Nasal Cannula 1 04/13/22 00:14 36.6 C 89 18 120/67 96 04/12/22 20:17 96 H 20 143/82 H 98 Nasal Cannula 1 PG Care Time/CCT Total # of Minutes Spent Total Time Spent with Patient: Total time spent is greater than 50% in coordination of care (as documented) at patient's floor/unit and/or counseling patient: Coding Level of Care Code None Diagnoses S/P colectomy Z90.49
[2022-04-13 06:40] LABS: BUN Creatinine Ratio 16.3 (10-20); Creatinine Clr Calc Pharmacy 50.8 ml/min; Est GFR (African American) 64.9 ml/min; Potassium 4.5 mmol/L (3.5-5.1)
[2022-04-13] MEDS: ENOXAPARIN INJ 40 MG/0.4 ML SYR SQ SCH (08:10)
[2022-04-13] MEDS: ASPIRIN 81 MG ECTAB PO SCH (08:10)
[2022-04-13] MEDS: carvediloL 25 MG TAB PO SCH ×2 (08:10→20:46)
[2022-04-13] MEDS: METOPROLOL TARTRATE 25 MG TAB PO SCH ×2 (08:10→20:46)
[2022-04-13] MEDS: PANTOprazole 40 MG in SYRINGE 0 ML IV SCH ×2 (08:11→20:46)
[2022-04-13 11:00] LABS: Basophils # (auto) 0.05 K/uL (0-0.2); Basophils % (auto) 0.4 %; Hematocrit (blood only) 35.4 % (34.1-44.9); Hemoglobin 10.9 g/dl (12.0-16.0); Immature Granulocytes % (auto) 0.7 %; Lymphocytes # (auto) 1.63 K/uL (1.2-3.4); Lymphocytes % (auto) 11.7 %; Mean Corpuscular Hemoglobin 27.9 pg (25.0-34.0); Mean Corpuscular Hgb Conc 30.8 g/dL (32.0-36.0); Mean Corpuscular Volume 90.8 fL (80.0-100.0); Mean Platelet Volume 11.6 fL (9.4-12.3); Monocytes # (auto) 1.17 K/uL (0.24-0.82); Monocytes % (auto) 8.4 %; Neutrophils # (auto) 10.96 K/uL (1.4-6.5); Neutrophils % (auto) 78.8 %; Platelet Count 132 K/uL (130-400); RDW Coefficient of Variation 13.7 % (11.5-14.5); RDW Standard Deviation 45.1 fL (36.4-46.3); White Blood Count 13.91 K/ul (4.8-10.8)
[2022-04-13] MEDS ORDERED: LANTUS PER UNIT CHARGE SQ SCH (12:00)
[2022-04-13] MEDS ORDERED: Nursing to Pharmacy Communication SCH (12:00)
[2022-04-13] MEDS: MoRPHine SULFATE PCA 30 MG/30 ML IV PRN (13:04)
[2022-04-13] MEDS: ATORVASTATIN 40 MG TAB PO SCH (20:46)
[2022-04-13] MEDS: ONDANSETRON INJ 2 MG/ML 2 ML VIAL IV PRN (22:53)
[2022-04-14] MEDS: NSS + 20MEQ KCL 20 MEQ/1,000 ML BAG IV SCH ×3 (02:31→20:47)
--- NOTE | 2022-04-14 05:32 | Surgery Progress Note ---
Date of Service April 14, 2022 Assessment & Plan (1) S/P colectomy: Plan: Status post low anterior resection which was converted from laparoscopic to open on 04/11/2022 (postop day #3) Continue analgesicswe will continue GROUNDS SUPERVISOR for the present time as patient continues to report significant issues with pain Continue antiemetics We will continue clear liquid diet for the present time as patient does not have much in the way of appetite Continue IV fluids until oral intake is adequate Check CBC this morning As noted patient had 1 low-grade fever last shift which resolved. My clinical suspicion is this may be due to atelectasis so use of incentive spirometry has been encouraged. Increase activity as able Lovenox is in place for DVT prevention Admission and Anticipated Discharge Date Admission Date: April 11, 2022 Supervising Physician Co-Signing Physician Notes I personally saw and evaluated the patient with Berhane Delgado PA-C and agree with the assessment and plan. 77-year-old female postoperative day 3 laparoscopic converted to open LAR Continue clear liquids, she is a bit more distended today but is passing flatus Decrease IV fluids Encourage ambulation and incentive spirometry Lovenox for DVT prophylaxis Keep SANTO drain to bulb suction We will keep GROUNDS SUPERVISOR for today Subjective Patient is resting in bed. She notes she was able to sleep a little bit last night. She notes her main issue is pain at her surgical incision. She to lerated advancement of her diet to clears yesterday without emesis. She does note that she does not have much in the way of an appetite. She says she was out of bed in chair yesterday. She notes she is voiding without difficulty. No shortness of breath reported. She notes that she continues to pass flatus. Chart was reviewed and patient did have 1 low-grade fever recorded last shift which has resolved without intervention. Physical Exam Constitutional: well developed and well nourished; no acute distress Respiratory: normal respiratory effort; no respiratory distress and no labored breathing Breath sounds are decreased at bases Gastrointestinal (Abdomen): Abdomen noted to be slightly distended. Bowel sounds are hypoactive. There is appropriate pain with palpation near surgical incision. Will remove binder and examined incision on attending rounds this morning. Musculoskeletal: No calf tenderness Results & Data ([facility]) Vital Signs (Past 12 Hours) Vital Signs Temp Pulse Pulse Resp BP Pulse Ox O2 Del Method 04/14/22 04:15 36.6 C 93 H 16 150/79 H 94 Room Air 04/13/22 19:45 Room Air 04/13/22 21:42 37.8 C H 91 H 16 110/65 94 04/13/22 20:43 96 H 139/77 PG Care Time/CCT Total # of Minutes Spent Total Time Spent with Patient: Total time spent is greater than 50% in coordination of care (as documented) at patient's floor/unit and/or counseling patient: Coding Level of Care Code None Diagnoses S/P colectomy Z90.49
[2022-04-14 06:02] LABS: Basophils # (auto) 0.03 K/uL (0-0.2); Basophils % (auto) 0.3 %; Hematocrit (blood only) 33.8 % (34.1-44.9); Hemoglobin 10.6 g/dl (12.0-16.0); Immature Granulocytes # (auto) 0.06 K/uL (0.00-0.02); Immature Granulocytes % (auto) 0.6 %; Lymphocytes # (auto) 1.41 K/uL (1.2-3.4); Lymphocytes % (auto) 13.2 %; Mean Corpuscular Hemoglobin 27.7 pg (25.0-34.0); Mean Corpuscular Hgb Conc 31.4 g/dL (32.0-36.0); Mean Corpuscular Volume 88.5 fL (80.0-100.0); Mean Platelet Volume 10.1 fL (9.4-12.3); Monocytes # (auto) 1.07 K/uL (0.24-0.82); Neutrophils # (auto) 8.13 K/uL (1.4-6.5); Neutrophils % (auto) 75.9 %; Platelet Count 142 K/uL (130-400); RDW Coefficient of Variation 13.6 % (11.5-14.5); RDW Standard Deviation 44.1 fL (36.4-46.3); Red Blood Count 3.82 M/uL (3.93-5.22)
[2022-04-14 06:29] LABS: BUN Creatinine Ratio 16.5 (10-20); Calcium 8.1 mg/dl (8.5-10.1); Creatinine Clr Calc Pharmacy 51.3 ml/min; Est GFR (African American) 65.8 ml/min; Est GFR (Non-African American) 56.7 ml/min; Potassium 4.5 mmol/L (3.5-5.1)
[2022-04-14] MEDS: LEVOTHYROXINE SODIUM 50 MCG TABLET PO SCH (06:32)
[2022-04-14] MEDS: ACETAMINOPHEN 1,000 MG/100 ML VIAL IV SCH ×2 (06:32→15:01)
[2022-04-14] MEDS: SODIUM CHLORIDE 0.9% 1000ML 1,000 ML IV SCH ×2 (07:03→18:13)
[2022-04-14] MEDS: carvediloL 25 MG TAB PO SCH ×2 (09:06→20:43)
[2022-04-14] MEDS: METOPROLOL TARTRATE 25 MG TAB PO SCH ×2 (09:07→20:43)
[2022-04-14] MEDS: ASPIRIN 81 MG ECTAB PO SCH (09:07)
[2022-04-14] MEDS: INSULIN ASPART PER UNIT SC SCH ×4 (09:08→20:52)
[2022-04-14] MEDS: LANTUS PER UNIT CHARGE SQ SCH (09:08)
[2022-04-14] MEDS: PANTOprazole 40 MG in SYRINGE 0 ML IV SCH ×2 (09:09→20:52)
[2022-04-14] MEDS: ENOXAPARIN INJ 40 MG/0.4 ML SYR SQ SCH (09:09)
--- NOTE | 2022-04-14 10:14 | Pharmacy Report ---
Pharmacy Glycemic Short Note 2 - Date of Service April 14, 2022 - Glycemic Short BSG Results (Last 24 hours): 04/13/22 04/13/22 04/13/22 11:48 17:08 20:29 Glucose POC Glucose 247 H 182 H 177 H 04/14/22 04/14/22 05:54 08:16 Glucose 159 H POC Glucose 160 H OUTPATIENT ANTIDIABETIC REGIMEN: * Toujeo 35 units daily with dinner, Lispro 14 units with breakfast, 16 units with lunch, 20 units with dinner + SSI, jardiance * A1c 9.3% 03/2022 ASSESSMENT: 04/14/22 * Patient's BSGs yesterday were [phone] mg/dL. Patient received 48 units of insulin yesterday (30 units of basal and 18 units of bolus). * Fasting today is 160 mg/dL. * Lantus was resumed yesterday at 30 units (5 less than home dose) when diet was resumed at lunch. Increase to home dose of Lantus 35 units since fasting tren ding upwards. * BSGs remained stable once Lantus resumed. Continue Novolog. BACKGROUND * 77 year old female, now s/p colectomy POD 1 - pharmacy consulted for glycemic management * No insulin given yesterday, fasting BSG 133 mg/dL - continues NPO status * Likely will resume basal insulin with dinner time today, may consider adding a scale in case she remains NPO PLAN FOR INPATIENT GLYCEMIC CONTROL: * Hold outpatient oral diabetes medications * Basal insulin * Lantus 35 units SQ qAM * Bolus insulin * NovoLog per scale ACHS or Q6hrs while NPO * Goal Range: Low 110 mg/dL - High 140 mg/dL * Correction Factor: 25 mg/dL/unit * Nutritional / Prandial insulin per carb ratio of 1 unit per 8 grams CHO consumed
[2022-04-14] MEDS: ATORVASTATIN 40 MG TAB PO SCH (20:44)
--- NOTE | 2022-04-14 21:30 | Hospitalist Progress Note ---
Date of Service April 14, 2022 Assessment & Plan (1) S/P colectomy: Plan: Patient is POD # 2 for colon cancer (adenocarcinoma)- converted open laparotomy - Pain control per primary service- with MATCH UP PERSON and EtCO2 monitor and rescue Narcan is Available - IVF per primary service - Drains per primary service - NGT and SANTO drain, Liu catheter - Dressing changes per primary service - Diet per primary service - Blood transfusions for primary service - PT/OT per primary service - DVT prophy per primary service - SCDS, Lovenox - ABX per primary service (2) Chronic combined systolic and diastolic heart failure: Plan: History of NICM cardiomyopathy that is resolving on ECHO thought secondary to 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 De Jesus is on service this week- he is aware and will touch base with medicine in regards to continuing both, but for now as above - Hold Olmesartan until hemodynamics proven stable and renal function stable- Olmesartan or equivalent - She takes her Lasix 40mg twice a week -resumed on Friday. -restarted metoprolol and continue carvedilol. -patient is fluid positive. swelling in upper extremities will stop IVF. order diuretic tomorrow, friday and friday dose. will monitor renal fnction. (3) Hypertension: Plan: As above (4) CAD (coronary artery disease): Plan: As above- with CATH 2016 - moderate non-obstructive disease- 50% mid distal circ (5) Dysphagia: Plan: Patient with workup for something feeling stuck in her throat- her EGD was placed on hold for current above - continue with NGT as above - TRAINING AND DEVELOPMENT HEAD consultation if needed but patient endorses that she can swallow food and liquids well (6) Uncontrolled type 2 diabetes mellitus with hyperglycemia, with long-term current use of insulin: Plan: Pharmacy consultation placed - follow (7) GERD (gastroesophageal reflux disease): Plan: History of GERD- on home omeprazole - continue with PPI will place on BID Protonix - Discontinue Famotidine (8) Asthma: Plan: Continue albuterol 2 puffs PRN (9) Hyperlipidemia: Plan: Continue statin to start 04/12/22 Admission and Anticipated Discharge Date Admission Date: April 11, 2022 Subjective 8 yo female reports fluid retaining and swelling of her bilateral upper extremities. Patient reports she is drinking more fluid. But she does not enjoy the liquid diet as much. Review of Systems Review of Systems: All systems reviewed & are unremarkable except as noted in HPI & below Physical Exam Physical Exam: General: awake, alert, no apparent distress Head: Normocephalic, atraumatic ENT: PERRL, EOMI, no pharyngeal exudate, mucous membranes moist Neuro: AAO x 3, speech clear and appropriate, strength intact bilaterally 5/5, sensation intact and equal all extremities and dermatomes, no pronator drift, tremors to left arm and shivering following GA Chest: equal rise and fall of the chest, no accessory muscle use, no heaves or thrills, Clear to auscultation, on room air, Cardiac: Regular rate and rhythm, S1S2, skin warm dry, cap refill <3 seconds, peripheral pulses +2 no JVD, no murmur, no edema GI: Incision covered with abd pads, abdominal binder, no strike through with SANTO drain with serous sang drainage in place : (+) Liu in place draining yellow colored urine Extremities: Normal inspection, no peripheral edema or erythema, calfs nontender to palpation Psych: Normal mood and affect Skin: no rash or erythema Results & Data Results & Data ([facility]) Vital Signs (Past 12 Hours) Vital Signs Temp Pulse Resp BP Pulse Ox O2 Del Method O2 Flow Rate 04/14/22 20:41 37.0 C 90 18 142/80 H 96 Nasal Cannula 1 04/14/22 19:58 36.5 C 97 H 20 158/75 H 95 04/14/22 15:44 37.1 C 94 H 22 149/83 H 97 Nasal Cannula 2 04/14/22 11:32 37.0 C 84 18 129/73 93 Room Air PG Care Time/CCT Total # of Minutes Spent Total Time Spent with Patient: Total time spent is greater than 50% in coordination of care (as documented) at patient's floor/unit and/or counseling patient: Coding Level of Care Code 95536 Subseq Hosp Care Lvl 2 Diagnoses S/P colectomy Z90.49 Chronic combined systolic and diastolic heart failure I50.42 Hypertension I10 CAD (coronary artery disease) I25.10 Dysphagia R13.10 Uncontrolled type 2 diabetes mellitus with hyperglycemia, with long-term current use of insulin E11.65; Z79.4 GERD (gastroesophageal reflux disease) K21.9 Asthma J45.909 Hyperlipidemia E78.5
[2022-04-15] MEDS: LEVOTHYROXINE SODIUM 50 MCG TABLET PO SCH (05:44)
[2022-04-15 07:28] LABS: Basophils # (auto) 0.04 K/uL (0-0.2); Basophils % (auto) 0.5 %; Hematocrit (blood only) 33.2 % (34.1-44.9); Hemoglobin 10.5 g/dl (12.0-16.0); Immature Granulocytes # (auto) 0.06 K/uL (0.00-0.02); Immature Granulocytes % (auto) 0.7 %; Lymphocytes # (auto) 1.39 K/uL (1.2-3.4); Lymphocytes % (auto) 16.3 %; Mean Corpuscular Hgb Conc 31.6 g/dL (32.0-36.0); Mean Corpuscular Volume 88.5 fL (80.0-100.0); Mean Platelet Volume 9.7 fL (9.4-12.3); Monocytes % (auto) 10.6 %; Neutrophils # (auto) 6.13 K/uL (1.4-6.5); Neutrophils % (auto) 71.9 %; Platelet Count 165 K/uL (130-400); RDW Coefficient of Variation 13.4 % (11.5-14.5); RDW Standard Deviation 43.8 fL (36.4-46.3); Red Blood Count 3.75 M/uL (3.93-5.22); White Blood Count 8.52 K/ul (4.8-10.8)
[2022-04-15 08:22] LABS: BUN Creatinine Ratio 13.4 (10-20); Calcium 8.2 mg/dl (8.5-10.1); Creatinine Clr Calc Pharmacy 60.7 ml/min; Est GFR (African American) 80.6 ml/min; Est GFR (Non-African American) 69.5 ml/min; Potassium 4.3 mmol/L (3.5-5.1)
[2022-04-15] MEDS ORDERED: FUROSEMIDE 40 MG TAB PO SCH (09:00)
[2022-04-15] MEDS ORDERED: MoRPHine SULFATE 2 MG/ML CARP IV PRN (09:18)
[2022-04-15] MEDS ORDERED: oxyCODONE HCL IR 5 MG TAB (IMMEDIATE RELEASE) PO PRN (09:18)
--- NOTE | 2022-04-15 09:23 | Surgery Progress Note ---
Date of Service April 15, 2022 Assessment & Plan (1) S/P colectomy: Plan: POD #4 Still no return of bowel function yet. We will DC her CLERK STENOGRAPHER and reinitiate the IV acetaminophen. Encourage ambulation. Limit p.o. intake until better bowel function. Discussed with her as well as her nurse. Admission and Anticipated Discharge Date Admission Date: April 11, 2022 Subjective Patient seen. Was doing pretty well over the weekend but this morning is having a little bit of nausea and decreased appetite. Afebrile. She is passing a little bit of flatus but no bowel function yet. Physical Exam Physical Exam: Alert. No acute distress Abdomen is slightly distended. Incision looks good. SANTO with serous drainage. Results & Data ([facility]) Vital Signs (Past 12 Hours) Vital Signs Temp Pulse Resp BP Pulse Ox O2 Del Method O2 Flow Rate 04/15/22 08:52 37.3 C 101 H 16 162/84 H 94 Nasal Cannula 2 04/15/22 06:25 95 H 20 153/80 H 92 Nasal Cannula 3 04/15/22 06:00 37.1 C 100 H 24 170/85 H 91 Nasal Cannula 3.0 04/15/22 00:00 37.0 C 76 20 136/72 93 Nasal Cannula 2 PG Care Time/CCT Total # of Minutes Spent Total Time Spent with Patient: Total time spent is greater than 50% in coordination of care (as documented) at patient's floor/unit and/or counseling patient: Coding Level of Care Code None Diagnoses S/P colectomy Z90.49
[2022-04-15] MEDS: METOPROLOL TARTRATE 25 MG TAB PO SCH ×2 (09:51→20:09)
[2022-04-15] MEDS: carvediloL 25 MG TAB PO SCH ×2 (09:53→20:09)
[2022-04-15] MEDS: ASPIRIN 81 MG ECTAB PO SCH (09:53)
[2022-04-15] MEDS: ENOXAPARIN INJ 40 MG/0.4 ML SYR SQ SCH (09:53)
[2022-04-15] MEDS: PANTOprazole 40 MG in SYRINGE 0 ML IV SCH ×2 (09:53→20:09)
[2022-04-15] MEDS: INSULIN ASPART PER UNIT SC SCH ×4 (10:14→18:06)
[2022-04-15] MEDS: LANTUS PER UNIT CHARGE SQ SCH ×2 (10:22→11:08)
[2022-04-15] MEDS ORDERED: HYDROmorphone INJ 1 MG/ML SYRINGE IV STA (10:34)
--- NOTE | 2022-04-15 11:06 | XRay Report ---
KUB CLINICAL HISTORY: Generalized abdominal pain. FINDINGS: 2 AP, portable, supine abdominal radiographs are correlated with abdominal CT dated 2. Midline skin clips are in place. A surgical drain is noted in the right lower quadrant. There is g aseous distention of the small bowel loops, greatest in the right lower quadrant. No evidence of intr aperitoneal free air is seen on these supine images. There are no abnormal abdominal calcifications. The skeletal structures are osteopenic and appear intact. IMPRESSION: 1. Postoperative findings as above. 2. There is gaseous distention of the small bowel loops, greatest in the right lower quadrant. Given recent surgery this likely represents a postoperative ileus. Developing obstruction is considered les s likely and clinical correlation will be required. Electronically signed by: Marcelino Magallanes M.D. 04/15/2022 11:04 AM
[2022-04-15] MEDS ORDERED: KETOROLAC TROMETHAMINE 15 MG/ML VIAL IV STA (11:47)
[2022-04-15] MEDS ORDERED: LANTUS PER UNIT CHARGE SQ ONE (12:15)
--- NOTE | 2022-04-15 13:10 | Hospitalist Progress Note ---
Date of Service April 15, 2022 Assessment & Plan (1) S/P colectomy: Plan: Patient is POD #4 for colon cancer (adenocarcinoma)- converted open laparotomy - Pain control per primary service- with WHEEL CUTTER and EtCO2 monitor and rescue Narcan is Available - Drains per primary service - NGT and SANTO drain, Liu catheter - Dressing changes per primary service - Diet per primary service - Blood transfusions for primary service - PT/OT per primary service - DVT prophy per primary service - SCDS, Lovenox - ABX per primary service (2) Chronic combined systolic and diastolic heart failure: Plan: History of NICM that is resolving on ECHO thought secondary 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 swelling in upper extremities, fluids stopped on 04/14 with resumption of diuretics (3) Hypertension: Plan: - As above - Resume Benicar (4) CAD (coronary artery disease): Plan: As above- with CATH 2016 - moderate non-obstructive disease- 50% mid distal circ (5) Dysphagia: Plan: Patient with workup for something feeling stuck in her throat- her EGD was placed on hold for current above - continue with NGT as above - MANAGER CLIENT consultation if needed but patient endorses that she can swallow food and liquids well (6) Uncontrolled type 2 diabetes mellitus with hyperglycemia, with long-term current use of insulin: Plan: Pharmacy consultation placed - follow (7) GERD (gastroesophageal reflux disease): Plan: History of GERD- on home omeprazole - continue with PPI will place on BID Protonix - Discontinue Famotidine (8) Asthma: Plan: - Continue albuterol 2 puffs PRN (9) Hyperlipidemia: Plan: - statin restarted 04/12/22 Plan Pt now on 2L of O2 which she doesn't normally wear at home, ordered a portable CXR to r/o pvc/pna/atelectasis. Encourage use of incentive spirometer. Appears surgery has backed her to NPO status with sips only and ordered a CT a/p. Labs ordered for tomorrow AM. No further recommendations, will continue to follow. Plan d/w Dr. Clemons. Admission and Anticipated Discharge Date Admission Date: April 11, 2022 Subjective Patient seen on rounds this morning. She is pod#4 from sigmoid colectomy secondary to colon cancer. This morning reports extreme abdominal pain. Feels as though she needs to have a BM. Notes that she is passing flatus. Some nausea but no vomiting this morning. She has a morphine WHEEL CUTTER. Notes that she wasn't able to eat much of her clear liquid tray this AM d/t abd discomfort. Review of Systems Review of Systems: All systems reviewed and are unremarkable except as noted in HPI and below. Denies fever, chills, fatigue, headache, nasal congestion, sore throat, cough, chest pain, shortness of breath, palpitations, orthopnea, PND, v/d, constipation, dysuria, hematuria, frequency, back pain, joint pain or swelling, easy bruising or bleeding, skin lesions or rashes. Physical Exam Physical Exam: GENERAL: 77 yo Well-developed, well-nourished WF. NAD. LUNGS: Clear to auscultation bilaterally. CARDIOVASCULAR: Regular rate and rhythm. ABDOMEN: Soft, markedly tender to palpation in the RLQ, bs are hypoactive, belly is moderately distended. EXTREMITIES: No edema. Non-tender. Peripheral pulses +2/4. NEUROLOGIC: A&O x3. PSYCHIATRIC: Cooperative. Appropriate mood and affect. SKIN: Warm, dry, intact. No rashes or lesions. Results & Data Results & Data ([facility]) Vital Signs (Past 12 Hours) Vital Signs Temp Pulse Resp BP Pulse Ox O2 Del Method O2 Flow Rate 04/15/22 08:52 37.3 C 101 H 16 162/84 H 94 Nasal Cannula 2 04/15/22 06:25 95 H 20 153/80 H 92 Nasal Cannula 3 04/15/22 06:00 37.1 C 100 H 24 170/85 H 91 Nasal Cannula 3.0 Laboratory Results 04/15/22 07:11 04/15/22 07:11 PG Care Time/CCT Total # of Minutes Spent Total Time Spent with Patient: Total time spent is greater than 50% in coordination of care (as documented) at patient's floor/unit and/or counseling patient: Coding Level of Care Code 20211 Subseq Hosp Care Lvl 2 Diagnoses S/P colectomy Z90.49 Chronic combined systolic and diastolic heart failure I50.42 Hypertension I10 CAD (coronary artery disease) I25.10 Dysphagia R13.10 Uncontrolled type 2 diabetes mellitus with hyperglycemia, with long-term current use of insulin E11.65; Z79.4 GERD (gastroesophageal reflux disease) K21.9 Asthma J45.909 Hyperlipidemia E78.5
[2022-04-15] MEDS: ACETAMINOPHEN 1,000 MG/100 ML VIAL IV SCH ×2 (13:16→19:29)
--- NOTE | 2022-04-15 13:37 | CT Scan Report ---
CT abd pelvis wo con CLINICAL HISTORY: pain, distention s/p colectomy TECHNIQUE: Helical axial images of the abdomen and pelvis were obtained. Automated dose lowering tech niques and/or adjustment according to patient size were utilized for this exam. This exam was perfor med without intravenous contrast. CT DOSE: 1548.87 mGy.cm COMPARISON: Comparison is made to CT abdomen pelvis 03/25/2022 FINDINGS: Lower chest: Bilateral pleural effusions and atelectasis are seen. Cardiomegaly is again noted. Liver: Unremarkable. No focal lesions are seen. Gallbladder and biliary tree: Patient is status post cholecystectomy. Physiologic prominence of the b iliary ducts is noted. Pancreas: Unremarkable, no focal lesions. Spleen: Unremarkable. Adrenals: Unremarkable. Kidneys and ureters: Hydronephrosis is seen bilaterally without evidence of obstructive stone. Bladder: The bladder is distended. Reproductive organs: Unremarkable. Bowel: Patient is status post partial colectomy. No evidence of bowel obstruction is seen. Lymph nodes Retroperitoneal: Unremarkable. Pelvic: Unremarkable. Mesenteric: Unremarkable. Peritoneum: Mild fat stranding is seen in the abdominal cavity. No significant fluid collection is se en. Gas is seen in the presacral space. There is a drainage catheter in the right lower quadrant whic h contains a focus of air in the subcutaneous tissues. Vessels: Atherosclerotic calcifications are seen. Abdominal wall: Fat stranding is seen. Midline catheter is noted in the soft tissues. Bones: Degenerative changes in the visualized spine. IMPRESSION: 1. Postsurgical changes of partial colectomy. No evidence of bowel obstruction. There is intra-abdom inal free air most prominent in the presacral region, without a well-defined drainable fluid collecti on. This may represent postoperative changes, however developing infection cannot be entirely exclude d. Clinical correlation is recommended. 2. Subcutaneous emphysema and fat stranding is seen without drainable fluid collection. 3. Bilateral hydronephrosis, new from prior exam. This is likely due to prominent bladder distention rather than obstructive stone. 4. Bilateral moderate pleural effusions with associated atelectasis. ACT 112: Negative or not required by law. Electronically signed by: Julio Cesar Mosqueda M.D. 04/15/2022 1:34 PM
--- NOTE | 2022-04-15 13:44 | XRay Report ---
XR chest 1V portable CLINICAL HISTORY: hypoxia COMPARISON STUDY: Chest radiograph October 18, 2021. Chest CT March 25, 2022. FINDINGS: There is no pneumothorax. Gljzo-vy-mjywugei bilateral pleural effusions are noted with mode rate pulmonary edema which has developed since chest CT of March 25, 2022. Cardiomegaly is noted. IMPRESSION: Pulmonary edema with small to moderate bilateral pleural effusions. ACT 112: Negative or not required by law. Electronically signed by: Homero Carver M.D. 04/15/2022 1:42 PM
--- NOTE | 2022-04-15 14:03 | Pharmacy Report ---
Pharmacy Glycemic Short Note 2 - Date of Service April 15, 2022 - Glycemic Short BSG Results (Last 24 hours): 04/14/22 04/14/22 04/15/22 16:49 20:26 07:11 Glucose 152 H POC Glucose 141 H 164 H 04/15/22 04/15/22 08:05 11:59 Glucose POC Glucose 166 H 233 H OUTPATIENT ANTIDIABETIC REGIMEN: * Toujeo 35 units daily with dinner, Lispro 14 units with breakfast, 16 units with lunch, 20 units with dinner + SSI, jardiance * A1c 9.3% 03/2022 ASSESSMENT: 04/15/22 * Patient made NPO again today - limiting PO intake until bowel function improves * BSGs reasonably controlled yesterday * Originally ordered to continue yesterday's dose of Lantus, but this was refused by the patient when she was made NPO * pre-lunch BSG of 233 mg/dL, will give significantly reduced dose of Lantus with lunch this afternoon and continue current Novolog parameters * BSGs previously okay while NPO with no basal 04/14/22 * Patient's BSGs yesterday were [phone] mg/dL. Patient received 48 units of insulin yesterday (30 units of basal and 18 units of bolus). * Fasting today is 160 mg/dL. * Lantus was resumed yesterday at 30 units (5 less than home dose) when diet was resumed at lunch. Increase to home dose of Lantus 35 units since fasting trending upwards. * BSGs remained stable once Lantus resumed. Continue Novolog. BACKGROUND * 77 year old female, now s/p colectomy POD 1 - pharmacy consulted for glycemic management * No insulin given yesterday, fasting BSG 133 mg/dL - continues NPO status * Likely will resume basal insulin with dinner time today, may consider adding a scale in case she remains NPO PLAN FOR INPATIENT GLYCEMIC CONTROL: * Hold outpatient oral diabetes medications * Basal insulin - reduce while NPO * Lantus 8 units SC x 1 * Bolus insulin * NovoLog per scale ACHS or Q6hrs while NPO * Goal Range: Low 110 mg/dL - High 140 mg/dL * Correction Factor: 20 mg/dL/unit * Nutritional / Prandial insulin per carb ratio of 1 unit per 7 grams CHO consumed
[2022-04-15] MEDS ORDERED: PROMETHAZINE HCL 12.5 MG in SODIUM CHLORIDE 0.9% 50 ML IV PRN (14:52)
[2022-04-15] MEDS ORDERED: HYDROmorphone INJ 0.5 MG/0.5 ML SYR IV PRN (14:52)
[2022-04-15] MEDS ORDERED: SODIUM CHLORIDE 0.9% 1000ML 1,000 ML IV SCH (15:00)
--- NOTE | 2022-04-15 15:06 | Communication Note ---
Date of Service: April 15, 2022 Pt seen this afternoon c/o abdominal pain after PARAMEDICAL AIDE discontinued, had 1 mg dilaudid with limited relief KUB showed a few loops of distended bowel, CT shows some presacral air- likely related to dissection Pain improved after Ofirmev and Toradol, now sleeping Continue with scheduled Ofirmev, prn Toradol, prn Dilaudid Will keep NPO and restart IVF
[2022-04-15] MEDS ORDERED: FUROSEMIDE 40 MG/4 ML VIAL IV STA (16:54)
[2022-04-15] MEDS: KETOROLAC TROMETHAMINE 15 MG/ML VIAL IV PRN (18:06)
[2022-04-15] MEDS: SODIUM CHLORIDE 0.9% 1000ML 1,000 ML IV SCH (19:46)
[2022-04-15] MEDS: ATORVASTATIN 40 MG TAB PO SCH (20:09)
[2022-04-15] MEDS ORDERED: INSULIN ASPART PER UNIT SC SCH (21:00)
[2022-04-16] MEDS: INSULIN ASPART PER UNIT SC SCH ×6 (00:08→20:43)
[2022-04-16] MEDS: ACETAMINOPHEN 1,000 MG/100 ML VIAL IV SCH ×3 (03:52→19:11)
[2022-04-16] MEDS: LEVOTHYROXINE SODIUM 50 MCG TABLET PO SCH (05:40)
[2022-04-16 06:38] LABS: Basophils # (auto) 0.03 K/uL (0-0.2); Basophils % (auto) 0.4 %; Hematocrit (blood only) 35.5 % (34.1-44.9); Hemoglobin 11.4 g/dl (12.0-16.0); Immature Granulocytes # (auto) 0.07 K/uL (0.00-0.02); Immature Granulocytes % (auto) 0.8 %; Lymphocytes # (auto) 1.29 K/uL (1.2-3.4); Lymphocytes % (auto) 15.1 %; Mean Corpuscular Hgb Conc 32.1 g/dL (32.0-36.0); Mean Corpuscular Volume 87.2 fL (80.0-100.0); Mean Platelet Volume 9.8 fL (9.4-12.3); Monocytes # (auto) 1.02 K/uL (0.24-0.82); Monocytes % (auto) 11.9 %; Neutrophils # (auto) 6.13 K/uL (1.4-6.5); Neutrophils % (auto) 71.8 %; Platelet Count 162 K/uL (130-400); RDW Coefficient of Variation 13.3 % (11.5-14.5); RDW Standard Deviation 42.5 fL (36.4-46.3); Red Blood Count 4.07 M/uL (3.93-5.22); White Blood Count 8.54 K/ul (4.8-10.8)
[2022-04-16 07:10] LABS: BUN Creatinine Ratio 16.3 (10-20); Calcium 8.3 mg/dl (8.5-10.1); Creatinine Clr Calc Pharmacy 40.4 ml/min; Est GFR (African American) 49.3 ml/min; Est GFR (Non-African American) 42.6 ml/min; Potassium 3.6 mmol/L (3.5-5.1)
--- NOTE | 2022-04-16 08:37 | Surgery Progress Note ---
Date of Service April 16, 2022 Assessment & Plan (1) S/P colectomy: Plan: POD #5 LAR improved resume clears, cautioned her to go slow ambulate continue Ofirmev, seems to have good response as above. wbc still normal. afebrile resume clears awaiting bowel fx reviewed path with patient. Admission and Anticipated Discharge Date Admission Date: April 11, 2022 Subjective feeling better, in chair, less swelling, passing flatus, no BM Physical Exam Cardiovascular: Extremities: + edema (trace) Gastrointestinal (Abdomen): Inspection/Auscultation: + abdomen distended (less), + abdominal surgical incision (dressing intact) and + abdominal surgical drain present (50 cc) Percussion/Palpation: abdomen soft Results & Data ([facility]) Vital Signs (Past 12 Hours) Vital Signs Temp Pulse Resp BP Pulse Ox O2 Del Method O2 Flow Rate 04/16/22 08:10 36.5 C 75 16 125/72 91 Room Air 04/16/22 07:59 Nasal Cannula 1 04/16/22 06:00 37.0 C 88 18 138/80 96 Nasal Cannula 1 04/16/22 02:00 37.0 C 72 18 130/80 96 Nasal Cannula 1 04/15/22 22:39 36.6 C 75 18 126/74 99 Nasal Cannula 2 PG Care Time/CCT Total # of Minutes Spent Total Time Spent with Patient: Total time spent is greater than 50% in coordination of care (as documented) at patient's floor/unit and/or counseling patient: Coding Level of Care Code None Diagnoses S/P colectomy Z90.49
[2022-04-16] MEDS: ENOXAPARIN INJ 40 MG/0.4 ML SYR SQ SCH (08:41)
[2022-04-16] MEDS: ASPIRIN 81 MG ECTAB PO SCH (08:42)
[2022-04-16] MEDS: PANTOprazole 40 MG in SYRINGE 0 ML IV SCH ×2 (08:42→20:31)
[2022-04-16] MEDS: OLMESARTAN MEDOXOMIL 40 MG TAB PO SCH (08:42)
[2022-04-16] MEDS ORDERED: Nursing to Pharmacy Communication SCH (09:00)
[2022-04-16] MEDS ORDERED: FUROSEMIDE 40 MG/4 ML VIAL IV ONE (09:00)
[2022-04-16] MEDS ORDERED: LANTUS PER UNIT CHARGE SQ SCH ×2 (09:00→21:00)
[2022-04-16] MEDS: METOPROLOL TARTRATE 25 MG TAB PO SCH ×2 (09:47→20:31)
[2022-04-16] MEDS: carvediloL 25 MG TAB PO SCH ×2 (09:48→20:31)
--- NOTE | 2022-04-16 12:51 | Hospitalist Progress Note ---
Date of Service April 16, 2022 Assessment & Plan (1) S/P colectomy: Plan: Patient is POD #5 for colon cancer (adenocarcinoma)- converted open laparotomy - Pain control per primary service- with PIPE [employer]TER MARINE and EtCO2 monitor and rescue Narcan is Available - Drains per primary service - NGT and SANTO drain - Dressing changes/abd binder per primary service - Diet per primary service - Blood transfusions for primary service - PT/OT consulted - DVT prophy per primary service - SCDS, Lovenox - ABX per primary service - Encourage ambulation - Would d/c holman - Recommend IS q4h wa (2) Chronic combined systolic and diastolic heart failure: Plan: History of NICM that is resolving on ECHO thought secondary 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 swelling in upper extremities, fluids stopped on 04/14 with resumption of diuretics - CXR revealed pulmonary edema and b/l pleural effusions with atelectasis on 04/15 - Fluids stopped and pt given a dose of oral Lasix 40mg x1 as well as a dose of IV Lasix 40mg x1 on 04/15 * Diuresed nicely with above * Slight bump in creat this AM to 1.23 * Hold PO Lasix and can resume on 04/17 - No longer requiring supplemental O2 (3) Hypertension: Plan: - As above - Resumed Benicar - BP well controlled (4) CAD (coronary artery disease): Plan: As above- with CATH 2016 - moderate non-obstructive disease- 50% mid distal circ (5) Dysphagia: Plan: Patient with workup for something feeling stuck in her throat- her EGD was placed on hold for current above - continue with NGT as above - [employer] consultation if needed but patient endorses that she can swallow food and liquids well (6) Uncontrolled type 2 diabetes mellitus with hyperglycemia, with long-term current use of insulin: Plan: Pharmacy consultation placed - follow (7) GERD (gastroesophageal reflux disease): Plan: History of GERD- on home omeprazole - continue with PPI will place on BID Protonix - Discontinue Famotidine (8) Asthma: Plan: - Continue albuterol 2 puffs PRN (9) Hyperlipidemia: Plan: - statin restarted 04/12/22 Plan Patient is medically improved from yesterday when seen. She is now on room air. Encouraged to ambulate. Would recommend holman removal if not already done so. No other recommendations at this time. Medicine will sign off but continue to follow peripherally with daily chart checks. Thank you for allowing us to participate in the care of your patient. Please feel free to notify of any questions/concerns that we can assist with. Plan d/w Dr. Clemons. Admission and Anticipated Discharge Date Admission Date: April 11, 2022 Subjective Patient seen on daily rounds this morning. She is resting comfortably, sitting up in bedside chair. Reports that she has no abdominal pain this morning, feels better compared to yesterday. Denies n/v. Is passing flatus. No fever/chills, cp or dyspnea. Diet has been advanced back to clear liquids which she had this morning and tolerated well. Now weaned off supplemental oxygen. Review of Systems Review of Systems: All systems reviewed and are unremarkable except as noted in HPI and below. Denies fever, chills, fatigue, headache, nasal congestion, sore throat, cough, chest pain, shortness of breath, palpitations, orthopnea, PND, abd pain, n/v/d, constipation, dysuria, hematuria, frequency, back pain, joint pain or swelling, easy bruising or bleeding, skin lesions or rashes. Physical Exam Physical Exam: GENERAL: 77 yo Well-developed, well-nourished WF. NAD. LUNGS: Nonlabored. Diminished in bases b/l. No wheezes/rales/rhonchi. CARDIOVASCULAR: Regular rate and rhythm. ABDOMEN: Soft, minimal tenderness to palp, BS present in all 4 quadrants. Mild distention. EXTREMITIES: No edema. Non-tender. Peripheral pulses +2/4. NEUROLOGIC: A&O x3. PSYCHIATRIC: Cooperative. Appropriate mood and affect. SKIN: Warm, dry, intact. No rashes or lesions. Results & Data Results & Data ([facility]) Vital Signs (Past 12 Hours) Vital Signs Temp Pulse Resp BP Pulse Ox O2 Del Method O2 Flow Rate 04/16/22 08:10 36.5 C 75 16 125/72 91 Room Air 04/16/22 07:59 Nasal Cannula 1 04/16/22 06:00 37.0 C 88 18 138/80 96 Nasal Cannula 1 04/16/22 02:00 37.0 C 72 18 130/80 96 Nasal Cannula 1 Laboratory Results 04/16/22 06:13 04/16/22 06:13 Diagnostic Findings Chest X-Ray 04/15/22 13:18 XR chest 1V portable CLINICAL HISTORY: hypoxia COMPARISON STUDY: Chest radiograph October 18, 2021. Chest CT March 25, 2022. FINDINGS: There is no pneumothorax. Fevke-wr-uekjkfwi bilateral pleural effusions are noted with moderate pulmonary edema which has developed since ches t CT of March 25, 2022. Cardiomegaly is noted. IMPRESSION: Pulmonary edema with small to moderate bilateral pleural effusions. ACT 112: Negative or not required by law. Electronically signed by: Homero Carver M.D. 04/15/2022 1:42 PM PG Care Time/CCT Total # of Minutes Spent Total Time Spent with Patient: Total time spent is greater than 50% in coordination of care (as documented) at patient's floor/unit and/or counseling patient: Coding Level of Care Code 94453 Subseq Hosp Care Lvl 2 Diagnoses S/P colectomy Z90.49 Chronic combined systolic and diastolic heart failure I50.42 Hypertension I10 CAD (coronary artery disease) I25.10 Dysphagia R13.10 Uncontrolled type 2 diabetes mellitus with hyperglycemia, with long-term current use of insulin E11.65; Z79.4 GERD (gastroesophageal reflux disease) K21.9 Asthma J45.909 Hyperlipidemia E78.5
[2022-04-16] MEDS: KETOROLAC TROMETHAMINE 15 MG/ML VIAL IV PRN (13:48)
--- NOTE | 2022-04-16 16:21 | Ultrasound Report ---
ULTRASOUND RIGHT LOWER EXTREMITY VENOUS CLINICAL HISTORY: Right leg swelling. COMPARISON STUDY: No priors. TECHNIQUE: Real-time, grayscale, and color Doppler sonography of the deep veins of the right lower ex tremity was performed from the inguinal crease to the calf. Compression and augmentation were utilize d. FINDINGS: There is no sonographic evidence of deep venous thrombosis identified in the right lower ex tremity. The common femoral, superficial femoral, and popliteal veins are patent and normally vasiliy sible. The greater saphenous vein and the profunda femoris vein at the junction with the common femor al vein are clear. The visualized calf veins are patent. Soft tissue edema an trace complex fluid is noted in the lateral thigh at the site of pain. A complex popliteal cyst measures 4.0 x 1.5 x 3.0 cm. IMPRESSION: 1 There is no sonographic evidence of deep venous thrombosis identified in the right lower extremity. 2. Subcutaneous soft tissue edema and trace complex fluid is noted in the lateral thigh at the site o f pain. 3. Wharton's cyst. ACT 112: Negative or not required by law. Electronically signed by: Marcelino Magallanes M.D. 04/16/2022 4:20 PM
[2022-04-16] MEDS: SODIUM CHLORIDE 0.9% 1000ML 1,000 ML IV SCH (19:12)
[2022-04-16] MEDS: ATORVASTATIN 40 MG TAB PO SCH (20:31)
[2022-04-17] MEDS: ACETAMINOPHEN 1,000 MG/100 ML VIAL IV SCH ×3 (04:10→21:14)
[2022-04-17] MEDS: LEVOTHYROXINE SODIUM 50 MCG TABLET PO SCH (05:57)
[2022-04-17] MEDS ORDERED: LANTUS PER UNIT CHARGE SQ SCH (09:00)
--- NOTE | 2022-04-17 09:13 | Surgery Progress Note ---
Date of Service April 17, 2022 Assessment & Plan (1) S/P colectomy: Plan: Postoperative day 6. Still no bowel function. Patient is starting to get hungry and would like to be advanced. We will give her full liquids today. Continue ambulation. Admission and Anticipated Discharge Date Admission Date: April 11, 2022 Subjective Patient seen. Feeling well today. No nausea or abdominal pain. She tolerated clear liquids yesterday with no issue. Still no bowel movement. Physical Exam 2 Physical Exam: Alert and oriented. No acute distress Abdomen is soft. Expected incisional tenderness. SANTO with thin yellow serous fluid. Results & Data ([facility]) Vital Signs (Past 12 Hours) Vital Signs Temp Pulse Resp BP Pulse Ox O2 Del Method 04/17/22 07:30 Room Air 04/17/22 07:39 36.7 C 78 16 162/83 H 92 Room Air 04/17/22 03:00 37.0 C 76 18 126/77 92 Room Air 04/16/22 23:00 36.8 C 84 18 134/77 92 Room Air PG Care Time/CCT Total # of Minutes Spent Total Time Spent with Patient: Total time spent is greater than 50% in coordination of care (as documented) at patient's floor/unit and/or counseling patient: Coding Level of Care Code None Diagnoses S/P colectomy Z90.49
[2022-04-17] MEDS: ASPIRIN 81 MG ECTAB PO SCH (09:49)
[2022-04-17] MEDS: OLMESARTAN MEDOXOMIL 40 MG TAB PO SCH (09:49)
[2022-04-17] MEDS: carvediloL 25 MG TAB PO SCH ×2 (09:49→21:15)
[2022-04-17] MEDS: METOPROLOL TARTRATE 25 MG TAB PO SCH ×2 (09:50→21:15)
[2022-04-17] MEDS: PANTOprazole 40 MG in SYRINGE 0 ML IV SCH ×2 (09:50→21:14)
[2022-04-17] MEDS: ENOXAPARIN INJ 40 MG/0.4 ML SYR SQ SCH (09:50)
[2022-04-17] MEDS: FUROSEMIDE 40 MG TAB PO SCH (09:50)
[2022-04-17] MEDS: INSULIN ASPART PER UNIT SC SCH ×4 (09:51→21:15)
[2022-04-17] MEDS ORDERED: LANTUS PER UNIT CHARGE SQ ONE ×2 (12:15)
--- NOTE | 2022-04-17 13:23 | Pharmacy Report ---
Pharmacy Glycemic Short Note 2 - Date of Service April 17, 2022 - Glycemic Short BSG Results (Last 24 hours): 04/16/22 04/16/22 04/17/22 16:58 20:34 07:58 POC Glucose 125 H 183 H 118 H 04/17/22 12:00 POC Glucose 218 H OUTPATIENT ANTIDIABETIC REGIMEN: * Toujeo 35 units daily with dinner, Lispro 14 units with breakfast, 16 units with lunch, 20 units with dinner + SSI, jardiance * A1c 9.3% 03/2022 ASSESSMENT: 04/17/22 * Diet advanced to clears yesterday and patient appears to be tolerating * Will increase Lantus back to near outpatient dose (slight reduction) * BSGs reasonably controlled yesterday, ranging 124-183 mg/dL * If BSGs persistently elevated today, then will tighten Novolog parameters tomorrow 04/15/22 * Patient made NPO again today - limiting PO intake until bowel function improves * BSGs reasonably controlled yesterday * Originally ordered to continue yesterday's dose of Lantus, but this was refused by the patient when she was made NPO * pre-lunch BSG of 233 mg/dL, will give significantly reduced dose of Lantus with lunch this afternoon and continue current Novolog parameters * BSGs previously okay while NPO with no basal 04/14/22 * Patient's BSGs yesterday were [phone] mg/dL. Patient received 48 units of insulin yesterday (30 units of basal and 18 units of bolus). * Fasting today is 160 mg/dL. * Lantus was resumed yesterday at 30 units (5 less than home dose) when diet was resumed at lunch. Increase to home dose of Lantus 35 units since fasting trending upwards. * BSGs remained stable once Lantus resumed. Continue Novolog. BACKGROUND * 77 year old female, now s/p colectomy POD 1 - pharmacy consulted for glycemic management * No insulin given yesterday, fasting BSG 133 mg/dL - continues NPO status * Likely will resume basal insulin with dinner time today, may consider adding a scale in case she remains NPO PLAN FOR INPATIENT GLYCEMIC CONTROL: * Hold outpatient oral diabetes medications * Basal insulin * Lantus 20 units SC x 1 this morning * Lantus 10 units SC x 1 with lunch now that patient tolerating diet * Bolus insulin * NovoLog per scale ACHS or Q6hrs while NPO * Goal Range: Low 110 mg/dL - High 140 mg/dL * Correction Factor: 20 mg/dL/unit * Nutritional / Prandial insulin per carb ratio of 1 unit per 7 grams CHO consumed
[2022-04-17] MEDS: SODIUM CHLORIDE 0.9% 1000ML 1,000 ML IV SCH (18:44)
[2022-04-17] MEDS: ONDANSETRON INJ 2 MG/ML 2 ML VIAL IV PRN (21:14)
[2022-04-17] MEDS: ATORVASTATIN 40 MG TAB PO SCH (21:16)
[2022-04-18] MEDS: ACETAMINOPHEN 1,000 MG/100 ML VIAL IV SCH (04:52)
[2022-04-18] MEDS: LEVOTHYROXINE SODIUM 50 MCG TABLET PO SCH (04:53)
--- NOTE | 2022-04-18 05:45 | Electrocardiogram Report ---
Test Reason : Blood Pressure : / mmHG Vent. Rate : 102 BPM Atrial Rate : 102 BPM P-R Int : 152 ms QRS Dur : 166 ms QT Int : 408 ms P-R-T Axes : -17 -14 115 degrees QTc Int : 531 ms Sinus tachycardia Left bundle branch block Abnormal ECG When compared with ECG of 27-AUG-2021 15:10, No significant change was found Confirmed by Mehul Barrett [id number]) on 04/18/2022 5:45:03 AM Referred By: Jonathan Nation Confirmed By:Mehul Barrett
[2022-04-18] MEDS ORDERED: oxyCODONE HCL IR 5 MG TAB (IMMEDIATE RELEASE) PO PRN (07:58)
--- NOTE | 2022-04-18 08:33 | Surgery Progress Note ---
Date of Service April 18, 2022 Assessment & Plan (1) S/P colectomy: Plan: POD 7 LAR labs pending can advance to low fiber slowly progressing, expect another 1-2 days as above. jazmin diet. feeling well. +bm if continues to do well possible d/c tomorrow Admission and Anticipated Discharge Date Admission Date: April 11, 2022 Subjective multiple loose BMs yesterday slowed overnight, pain control adequate, tolerating fulls although not much appetite Physical Exam Respiratory: normal respiratory effort, lungs clear to auscultation Gastrointestinal (Abdomen): Inspection/Auscultation: + abdominal surgical incision (dressing intact) and + abdominal surgical drain present (serous drainage) Percussion/Palpation: abdomen soft Results & Data ([facility]) Vital Signs (Past 12 Hours) Vital Signs Temp Pulse Pulse Resp BP Pulse Ox O2 Del Method 04/18/22 07:30 36.9 C 91 H 22 152/79 H 97 Room Air 04/17/22 21:10 Room Air 04/17/22 23:28 76 148/78 H 04/17/22 21:01 36.6 C 93 H 16 187/79 H 94 Room Air PG Care Time/CCT Total # of Minutes Spent Total Time Spent with Patient: Total time spent is greater than 50% in coordination of care (as documented) at patient's floor/unit and/or counseling patient: Coding Level of Care Code None Diagnoses S/P colectomy Z90.49
[2022-04-18 08:36] LABS: BUN Creatinine Ratio 15.1 (10-20); Calcium 8.6 mg/dl (8.5-10.1); Creatinine Clr Calc Pharmacy 68.1 ml/min; Est GFR (African American) 92.7 ml/min; Potassium 2.9 mmol/L (3.5-5.1)
[2022-04-18] MEDS ORDERED: POTASSIUM CHLORIDE CRTAB 20 MEQ TABCR PO STA (08:46)
[2022-04-18] MEDS: FUROSEMIDE 40 MG TAB PO SCH (09:14)
[2022-04-18] MEDS: ASPIRIN 81 MG ECTAB PO SCH (09:14)
[2022-04-18] MEDS: OLMESARTAN MEDOXOMIL 40 MG TAB PO SCH (09:14)
[2022-04-18] MEDS: carvediloL 25 MG TAB PO SCH ×2 (09:14→21:05)
[2022-04-18] MEDS: METOPROLOL TARTRATE 25 MG TAB PO SCH ×2 (09:14→21:05)
[2022-04-18] MEDS: PANTOprazole 40 MG in SYRINGE 0 ML IV SCH ×2 (09:16→21:04)
[2022-04-18] MEDS: ENOXAPARIN INJ 40 MG/0.4 ML SYR SQ SCH (09:20)
[2022-04-18] MEDS: INSULIN ASPART PER UNIT SC SCH ×4 (09:22→21:04)
[2022-04-18] MEDS: oxyCODONE HCL IR 5 MG TAB (IMMEDIATE RELEASE) PO PRN ×2 (09:32→17:58)
[2022-04-18] MEDS: LANTUS PER UNIT CHARGE SQ SCH (10:16)
[2022-04-18] MEDS ORDERED: POTASSIUM CHLORIDE CRTAB 20 MEQ TABCR PO ONE ×2 (14:00)
[2022-04-18] MEDS: ATORVASTATIN 40 MG TAB PO SCH (21:05)
[2022-04-19 01:48] LABS: BUN Creatinine Ratio 13.7 (10-20); Calcium 8.2 mg/dl (8.5-10.1); Creatinine Clr Calc Pharmacy 52.4 ml/min; Est GFR (African American) 67.4 ml/min; Est GFR (Non-African American) 58.2 ml/min; Potassium 3.3 mmol/L (3.5-5.1)
[2022-04-19] MEDS: LEVOTHYROXINE SODIUM 50 MCG TABLET PO SCH (05:44)
[2022-04-19 07:34] LABS: Basophils # (auto) 0.05 K/uL (0-0.2); Basophils % (auto) 0.6 %; Hematocrit (blood only) 35.7 % (34.1-44.9); Hemoglobin 11.7 g/dl (12.0-16.0); Immature Granulocytes # (auto) 0.15 K/uL (0.00-0.02); Immature Granulocytes % (auto) 1.9 %; Lymphocytes # (auto) 2.26 K/uL (1.2-3.4); Lymphocytes % (auto) 28.4 %; Mean Corpuscular Hemoglobin 28.1 pg (25.0-34.0); Mean Corpuscular Hgb Conc 32.8 g/dL (32.0-36.0); Mean Corpuscular Volume 85.6 fL (80.0-100.0); Mean Platelet Volume 9.5 fL (9.4-12.3); Monocytes # (auto) 0.96 K/uL (0.24-0.82); Neutrophils # (auto) 4.55 K/uL (1.4-6.5); Neutrophils % (auto) 57.1 %; Platelet Count 233 K/uL (130-400); RDW Coefficient of Variation 13.6 % (11.5-14.5); RDW Standard Deviation 42.4 fL (36.4-46.3); Red Blood Count 4.17 M/uL (3.93-5.22); White Blood Count 7.97 K/ul (4.8-10.8)
[2022-04-19 08:04] LABS: BUN Creatinine Ratio 13.3 (10-20); Calcium 8.7 mg/dl (8.5-10.1); Creatinine Clr Calc Pharmacy 59.9 ml/min; Est GFR (African American) 79.4 ml/min; Est GFR (Non-African American) 68.5 ml/min; Potassium 3.5 mmol/L (3.5-5.1)
[2022-04-19] MEDS: METOPROLOL TARTRATE 25 MG TAB PO SCH (08:42)
[2022-04-19] MEDS: carvediloL 25 MG TAB PO SCH (08:42)
[2022-04-19] MEDS: OLMESARTAN MEDOXOMIL 40 MG TAB PO SCH (08:43)
[2022-04-19] MEDS: FUROSEMIDE 40 MG TAB PO SCH (08:43)
[2022-04-19] MEDS: ENOXAPARIN INJ 40 MG/0.4 ML SYR SQ SCH (08:43)
[2022-04-19] MEDS: ASPIRIN 81 MG ECTAB PO SCH (08:43)
[2022-04-19] MEDS: PANTOprazole 40 MG in SYRINGE 0 ML IV SCH (08:43)
[2022-04-19] MEDS: INSULIN ASPART PER UNIT SC SCH (08:44)
[2022-04-19] MEDS: LANTUS PER UNIT CHARGE SQ SCH (08:44)
[2022-04-19] MEDS: oxyCODONE HCL IR 5 MG TAB (IMMEDIATE RELEASE) PO PRN (09:01)
--- NOTE | 2022-04-19 10:46 | Surgery Progress Note ---
Date of Service April 19, 2022 Assessment & Plan (1) S/P colectomy: Plan: Okay for discharge. Instructions given. Follow-up 1 week Admission and Anticipated Discharge Date Admission Date: April 11, 2022 Subjective Patient seen. Doing well. Tolerating regular diet. Pain controlled. Physical Exam Physical Exam: Alert. No acute distress Abdomen is soft. Incisions look good. Swapnil and SANTO drain removed. Results & Data ([facility]) Vital Signs (Past 12 Hours) Vital Signs Temp Pulse Pulse Resp BP Pulse Ox O2 Del Method 04/19/22 09:05 Room Air 04/19/22 07:30 37 C 77 18 145/82 H 96 Room Air 04/19/22 00:47 37.1 C 88 16 142/76 H 93 Room Air PG Care Time/CCT Total # of Minutes Spent Total Time Spent with Patient: Total time spent is greater than 50% in coordination of care (as documented) at patient's floor/unit and/or counseling patient: Coding Level of Care Code None Diagnoses S/P colectomy Z90.49
--- NOTE | 2022-04-30 12:23 | Discharge Summary ---
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 Discharge Exam Constitutional WD/WN, vitals as above Respiratory normal respiratory effort, lungs clear to auscultation Gastrointestinal (Abdomen) Inspection/Auscultation: + abdominal surgical incision (no erythema); abdomen not distended Percussion/Palpation: abdomen soft Discharge Data Allergies Allergy/AdvReac Type Severity Reaction Status Date / Time adhesive Allergy Mild SKIN TEARS Verified 04/29/22 14:20 AND HEALING ISSUES Barbiturates Allergy Mild Hives Verified 04/29/22 14:20 hydrochlorothiazide Allergy Mild Gastrointestinal Verified 04/29/22 14:20 Upset phenobarbital Allergy Mild heart Verified 04/29/22 14:20 racing pollen extracts Allergy Mild Difficulty Verified 04/29/22 14:20 Breathing pseudoephedrine Allergy Mild light Verified 04/29/22 14:20 headed, heart racing sertraline Allergy Mild light Verified 04/29/22 14:20 headed, dizzy Sulfa (Sulfonamide Allergy Mild Vomiting Verified 04/29/22 14:20 Antibiotics) triamterene Allergy Mild Gastrointestinal Verified 04/29/22 14:20 Upset Dyazide Allergy Unknown UNKNOWN Verified 04/11/15 09:31 gabapentin Allergy Unknown Swelling Verified 04/29/22 14:20 of Lip/Tongue/Throat pantoprazole Allergy Unknown Gastrointestinal Verified 04/29/22 14:20 Upset propoxyphene Allergy Unknown Unknown Verified 04/29/22 14:20 Consultations 04/11/22 19:30 Consult Hospitalist Routine Procedures Performed Operation Date: 04/11/22 12:05 Actual Procedures p Sigmoid Colectomy Converted to Open(Not Applicable) - Jonathan Nation DO s Laparoscopic Sigmoid Colectomy Converted to Open(Not Applicable) - Jonathan Nation DO Ordered Studies 04/15/22 12:09 CT Abd and Pelvis [CT abd pelvis wo con] Urgent 04/16/22 14:04 US venous doppler LE RT Urgent Hospital Course (1) S/P colectomy: 77 y/o female 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 She was taken to the operating room for laparoscopic resection. The tattoo was quite low and required laparotomy to complete the resection and perform the anastomosis. She was transferred to the surgical floor and hospitalist consulted routinely given her HTN, cardiomyopathy and DM. Lovenox was used for DVT prophylaxis. Beta lucia was continued and SSI was used to cover blood sugars. Liu and NG were removed on POD 2 and she was started on clear liquids. She was diuresed on POD 4 and also had some pain after the [employer] CO[employer]ATOR was discontinued. She was kept on clears while she had pain and bloating but by day 6 was feeling better and able to tolerate advancement to fulls. She began having loose BMs overnight and was advanced to low fiber diet on day 7. On day 8 SANTO and marija drains were removed. She was tolerating diet and oral analgesics and was stable for discharge home. Total Time Total Time Spent Total Time Spent (In Minutes): 20 Discharge Plan Discharge Items Patient Disposition: Home - Self-Care Reason For Visit: COLON SURGERY Discharge Diagnosis: sigmoid colectomy Activity: Per Instructions section Lifting: No more than 10 pounds Bathing Comment: may shower; no soaking in tubs/pools Exercise/Sports: Wait until after follow-up appointment Driving/Machine Use: wait until pain free; no driving while taking narcotics for pain Non-emergency contact: Surgeon Call non-emergency contact if: you have any medication questions, your symptoms worsen, your pain is not controlled, your pain is concerning for you, you have a fever, your temperature is above 101.5, your wound has increased redness, your wound has increased drainage and your wound pain has increased Follow-up/Referrals: Jonathan Nation DO [Surgeon] - 04/24/22 10:15 am (You have an appt on 04/24 at 10:15) Mesah Ramos MD [Primary Care Provider] - Diet: Low Fiber Diet Comment: low fiber diet Addtl Attending Provider Instructions: Remove bandages to shower daily, re-cover until drainage stops Pending Studies at Discharge: Yes Studies:: surgical pathology Stand-Alone Forms: [facility] [employer], Opioid Pain Management Medications and DC Order Prescriptions: Continued metoprolol tartrate 25 mg tablet See Rx Instructions PO DAILY Qty: 270 3RF Rx Instructions: 50 mg QAM & 25 mg QPM PO daily; albuterol sulfate [Ventolin HFA] 90 mcg/actuation HFA aerosol inhaler 1 - 2 puff INHALATION Q6H PRN (Reason: Shortness Of Breath) Qty: 6.7 3RF carvedilol 25 mg tablet 25 mg PO BID Qty: 60 5RF (DME) blood sugar diagnostic Strip See Rx Instructions .ROUTE .MEDSUPPLY Qty: 300 1RF Dose Instruction: As directed Rx Instructions: Check blood sugar three times a day. OneTouch Ultra Blue insulin lispro [Humalog KwikPen Insulin] 100 unit/mL insulin pen See Rx Instructions .ROUTE .COMPLEX Qty: 60 3RF Rx Instructions: 14 units with breakfast, 16 units with lunch, 20 with dinner plus sliding scale up to 55 units daily; (DME) pen needle, diabetic [BD Ultra-Fine [place] Pen Needle] 32 gauge x 5/32" needle See Rx Instructions .ROUTE .MEDSUPPLY Qty: 400 3RF Rx Instructions: use 4 needles daily acetaminophen [Tylenol Extra Strength] 500 mg tablet 500 mg PO TID PRN (Reason: Pain) zinc gluconate 30 mg tablet 30 mg PO QAM cranberry 500 mg capsule 500 mg PO QAM Rx Instructions: administer with meals turmeric 400 mg capsule 400 mg PO QAM multivitamin tablet 1 tab PO QAM (DME) lancets [OneTouch Delica Lancets] 30 gauge misc See Dose Instructions .ROUTE .MEDSUPPLY Qty: 25 Rx Instructions: As directed [facility] 750 mg-100 mg- 1.65 mg-108 mg tablet 1 tab PO UD atorvastatin 40 mg tablet 40 mg PO QPM Qty: 90 3RF ipratropium bromide 21 mcg (0.03 %) spray,non-aerosol 2 spray INTNAS TID PRN (Reason: Allergy Symptoms) Qty: 30 5RF aspirin [Gerda Low Dose Aspirin] 81 mg Tablet,Delayed Release (Dr/Ec) 81 mg PO QAM biotin 1 mg Tablet 1 mg PO QAM cholecalciferol (vitamin D3) [Vitamin D3] 50 mcg (2,000 unit) Capsule 0 mcg PO QAM Rx Instructions: 1 X daily unsure of dose olmesartan [Benicar] 40 mg tablet 40 mg PO DAILY Jardiance 25 mg tablet 25 mg PO QAM No Action levothyroxine 50 mcg tablet 50 mcg PO QAM Qty: 90 1RF diclofenac sodium 1 % gel 4 g TOP QID PRN (Reason: pain) Qty: 500 2RF Rx Instructions: apply to single knee, ankle, foot; for foot includes sole/toes/top of foot omeprazole 20 mg capsule,delayed release(DR/EC) 20 mg PO BID Qty: 180 1RF montelukast 10 mg tablet 10 mg PO QPM Qty: 90 1RF furosemide 40 mg tablet 40 mg PO 2XWK Qty: 30 3RF Rx Instructions: Take Friday & Friday Toujeo SoloStar U-300 Insulin 300 unit/mL (1.5 mL) insulin pen 35 unit subcut QDD Qty: 13.5 1RF Rx Instructions: inject 35 units before supper; TDD up to 40 units a day amoxicillin-pot clavulanate 875-125 mg tablet 1 tab PO Q12H Qty: 14 0RF Discharge Orders: Discharge Order (Routine); Ordered 04/19/22 Ordered By: Garrett Love Jr Admission Data Admit Date/Time: 04/11/22 11:06 Attending Provider: Jonathan Nation Admit Provider: Jonathan Nation Primary Care Provider: Mesha Ramos Other Providers: Bhupendra Elliott ; Alexys Clemons Other Interventions: Discharge Summary Assessment (RN) Last Done: 04/19/22 12:38 Coding Level of Care Code D/C DAY MANAGEMENT <30 MINS Diagnoses S/P colectomy Z90.49
== END 2022-04-19 15:19 | disposition home or self-care (01) | DRG 332 ==
LOC: ASU 09:34 → 3E 11:06

== ENCOUNTER 2022-07-07 01:48 | Inpatient (IN) ==
[2022-07-07 02:30] LABS: Basophils # (auto) 0.05 K/uL (0-0.2); Basophils % (auto) 0.7 %; Eosinophils # (auto) 0.14 K/uL (0-0.50); Hematocrit (blood only) 41.9 % (34.1-44.9); Hemoglobin 13.9 g/dl (12.0-16.0); Immature Granulocytes # (auto) 0.02 K/uL (0.00-0.02); Immature Granulocytes % (auto) 0.3 %; Lymphocytes # (auto) 3.02 K/uL (1.2-3.4); Lymphocytes % (auto) 42.7 %; Mean Corpuscular Hemoglobin 27.4 pg (25.0-34.0); Mean Corpuscular Hgb Conc 33.2 g/dL (32.0-36.0); Mean Corpuscular Volume 82.6 fL (80.0-100.0); Mean Platelet Volume 10.8 fL (9.4-12.3); Monocytes # (auto) 0.78 K/uL (0.24-0.82); Neutrophils # (auto) 3.07 K/uL (1.4-6.5); Neutrophils % (auto) 43.3 %; Platelet Count 224 K/uL (130-400); RDW Coefficient of Variation 12.8 % (11.5-14.5); RDW Standard Deviation 38.4 fL (36.4-46.3); Red Blood Count 5.07 M/uL (3.93-5.22); White Blood Count 7.08 K/ul (4.8-10.8)
[2022-07-07 02:43] LABS: INR 0.9 (0.9-1.1); Prothrombin Time 10.1 Seconds (9.0-12.0)
--- NOTE | 2022-07-07 02:46 | Emergency Department Note ---
History of Present Illness General Chief complaint: Chest Pain Time Seen by Provider: 07/07/22 01:50 Source: patient Mode of arrival: EMS Limitations: no limitations History of Present Illness Provider complaint: Chest pain, shortness of breath This is a 77-year-old female presents emergency department via EMS due to concern for persistent chest pain and increased shortness of breath. Patient states she has had intermittent similar symptoms since having colon cancer surgery in March. She states she has had increased fatigue as well. She states she does have prior history of fluid in the lungs and does follow with Dr. De Jesus. She states she did have an echo recently as she has an upcoming appointment with cardiology on Friday. Patient denies fevers or chills or worsening cough. She states she was told she has mild asthma, but tends only noticed this during allergy season. She states her symptoms tonight seemed worse compared to normal. She states she has increased trouble breathing with exertion. She states the pain tonight is a heaviness/pressure which she feels radiate into bilateral shoulders. No pain in her back or neck. She denies any nausea or vomiting. She states she did feel slightly lightheaded this evening with the symptoms. Home Medications Medication Instructions Recorded Confirmed Type aspirin 81 mg tablet,delayed 81 mg PO QAM 07/28/18 07/07/22 History release (Gerda Low Dose Aspirin) biotin 1 mg tablet 1 mg PO QAM 07/28/18 07/07/22 History lancets 30 gauge (OneTouch Delica #25 ea 02/08/19 06/24/22 History Lancets) multivitamin 1 tab PO QAM 02/08/19 07/07/22 History glucosam 750 mg-chondroi 100 1 tab PO DAILY 01/12/20 07/07/22 History mg-hyalur 1.65 mg-CF borate 108 mg tablet ([facility] [employer] [facility]) cranberry 500 mg capsule 500 mg PO QAM 05/21/21 07/07/22 History turmeric 400 mg capsule 400 mg PO QAM 05/21/21 07/07/22 History cholecalciferol (vitamin D3) 50 0 mcg PO QAM 08/25/21 07/07/22 History mcg (2,000 unit) capsule (Vitamin D3) albuterol sulfate 90 mcg/actuation 1 - 2 puff inhalation Q6H PRN 09/28/21 07/07/22 Rx aerosol inhaler (Ventolin HFA) Shortness Of Breath #6.7 grams insulin lispro 100 unit/mL See Rx Instructions .Route 11/22/21 07/07/22 Rx subcutaneous pen (Humalog KwikPen .COMPLEX #60 mL (U-100) Insulin) acetaminophen 500 mg tablet 500 mg PO TID PRN Pain 12/12/21 07/07/22 History (Tylenol Extra Strength) zinc gluconate 30 mg tablet 30 mg PO QAM 12/12/21 07/07/22 History atorvastatin 40 mg tablet 40 mg PO QPM #90 tabs 02/12/22 07/07/22 Rx ipratropium bromide 21 mcg (0.03 2 spray intranasal TID PRN Allergy 02/12/22 07/07/22 Rx %) nasal spray Symptoms #30 mL BD Ultra-Fine [place] Pen Needle 32 #400 ea 02/15/22 06/24/22 Rx gauge x 5/32" (pen needle, diabetic) empagliflozin 25 mg tablet 25 mg PO QAM 04/11/22 07/07/22 History (Jardiance) olmesartan 40 mg tablet (Benicar) 40 mg PO DAILY 04/11/22 07/07/22 History diclofenac sodium 1 % topical gel 4 g topical QID PRN pain #500 grams 04/20/22 07/07/22 Rx levothyroxine 50 mcg tablet 50 mcg PO QAM #90 tabs 04/20/22 07/07/22 Rx montelukast 10 mg tablet 10 mg PO QPM #90 tabs 04/20/22 07/07/22 Rx omeprazole 20 mg capsule,delayed 20 mg PO BID #180 caps 04/20/22 07/07/22 Rx release insulin glargine U-300 conc 300 35 unit (0.1167 mL) subcut QDD 04/23/22 07/07/22 Rx unit/mL (1.5 mL) subcutaneous pen #13.5 mL (Toujeo SoloStar U-300 Insulin) blood sugar diagnostic #300 ea 05/07/22 06/24/22 Rx furosemide 40 mg tablet 40 mg PO DAILY PRN weight gain or 05/09/22 07/07/22 Rx edema #90 tabs carvedilol 25 mg tablet 25 mg PO BID #60 tabs 05/20/22 07/07/22 Rx hydrocortisone acetate 25 mg 25 mg DC BID 4 weeks #100 ea 06/24/22 07/07/22 Rx rectal suppository metoprolol tartrate 25 mg tablet See Rx Instructions PO DAILY #270 06/25/22 07/07/22 Rx tabs Allergies Allergy/AdvReac Type Severity Reaction Status Date / Time gabapentin Allergy Severe Swelling Verified 07/07/22 02:24 of Lip/Tongue/Throat pollen extracts Allergy Severe Difficulty Verified 07/07/22 02:24 Breathing adhesive Allergy Intermediate SKIN TEARS Verified 07/07/22 02:24 AND HEALING ISSUES Barbiturates Allergy Intermediate Hives Verified 07/07/22 02:24 propoxyphene Allergy Unknown Unknown Verified 07/07/22 02:24 hydrochlorothiazide AdvReac Intermediate Gastrointestinal Verified 07/07/22 02:24 Upset pantoprazole AdvReac Intermediate Gastrointestinal Verified 07/07/22 02:24 Upset phenobarbital AdvReac Intermediate heart Verified 07/07/22 02:24 racing pseudoephedrine AdvReac Intermediate light Verified 07/07/22 02:24 headed, heart racing sertraline AdvReac Intermediate light Verified 07/07/22 02:24 headed, dizzy Sulfa (Sulfonamide AdvReac Intermediate Vomiting Verified 07/07/22 02:24 Antibiotics) triamterene AdvReac Intermediate Gastrointestinal Verified 07/07/22 02:24 Upset Past Med/Surg History Medical History (Updated 07/07/22 @ 07:59 by Cindy Hinds DO) Anxiety Asthma inhaler prn- uses rarely CAD (coronary artery disease) non-occlusive per [place] [facility] records Cardiomyopathy non-ischemic, severe, suspected to be d/t prior chemotherapy per [place] [facility] records Chronic combined systolic and diastolic heart failure Colon cancer Diabetes mellitus, type 2 Fibromyalgia GERD (gastroesophageal reflux disease) Hearing deficit Hx of myocardial infarction multiple, most recent 2016 cardiac cath 2017 with no stents Hx of sarcoma of soft tissue right elbow- 2001; s/p chemo Hx of thrombophlebitis RLE Hyperlipidemia Hypertension Hypothyroidism LBBB (left bundle branch block) Lymphedema bilat arms Obesity Sarcoma right arm Sensorineural hearing loss (SNHL) of both ears Stage I carcinoma of colon Surgical History H/O colectomy (04/11/22) Laparoscopic convert to laparotomy low anterior resection colectomy (Not Applicable) - Jonathan Nation DO History of anesthesia reaction difficulty waking History of bilateral carpal tunnel release x2 History of bilateral tubal ligation History of cardiac cath 2017 @ [facility] > no stents History of cholecystectomy 08/29/2021: Grade 1 view, elective glidescope #3, ETT#7.0. History of laparoscopic cholecystectomy Aug 2021 [facility] History of left breast biopsy benign History of left cataract extraction History of surgery of liver stent placed and removed History of surgery on arm sarcoma removal of right arm History of tooth extraction under local History of vascular access device removed 2007 Hx of colonoscopy 2021 Hx of varicose vein ligation right leg Family History Mother Family history of diabetes mellitus Myocardial infarction Allergies Cardiac disorder Hypertension Grandfather (Maternal) Family history of diabetes mellitus Grandfather (Paternal) Family history of diabetes mellitus Daughter Family hx of colon cancer Colorectal cancer Allergies Father Stroke Myocardial infarction Brother Brain tumor Renal failure Grandmother (Maternal) Cardiac disorder Other Bleeding disorder Denies family history of Ovarian cancer Prostate cancer Breast cancer Social History Smoking Status: Never smoker Second Hand Exposure: No; Hx Alcohol Use: No Hx Substance Use: No Preferred Language: Lao Communication Ability: Effective Visual Impairment: No Limitations Hearing Ability: Hard of Hearing Manager Auto Required: No Beliefs That Will Affect Care: None marital status: Current Living Situation: Alone 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 How many Children do You have: 4 Feels Safe at Home: Yes Childhood Exposure to Second-Hand Smoke: Yes caffeine: No during the past year weight has: increased > 10 lbs Dental Care, Regularly: No Physical Activity Frequency: Does not Exercise Physical Activity Frequency Comment: limited d/t housing Seatbelt Use: always Sunscreen Use: Yes Assistive Devices: Cane Review of Systems A total of 10 systems reviewed and were otherwise negative All systems reviewed & are unremarkable except as noted in HPI & below Physical Exam Vital Signs Vital Signs - 24 hr 07/07/22 01:59 07/07/22 02:00 07/07/22 03:48 Temperature 36.6 C Temperature Source Oral Pulse Rate 86 85 Pulse Rate [Right Finger] 84 Pulse Rate from SpO2 Sensor 87 Respiratory Rate 16 21 18 Respiratory Effort / Characteristics Non-Labored Spontaneous Respiratory Depth Normal Respiratory Pattern Regular Blood Pressure 173/94 H 158/67 H Blood Pressure [Left Arm] 137/77 Blood Pressure Mean 120 97 Blood Pressure Mean [Left Arm] 97 Blood Pressure Position Lying Blood Pressure Position [Left Arm] Lying Pulse Oximetry 97 97 97 Oxygen Delivery Method Room Air Room Air Sepsis Recent Fever Within 48 Hours No Sepsis New/Unexplained Change in Mental Status No Sepsis Action Taken by Nursing No Action Required GENERAL: alert, well appearing, well nourished, no distress, non-toxic EYE EXAM: normal conjunctiva, PERRL and EOM's grossly intact OROPHARYNX: no exudate, no erythema, lips, buccal mucosa, and tongue normal and mucous membranes are moist NECK: supple, no nuchal rigidity, no adenopathy, non-tender LUNGS: Clear to auscultation. Normal chest wall mechanics, no w/r/r HEART: no murmurs, S1 normal and S2 normal ABDOMEN: abdomen soft, non-tender, normo-active bowel sounds, no masses, no rebound or guarding. BACK: Back is symmetrical on inspection and there is no deformity, no midline tenderness, no CVA tenderness. SKIN: no rashes and no bruising UPPER EXTREMITIES: upper extremities are grossly normal. FROM, nml pulses b/l. LOWER EXTREMITIES: No pitting edema. FROM, nml pulses b/l. NEURO EXAM: Normal sensorium, cranial nerves II-XII grossly intact, normal speech, no gross weakness of arms, no gross weakness of legs. Gross sensation intact. Course Administered Medications Aspirin (Aspirin 81 Mg Ectab) 81 mg PO QAM NOMAN Stop: 08/06/22 08:59 Last Admin: 07/07/22 07:47 Dose: 81 mg Documented By: [id number] Carvedilol (Carvedilol 25 Mg Tab) 25 mg PO BID [facility] Stop: 08/06/22 08:59 Last Admin: 07/07/22 07:46 Dose: 25 mg Documented By: [id number] Enoxaparin Sodium (Enoxaparin Inj 40 Mg/0.4 Ml Syr) 40 mg SQ Q24H NOMAN Stop: 08/06/22 08:59 Last Admin: 07/07/22 07:47 Dose: 40 mg Documented By: [id number] Insulin Aspart (Insulin Aspart Per Unit) 0 units SC ACHS [facility] Stop: 08/06/22 07:29 Last Admin: 07/07/22 08:36 Dose: 12 units Documented By: [id number] Co-signed By: TABITHA Levothyroxine Sodium (Levothyroxine Sodium 50 Mcg Tablet) 50 mcg PO DAILYBB [facility] Stop: 08/06/22 06:29 Last Admin: 07/07/22 06:50 Dose: 50 mcg Documented By: [id number] Metoprolol Tartrate (Metoprolol Tartrate 50 Mg Tab) 50 mg PO QAM [facility] Stop: 08/06/22 08:59 Last Admin: 07/07/22 07:47 Dose: 50 mg Documented By: [id number] Discontinued Medications Furosemide (Furosemide 40 Mg/4 Ml Vial) 40 mg IV ONE ONE Stop: 07/07/22 03:01 Last Admin: 07/07/22 03:13 Dose: 40 mg Documented By: ALLEGRA Insulin Human Regular (Novolin-R Insulin Per Unit Charge) 6 units SC NOW STA Stop: 07/07/22 03:32 Last Admin: 07/07/22 03:53 Dose: 6 units Documented By: ALLEGRA Co-signed By: STELLA Nitroglycerin (Nitroglycerin 2% Ointment 30gm Tube) 1 inch EXT NOW STA Stop: 07/07/22 03:26 Last Admin: 07/07/22 03:31 Dose: 1 inch Documented By: ALLEGRA Medical Decision Making Differential Diagnosis Differential diagnoses includes but is not limited to acute coronary syndrome, myocardial infarction, pericarditis, pulmonary embolus, aortic dissection, pneumonia, pneumothorax, musculoskeletal, shingles, esophageal. Medical Records Attestation: I reviewed the patient's medical records. Home Medications Current Medication List: was personally reviewed by me Laboratory Data Attestation: I reviewed the patient's lab results. Result diagrams: 07/07/22 02:20 07/07/22 02:20 Lab Results 07/07/22 07/07/22 07/07/22 Range/Units 02:20 02:20 02:20 WBC 7.08 (4.8-10.8) K/ul RBC 5.07 (3.93-5.22) M/uL Hgb 13.9 (12.0-16.0) g/dl Hct 41.9 (34.1-44.9) % MCV 82.6 (80.0-100.0) fL MCH 27.4 (25.0-34.0) pg MCHC 33.2 (32.0-36.0) g/dL RDW Std Deviation 38.4 (36.4-46.3) fL RDW Coeff of Barbara 12.8 (11.5-14.5) % Plt Count 224 (130-400) K/uL MPV 10.8 (9.4-12.3) fL Immature Gran % (Auto) 0.3 % Neut % (Auto) 43.3 % Lymph % (Auto) 42.7 % [place] % (Auto) 11.0 % Eos % (Auto) 2.0 % Baso % (Auto) 0.7 % Neut # (Auto) 3.07 (1.4-6.5) K/uL Lymph # (Auto) 3.02 (1.2-3.4) K/uL [place] # (Auto) 0.78 (0.24-0.82) K/uL Eos # (Auto) 0.14 (0-0.50) K/uL Baso # (Auto) 0.05 (0-0.2) K/uL Immature Gran # (Auto) 0.02 (0.00-0.02) K/uL PT 10.1 (9.0-12.0) Seconds INR 0.9 (0.9-1.1) Sodium 134 L (136-145) mmol/L Potassium 4.1 (3.5-5.1) mmol/L Chloride 101 (98-107) mmol/L Carbon Dioxide 23 (21-32) mmol/L Anion Gap 10 (3-11) BUN 36 H (6-23) mg/dl Creatinine 1.08 (0.6-1.2) mg/dl Est Cr Clr Drug Dosing 46.3 ml/min Est GFR ( Amer) 57.7 ml/min Est GFR (Non-Af Amer) 49.8 ml/min BUN/Creatinine Ratio 33.3 H (10-20) Glucose 365 H* (70-99(Fasting)) mg/dl Calcium 9.3 (8.5-10.1) mg/dl Magnesium 2.2 (1.7-2.4) mg/dl Total Bilirubin 0.4 (0.2-1.0) mg/dl AST 17 (13-39) U/L ALT 15 (7-52) U/L Alkaline Phosphatase 98 (34-104) U/L Troponin I High Sens 50.3 H* D (0-14) pg/ml B-Natriuretic Peptide (0-100) pg/ml Total Protein 7.8 (6.0-8.3) gm/dl Albumin 4.1 (3.4-5.0) gm/dl Globulin 3.7 (2.5-4.0) gm/dl Albumin/Globulin Ratio 1.1 (0.9-2) TSH (0.300-4.500) uIu/ml SARS-CoV-2, RNA, NAAT (NEGATIVE) 07/07/22 07/07/22 07/07/22 Range/Units 02:20 02:20 04:00 WBC (4.8-10.8) K/ul RBC (3.93-5.22) M/uL Hgb (12.0-16.0) g/dl Hct (34.1-44.9) % MCV (80.0-100.0) fL MCH (25.0-34.0) pg MCHC (32.0-36.0) g/dL RDW Std Deviation (36.4-46.3) fL RDW Coeff of Barbara (11.5-14.5) % Plt Count (130-400) K/uL MPV (9.4-12.3) fL Immature Gran % (Auto) % Neut % (Auto) % Lymph % (Auto) % [place] % (Auto) % Eos % (Auto) % Baso % (Auto) % Neut # (Auto) (1.4-6.5) K/uL Lymph # (Auto) (1.2-3.4) K/uL [place] # (Auto) (0.24-0.82) K/uL Eos # (Auto) (0-0.50) K/uL Baso # (Auto) (0-0.2) K/uL Immature Gran # (Auto) (0.00-0.02) K/uL PT (9.0-12.0) Seconds INR (0.9-1.1) Sodium (136-145) mmol/L Potassium (3.5-5.1) mmol/L Chloride (98-107) mmol/L Carbon Dioxide (21-32) mmol/L Anion Gap (3-11) BUN (6-23) mg/dl Creatinine (0.6-1.2) mg/dl Est Cr Clr Drug Dosing ml/min Est GFR ( Amer) ml/min Est GFR (Non-Af Amer) ml/min BUN/Creatinine Ratio (10-20) Glucose (70-99(Fasting)) mg/dl Calcium (8.5-10.1) mg/dl Magnesium (1.7-2.4) mg/dl Total Bilirubin (0.2-1.0) mg/dl AST (13-39) U/L ALT (7-52) U/L Alkaline Phosphatase (34-104) U/L Troponin I High Sens (0-14) pg/ml B-Natriuretic Peptide 336 H (0-100) pg/ml Total Protein (6.0-8.3) gm/dl Albumin (3.4-5.0) gm/dl Globulin (2.5-4.0) gm/dl Albumin/Globulin Ratio (0.9-2) TSH 3.568 (0.300-4.500) uIu/ml SARS-CoV-2, RNA, NAAT NEGATIVE (NEGATIVE) Imaging Data My Impression: X-ray: I interpreted the following studies. Chest: A single view study of the chest was reviewed and was negative for cardiomegaly, focal infiltrate, effusion, pulmonary edema, or wide mediastinum. Radiologist's Impression: Chest X-Ray 07/07/22 02:12 XR chest 1V portable CLINICAL HISTORY: Shortness of breath. Chest pain. COMPARISON STUDY: Chest CT March 25, 2022 and chest radiograph April 15, 2022. FINDINGS: Pulmonary edema and bilateral pleural effusions shown on prior exam have resolved. There is no consolidation to suggest pneumonia. Borderline cardiomegaly is noted. IMPRESSION: No acute cardiopulmonary findings. ACT 112: Negative or not required by law. Electronically signed by: Homero Carver M.D. 07/07/2022 7:54 AM ECG Data Attestation: I personally reviewed and interpreted this ECG as follows: Indication: + chest pain and + SOB/dyspnea Rate (beats per minute): 90 Rhythm: + normal sinus ECG Intervals/blocks: + Left bundle branch block and + Normal QT ECG [place]: + Left axis deviation ECG ST segments: + Nonspecific ST abnormalities MDM Narrative An order was placed for continuous cardiac monitoring. The monitor shows a rate of _80_ with _normal sinus__ rhythm. This is a 77-year-old female presents due to worsening chest pain, dyspnea with exertion, and increased fatigue. Patient does have cardiac history and follows with cardiology. Recent outpatient echo was reviewed with her at bedside, shows an LVEF of 40 to 45%. Labs drawn and sent and chest x-ray performed. EKG without any acute changes, left bundle branch block noted on prior. No overt evidence of acute CHF on physical exam. Patient felt improved with nitro paste, blood pressure improved also. We discussed all results at bedside as well as need for additional evaluation and management, she verbalized understanding was in agreement with the plan. Case discussed with hospitalist team. Impression & Plan Chest pain, BOOGIE (dyspnea on exertion), Elevated troponin, Elevated brain natriuretic peptide (BNP) level Discharge Plan Visit Data Chief Complaint: Chest Pain ED Provider: Cindy Hinds Discharge Problem: Chest pain, BOOGIE (dyspnea on exertion), Elevated troponin, Elevated brain natriuretic peptide (BNP) level Patient Disposition: Admitted As Inpatient Discharge Instructions Interventions: ED Discharge Assessment Last Done: 07/07/22 05:41
[2022-07-07] MEDS ORDERED: FUROSEMIDE 40 MG/4 ML VIAL IV ONE (03:00)
[2022-07-07 03:04] LABS: Troponin I High Sensitivity 50.3 pg/ml (0-14)
[2022-07-07] MEDS ORDERED: NITROGLYCERIN 2% OINTMENT 30GM TUBE EXT STA (03:25)
[2022-07-07 03:31] LABS: Albumin Globulin Ratio 1.1 (0.9-2); Albumin Level 4.1 gm/dl (3.4-5.0); BUN Creatinine Ratio 33.3 (10-20); Bilirubin,Total 0.4 mg/dl (0.2-1.0); Calcium 9.3 mg/dl (8.5-10.1); Creatinine Clr Calc Pharmacy 46.3 ml/min; Est GFR (African American) 57.7 ml/min; Est GFR (Non-African American) 49.8 ml/min; Globulin 3.7 gm/dl (2.5-4.0); Magnesium 2.2 mg/dl (1.7-2.4); Potassium 4.1 mmol/L (3.5-5.1); Total Protein 7.8 gm/dl (6.0-8.3)
[2022-07-07] MEDS ORDERED: NovoLIN-R INSULIN PER UNIT CHARGE SC STA (03:31)
--- NOTE | 2022-07-07 04:49 | History & Physical Report ---
Date of Service July 07, 2022 Assessment & Plan (1) Acute systolic (congestive) heart failure: Plan: On physical exam, she appears euvolemic, but symptoms indicate mild CHF exacerbation (increasing BOOGIE, orthopnea, 1 week weight gain of 6 lbs). BNP elevated to 336, though CXR does not have pulmonary edema per my read. - Limited echo to look for any acute changes from 06/24 - Cardiology consulted - Trend troponin this AM - Given mild nature of her presumed exacerbation, have switched her to Lasix 40 mg PO daily for now. Defer to cardiology for any adjustment. (2) Cardiomyopathy: Plan: Thought to be from chemotherapy. EF was 40-45% on . - Continue carvedilol & metoprolol (confirmed with patient that she is on both). Defer to cardiology on changes for this. - Held ARB for possible ARNI - Already on SGLT2i (3) Non-occlusive coronary artery disease: Plan: Non-occlusive 50% stensosis on LCx in 05/2017. - Continue ASA & statin (4) Stage I carcinoma of colon: Plan: S/p colectomy for colon cancer on 04/08/2022. Seen in [facility] with no need for further chemo or radiation. - Monitor output - No acute needs at this time. (5) Hypertension: Plan: BP in ER was 135/75. - Continue meds as above (6) Type 2 diabetes mellitus: Plan: A1c was 9.3% in 03/2022. - Hold Jardiance - Continue long-acting insulin at 30 units with evening meal (lowered from home 35 units for lower calorie diet) - Sliding scale insulin - Repeat A1c (7) Hypothyroid: Plan: TSH this admission is 3.56. - Continue home Synthroid (8) DVT prophylaxis: Plan: Lovenox 40 mg SQ daily FULL CODE - Patient would like to discuss with Dr. De Jesus, but for now wishes to be full code. History of Present Illness Primary Care Provider: Mesha Ramos MD 77yo F w/ hx of [facility] who presents new acute systolic CHF. The patient reports that she got her COVID booster approximately 1 week ago. She had been feeling close to her baseline state of health, though she reports that she has not bounced back from her partial colectomy as quickly as she thought she would. About 1 week ago she got her COVID booster, and has felt short of breath, tired, and had low energy since then. In particular she notes that she gets dyspneic with exertion. Whereas previously she could easily get around her house, now she notes that she is not able to walk from her bedroom to her bathroom without getting short of breath. She also notes that she has become orthopneic, and has started to sleep in her recliner instead of in her bed. She also notes that she has gained approximately 6 pounds in the last week. Her baseline weight is around 194 pounds, and she reports now weighing 200 pounds on last check. She denies any lower extremity swelling. She takes her Lasix every other day as per her vegetable grader's instructions. Allergies Allergy/AdvReac Type Severity Reaction Status Date / Time gabapentin Allergy Severe Swelling Verified 07/07/22 02:24 of Lip/Tongue/Throat pollen extracts Allergy Severe Difficulty Verified 07/07/22 02:24 Breathing adhesive Allergy Intermediate SKIN TEARS Verified 07/07/22 02:24 AND HEALING ISSUES Barbiturates Allergy Intermediate Hives Verified 07/07/22 02:24 propoxyphene Allergy Unknown Unknown Verified 07/07/22 02:24 hydrochlorothiazide AdvReac Intermediate Gastrointestinal Verified 07/07/22 02:24 Upset pantoprazole AdvReac Intermediate Gastrointestinal Verified 07/07/22 02:24 Upset phenobarbital AdvReac Intermediate heart Verified 07/07/22 02:24 racing pseudoephedrine AdvReac Intermediate light Verified 07/07/22 02:24 headed, heart racing sertraline AdvReac Intermediate light Verified 07/07/22 02:24 headed, dizzy Sulfa (Sulfonamide AdvReac Intermediate Vomiting Verified 07/07/22 02:24 Antibiotics) triamterene AdvReac Intermediate Gastrointestinal Verified 07/07/22 02:24 Upset Home Medications Medication Instructions Recorded Confirmed Type aspirin 81 mg tablet,delayed 81 mg PO QAM 07/28/18 07/07/22 History release (Gerda Low Dose Aspirin) biotin 1 mg tablet 1 mg PO QAM 07/28/18 07/07/22 History lancets 30 gauge (OneTouch Delrosibel #25 ea 02/08/19 06/24/22 History Lancets) multivitamin 1 tab PO QAM 02/08/19 07/07/22 History glucosam 750 mg-chondroi 100 1 tab PO DAILY 01/12/20 07/07/22 History mg-hyalur 1.65 mg-CF borate 108 mg tablet (Move Free Leetchi) cranberry 500 mg capsule 500 mg PO QAM 05/21/21 07/07/22 History turmeric 400 mg capsule 400 mg PO QAM 05/21/21 07/07/22 History cholecalciferol (vitamin D3) 50 0 mcg PO QAM 08/25/21 07/07/22 History mcg (2,000 unit) capsule (Vitamin D3) albuterol sulfate 90 mcg/actuation 1 - 2 puff inhalation Q6H PRN 09/28/21 07/07/22 Rx aerosol inhaler (Ventolin HFA) Shortness Of Breath #6.7 grams insulin lispro 100 unit/mL See Rx Instructions .Route 11/22/21 07/07/22 Rx subcutaneous pen (Humalog KwikPen .COMPLEX #60 mL (U-100) Insulin) acetaminophen 500 mg tablet 500 mg PO TID PRN Pain 12/12/21 07/07/22 History (Tylenol Extra Strength) zinc gluconate 30 mg tablet 30 mg PO QAM 12/12/21 07/07/22 History atorvastatin 40 mg tablet 40 mg PO QPM #90 tabs 02/12/22 07/07/22 Rx ipratropium bromide 21 mcg (0.03 2 spray intranasal TID PRN Allergy 02/12/22 07/07/22 Rx %) nasal spray Symptoms #30 mL BD Ultra-Fine [place] Pen Needle 32 #400 ea 02/15/22 06/24/22 Rx gauge x 5/32" (pen needle, diabetic) empagliflozin 25 mg tablet 25 mg PO QAM 04/11/22 07/07/22 History (Jardiance) olmesartan 40 mg tablet (Benicar) 40 mg PO DAILY 04/11/22 07/07/22 History diclofenac sodium 1 % topical gel 4 g topical QID PRN pain #500 grams 04/20/22 07/07/22 Rx levothyroxine 50 mcg tablet 50 mcg PO QAM #90 tabs 04/20/22 07/07/22 Rx montelukast 10 mg tablet 10 mg PO QPM #90 tabs 04/20/22 07/07/22 Rx omeprazole 20 mg capsule,delayed 20 mg PO BID #180 caps 04/20/22 07/07/22 Rx release insulin glargine U-300 conc 300 35 unit (0.1167 mL) subcut QDD 04/23/22 07/07/22 Rx unit/mL (1.5 mL) subcutaneous pen #13.5 mL (Toujeo SoloStar U-300 Insulin) blood sugar diagnostic #300 ea 05/07/22 06/24/22 Rx furosemide 40 mg tablet 40 mg PO DAILY PRN weight gain or 05/09/22 07/07/22 Rx edema #90 tabs carvedilol 25 mg tablet 25 mg PO BID #60 tabs 05/20/22 07/07/22 Rx hydrocortisone acetate 25 mg 25 mg NV BID 4 weeks #100 ea 06/24/22 07/07/22 Rx rectal suppository metoprolol tartrate 25 mg tablet See Rx Instructions PO DAILY #270 06/25/22 07/07/22 Rx tabs Past Med/Surg History Medical History (Updated 07/07/22 @ 04:51 by Tree Ortiz MD) Anxiety Asthma inhaler prn- uses rarely CAD (coronary artery disease) non-occlusive per [place] [facility] records Cardiomyopathy non-ischemic, severe, suspected to be d/t prior chemotherapy per [place] [facility] records Chronic combined systolic and diastolic heart failure Colon cancer Diabetes mellitus, type 2 Fibromyalgia GERD (gastroesophageal reflux disease) Hearing deficit Hx of myocardial infarction multiple, most recent 2016 cardiac cath 2017 with no stents Hx of sarcoma of soft tissue right elbow- 2001; s/p chemo Hx of thrombophlebitis RLE Hyperlipidemia Hypertension Hypothyroidism LBBB (left bundle branch block) Lymphedema bilat arms Obesity Sarcoma right arm Sensorineural hearing loss (SNHL) of both ears Stage I carcinoma of colon Surgical History H/O colectomy (04/11/22) Laparoscopic convert to laparotomy low anterior resection colectomy (Not Applicable) - [facility], History of anesthesia reaction difficulty waking History of bilateral carpal tunnel release x2 History of bilateral tubal ligation History of cardiac cath 2017 @ [facility] > no stents History of cholecystectomy 08/29/2021: Grade 1 view, elective glidescope #3, ETT#7.0. History of laparoscopic cholecystectomy Aug 2021 [facility] History of left breast biopsy benign History of left cataract extraction History of surgery of liver stent placed and removed History of surgery on arm sarcoma removal of right arm History of tooth extraction under local History of vascular access device removed 2007 Hx of colonoscopy 2021 Hx of varicose vein ligation right leg Family History Mother Family history of diabetes mellitus Myocardial infarction Allergies Cardiac disorder Hypertension Grandfather (Maternal) Family history of diabetes mellitus Grandfather (Paternal) Family history of diabetes mellitus Daughter Family hx of colon cancer Colorectal cancer Allergies Father Stroke Myocardial infarction Brother Brain tumor Renal failure Grandmother (Maternal) Cardiac disorder Other Bleeding disorder Denies family history of Ovarian cancer Prostate cancer Breast cancer Social History Smoking Status: Never smoker Second Hand Exposure: No; Hx Alcohol Use: No Hx Substance Use: No Preferred Language: Malawian Communication Ability: Effective Visual Impairment: No Limitations Hearing Ability: Hard of Hearing Wire [employer] Required: No Beliefs That Will Affect Care: None marital status: Current Living Situation: Alone 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 How many Children do You have: 4 Feels Safe at Home: Yes Childhood Exposure to Second-Hand Smoke: Yes caffeine: No during the past year weight has: increased > 10 lbs Dental Care, Regularly: No Physical Activity Frequency: Does not Exercise Physical Activity Frequency Comment: limited d/t housing Seatbelt Use: always Sunscreen Use: Yes Assistive Devices: None Review of Systems Review of Systems: All systems reviewed & are unremarkable except as noted in HPI & below Physical Exam Constitutional: WD/WN, vitals as above Eyes: EOM intact bilaterally; no conjunctival abnormality ENMT: external ear and nose normal, oropharynx normal Neck: trachea midline, no thyromegaly normal visual inspection Respiratory: normal respiratory effort, lungs clear to auscultation no respiratory distress Cardiovascular: RRR, no murmur, no edema Gastrointestinal (Abdomen): Inspection/Auscultation: abdomen normal to inspection; abdomen not distended Musculoskeletal: no cyanosis or clubbing, extremities motor strength 5/5 Skin: no rashes, warm and dry Neurologic: moves all extremities and awake Psychiatric: Orientation: alert, oriented to person and cooperative Results & Data Results & Data ([place]) Vital Signs (Past 12 Hours) Vital Signs Temp Pulse Pulse Resp BP BP Pulse Ox 07/07/22 03:48 84 18 137/77 97 07/07/22 02:00 85 21 158/67 H 97 07/07/22 01:59 36.6 C 86 16 173/94 H 97 O2 Del Method 07/07/22 03:48 Room Air 07/07/22 02:00 07/07/22 01:59 Room Air Code Status & VTE Plan VTE Prophylaxis Plan VTE Prophylaxis will be ordered: Yes PG Care Time/CCT Total # of Minutes Spent Total Time Spent with Patient: Total time spent is greater than 50% in coordination of care (as documented) at patient's floor/unit and/or counseling patient: Coding Level of Care Code 71522 Initial Inpt Care Lvl 3 Diagnoses Acute systolic (congestive) heart failure I50.21 Cardiomyopathy I42.9 Non-occlusive coronary artery disease I25.10 Stage I carcinoma of colon C18.9 Hypertension I10 Type 2 diabetes mellitus E11.9 Hypothyroid E03.9 DVT prophylaxis Z29.9
[2022-07-07] MEDS ORDERED: CARBOHYDRATES FOR HYPOGLYCEMIA PO PRN (05:55)
[2022-07-07] MEDS ORDERED: GLUCOSE 10 TAB/TUBE PO PRN (05:55)
[2022-07-07] MEDS ORDERED: ONDANSETRON INJ 2 MG/ML 2 ML VIAL IV PRN (05:55)
[2022-07-07] MEDS ORDERED: ACETAMINOPHEN 500 MG TAB PO PRN (05:55)
[2022-07-07] MEDS ORDERED: GLUCAGON FOR INJ 1 MG VIAL SQ PRN (05:55)
[2022-07-07] MEDS ORDERED: DEXTROSE 50% 50 ML SYRINGE IV PRN (05:55)
[2022-07-07] MEDS ORDERED: GLUCOSE 40% GEL 15 GM TUBE PO PRN (05:55)
[2022-07-07] MEDS: LEVOTHYROXINE SODIUM 50 MCG TABLET PO SCH (06:50)
[2022-07-07] MEDS: carvediloL 25 MG TAB PO SCH ×2 (07:46→21:02)
[2022-07-07] MEDS: METOPROLOL TARTRATE 50 MG TAB PO SCH (07:47)
[2022-07-07] MEDS: ASPIRIN 81 MG ECTAB PO SCH (07:47)
--- NOTE | 2022-07-07 07:56 | XRay Report ---
XR chest 1V portable CLINICAL HISTORY: Shortness of breath. Chest pain. COMPARISON STUDY: Chest CT March 25, 2022 and chest radiograph April 15, 2022. FINDINGS: Pulmonary edema and bilateral pleural effusions shown on prior exam have resolved. There is no consolidation to suggest pneumonia. Borderline cardiomegaly is noted. IMPRESSION: No acute cardiopulmonary findings. ACT 112: Negative or not required by law. Electronically signed by: Homero Carver M.D. 07/07/2022 7:54 AM
[2022-07-07] MEDS: INSULIN ASPART PER UNIT SC SCH ×4 (08:36→21:00)
[2022-07-07] MEDS ORDERED: ENOXAPARIN INJ 40 MG/0.4 ML SYR SQ SCH (09:00)
--- NOTE | 2022-07-07 11:05 | XCELERA ---
[id number]
[2022-07-07] MEDS ORDERED: Heparin IV Adult Wt-Based Standard WITH Bolus Protocol IV STA (11:17)
[2022-07-07] MEDS ORDERED: HEPARIN SOD (PORCINE) 1000 UNIT/ML IV ONE (11:33)
[2022-07-07] MEDS ORDERED: PHARMACY GLYCEMIC MGMT CONSULT PRN (12:04)
[2022-07-07 12:15] LABS: Partial Thromboplastin Ratio 0.9; Partial Thromboplastin Time 24.6 Seconds (21.0-31.0); Prothrombin Time 10.5 Seconds (9.0-12.0)
[2022-07-07] MEDS: HEPARIN SODIUM/DEXTROSE 25,000 UNITS/500 ML BAG IV SCH (12:28)
--- NOTE | 2022-07-07 13:28 | Hospitalist Progress Note ---
Date of Service July 07, 2022 Assessment & Plan Admission and Anticipated Discharge Date Admission Date: July 07, 2022 Results & Data Results & Data ([facility]) Vital Signs (Past 12 Hours) Vital Signs Temp Pulse Pulse Resp BP BP Pulse Ox 07/07/22 10:26 36.5 C 65 19 112/69 97 07/07/22 10:14 07/07/22 09:32 83 07/07/22 07:45 36.4 C L 83 19 132/73 97 07/07/22 05:37 84 07/07/22 06:05 36.5 C 84 18 112/67 96 07/07/22 05:12 82 18 146/83 H 95 07/07/22 03:48 84 18 137/77 97 07/07/22 02:00 85 21 158/67 H 97 07/07/22 01:59 36.6 C 86 16 173/94 H 97 O2 Del Method 07/07/22 10:26 Room Air 07/07/22 10:14 Room Air 07/07/22 09:32 07/07/22 07:45 Room Air 07/07/22 05:37 07/07/22 06:05 Room Air 07/07/22 05:12 Room Air 07/07/22 03:48 Room Air 07/07/22 02:00 07/07/22 01:59 Room Air PG Care Time/CCT Total # of Minutes Spent Total Time Spent with Patient: Total time spent is greater than 50% in coordination of care (as documented) at patient's floor/unit and/or counseling patient: Coding
--- NOTE | 2022-07-07 13:39 | Pharmacy Report ---
Pharmacy Glycemic Short Note 2 - Date of Service July 07, 2022 - Glycemic Short BSG Results (Last 24 hours): 07/07/22 07/07/22 07/07/22 02:20 06:00 10:24 Glucose 365 H* POC Glucose 277 H 260 H 07/07/22 12:10 Glucose POC Glucose 170 H OUTPATIENT ANTIDIABETIC REGIMEN: * Toujeo 35 units SC daily with dinner * Humalog 14 units SC daily with breakfast, 16 units with lunch, 20 units with dinner + SSI (up to 55 units/day) * Jardiance 25 mg PO daily HbA1c 9.3% (03/25/22), recheck tomorrow ASSESSMENT: * BM is a 77 year old female admitted for CHF exacerbation * Pertinent PMH includes T2DM, stage one carcinoma of colon, CHF/cardiomyopathy (on Jardiance) * Pharmacy consulted for glycemic management today at lunchtime * Will base initial insulin dosing on outpatient total daily insulin requir ements * Heparin gtt (mixed in dextrose) currently infusing PLAN FOR INPATIENT GLYCEMIC CONTROL: * Hold outpatient oral diabetes medications * Basal insulin * Lantus 30 units SC tonight with dinner (~80% of home dose, accounting for conversion of Toujeo to Lantus) * Reassess in AM * Bolus insulin * NovoLog per scale ACHS or Q6hrs while NPO * Goal Range: Low 110 mg/dL - High 140 mg/dL * Correction Factor: 20 mg/dL/unit * Nutritional / Prandial insulin per carb ratio of 1 unit per 7 grams CHO consumed
[2022-07-07] MEDS ORDERED: LANTUS PER UNIT CHARGE SQ SCH ×2 (16:30)
--- NOTE | 2022-07-07 17:53 | Cardiology Consultation ---
Date of Consultation July 07, 2022 Assessment & Plan (1) Non-ST elevation (NSTEMI) myocardial infarction: (2) Chest pain: (3) Elevated troponin: (4) Cardiomyopathy: (5) CAD (coronary artery disease): (6) Heart failure with mid-range ejection fraction: (7) Hypertension: (8) Hyperlipidemia: Plan ASSESSMENT/PLAN: 1. NSTEMI: Symptoms concerning for unstable angina/acute coronary syndrome now with elevated troponin. Trend troponin until peak. Currently chest pain-free. On aspirin. Agree with heparin drip. Continue beta-lucia. Recommend cardiac catheterization. Risks and benefits were discussed with her and her daughters in detail. She is made aware that CT surgery is not available at this facility. NPO after midnight in anticipation cardiac catheterization tomorrow. 2. Cardiomyopathy: Nonischemic. Had cardiac catheterization 2017 with nonobstructive CAD. Cardiomyopathy be felt to be due to possible chemotherapy in the past. Continue carvedilol, ARB. 3. Chronic heart failure with mid-range EF: She does not appear to be significantly hypervolemic. Her near-syncope earlier this morning may have been due to orthostatic hypotension after intravenous diuretic therapy and nitrates. Would not further aggressively diurese today. Continue carvedilol, ARB, Jardiance. 4. CAD: Nonobstructive in 2017. Continue medical therapy. Cardiac catheterization as above. 5. Hypertension: Blood pressure initially elevated but since normotensive. Plan as above. 6. Dyslipidemia: Continue high-intensity statin therapy. 7. Disposition: Cardiology will continue to follow. Patient care discussed with primary hospitalist, Dr. Briceno. Follow-up with Dr. De Jesus on discharge. Highly complex medical issues. Thank you for allowing me to participate in the care of your patient. Please call for any other questions or concerns. Sincerely, Huber Barrett M.D. History of Present Illness Reason for Consultation: Acute systolic CHF Requesting Physician: Tree Ortiz Attending Physician: Merary Briceno DO History of Present Illness Ms. 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 Her primary offset printing operator is Dr. De Jesus. She has had the following studies/procedures: 1. Cardiac catheterization 05/29/2017: Co dominant. Mid circumflex 30% at bifurcation of large OM. Mid to distal circumflex 50% diffuse stenosis (FFR 0.91). Mid RCA mild CAD with distal luminal irregularities. Lad luminal irregularities. 2. Echo 08/26/2021: Normal LV size. EF 45-50%. Severe hypokinesis to akinesis of the mid inferoseptum and mid anteroseptum. No significant valvular abnormalities. 3. Echo 07/07/2022: Mildly to moderately reduced LV systolic function. EF 40- 45%. Global hypokinesis with severe hypokinesis to akinesis of the mid to distal anteroseptum and mid to distal inferoseptum. Limited 2D echo. She was admitted on 07/07/2022 after presenting with chest pain and shortness of breath. She states that she has not done well since undergoing colectomy for colon cancer on 04/11/2022. She has been noting substernal chest discomfort described as a pressure as though something was sitting on her chest. It has been occurring with exertion, but sometimes even light exertion. It has been increa sing with frequency. Then at approximately 1:00 a.m. this morning, she was awakened by the chest discomfort. It radiated to her back and bilateral shoulders. It typically is associated with shortness of breath as it was this morning. This morning she also noted diaphoresis which was made. She received nitroglycerin by EMS and in the emergency department and her chest discomfort resolved. She has not had any further chest discomfort while hospitalized. Her troponin was initially mildly elevated and continue to increase. Presenting chest discomfort was her first episode at rest. She admits that she has had orthopnea intermittently prior to hospitalization as well. She was given Lasix 40 mg IV x1 early this morning at admits that she had significant diuresis. When she got out of bed this morning to use the restroom, she felt weird when sitting up and then quite lightheaded. On the commode, she was lightheaded and range for help. She denies syncope. Her lightheadedness has since resolved. She admits that while lightheaded, she had palpitations but no arrhythmia has been noted. She lost approximately 8 lb since her colectomy but over the past few days, she has gained his weight back. She maintains a low-sodium diet. She has not noted significant edema. She celebrated Thanksgiving with her family yesterday and her daughters were present at the bedside. They stated that she appeared pasty and hernandez yesterday. She has been using Lasix every other day 40 mg at home. She has chronic bleeding hemorrhoids but no significant melena or hematuria. She was chest pain-free during our visit today. Review of systems:As above. Review of systems otherwise negative/unremarkable. Family history: Mother with CHF. Father had stroke. Social history: She denies tobacco, alcohol, or drug abuse. She lives alone. after being for over 30 years. Her and her ex- are not on good terms and they have no contact with 1 another. She has 4 children which are part of her life. She lives alone in an apartment at [facility].Her daughters, Jose De Jesus and Yaquelin were present at the bedside. Allergies Allergy/AdvReac Type Severity Reaction Status Date / Time gabapentin Allergy Severe Swelling Verified 07/07/22 02:24 of Lip/Tongue/Throat pollen extracts Allergy Severe Difficulty Verified 07/07/22 02:24 Breathing adhesive Allergy Intermediate SKIN TEARS Verified 07/07/22 02:24 AND HEALING ISSUES Barbiturates Allergy Intermediate Hives Verified 07/07/22 02:24 propoxyphene Allergy Unknown Unknown Verified 07/07/22 02:24 hydrochlorothiazide AdvReac Intermediate Gastrointestinal Verified 07/07/22 02:24 Upset pantoprazole AdvReac Intermediate Gastrointestinal Verified 07/07/22 02:24 Upset phenobarbital AdvReac Intermediate heart Verified 07/07/22 02:24 racing pseudoephedrine AdvReac Intermediate light Verified 07/07/22 02:24 headed, heart racing sertraline AdvReac Intermediate light Verified 07/07/22 02:24 headed, dizzy Sulfa (Sulfonamide AdvReac Intermediate Vomiting Verified 07/07/22 02:24 Antibiotics) triamterene AdvReac Intermediate Gastrointestinal Verified 07/07/22 02:24 Upset Home Medications Medication Instructions Recorded Confirmed Type aspirin 81 mg tablet,delayed 81 mg PO QAM 07/28/18 07/07/22 History release (Gerda Low Dose Aspirin) biotin 1 mg tablet 1 mg PO QAM 07/28/18 07/07/22 History lancets 30 gauge (OneTouch Delica #25 ea 02/08/19 06/24/22 History Lancets) multivitamin 1 tab PO QAM 02/08/19 07/07/22 History glucosam 750 mg-chondroi 100 1 tab PO DAILY 01/12/20 07/07/22 History mg-hyalur 1.65 mg-CF borate 108 mg tablet ([facility] [place]) cranberry 500 mg capsule 500 mg PO QAM 05/21/21 07/07/22 History turmeric 400 mg capsule 400 mg PO QAM 05/21/21 07/07/22 History cholecalciferol (vitamin D3) 50 0 mcg PO QAM 08/25/21 07/07/22 History mcg (2,000 unit) capsule (Vitamin D3) albuterol sulfate 90 mcg/actuation 1 - 2 puff inhalation Q6H PRN 09/28/21 07/07/22 Rx aerosol inhaler (Ventolin HFA) Shortness Of Breath #6.7 grams insulin lispro 100 unit/mL See Rx Instructions .Route 11/22/21 07/07/22 Rx subcutaneous pen (Humalog KwikPen .COMPLEX #60 mL (U-100) Insulin) acetaminophen 500 mg tablet 500 mg PO TID PRN Pain 12/12/21 07/07/22 History (Tylenol Extra Strength) zinc gluconate 30 mg tablet 30 mg PO QAM 12/12/21 07/07/22 History atorvastatin 40 mg tablet 40 mg PO QPM #90 tabs 02/12/22 07/07/22 Rx ipratropium bromide 21 mcg (0.03 2 spray intranasal TID PRN Allergy 02/12/22 07/07/22 Rx %) nasal spray Symptoms #30 mL BD Ultra-Fine [place] Pen Needle 32 #400 ea 02/15/22 06/24/22 Rx gauge x 5/32" (pen needle, diabetic) empagliflozin 25 mg tablet 25 mg PO QAM 04/11/22 07/07/22 History (Jardiance) olmesartan 40 mg tablet (Benicar) 40 mg PO DAILY 04/11/22 07/07/22 History diclofenac sodium 1 % topical gel 4 g topical QID PRN pain #500 grams 04/20/22 07/07/22 Rx levothyroxine 50 mcg tablet 50 mcg PO QAM #90 tabs 04/20/22 07/07/22 Rx montelukast 10 mg tablet 10 mg PO QPM #90 tabs 04/20/22 07/07/22 Rx omeprazole 20 mg capsule,delayed 20 mg PO BID #180 caps 04/20/22 07/07/22 Rx release insulin glargine U-300 conc 300 35 unit (0.1167 mL) subcut QDD 04/23/22 07/07/22 Rx unit/mL (1.5 mL) subcutaneous pen #13.5 mL (Toujeo SoloStar U-300 Insulin) blood sugar diagnostic #300 ea 05/07/22 06/24/22 Rx furosemide 40 mg tablet 40 mg PO DAILY PRN weight gain or 05/09/22 07/07/22 Rx edema #90 tabs carvedilol 25 mg tablet 25 mg PO BID #60 tabs 05/20/22 07/07/22 Rx hydrocortisone acetate 25 mg 25 mg [place] BID 4 weeks #100 ea 06/24/22 07/07/22 Rx rectal suppository metoprolol tartrate 25 mg tablet See Rx Instructions PO DAILY #270 06/25/22 07/07/22 Rx tabs Patient History Medical History Anxiety Asthma inhaler prn- uses rarely CAD (coronary artery disease) non-occlusive per [place] [facility] records Cardiomyopathy non-ischemic, severe, suspected to be d/t prior chemotherapy per [place] [facility] records Chronic combined systolic and diastolic heart failure Colon cancer Diabetes mellitus, type 2 Fibromyalgia GERD (gastroesophageal reflux disease) Hearing deficit Hx of myocardial infarction multiple, most recent 2016 cardiac cath 2017 with no stents Hx of sarcoma of soft tissue right elbow- 2001; s/p chemo Hx of thrombophlebitis RLE Hyperlipidemia Hypertension Hypothyroidism LBBB (left bundle branch block) Lymphedema bilat arms Obesity Sarcoma right arm Sensorineural hearing loss (SNHL) of both ears Stage I carcinoma of colon Surgical History H/O colectomy (04/11/22) Laparoscopic convert to laparotomy low anterior resection colectomy (Not Applicable) - Jonathan Nation DO History of anesthesia reaction difficulty waking History of bilateral carpal tunnel release x2 History of bilateral tubal ligation History of cardiac cath 2017 @ [facility] > no stents History of cholecystectomy 08/29/2021: Grade 1 view, elective glidescope #3, ETT#7.0. History of laparoscopic cholecystectomy Aug 2021 [facility] History of left breast biopsy benign History of left cataract extraction History of surgery of liver stent placed and removed History of surgery on arm sarcoma removal of right arm History of tooth extraction under local History of vascular access device removed 2007 Hx of colonoscopy 2021 Hx of varicose vein ligation right leg Family History Mother Family history of diabetes mellitus Myocardial infarction Allergies Cardiac disorder Hypertension Grandfather (Maternal) Family history of diabetes mellitus Grandfather (Paternal) Family history of diabetes mellitus Daughter Family hx of colon cancer Colorectal cancer Allergies Father Stroke Myocardial infarction Brother Brain tumor Renal failure Grandmother (Maternal) Cardiac disorder Other Bleeding disorder Denies family history of Ovarian cancer Prostate cancer Breast cancer Social History Smoking Status: Never smoker Second Hand Exposure: No; Hx Alcohol Use: No Hx Substance Use: No Preferred Language: Mongolian Communication Ability: Effective Visual Impairment: No Limitations Hearing Ability: Hard of Hearing Cobol Mainframe Developer Required: No Beliefs That Will Affect Care: None marital status: Current Living Situation: Alone 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 Alert and oriented. HEENT: Anicteric sclera. Neck: No JVD. No bruits. Normal carotid upstrokes bilaterally. Cardiac: PMI was nonpalpable. No ventricular heave. Regular. Normal S1-S2. No murmurs, rubs, or gallops. Pulmonary: Clear to auscultation bilaterally without wheezes, rales, or rhonchi. Abdomen: Soft, nontender, nondistended, with normoactive bowel sounds. No bruits noted. Extremities: 2+ right radial pulse. 1+ left radial pulse. 2+ posterior tibialis pulses bilaterally. No edema or cyanosis. Psychiatric: Affect appears appropriate. Results & Data ([facility]) Vital Signs (Past 12 Hours) Vital Signs Temp Pulse Pulse Resp BP Pulse Ox O2 Del Method 07/07/22 15:22 36.7 C 76 18 125/80 98 Room Air 07/07/22 15:19 81 07/07/22 10:26 36.5 C 65 19 112/69 97 Room Air 07/07/22 10:14 Room Air 07/07/22 09:32 83 07/07/22 07:45 36.4 C L 83 19 132/73 97 Room Air 07/07/22 06:05 36.5 C 84 18 112/67 96 Room Air Intake & Output 07/05/22 07/06/22 07/07/22 07/08/22 06:59 06:59 06:59 06:59 Intake Total 480 / 480 Balance 480 / 480 Weight 199 lb 15.348 oz Laboratory Results Laboratory Results - last 24 hr 07/07/22 07/07/22 07/07/22 02:20 02:20 02:20 WBC 7.08 RBC 5.07 Hgb 13.9 Hct 41.9 MCV 82.6 MCH 27.4 MCHC 33.2 RDW Std Deviation 38.4 RDW Coeff of Barbara 12.8 Plt Count 224 MPV 10.8 Immature Gran % (Auto) 0.3 Neut % (Auto) 43.3 Lymph % (Auto) 42.7 [place] % (Auto) 11.0 Eos % (Auto) 2.0 Baso % (Auto) 0.7 Neut # (Auto) 3.07 Lymph # (Auto) 3.02 [place] # (Auto) 0.78 Eos # (Auto) 0.14 Baso # (Auto) 0.05 Immature Gran # (Auto) 0.02 PT 10.1 INR 0.9 APTT PTT Ratio Sodium 134 L Potassium 4.1 Chloride 101 Carbon Dioxide 23 Anion Gap 10 BUN 36 H Creatinine 1.08 Est Cr Clr Drug Dosing 46.3 Est GFR ( Amer) 57.7 Est GFR (Non-Af Amer) 49.8 BUN/Creatinine Ratio 33.3 H Glucose 365 H* POC Glucose Calcium 9.3 Magnesium 2.2 Total Bilirubin 0.4 AST 17 ALT 15 Alkaline Phosphatase 98 Troponin I High Sens 50.3 H* D B-Natriuretic Peptide Total Protein 7.8 Albumin 4.1 Globulin 3.7 Albumin/Globulin Ratio 1.1 TSH SARS-CoV-2, RNA, NAAT 07/07/22 07/07/22 07/07/22 02:20 02:20 04:00 WBC RBC Hgb Hct MCV MCH MCHC RDW Std Deviation RDW Coeff of Barbara Plt Count MPV Immature Gran % (Auto) Neut % (Auto) Lymph % (Auto) [place] % (Auto) Eos % (Auto) Baso % (Auto) Neut # (Auto) Lymph # (Auto) [place] # (Auto) Eos # (Auto) Baso # (Auto) Immature Gran # (Auto) PT INR APTT PTT Ratio Sodium Potassium Chloride Carbon Dioxide Anion Gap BUN Creatinine Est Cr Clr Drug Dosing Est GFR ( Amer) Est GFR (Non-Af Amer) BUN/Creatinine Ratio Glucose POC Glucose Calcium Magnesium Total Bilirubin AST ALT Alkaline Phosphatase Troponin I High Sens B-Natriuretic Peptide 336 H Total Protein Albumin Globulin Albumin/Globulin Ratio TSH 3.568 SARS-CoV-2, RNA, NAAT NEGATIVE 07/07/22 07/07/22 07/07/22 06:00 06:25 10:24 WBC RBC Hgb Hct MCV MCH MCHC RDW Std Deviation RDW Coeff of Barbara Plt Count MPV Immature Gran % (Auto) Neut % (Auto) Lymph % (Auto) [place] % (Auto) Eos % (Auto) Baso % (Auto) Neut # (Auto) Lymph # (Auto) [place] # (Auto) Eos # (Auto) Baso # (Auto) Immature Gran # (Auto) PT INR APTT PTT Ratio Sodium Potassium Chloride Carbon Dioxide Anion Gap BUN Creatinine Est Cr Clr Drug Dosing Est GFR ( Amer) Est GFR (Non-Af Amer) BUN/Creatinine Ratio Glucose POC Glucose 277 H 260 H Calcium Magnesium Total Bilirubin AST ALT Alkaline Phosphatase Troponin I High Sens 141.1 H* D B-Natriuretic Peptide Total Protein Albumin Globulin Albumin/Globulin Ratio TSH SARS-CoV-2, RNA, NAAT 07/07/22 07/07/22 07/07/22 11:49 11:49 12:10 WBC RBC Hgb Hct MCV MCH MCHC RDW Std Deviation RDW Coeff of Barbara Plt Count MPV Immature Gran % (Auto) Neut % (Auto) Lymph % (Auto) [place] % (Auto) Eos % (Auto) Baso % (Auto) Neut # (Auto) Lymph # (Auto) [place] # (Auto) Eos # (Auto) Baso # (Auto) Immature Gran # (Auto) PT 10.5 INR 1.0 APTT 24.6 PTT Ratio 0.9 Sodium Potassium Chloride Carbon Dioxide Anion Gap BUN Creatinine Est Cr Clr Drug Dosing Est GFR ( Amer) Est GFR (Non-Af Amer) BUN/Creatinine Ratio Glucose POC Glucose 170 H Calcium Magnesium Total Bilirubin AST ALT Alkaline Phosphatase Troponin I High Sens 229.5 H* D B-Natriuretic Peptide Total Protein Albumin Globulin Albumin/Globulin Ratio TSH SARS-CoV-2, RNA, NAAT 07/07/22 16:41 WBC RBC Hgb Hct MCV MCH MCHC RDW Std Deviation RDW Coeff of Barbara Plt Count MPV Immature Gran % (Auto) Neut % (Auto) Lymph % (Auto) [place] % (Auto) Eos % (Auto) Baso % (Auto) Neut # (Auto) Lymph # (Auto) [place] # (Auto) Eos # (Auto) Baso # (Auto) Immature Gran # (Auto) PT INR APTT PTT Ratio Sodium Potassium Chloride Carbon Dioxide Anion Gap BUN Creatinine Est Cr Clr Drug Dosing Est GFR ( Amer) Est GFR (Non-Af Amer) BUN/Creatinine Ratio Glucose POC Glucose 135 H Calcium Magnesium Total Bilirubin AST ALT Alkaline Phosphatase Troponin I High Sens B-Natriuretic Peptide Total Protein Albumin Globulin Albumin/Globulin Ratio TSH SARS-CoV-2, RNA, NAAT Diagnostic Findings Telemetry personally reviewed: Sinus rhythm. No arrhythmia. ECGs personally reviewed: ECG 07/07/2022 at 11:08 a.m.: Sinus rhythm 75 beats per minute. LBBB. ECG 07/07/2022 at 11:24 a.m.: Sinus rhythm 79 beats per minute. LBBB. ECG 06/29/2022 at 1:54 a.m.: Sinus rhythm 90 beats per minute. LBBB. Echo report reviewed as noted above in HPI. Cardiac catheterization report reviewed as noted above in HPI. Chest x-ray 07/07/2022: No acute cardiopulmonary findings. Medications Administered Current Inpatient Medications Acetaminophen (Acetaminophen 500 Mg Tab) 500 mg PO TID PRN PRN Reason: Pain Stop: 08/06/22 05:54 Aspirin (Aspirin 81 Mg Ectab) 81 mg PO QAM [facility] Stop: 08/06/22 08:59 Last Admin: 07/07/22 07:47 Dose: 81 mg Atorvastatin Calcium (Atorvastatin 40 Mg Tab) 40 mg PO QPM [facility] Stop: 08/06/22 20:59 Carvedilol (Carvedilol 25 Mg Tab) 25 mg PO BID NOMAN Stop: 08/06/22 08:59 Last Admin: 07/07/22 07:46 Dose: 25 mg Dextrose (Dextrose 50% 50 Ml Syringe) 25 - 50 ml IV UD PRN; Protocol PRN Reason: Hypoglycemia Protocol Stop: 08/06/22 05:54 Enoxaparin Sodium (Enoxaparin Inj 40 Mg/0.4 Ml Syr) 40 mg SQ Q24H [facility] Stop: 08/06/22 08:59 Last Admin: 07/07/22 07:47 Dose: 40 mg Furosemide (Furosemide 40 Mg Tab) 40 mg PO DAILY NOMAN Stop: 08/07/22 08:59 Glucagon (Glucagon For Inj 1 Mg Vial) 1 mg SQ UD PRN; Protocol PRN Reason: Hypoglycemia Protocol Stop: 08/06/22 05:54 Glucose (Glucose 40% Gel 15 Gm Tube) 15 - 30 gm PO UD PRN; Protocol PRN Reason: Hypoglycemia Protocol Stop: 08/06/22 05:54 Glucose (Glucose 10 Tab/Tube) 4 - 8 tab PO UD PRN; Protocol PRN Reason: Hypoglycemia Treatment Stop: 08/06/22 05:54 Heparin Sodium/Dextrose (Heparin Sodium/Dextrose) 25,000 units in 500 mls @ 23 mls/hr IV .[id number] [facility]; Protocol Stop: 08/06/22 11:44 Last Admin: 07/07/22 12:28 Dose: 1,150 units/hr, 23 mls/hr Insulin Aspart (Insulin Aspart Per Unit) 0 units SC ACHS [facility] Stop: 08/06/22 07:29 Last Admin: 07/07/22 17:45 Dose: 5 units Levothyroxine Sodium (Levothyroxine Sodium 50 Mcg Tablet) 50 mcg PO DAILYBB [facility] Stop: 08/06/22 06:29 Last Admin: 07/07/22 06:50 Dose: 50 mcg Metoprolol Tartrate (Metoprolol Tartrate 25 Mg Tab) 25 mg PO HS [facility] Stop: 08/06/22 20:59 Metoprolol Tartrate (Metoprolol Tartrate 50 Mg Tab) 50 mg PO QAM NOMAN Stop: 08/06/22 08:59 Last Admin: 07/07/22 07:47 Dose: 50 mg Miscellaneous (Carbohydrates For Hypoglycemia ) 15 - 30 gm PO UD PRN PRN Reason: Hypoglycemia Protocol Stop: 08/06/22 05:54 Miscellaneous Information (Pharmacy Glycemic Mgmt Consult) 1 each N/A UD PRN; Protocol PRN Reason: Consult Stop: 08/06/22 12:03 Montelukast Sodium (Montelukast Sodium 10 Mg Tablet) 10 mg PO QPM NOMAN Stop: 08/06/22 20:59 Ondansetron HCl (Ondansetron Inj 2 Mg/Ml 2 Ml Vial) 4 mg IV Q4H PRN PRN Reason: Nausea Stop: 08/06/22 05:54 PG Care Time/CCT Total # of Minutes Spent Total Time Spent with Patient: Total time spent is greater than 50% in coordination of care (as documented) at patient's floor/unit and/or counseling patient: Coding Level of Care Code 76411 Initial Inpt Care Lvl 3 Diagnoses Non-ST elevation (NSTEMI) myocardial infarction I21.4 Chest pain R07.9 Elevated troponin R77.8 Cardiomyopathy I42.9 CAD (coronary artery disease) I25.10 Heart failure with mid-range ejection fraction I50.22 Hypertension I10 Hyperlipidemia E78.5
--- NOTE | 2022-07-07 18:38 | Communication Note ---
Date of Service: July 07, 2022 Please see admission H&P for full note, with changes to plan otherwise stated here: Patient with history of nonischemic cardiomyopathy, nonobstructive CAD, type 2 diabetes, hypertension, hyperlipidemia was admitted early this morning after presenting with chest pain and shortness of breath. She underwent colectomy in March for colon cancer, and reports that since that time she has had a hard time recuperating from that surgery. This morning she started having a substernal chest pressure that prior to this admission had been occurring with even light exertion, however this morning she was awakened by that same chest discomfort that radiated to the back and shoulders. On route she was given nitroglycerin by EMS with resolution in her chest discomfort, and has not had any chest discomfort since admission. Troponin trend 50.3 -> 141.1 -> 229.5 -> pending next troponin, trend to peak. Limited echocardiogram performed with LVEF 40-45%, shows global hypokinesis with severe hypokinesis to akinesis of the mid to distal anteroseptum and mid to distal inferoseptum. Compared to prior study on 06/24, no acute change. Heparin initiated given concern for unstable angina/ACS given elevated troponins. Cardiology consulted and will perform cardiac catheterization in the morning. N.p.o. after midnight in anticipation of this. No further aggressive diuresis as patient appears to be euvolemic at this time.
[2022-07-07 19:13] LABS: Partial Thromboplastin Ratio 1.5
[2022-07-07] MEDS: ATORVASTATIN 40 MG TAB PO SCH (21:01)
[2022-07-07] MEDS: MONTELUKAST SODIUM 10 MG TABLET PO SCH (21:02)
[2022-07-07] MEDS: METOPROLOL TARTRATE 25 MG TAB PO SCH (21:03)
[2022-07-08 03:00] LABS: Hematocrit (blood only) 41.6 % (34.1-44.9); Hemoglobin 13.7 g/dl (12.0-16.0); Mean Corpuscular Hemoglobin 27.1 pg (25.0-34.0); Mean Corpuscular Hgb Conc 32.9 g/dL (32.0-36.0); Mean Corpuscular Volume 82.4 fL (80.0-100.0); Mean Platelet Volume 10.3 fL (9.4-12.3); Platelet Count 190 K/uL (130-400); RDW Coefficient of Variation 12.8 % (11.5-14.5); RDW Standard Deviation 38.3 fL (36.4-46.3); Red Blood Count 5.05 M/uL (3.93-5.22); White Blood Count 8.41 K/ul (4.8-10.8)
[2022-07-08 03:21] LABS: BUN Creatinine Ratio 29.1 (10-20); Creatinine Clr Calc Pharmacy 38.6 ml/min; Est GFR (African American) 47.5 ml/min; Magnesium 2.2 mg/dl (1.7-2.4); Potassium 3.3 mmol/L (3.5-5.1)
[2022-07-08 03:29] LABS: Partial Thromboplastin Ratio 2.2
[2022-07-08 03:43] LABS: Partial Thromboplastin Time 60.6 Seconds (21.0-31.0)
[2022-07-08] MEDS ORDERED: POTASSIUM CHLORIDE CRTAB 20 MEQ TABCR PO STA (04:57)
--- NOTE | 2022-07-08 05:20 | Electrocardiogram Report ---
Test Reason : Blood Pressure : / mmHG Vent. Rate : 090 BPM Atrial Rate : 090 BPM P-R Int : 166 ms QRS Dur : 158 ms QT Int : 416 ms P-R-T Axes : 112 -33 123 degrees QTc Int : 508 ms Normal sinus rhythm Left axis deviation Left bundle branch block Abnormal ECG When compared with ECG of 19-APR-2022 01:00, No significant change was found Confirmed by Mehul Barrett ([id number]) on 07/08/2022 5:19:27 AM Referred By: REFERRED SELF Confirmed By:Mehul Barrett
[2022-07-08] MEDS: LEVOTHYROXINE SODIUM 50 MCG TABLET PO SCH (05:33)
[2022-07-08 07:10] LABS: Estimated Average Glucose 192 mg/dl; Hemoglobin A1C 8.3 % (4.5-5.6)
[2022-07-08 08:16] LABS: BUN Creatinine Ratio 30.4 (10-20); Creatinine Clr Calc Pharmacy 42.8 ml/min; Est GFR (African American) 53.5 ml/min; Est GFR (Non-African American) 46.2 ml/min
[2022-07-08] MEDS: ASPIRIN 81 MG ECTAB PO SCH (08:43)
[2022-07-08] MEDS: METOPROLOL TARTRATE 50 MG TAB PO SCH (08:43)
[2022-07-08] MEDS: carvediloL 25 MG TAB PO SCH ×2 (08:43→20:16)
[2022-07-08] MEDS: INSULIN ASPART PER UNIT SC SCH ×4 (08:44→20:15)
[2022-07-08] MEDS: HEPARIN SODIUM/DEXTROSE 25,000 UNITS/500 ML BAG IV SCH (08:56)
[2022-07-08] MEDS ORDERED: FUROSEMIDE 40 MG TAB PO SCH (09:00)
--- NOTE | 2022-07-08 09:07 | Cardiology Progress Note ---
Date of Service July 08, 2022 Assessment & Plan (1) Non-ST elevation (NSTEMI) myocardial infarction: (2) CAD (coronary artery disease): (3) S/P coronary artery stent placement: (4) Cardiomyopathy: (5) Heart failure with mid-range ejection fraction: (6) Hypertension: (7) Hyperlipidemia: Plan ASSESSMENT/PLAN: 1. NSTEMI: Presentation consistent with NSTEMI with crescendo angina. Underwent PCI of mid LAD. Has been chest pain-free since consultation yesterday. Dual antiplatelet therapy. Continue beta-lucia, ARB, high intensity statin therapy. Recommend cardiac rehab. 2. CAD s/p LAD PCI: Continue aspirin 81 mg daily indefinitely. Continue Plavix for at least 6 months. Continuebeta-lucia, ARB, high intensity statin therapy. 3. Cardiomyopathy: Nonischemic. Had cardiac catheterization 2016 with nonobstructive CAD. Cardiomyopathy be felt to be due to possible chemotherapy in the past. Continue carvedilol, ARB. 4. Chronic heart failure with mid-range EF: She did not appear hypervolemic on initial consultation and LVEDP was low normal on 07/08/22. Continue carvedilol, ARB, Jardiance. 5. Hypertension: Blood pressure mostly normotensive but has been mildly hypertensive since agitated following cardiac cath. Continue current plan. 6. Dyslipidemia: Continue high-intensity statin therapy. 7. Mental status change: Following cardiac catheterization right arm became tremulous and she appeared disoriented. She was recalling prior incidents with her ex-, Nils and fearful that he would present to the bedside, asking staff to keep him away. She underwent stat head CT and neurology evaluation. Symptoms improving with time and felt to be possibly due to sedation. Family (daughters) stated that she has had similar issues in the past with sedation. 8. Disposition: Cardiology will continue to follow. Patient care discussed with Dr. Moffett of the primary hospitalist service and Dr. Snyder of interventional cardiology. Patient's family updated at the bedside. Follow-up with Dr. De Jesus on discharge. Admission and Anticipated Discharge Date Admission Date: July 07, 2022 Subjective She was seen early this morning, shortly after 7 AM. She has had no further chest pain. She denies orthopnea and was able to lay flat overnight. She has not had any further lightheadedness or near syncope. She denies palpitations or bleeding. She had labs done in the cut pressman hours and her creatinine had increased from baseline, following intravenous diuretics on presentation. Addendum: She was also seen this afternoon immediately following cardiac catheterization. Her right arm was tremulous and she was not oriented. She repeatedly mentioned Nils and was fearful that he would come find her. Her daughters reported that Nils was her ex-. Family states that she has had similar issues in the past with sedation. She underwent head CT stat. Neurology presented to the bedside. Her tremulous arm improved and she appeared much more comfortable after some time. Physical Exam Physical Exam: Gen.: No acute distress. Alert and oriented. HEENT: Anicteric sclera. Neck: No JVD. Cardiac: No ventricular heave. Regular. Normal S1-S2. No murmurs, rubs, or gallops. Pulmonary: Clear to auscultation bilaterally without wheezes, rales, or rhonchi. Abdomen: Soft, nontender, nondistended, with normoactive bowel sounds. No bruits noted. Extremities: 2+ right radial pulse. 1+ left radial pulse. 2+ posterior tibialis pulses bilaterally. No edema or cyanosis. Psychiatric: Affect appears appropriate. Results & Data ([facility]) Vital Signs (Past 12 Hours) Vital Signs Temp Pulse Pulse Resp BP Pulse Ox O2 Del Method 07/08/22 08:15 36.8 C 73 20 132/74 96 Room Air 07/08/22 07:39 80 07/08/22 03:36 36.7 C 72 16 116/72 95 Room Air 07/07/22 23:35 36.7 C 79 18 114/71 97 Room Air 07/07/22 22:21 80 Intake & Output 07/06/22 07/07/22 07/08/22 07/09/22 06:59 06:59 06:59 06:59 Intake Total 675.117 / 675.117 287.6 / 287.6 Output Total 475 / 475 Balance 200.117 / 200.117 287.6 / 287.6 Weight 199 lb 15.348 oz 201 lb 0.985 oz Laboratory Results Laboratory Results - last 24 hr 07/07/22 07/07/22 07/07/22 10:24 11:49 11:49 WBC RBC Hgb Hct MCV MCH MCHC RDW Std Deviation RDW Coeff of Barbara Plt Count MPV PT 10.5 INR 1.0 APTT 24.6 PTT Ratio 0.9 Sodium Potassium Chloride Carbon Dioxide Anion Gap BUN Creatinine Est Cr Clr Drug Dosing Est GFR ( Amer) Est GFR (Non-Af Amer) BUN/Creatinine Ratio Glucose POC Glucose 260 H Estimat Average Glucose Hemoglobin A1c Calcium Magnesium Troponin I High Sens 229.5 H* D 07/07/22 07/07/22 07/07/22 12:10 16:41 18:42 WBC RBC Hgb Hct MCV MCH MCHC RDW Std Deviation RDW Coeff of Barbara Plt Count MPV PT INR APTT 41.0 H PTT Ratio 1.5 Sodium Potassium Chloride Carbon Dioxide Anion Gap BUN Creatinine Est Cr Clr Drug Dosing Est GFR ( Amer) Est GFR (Non-Af Amer) BUN/Creatinine Ratio Glucose POC Glucose 170 H 135 H Estimat Average Glucose Hemoglobin A1c Calcium Magnesium Troponin I High Sens 07/07/22 07/07/22 07/08/22 19:04 20:47 02:46 WBC RBC Hgb Hct MCV MCH MCHC RDW Std Deviation RDW Coeff of Barbara Plt Count MPV PT INR APTT 60.6 H* PTT Ratio 2.2 Sodium Potassium Chloride Carbon Dioxide Anion Gap BUN Creatinine Est Cr Clr Drug Dosing Est GFR ( Amer) Est GFR (Non-Af Amer) BUN/Creatinine Ratio Glucose POC Glucose 81 Estimat Average Glucose Hemoglobin A1c Calcium Magnesium Troponin I High Sens 158.9 H* D 07/08/22 07/08/22 07/08/22 02:46 02:46 02:46 WBC 8.41 RBC 5.05 Hgb 13.7 Hct 41.6 MCV 82.4 MCH 27.1 MCHC 32.9 RDW Std Deviation 38.3 RDW Coeff of Barbara 12.8 Plt Count 190 MPV 10.3 PT INR APTT PTT Ratio Sodium 138 Potassium 3.3 L Chloride 104 Carbon Dioxide 26 Anion Gap 8 BUN 37 H Creatinine 1.27 H Est Cr Clr Drug Dosing 38.6 Est GFR ( Amer) 47.5 Est GFR (Non-Af Amer) 41.0 BUN/Creatinine Ratio 29.1 H Glucose 156 H POC Glucose Estimat Average Glucose 192 Hemoglobin A1c 8.3 H Calcium 9.0 Magnesium 2.2 Troponin I High Sens 07/08/22 07/08/22 07:04 07:11 WBC RBC Hgb Hct MCV MCH MCHC RDW Std Deviation RDW Coeff of Barbara Plt Count MPV PT INR APTT PTT Ratio Sodium 139 Potassium 4.0 D Chloride 106 Carbon Dioxide 25 Anion Gap 8 BUN 35 H Creatinine 1.15 Est Cr Clr Drug Dosing 42.8 Est GFR ( Amer) 53.5 Est GFR (Non-Af Amer) 46.2 BUN/Creatinine Ratio 30.4 H Glucose 178 H POC Glucose 179 H Estimat Average Glucose Hemoglobin A1c Calcium 9.0 Magnesium Troponin I High Sens Diagnostic Findings Telemetry personally reviewed: Sinus rhythm. No arrhythmia. Cardiac 07/08/2022: Early mid LAD 95%. Small to medium D1 proximal 20 to 30%. Mid to distal circumflex diffuse 50%. Dominant RCA. Mid RCA 30 to 40%. Proximal PDA 30%. LVEDP 6. Underwent PCI of mid LAD with 3 x 18 mm [place], postdilated 3.5 NC. Medications Administered Current Inpatient Medications Acetaminophen (Acetaminophen 500 Mg Tab) 500 mg PO TID PRN PRN Reason: Pain Stop: 08/06/22 05:54 Aspirin (Aspirin 81 Mg Ectab) 81 mg PO QAM NOMAN Stop: 08/06/22 08:59 Last Admin: 07/08/22 08:43 Dose: 81 mg Atorvastatin Calcium (Atorvastatin 40 Mg Tab) 40 mg PO QPM NOMAN Stop: 08/06/22 20:59 Last Admin: 07/07/22 21:01 Dose: 40 mg Carvedilol (Carvedilol 25 Mg Tab) 25 mg PO BID NOMAN Stop: 08/06/22 08:59 Last Admin: 07/08/22 08:43 Dose: 25 mg Dextrose (Dextrose 50% 50 Ml Syringe) 25 - 50 ml IV UD PRN; Protocol PRN Reason: Hypoglycemia Protocol Stop: 08/06/22 05:54 Glucagon (Glucagon For Inj 1 Mg Vial) 1 mg SQ UD PRN; Protocol PRN Reason: Hypoglycemia Protocol Stop: 08/06/22 05:54 Glucose (Glucose 40% Gel 15 Gm Tube) 15 - 30 gm PO UD PRN; Protocol PRN Reason: Hypoglycemia Protocol Stop: 08/06/22 05:54 Glucose (Glucose 10 Tab/Tube) 4 - 8 tab PO UD PRN; Protocol PRN Reason: Hypoglycemia Treatment Stop: 08/06/22 05:54 Heparin Sodium/Dextrose (Heparin Sodium/Dextrose) 25,000 units in 500 mls @ 24 mls/hr IV .[id number] [facility]; Protocol Stop: 08/06/22 11:44 Last Admin: 07/08/22 08:56 Dose: 1,200 units/hr, 24 mls/hr Insulin Aspart (Insulin Aspart Per Unit) 0 units SC ACHS [facility] Stop: 08/06/22 07:29 Last Admin: 07/08/22 08:44 Dose: 2 units Levothyroxine Sodium (Levothyroxine Sodium 50 Mcg Tablet) 50 mcg PO DAILYBB [facility] Stop: 08/06/22 06:29 Last Admin: 07/08/22 05:33 Dose: 50 mcg Metoprolol Tartrate (Metoprolol Tartrate 25 Mg Tab) 25 mg PO HS [facility] Stop: 08/06/22 20:59 Last Admin: 07/07/22 21:03 Dose: 25 mg Metoprolol Tartrate (Metoprolol Tartrate 50 Mg Tab) 50 mg PO QAM [facility] Stop: 08/06/22 08:59 Last Admin: 07/08/22 08:43 Dose: 50 mg Miscellaneous (Carbohydrates For Hypoglycemia ) 15 - 30 gm PO UD PRN PRN Reason: Hypoglycemia Protocol Stop: 08/06/22 05:54 Miscellaneous Information (Pharmacy Glycemic Mgmt Consult) 1 each N/A UD PRN; Protocol PRN Reason: Consult Stop: 08/06/22 12:03 Montelukast Sodium (Montelukast Sodium 10 Mg Tablet) 10 mg PO QPM [facility] Stop: 08/06/22 20:59 Last Admin: 07/07/22 21:02 Dose: 10 mg Ondansetron HCl (Ondansetron Inj 2 Mg/Ml 2 Ml Vial) 4 mg IV Q4H PRN PRN Reason: Nausea Stop: 08/06/22 05:54 PG Care Time/CCT Total # of Minutes Spent Total Time Spent with Patient: Total time spent is greater than 50% in coordination of care (as documented) at patient's floor/unit and/or counseling patient: Coding Level of Care Code 70147 Subseq Hosp Care Lvl 3 Diagnoses Non-ST elevation (NSTEMI) myocardial infarction I21.4 CAD (coronary artery disease) I25.10 S/P coronary artery stent placement Z95.5 Cardiomyopathy I42.9 Heart failure with mid-range ejection fraction I50.22 Hypertension I10 Hyperlipidemia E78.5
--- NOTE | 2022-07-08 14:09 | Pre Anesthesia Assessment ---
Date of Service July 08, 2022 Pre Sedation Assessment Vital Signs Temp Pulse Pulse Resp BP BP Pulse Ox 07/08/22 13:51 94 H 14 130/76 98 07/08/22 11:49 98.1 F 80 19 129/71 99 07/08/22 08:15 98.2 F 73 20 132/74 96 07/08/22 07:39 80 07/08/22 03:36 98.1 F 72 16 116/72 95 07/07/22 23:35 98.1 F 79 18 114/71 97 07/07/22 22:21 80 07/07/22 20:35 98.1 F 77 16 142/82 H 98 07/07/22 18:35 98.1 F 79 17 142/68 H 97 07/07/22 15:22 98.1 F 76 18 125/80 98 07/07/22 15:19 81 O2 Del Method 07/08/22 13:51 Room Air 07/08/22 11:49 Room Air 07/08/22 08:15 Room Air 07/08/22 07:39 07/08/22 03:36 Room Air 07/07/22 23:35 Room Air 07/07/22 22:21 07/07/22 20:35 Room Air 07/07/22 18:35 Room Air 07/07/22 15:22 Room Air 07/07/22 15:19 Cardiovascular RRR, no murmur, no edema Respiratory normal respiratory effort, lungs clear to auscultation Pre-Sedation Airway Assessment Smoking Status: Never smoker Hx Sleep Apnea: No Hx Difficult Intubation: No Short, Thick Neck: No Thyromental Distance: > or= 3.5 Finger Breadths Oral Cavity: + WNL Mallampati Class: II ASA: ASA2 NPO Status Date of Last Intake of Fluids: 07/08/22 Time of Last Intake of Fluids: 08:00 Date of Last Intake of Solid Food: 07/07/22 Time of Last Intake of Solid Foods: 18:00 Procedure Planning Contraindications for Sedation: none Current Medications Reviewed: Yes Notes The planned sedation has been discussed with the patient. Informed Consent was obtained. I have identified the patient, determined the appropriateness of sedation and have assessed the patient immediately prior to the procedure. All medicine(s) and interventions are by my order.
[2022-07-08] MEDS ORDERED: HEPARIN (PORCINE) 1000 UNIT/ML 10 ML (CATH LAB USE ONLY) ONE (14:10)
[2022-07-08] MEDS ORDERED: fentaNYL citrate 100 MCG/2 ML VIAL ONE (14:10)
[2022-07-08] MEDS ORDERED: niCARdipine HCL INJ 2.5 MG/ML 10 ML AMP ONE (14:10)
[2022-07-08] MEDS ORDERED: MIDAZOLAM HCL 1 MG/ML 2ML VIAL ONE (14:10)
[2022-07-08] MEDS ORDERED: NITROGLYCERIN/D5W 100MCG/ML 20ML SYR ONE (14:11)
--- NOTE | 2022-07-08 15:11 | Post Anesthesia Assessment ---
Date of Service July 08, 2022 Post Sedation Assessment Vital Signs Temp Pulse Pulse Resp BP BP Pulse Ox 07/08/22 13:51 94 H 14 130/76 98 07/08/22 11:49 98.1 F 80 19 129/71 99 07/08/22 08:15 98.2 F 73 20 132/74 96 07/08/22 07:39 80 07/08/22 03:36 98.1 F 72 16 116/72 95 07/07/22 23:35 98.1 F 79 18 114/71 97 07/07/22 22:21 80 07/07/22 20:35 98.1 F 77 16 142/82 H 98 07/07/22 18:35 98.1 F 79 17 142/68 H 97 07/07/22 15:22 98.1 F 76 18 125/80 98 07/07/22 15:19 81 O2 Del Method 07/08/22 13:51 Room Air 07/08/22 11:49 Room Air 07/08/22 08:15 Room Air 07/08/22 07:39 07/08/22 03:36 Room Air 07/07/22 23:35 Room Air 07/07/22 22:21 07/07/22 20:35 Room Air 07/07/22 18:35 Room Air 07/07/22 15:22 Room Air 07/07/22 15:19 Recovery Score Activity: Moves 4 extremities Respiration: Deep Breath/Cough Circulation: +/-20% PreAnes Value Consciousness: Fully Awake Oxygen Saturation: O2 needed for >90% Discharge Sedation Level of Care: Fast Track Phase II Post Sedation Plan On clinical assessment, the patient appears to have tolerated the sedation without complications. Patient is recovering as anticipated. Patient will continue to be monitored by nursing and may be discharged when sedation discharge criteria are met per below protocol. Upon Completions of procedure up to 15 minutes continue every 5 minute vital signs and the P.A.R. score; then discharge to a Phase I or Fast Track to Phase II per the following guidelines: * Discharge Patient to appropriate Phase II area if PAR is 8 or greater or return to pre- procedure baseline. The post - procedure orders will be as directed. * If PAR score is less than 8 or not return to pre-procedure baseline then patient will follow Phase I monitoring till PAR is reached for Phase II. The Phase I may be done in procedure room or may call to secure a Phase I area. * If naloxone or flumazenil are used for reversal, hold in Phase I for continued monitoring from when last reversal dose was given for a minimum of 60 minutes or longer pending the nurse and/or physician discretion of patient condition before discharge to Phase II. Please call the Sedation Physician to re-evaluate and complete post-note for discharge to Phase II area. Do NOT discharge from procedure sedation or Phase 1 until post- sedation evaluation note is complete by procedure /sedation MD Sedation Discharge Instructions to be given to the patient at discharge to home.
--- NOTE | 2022-07-08 15:25 | Cardiac Catheterization ---
[facility] Data: [employer] Cardiac Status Clinical evaluation leading to the procedure CAD Presenation: Non STEMI Anginal Classification: CCS IV Diagnostic Physicians Name: Emil Snyder MD Closure Device Recommendations: PCI without planned CABG Cardiac Cath Procedure Full Procedure Date July 08, 2022 Pre-Procedure Diagnosis Pre-Procedure Diagnosis: Non STEMI AUC Score AUC Score: 8 Post-Procedure Diagnosis Post-Procedure Diagnosis: Severe CAD, Successful PCI and Normal Intracardiac Pressures Procedure(s) Performed Procedure(s) Performed: Coronary Angiography, Left Heart Cath and Drug Eluting Stent Entertainment Manager Emil Snyder MD Applied Biology Professor(s) [place] Estimated Blood Loss Estimated Blood Loss: 15 Medication(s) Medication(s): Clopidogrel, Fentanyl, Heparin, Lidocaine 1%, Nicardipine, Nitroglycerin and Versed Summary of Findings Indication: NSTEMI Access: 6 Fr right radial artery Catheters: [place], EBU 3.5 guide Findings: LM -normal caliber, no significant disease LAD -medium caliber, 95% earlymid focal stenosis, latemid and distal vessel without significant disease. Small to medium D1 with 20 to 30% proximal disease. Circumflex -medium caliber, diffuse mid to distal disease up to 50%. Medium OM 2, large left PLB without significant disease. RCA -dominant, medium caliber, 30-40% diffuse mid disease, 30% proximal PDA. LVEDP -6 -- PCI -- Antithrombotic therapy: Heparin, clopidogrel Procedure: Left main cannulated with EBU 3.5 guide Pre-procedure flow JOANIE 2-3 Preventive Medicine Physician 50 wire passed across lesion into distal vessel Mid LAD lesion predilated with 2.5 compliant balloon Dilated lesion stented with 3.0 x 18 mm [place] drug-eluting stent Stent post-dilated with 3.5 noncompliant balloon IC vasodilators administered for spasm Post procedure JOANIE 3 flow, stent well expanded with minimal residual stenosis and no apparent cardiac complications. Arterial Closure: TR band Summary: 1. Severe single vessel coronary artery disease -95% earlymid stenosis 2. Mild to moderate non-culpirt artery disease. Diffuse mid to distal circumflex up to 50% 30 to 40% diffuse mid RCA, 30% proximal RPDA 3. Normal intracardiac filling pressure 4. Successful PCI of mid LAD with single drug-eluting stent (3.0 x 18 mm [place]; postdilated with 3.5 NC). Recommendations: To PCU for continued monitoring Loaded with clopidogrel 600 mg in [employer] Continue dual-antiplatelet therapy for at least 1 year Continue statin, and ASCVD risk factor modification Consult cardiac Rehab Hemodynamics Rest Ao:: 146/66/111 Final Ao: 120/55/79 LV: 122/6 Recommendations Recommendations: PCI without planned CABG Specimens Specimens: None Radiation Exposure (mGy) 1898 Contrast (mls) 75 Anesthesia Moderate [id number] Procedural Complication(s) None Disposition PCU I attest to the content of the Intraoperative Record and any orders documented therein. Any exceptions are noted below. [facility] Card Cath Procedure Codes Cardiac Catheterization Procedure 1: Cardiovascular Cath Procedures: 88197 Coronaries and LHC (+/-LV) Moderate Sedation Procedure 1: Sedation/Anesthesia: 94101 Mod Sedation by the same physician;Init15 Min Child Age 5 & Up Procedure 2: Sedation/Anesthesia: 05514 Mod Sedation by the same physician; Ea [id number] Minutes Stenting Procedure 1: Cardiovascular Stent Procedures: 90469 Perc transcatheter placement of intracoronary stent(s), with ang PG Care Time/CCT Total # of Minutes Spent Total Time Spent with Patient: Total time spent is greater than 50% in coordination of care (as documented) at patient's floor/unit and/or counseling patient:
[2022-07-08] MEDS ORDERED: SODIUM CHLORIDE 0.9% 1000ML 1,000 ML IV SCH (15:30)
--- NOTE | 2022-07-08 16:01 | CT Scan Report ---
CT SCAN OF THE BRAIN WITHOUT IV CONTRAST CLINICAL HISTORY: Change in mental status status post cardiac catheterization. COMPARISON STUDY: CT of the brain dated 10/31/2016. TECHNIQUE: Unenhanced axial CT scan of the brain is performed from the vertex to the skull base. A do se lowering technique was utilized adhering to the principles of ALARA. The vertex was scanned twice due to motion artifact. The examination is degraded by the presence of IV contrast throughout the int racranial circulation. CT DOSE: 3224.12 mGy.cm FINDINGS: Brain parenchyma: There is age-related involutional change noting mild subcortical and periventricula r microangiopathic disease. There is no hemorrhage, mass effect, or evidence of acute territorial isc hemia by CT criteria. A chronic lacunar infarct is noted in the left basal ganglia. Diamond-white matter differentiation is preserved. No extra-axial fluid collection is seen. Ventricles, sulci, cisterns: Prominent secondary to involutional change. Intracranial vasculature: There is atherosclerotic calcification of the cavernous carotid and vertebr al arteries. Calvarium: Unremarkable. Sinuses and mastoids: The visualized paranasal sinuses are clear. The mastoid air cells are well pneu matized. Orbits: The bony orbits are grossly intact. There are bilateral ocular lens implants. IMPRESSION: There is no hemorrhage, mass effect, or evidence of acute territorial ischemia by CT aquiles madrigal. ACT 112: Negative or not required by law. Electronically signed by: Marcelino Magallanes M.D. 07/08/2022 4:00 PM
[2022-07-08] MEDS ORDERED: HEPARIN-STOP ORDER ONE (16:15)
[2022-07-08] MEDS ORDERED: CLOPIDOGREL BISULFATE 300 MG TAB PO STA (16:16)
--- NOTE | 2022-07-08 16:17 | Hospitalist Progress Note ---
Date of Service July 08, 2022 Assessment & Plan (1) CAD (coronary artery disease): Plan: Presented with unstable angina and NSTEMI Started on heparin drip and troponin was trended which peaked at 229. Chest x- ray was negative. Echocardiogram without change from previous with midrange EF Had cardiac catheterization on 07/08 which showed severe single vessel coronary artery disease-95% earlymid stenosis, Mild to moderate non-culpirt artery disease, Diffuse mid to distal circumflex up to 50%, and 30 to 40% diffuse mid RCA, 30% proximal RPDA with Normal intracardiac filling pressure He had successful PCI of mid LAD with single drug-eluting stent (3.0 x 18 mm Sibley; postdilated with 3.5 NC). -Loaded with clopidogrel 600 mg p.o. x1 and then continue Plavix 75 Mg p.o. once daily along with aspirin 81 mg daily -Continue dual-antiplatelet therapy for at least 1 year -Continue statin, and ASCVD risk factor modification -Consult cardiac Rehab -Continue dual beta-blockers which she has been on for quite some time with metoprolol and carvedilol as per major assembly inspector (2) Acute encephalopathy: Plan: Had acute delirium after anesthesia for cardiac catheterization with a dreamlike state with paranoia Resolved after about 30 minutes after she completely woke up CT head noncontrast negative Caution with anesthesia in the future Appreciate neurology consultation (3) Cardiomyopathy: Plan: Thought to be from chemotherapy. EF was 40-45% on 06/24/2022. Initially thought to be presenting with acute CHF, but cardiology has ruled this out. Filling pressures are low normal actually on cardiac catheterization - Continue carvedilol & metoprolol (confirmed with patient that she is on both). Defer to cardiology on changes for this. -Lasix as needed - Already on [id number] -Restart home ARB if renal function okay in the morning -Follow BMP (4) Stage I carcinoma of colon: Plan: S/p colectomy for colon cancer on 04/08/2022. Seen in [facility] with no need for further chemo or radiation. - Monitor output - No acute needs at this time. (5) Hypertension: Plan: Blood pressures are controlled Continue carvedilol, metoprolol, Jardiance Holding home olmesartan but can restart tomorrow if renal function normal (6) Type 2 diabetes mellitus: Plan: A1c was 9.3% in 03/2022 And now down to 8.3% this admission - Hold Jardiance for now but can be restarted prior to discharge if renal function remains stable-this medication is now available for heart failure patients in our pharmacy -Pharmacy seems to be managing insulin in the hospital -Continue basal and bolus insulin (7) Hypothyroid: Plan: TSH this admission is 3.56. - Continue home Synthroid Plan DVT prophylaxis-Heparin drip which is now discontinued Disposition-continued stay on PCU FULL CODE Admission and Anticipated Discharge Date Admission Date: July 07, 2022 Subjective Patient was seen shortly after returning from her cardiac catheterization today. She apparently had been doing very well before and during the catheterization and was talking and interacting with the major assembly inspector, answering questions appropriately. She did receive Versed and fentanyl during the procedure and the nurse contacted me saying that she was unresponsive to sternal rub. The major assembly inspector had ordered a stat head CT which I reviewed and came to see the patient at the bedside along with Dr. Snyder the major assembly inspector. The patient's daughter was at the bedside. The patient had some tremor in the bilateral upper extremities right greater than left, and was speaking and moving all extremities but was confused and seemed to be having a nightmare. She continued to talk about "Nils" which is her ex- as per the daughter. She made statements like "he killed the baby.. Baby before Vickey!" and " at the stair builder!" She seemed to be very afraid. She did follow some commands but was confused with her eyes closed. It did not seem consistent with strokelike symptoms. I discussed her case with the neurologist who also agreed that this was likely some delirium from anesthesia. Within about 10 minutes, she was opening her eyes and following more commands but continued to make statements of fear of her ex- and did not seem to recognize her own daughter. Her vitals remained stable. About 15 minutes later, the patient was completely back to her baseline and was awake and alert, oriented, and interactive. Review of Systems Review of Systems: Unobtainable due to cognitive status Physical Exam Constitutional: WD/WN, vitals as above Eyes: PERRL, conjunctivae normal, anicteric sclerae ENMT: external ear and nose normal, oropharynx normal Neck: trachea midline, no thyromegaly Respiratory: normal respiratory effort, lungs clear to auscultation Cardiovascular: RRR, no murmur, no edema Chest (Breasts): Chest: normal inspection of chest Gastrointestinal (Abdomen): normal bowel sounds, soft, nontender, no hepat osplenomegaly Inspection/Auscultation: + abdomen abnormal to inspection (Midline laparotomy scar) Musculoskeletal: Extremities: extremities normal to inspection; no cyanosis and no clubbing Skin: no rashes, warm and dry Neurologic: moves all extremities; no focal motor deficits Speech / Cognition: + abnormal cognition (Temporarily after anesthesia, then resolved) Motor/Sensory: + tremor (At rest RUE greater than LUE-then resolved); no pronator drift No facial droop, tongue in the midline Psychiatric: Orientation: + guarded; + not alert, + not oriented x 3 and + uncooperative Lymphatic: no lymphedema Results & Data Results & Data ([facility]) Vital Signs (Past 12 Hours) Vital Signs Temp Pulse Pulse Pulse Resp BP BP 07/08/22 16:14 95 H 07/08/22 15:30 91 H 16 150/74 H 07/08/22 15:20 87 16 142/66 H 07/08/22 15:05 94 H 16 108/78 07/08/22 13:51 94 H 14 130/76 07/08/22 11:49 36.7 C 80 19 129/71 07/08/22 08:15 36.8 C 73 20 132/74 07/08/22 07:39 80 Pulse Ox O2 Del Method 07/08/22 16:14 07/08/22 15:30 100 Room Air 07/08/22 15:20 96 Room Air 07/08/22 15:05 95 Room Air 07/08/22 13:51 98 Room Air 07/08/22 11:49 99 Room Air 07/08/22 08:15 96 Room Air 07/08/22 07:39 Laboratory Results Labs reviewed PG Care Time/CCT Total # of Minutes Spent Total Time Spent with Patient: Total time spent is greater than 50% in coordination of care (as documented) at patient's floor/unit and/or counseling patient: Coding Level of Care Code 21968 Subseq Hosp Care Lvl 3 Diagnoses CAD (coronary artery disease) I25.10 Acute encephalopathy G93.40 Cardiomyopathy I42.9 Stage I carcinoma of colon C18.9 Hypertension I10 Type 2 diabetes mellitus E11.9 Hypothyroid E03.9
[2022-07-08] MEDS ORDERED: LANTUS PER UNIT CHARGE SQ SCH ×2 (16:30)
[2022-07-08] MEDS: METOPROLOL TARTRATE 25 MG TAB PO SCH (20:16)
[2022-07-08] MEDS: ATORVASTATIN 40 MG TAB PO SCH (20:16)
[2022-07-08] MEDS: MONTELUKAST SODIUM 10 MG TABLET PO SCH (20:16)
[2022-07-08] MEDS ORDERED: ACETAMINOPHEN 500 MG TAB PO PRN (23:09)
[2022-07-09] MEDS: LEVOTHYROXINE SODIUM 50 MCG TABLET PO SCH (05:33)
--- NOTE | 2022-07-09 06:02 | Electrocardiogram Report ---
Test Reason : Blood Pressure : / mmHG Vent. Rate : 075 BPM Atrial Rate : 075 BPM P-R Int : 182 ms QRS Dur : 156 ms QT Int : 454 ms P-R-T Axes : 032 -39 139 degrees QTc Int : 506 ms Normal sinus rhythm Left axis deviation Left bundle branch block Abnormal ECG When compared with ECG of 07-JUL-2022 01:54, No significant change was found Confirmed by Mehul Barrett ([id number]) on 07/09/2022 6:01:49 AM Referred By: REFERRED SELF Confirmed By:Mehul Barrett
--- NOTE | 2022-07-09 06:02 | Electrocardiogram Report ---
Test Reason : Blood Pressure : / mmHG Vent. Rate : 079 BPM Atrial Rate : 079 BPM P-R Int : 174 ms QRS Dur : 162 ms QT Int : 460 ms P-R-T Axes : 035 -39 135 degrees QTc Int : 527 ms Normal sinus rhythm Left axis deviation Left bundle branch block Abnormal ECG When compared with ECG of 07-JUL-2022 11:08, No significant change was found Confirmed by Mehul Barrett ([id number]) on 07/09/2022 6:02:17 AM Referred By: REFERRED SELF Confirmed By:Mehul Barrett
[2022-07-09 06:19] LABS: Partial Thromboplastin Ratio 0.9; Partial Thromboplastin Time 24.9 Seconds (21.0-31.0)
--- NOTE | 2022-07-09 08:16 | XRay Report ---
XR chest 1V portable CLINICAL HISTORY: tachypnea, fever TECHNIQUE: Single frontal radiograph of the chest was obtained. Comparison: Comparison is made to chest radiograph 07/07/2022 FINDINGS: No lines and tubes are seen. The cardiomediastinal silhouette is stable. The lungs are clear. No evid ence of pleural effusion or pneumothorax. IMPRESSION: No acute abnormalities and in particular no evidence of pneumonia. ACT 112: Negative or not required by law. Electronically signed by: Julio Cesar Mosqueda M.D. 07/09/2022 8:15 AM
--- NOTE | 2022-07-09 08:26 | Pharmacy Report ---
Pharmacy Glycemic Short Note 2 - Date of Service July 09, 2022 - Glycemic Short BSG Results (Last 24 hours): 07/08/22 07/08/22 07/08/22 11:14 16:18 20:07 POC Glucose 162 H 148 H 194 H 07/09/22 07:21 POC Glucose 111 H OUTPATIENT ANTIDIABETIC REGIMEN: * Toujeo 35 units SC daily with dinner * Humalog 14 units SC daily with breakfast, 16 units with lunch, 20 units with dinner + SSI (up to 55 units/day) * Jardiance 25 mg PO daily HbA1c 8.3% (07/08/22) ASSESSMENT: 07/09/22: * POD #1 s/p cardiac catheterization, NPO for ~half the day yesterday * Received 37 units of insulin (25 units of basal, 12 units of prandial/correctional bolus) * BSGs mildly elevated yesterday, ranging 148-194 mg/dL with fasting BSG of 111 mg/dL today * Will tighten carb coverage today and adjust Lantus now that diet is reordered 07/07/22: * BM is a 77 year old female admitted for CHF exacerbation * Pertinent PMH includes T2DM, stage one carcinoma of colon, CHF/cardiomyopathy (on Jardiance) * Pharmacy consulted for glycemic management today at lunchtime * Will base initial insulin dosing on outpatient total daily insulin requirements * Heparin gtt (mixed in dextrose) currently infusing PLAN FOR INPATIENT GLYCEMIC CONTROL: * Hold outpatient oral diabetes medications * Basal insulin * patient discharged today prior to evening basal * Bolus insulin * NovoLog per scale ACHS or Q6hrs while NPO * Goal Range: Low 110 mg/dL - High 140 mg/dL * Correction Factor: 25 mg/dL/unit * Nutritional / Prandial insulin per carb ratio of 1 unit per 7 grams CHO consumed
[2022-07-09 08:41] LABS: Basophils # (auto) 0.04 K/uL (0-0.2); Basophils % (auto) 0.7 %; Eosinophils # (auto) 0.13 K/uL (0-0.50); Eosinophils % (auto) 2.1 %; Hematocrit (blood only) 39.8 % (34.1-44.9); Hemoglobin 12.8 g/dl (12.0-16.0); Immature Granulocytes # (auto) 0.04 K/uL (0.00-0.02); Immature Granulocytes % (auto) 0.7 %; Lymphocytes # (auto) 1.46 K/uL (1.2-3.4); Lymphocytes % (auto) 24.1 %; Mean Corpuscular Hgb Conc 32.2 g/dL (32.0-36.0); Mean Platelet Volume 10.9 fL (9.4-12.3); Monocytes # (auto) 0.99 K/uL (0.24-0.82); Monocytes % (auto) 16.4 %; Neutrophils # (auto) 3.39 K/uL (1.4-6.5); Platelet Count 170 K/uL (130-400); RDW Coefficient of Variation 13.1 % (11.5-14.5); RDW Standard Deviation 39.9 fL (36.4-46.3); Red Blood Count 4.74 M/uL (3.93-5.22); White Blood Count 6.05 K/ul (4.8-10.8)
[2022-07-09] MEDS: METOPROLOL TARTRATE 50 MG TAB PO SCH (08:43)
[2022-07-09] MEDS: ASPIRIN 81 MG ECTAB PO SCH (08:43)
[2022-07-09] MEDS: carvediloL 25 MG TAB PO SCH (08:43)
[2022-07-09] MEDS: INSULIN ASPART PER UNIT SC SCH (08:43)
[2022-07-09] MEDS ORDERED: CLOPIDOGREL BISULFATE 75 MG TAB PO SCH (09:00)
[2022-07-09 09:02] LABS: BUN Creatinine Ratio 28.2 (10-20); Calcium 9.1 mg/dl (8.5-10.1); Creatinine Clr Calc Pharmacy 47.2 ml/min; Est GFR (African American) 61.2 ml/min; Est GFR (Non-African American) 52.8 ml/min; Magnesium 2.2 mg/dl (1.7-2.4); Potassium 3.9 mmol/L (3.5-5.1)
--- NOTE | 2022-07-09 09:59 | Cardiology Progress Note ---
Date of Service July 09, 2022 Assessment & Plan (1) Non-ST elevation (NSTEMI) myocardial infarction: (2) CAD (coronary artery disease): (3) S/P coronary artery stent placement: (4) Cardiomyopathy: (5) Heart failure with mid-range ejection fraction: (6) Hypertension: (7) Hyperlipidemia: Plan ASSESSMENT/PLAN: 1. NSTEMI: Presentation consistent with NSTEMI with crescendo angina. Underwent PCI of mid LAD. Has been chest pain-free since initial consultation. Dual antiplatelet therapy. Continue beta-lucia, ARB, high intensity statin therapy. Recommend cardiac rehab and she is agreeable. Cardiac rehabilitation can be set up as an outpatient when she is seen by Dr. De Jesus in the next week or so. 2. CAD s/p LAD PCI: Continue aspirin 81 mg daily indefinitely. Continue Plavix for at least 1 year. Continue carvedilol, ARB, high intensity statin therapy. 3. Cardiomyopathy: Nonischemic. Had cardiac catheterization 2016 with nonobstructive CAD. Cardiomyopathy be felt to be due to possible chemotherapy in the past. Continue carvedilol, ARB. 4. Chronic heart failure with mid-range EF: She did not appear hypervolemic on initial consultation and LVEDP was low normal on 07/08/22. Continue carvedilol, ARB, Jardiance. 5. Hypertension: Blood pressure mostly normotensive but has been mildly hypertensive at times. Continue current plan. 6. Dyslipidemia: Continue high-intensity statin therapy. 7. Mental status change: Resolved. Following cardiac catheterization right arm became tremulous and she appeared disoriented. She was recalling prior incidents with her ex-, Nils and fearful that he would present to the bedside, asking staff to keep him away. She underwent stat head CT and neurology evaluation. Symptoms improving with time and felt to be possibly due to sedation. Family (daughters) stated that she has had similar issues in the past with sedation. 8. Disposition: Okay for discharge from a cardiology standpoint. Cardiology office was asked to set up an appointment with Dr. De Jesus, her primary telemarketing representative, in approximately [address] De Jesus was notified of her hospital stay and PCI. Patient care communicated with Dr. Clemons of the primary hospitalist service. Admission and Anticipated Discharge Date Admission Date: July 07, 2022 Subjective She was seen this morning, prior to discharge. She has not had any further angina. She denies shortness of breath, syncope, near-syncope, palpitations, edema, or bleeding. No issues with her right radial cath site. She admits that she developed rhinorrhea and cold symptoms. Several family members have also had similar symptoms since their family Thanksgiving get together last weekend. Her mentation seems back to baseline and no longer has tremulous arm. She was alone in her hospital room. Physical Exam Physical Exam: Gen.: No acute distress. Alert and oriented. HEENT: Anicteric sclera. Neck: No JVD. Cardiac: No ventricular heave. Regular. Normal S1-S2. No murmurs, rubs, or gallops. Pulmonary: Clear to auscultation bilaterally without wheezes, rales, or rhonchi. Abdomen: Soft, nontender, nondistended, with normoactive bowel sounds. No bruits noted. Extremities: 2+ right radial pulse. Right radial cath site was without hematoma or discharge. 1+ left radial pulse. 2+ posterior tibialis pulses bilaterally. No edema or cyanosis. Psychiatric: Affect appears appropriate. Results & Data ([facility]) Vital Signs (Past 12 Hours) Vital Signs Temp Pulse Pulse Pulse Resp BP Pulse Ox 07/09/22 07:37 36.8 C 89 20 139/88 97 07/09/22 07:23 90 07/09/22 05:37 36.9 C 90 18 143/77 H 97 07/09/22 03:03 36.9 C 82 18 119/66 98 07/09/22 01:39 36.9 C 83 16 102/68 97 07/09/22 00:42 37.3 C 91 H 28 H 127/66 94 07/08/22 22:13 86 07/08/22 23:14 38.7 C H 90 18 135/75 95 O2 Del Method 07/09/22 07:37 Room Air 07/09/22 07:23 07/09/22 05:37 Room Air 07/09/22 03:03 Room Air 07/09/22 01:39 Room Air 07/09/22 00:42 Room Air 07/08/22 22:13 07/08/22 23:14 Room Air Laboratory Results Laboratory Results - last 24 hr 07/08/22 07/08/22 07/08/22 11:14 14:53 16:18 WBC RBC Hgb Hct MCV MCH MCHC RDW Std Deviation RDW Coeff of Barbara Plt Count MPV Immature Gran % (Auto) Neut % (Auto) Lymph % (Auto) Mcdowell % (Auto) Eos % (Auto) Baso % (Auto) Neut # (Auto) Lymph # (Auto) Mcdowell # (Auto) Eos # (Auto) Baso # (Auto) Immature Gran # (Auto) APTT PTT Ratio Activ Coag Time Kaolin 281 H Sodium Potassium Chloride Carbon Dioxide Anion Gap BUN Creatinine Est Cr Clr Drug Dosing Est GFR ( Amer) Est GFR (Non-Af Amer) BUN/Creatinine Ratio Glucose POC Glucose 162 H 148 H Calcium Magnesium 07/08/22 07/09/22 07/09/22 20:07 05:29 05:34 WBC 6.05 RBC 4.74 Hgb 12.8 Hct 39.8 MCV 84.0 MCH 27.0 MCHC 32.2 RDW Std Deviation 39.9 RDW Coeff of Barbara 13.1 Plt Count 170 MPV 10.9 Immature Gran % (Auto) 0.7 Neut % (Auto) 56.0 Lymph % (Auto) 24.1 Mcdowell % (Auto) 16.4 Eos % (Auto) 2.1 Baso % (Auto) 0.7 Neut # (Auto) 3.39 Lymph # (Auto) 1.46 Mcdowell # (Auto) 0.99 H Eos # (Auto) 0.13 Baso # (Auto) 0.04 Immature Gran # (Auto) 0.04 H APTT 24.9 PTT Ratio 0.9 Activ Coag Time Kaolin Sodium Potassium Chloride Carbon Dioxide Anion Gap BUN Creatinine Est Cr Clr Drug Dosing Est GFR ( Amer) Est GFR (Non-Af Amer) BUN/Creatinine Ratio Glucose POC Glucose 194 H Calcium Magnesium 07/09/22 07/09/22 05:34 07:21 WBC RBC Hgb Hct MCV MCH MCHC RDW Std Deviation RDW Coeff of Barbara Plt Count MPV Immature Gran % (Auto) Neut % (Auto) Lymph % (Auto) Mcdowell % (Auto) Eos % (Auto) Baso % (Auto) Neut # (Auto) Lymph # (Auto) Mcdowell # (Auto) Eos # (Auto) Baso # (Auto) Immature Gran # (Auto) APTT PTT Ratio Activ Coag Time Kaolin Sodium 139 Potassium 3.9 Chloride 107 Carbon Dioxide 25 Anion Gap 7 BUN 29 H Creatinine 1.03 Est Cr Clr Drug Dosing 47.2 Est GFR ( Amer) 61.2 Est GFR (Non-Af Amer) 52.8 BUN/Creatinine Ratio 28.2 H Glucose 95 POC Glucose 111 H Calcium 9.1 Magnesium 2.2 Diagnostic Findings Telemetry personally reviewed: Sinus rhythm. No arrhythmia. Medications Administered Current Inpatient Medications Acetaminophen (Acetaminophen 500 Mg Tab) 500 mg PO TID PRN PRN Reason: Pain or Fever Stop: 08/06/22 05:54 Last Admin: 07/08/22 23:39 Dose: 500 mg Aspirin (Aspirin 81 Mg Ectab) 81 mg PO QAM [facility] Stop: 08/06/22 08:59 Last Admin: 07/09/22 08:43 Dose: 81 mg Atorvastatin Calcium (Atorvastatin 40 Mg Tab) 40 mg PO QPM NOMAN Stop: 08/06/22 20:59 Last Admin: 07/08/22 20:16 Dose: 40 mg Carvedilol (Carvedilol 25 Mg Tab) 25 mg PO BID NOMAN Stop: 08/06/22 08:59 Last Admin: 07/09/22 08:43 Dose: 25 mg Clopidogrel Bisulfate (Clopidogrel Bisulfate 75 Mg Tab) 75 mg PO QAM NOMAN Stop: 08/08/22 08:59 Last Admin: 07/09/22 08:43 Dose: 75 mg Dextrose (Dextrose 50% 50 Ml Syringe) 25 - 50 ml IV UD PRN; Protocol PRN Reason: Hypoglycemia Protocol Stop: 08/06/22 05:54 Glucagon (Glucagon For Inj 1 Mg Vial) 1 mg SQ UD PRN; Protocol PRN Reason: Hypoglycemia Protocol Stop: 08/06/22 05:54 Glucose (Glucose 40% Gel 15 Gm Tube) 15 - 30 gm PO UD PRN; Protocol PRN Reason: Hypoglycemia Protocol Stop: 08/06/22 05:54 Glucose (Glucose 10 Tab/Tube) 4 - 8 tab PO UD PRN; Protocol PRN Reason: Hypoglycemia Treatment Stop: 08/06/22 05:54 Insulin Aspart (Insulin Aspart Per Unit) 0 units SC ACHS NOMAN Stop: 08/06/22 07:29 Last Admin: 07/09/22 08:43 Dose: 6 units Levothyroxine Sodium (Levothyroxine Sodium 50 Mcg Tablet) 50 mcg PO DAILYBB NOMAN Stop: 08/06/22 06:29 Last Admin: 07/09/22 05:33 Dose: 50 mcg Metoprolol Tartrate (Metoprolol Tartrate 25 Mg Tab) 25 mg PO HS NOMAN Stop: 08/06/22 20:59 Last Admin: 07/08/22 20:16 Dose: 25 mg Metoprolol Tartrate (Metoprolol Tartrate 50 Mg Tab) 50 mg PO QAM NOMAN Stop: 08/06/22 08:59 Last Admin: 07/09/22 08:43 Dose: 50 mg Miscellaneous (Carbohydrates For Hypoglycemia ) 15 - 30 gm PO UD PRN PRN Reason: Hypoglycemia Protocol Stop: 08/06/22 05:54 Miscellaneous Information (Pharmacy Glycemic Mgmt Consult) 1 each N/A UD PRN; Protocol PRN Reason: Consult Stop: 08/06/22 12:03 Montelukast Sodium (Montelukast Sodium 10 Mg Tablet) 10 mg PO QPM NOMAN Stop: 08/06/22 20:59 Last Admin: 07/08/22 20:16 Dose: 10 mg Ondansetron HCl (Ondansetron Inj 2 Mg/Ml 2 Ml Vial) 4 mg IV Q4H PRN PRN Reason: Nausea Stop: 08/06/22 05:54 PG Care Time/CCT Total # of Minutes Spent Total Time Spent with Patient: Total time spent is greater than 50% in coordination of care (as documented) at patient's floor/unit and/or counseling patient: Coding Level of Care Code 09895 Subseq Hosp Care Lvl 3 Diagnoses Non-ST elevation (NSTEMI) myocardial infarction I21.4 CAD (coronary artery disease) I25.10 S/P coronary artery stent placement Z95.5 Cardiomyopathy I42.9 Heart failure with mid-range ejection fraction I50.22 Hypertension I10 Hyperlipidemia E78.5
--- NOTE | 2022-07-09 11:10 | Discharge Summary ---
Date of Service July 09, 2022 Admission HPI Per Admitting Provider 77yo F w/ hx of [facility] who presents new acute systolic CHF. The patient reports that she got her COVID booster approximately 1 week ago. She had been feeling close to her baseline state of health, though she reports that she has not bounced back from her partial colectomy as quickly as she thought she would. About 1 week ago she got her COVID booster, and has felt short of breath, tired, and had low energy since then. In particular she notes that she gets dyspneic with exertion. Whereas previously she could easily get around her house, now she notes that she is not able to walk from her bedroom to her bathroom without getting short of breath. She also notes that she has become orthopneic, and has started to sleep in her recliner instead of in her bed. She also notes that she has gained approximately 6 pounds in the last week. Her baseline weight is around 194 pounds, and she reports now weighing 200 pounds on last check. She denies any lower extremity swelling. 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 Principal Diagnosis NSTEMI Discharge Exam Constitutional: WD/WN, vitals as above Eyes: PERRL, conjunctivae normal, anicteric sclerae ENMT: external ear and nose normal, oropharynx normal Neck: trachea midline, no thyromegaly Respiratory: normal respiratory effort, lungs clear to auscultation Cardiovascular: RRR, no murmur, no edema Chest (Breasts): Chest: normal inspection of chest Gastrointestinal (Abdomen): normal bowel sounds, soft, nontender, no hepatosplenomegaly Inspection/Auscultation: + abdomen abnormal to inspection (Midline laparotomy scar) Musculoskeletal: Extremities: extremities normal to inspection; no cyanosis and no clubbing Skin: no rashes, warm and dry Neurologic: alert, awake, oriented x3, following commands Lymphatic: no lymphedema Discharge Data Allergies Allergy/AdvReac Type Severity Reaction Status Date / Time gabapentin Allergy Severe Swelling Verified 07/10/22 11:35 of Lip/Tongue/Throat pollen extracts Allergy Severe Difficulty Verified 07/10/22 11:35 Breathing adhesive Allergy Intermediate SKIN TEARS Verified 07/10/22 11:35 AND HEALING ISSUES Barbiturates Allergy Intermediate Hives Verified 07/10/22 11:35 propoxyphene Allergy Unknown Unknown Verified 07/10/22 11:35 hydrochlorothiazide AdvReac Intermediate Gastrointestinal Verified 07/10/22 11:35 Upset pantoprazole AdvReac Intermediate Gastrointestinal Verified 07/10/22 11:35 Upset phenobarbital AdvReac Intermediate heart Verified 07/10/22 11:35 racing pseudoephedrine AdvReac Intermediate light Verified 07/10/22 11:35 headed, heart racing sertraline AdvReac Intermediate light Verified 07/10/22 11:35 headed, dizzy Sulfa (Sulfonamide AdvReac Intermediate Vomiting Verified 07/10/22 11:35 Antibiotics) triamterene AdvReac Intermediate Gastrointestinal Verified 07/10/22 11:35 Upset Consultations 07/07/22 04:06 ED Decision to Admit Stat 07/07/22 05:55 Consult Cardiology Routine 07/08/22 16:12 Consult Neurology Routine Procedures Performed Operation Date: 07/08/22 13:00 Actual Procedures p Cath, Left with Cors and Vent - Faisal Snyder MD s Cineradiography w/Routine Exam - Faisal Snyder MD s Drug Eluting Stent SGl Vessel - Faisal Snyder MD Ordered Studies 07/08/22 12:02 CL Cath Imgs for PACS use only Routine 07/08/22 15:36 CT head/brain wo con Stat Hospital Course (1) CAD (coronary artery disease): Presented with unstable angina and NSTEMI Started on heparin drip and troponin was trended which peaked at 229. Chest x- ray was negative. Echocardiogram without change from previous with midrange EF Had cardiac catheterization on 07/08 which showed severe single vessel coronary artery disease-95% earlymid stenosis, Mild to moderate non-culpirt artery disease, Diffuse mid to distal circumflex up to 50%, and 30 to 40% diffuse mid RCA, 30% proximal RPDA with Normal intracardiac filling pressure He had successful PCI of mid LAD with single drug-eluting stent (3.0 x 18 mm Chicho; postdilated with 3.5 NC). -Loaded with clopidogrel 600 mg p.o. x1 and then continue Plavix 75 Mg p.o. once daily along with aspirin 81 mg daily -Continue dual-antiplatelet therapy for at least 1 year -Continue statin, and ASCVD risk factor modification -Consult cardiac Rehab -Continue dual beta-blockers which she has been on for quite some time with metoprolol and carvedilol as per drill rig operator helper Appreciate input from cardio: Presentation consistent with NSTEMI with crescendo angina. Underwent PCI of mid LAD. Has been chest pain-free since initial consultation. Dual antiplatelet therapy. Continue beta-lucia, ARB, high intensity statin therapy. Recommend cardiac rehab and she is agreeable. Cardiac rehabilitation can be set up as an outpatient when she is seen by Dr. 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 EF was 40-45% on 06/24/2022. Initially thought to be presenting with acute CHF, but cardiology has ruled this out. Filling pressures are low normal actually on cardiac catheterization - Continue carvedilol & metoprolol (confirmed with patient that she is on both). Defer to cardiology on changes for this. -Lasix as needed - Already on [id number] -Restart home ARB if renal function okay in the morning (4) Stage I carcinoma of colon: S/p colectomy for colon cancer on 04/08/2022. Seen in [facility] with no need for further chemo or radiation. - Monitor output - No acute needs at this time. (5) Hypertension: Blood pressures are controlled Continue carvedilol, metoprolol, Jardiance restart home meds at discharge. (6) Type 2 diabetes mellitus: A1c was 9.3% in 03/2022 And now down to 8.3% this admission - Hold Jardiance for now but can be restarted prior to discharge if renal function remains stable-this medication is now available for heart failure patients in our pharmacy -Pharmacy seems to be managing insulin in the hospital -Continue basal and bolus insulin (7) Hypothyroid: TSH this admission is 3.56. - Continue home Synthroid Plan DVT prophylaxis-Heparin drip used during hospital stay FULL CODE Total Time Total Time Spent Total Time Spent (In Minutes): 35 Discharge Plan Discharge Items Patient Disposition: Home - Self-Care Reason For Visit: ACUTE SYSTOLIC CHF Discharge Diagnosis: NSTEMI Activity: Resume your previous activity Non-emergency contact: Primary Care Provider Call non-emergency contact if: you have any medication questions Follow-up/Referrals: Nikita De Jesus MD [Family Provider] - 07/18/22 3:15 pm Eveline Kang PA-C [Physician [employer]] - 07/15/22 11:30 am Diet: Heart Healthy Addtl Attending Provider Instructions: ACTIVITY RECOMMENDATIONS: Excess manipulation of the wrist should be avoided for the next 24-48 hours. * No lifting over 2 pounds (approximately a 1/2 gallon of milk) with the utilized arm for 24 hours. * No strenuous activity such as bowling or tennis for 3 days. * Keep the site of the procedure covered with a bandage for 24 hours. *You may shower the day after the procedure. Do not take a tub bath or submerge the puncture site in water for the next 3 days. *Do not operate any motorized equipment for 3 days. SPECIAL CARE INSTRUCTIONS: The site may be slightly bruised and sore following your procedure. Should any of the following occur, contact the Dr. who performed your procedure. 1. Redness/inflammation, swelling, chills, or fever, or colored drainage at procedure site within 3-7 days after your procedure. 2. Coldness, discoloration, ongoing numbness, severe pain, or swelling. Expect mild tingling of hand and tenderness at the puncture site for up to three days. If this persists beyond three days, or other symptoms develop, notify the Dr. who performed your procedure. BLEEDING: If the procedure site on your wrist begins to bleed, do not panic 1. Place 1 or 2 fingers firmly just slightly above the insertion site to stop the bleeding. You may be able to feel your pulse as you hold pressure. 2. Lift your finger after 5 minutes to see if the bleeding has stopped. 3. Once the bleeding has stopped, gently wipe the wrist area clean with a bandage. * If the bleeding from your wrist does not stop after 10 minutes, or if there is a large amount of bleeding or spurting, call 911 (do not drive yourself to the hospital). SKIN IRRITATION: * You may experience some redness and/or swelling in the area where radiation was administered. If any skin irritation occurs, please contact your family physician. FOLLOW UP VISIT: 1. Follow up with Dr. De Jesus in approximately 1 week. 2. Keep any scheduled doctor appointments. Pending Studies at Discharge: No Stand-Alone Forms: My [facility] Talking Layers, Smoking Cessation Medications and DC Order Prescriptions: New clopidogrel 75 mg Tablet 75 mg PO QAM Qty: 30 0RF pantoprazole 40 mg tablet,delayed release (DR/EC) 40 mg PO DAILY Qty: 30 0RF Continued albuterol sulfate [Ventolin HFA] 90 mcg/actuation HFA aerosol inhaler 1 - 2 puff INHALATION Q6H PRN (Reason: Shortness Of Breath) Qty: 6.7 3RF insulin lispro [Humalog KwikPen Insulin] 100 unit/mL insulin pen See Rx Instructions .ROUTE .COMPLEX Qty: 60 3RF Rx Instructions: 14 units with breakfast, 16 units with lunch, 20 with dinner plus sliding scale up to 55 units daily; (DME) pen needle, diabetic [BD Ultra-Fine [place] Pen Needle] 32 gauge x 5/32" needle See Rx Instructions .ROUTE .MEDSUPPLY Qty: 400 3RF Rx Instructions: use 4 needles daily levothyroxine 50 mcg tablet 50 mcg PO QAM Qty: 90 1RF diclofenac sodium 1 % gel 4 g TOP QID PRN (Reason: pain) Qty: 500 2RF Rx Instructions: apply to single knee, ankle, foot; for foot includes sole/toes/top of foot montelukast 10 mg tablet 10 mg PO QPM Qty: 90 1RF Toujeo SoloStar U-300 Insulin 300 unit/mL (1.5 mL) insulin pen 35 unit subcut QDD Qty: 13.5 1RF Rx Instructions: inject 35 units before supper; TDD up to 40 units a day (DME) blood sugar diagnostic Strip See Rx Instructions .ROUTE .MEDSUPPLY Qty: 300 1RF Dose Instruction: As directed Rx Instructions: Check blood sugar three times a day. OneTouch Ultra Blue furosemide 40 mg tablet 40 mg PO DAILY PRN (Reason: weight gain or edema ) Qty: 90 3RF carvedilol 25 mg tablet 25 mg PO BID Qty: 60 5RF metoprolol tartrate 25 mg tablet See Rx Instructions PO DAILY Qty: 270 3RF Rx Instructions: 50 mg QAM & 25 mg QPM PO daily; acetaminophen [Tylenol Extra Strength] 500 mg tablet 500 mg PO TID PRN (Reason: Pain) zinc gluconate 30 mg tablet 30 mg PO QAM cranberry 500 mg capsule 500 mg PO QAM Rx Instructions: administer with meal turmeric 400 mg capsule 400 mg PO QAM hydrocortisone acetate 25 mg suppository 25 mg GA BID 28 Days Qty: 100 1RF multivitamin tablet 1 tab PO QAM (DME) lancets [OneTouch Delica Lancets] 30 gauge misc See Dose Instructions .ROUTE .MEDSUPPLY Qty: 25 Rx Instructions: As directed [employer] [facility] 750 mg-100 mg- 1.65 mg-108 mg tablet 1 tab PO DAILY atorvastatin 40 mg tablet 40 mg PO QPM Qty: 90 3RF ipratropium bromide 21 mcg (0.03 %) spray,non-aerosol 2 spray INTNAS TID PRN (Reason: Allergy Symptoms) Qty: 30 5RF aspirin [Gerda Low Dose Aspirin] 81 mg Tablet,Delayed Release (Dr/Ec) 81 mg PO QAM biotin 1 mg Tablet 1 mg PO QAM cholecalciferol (vitamin D3) [Vitamin D3] 50 mcg (2,000 unit) Capsule 0 mcg PO QAM Rx Instructions: 1 X daily unsure of dose olmesartan [Benicar] 40 mg tablet 40 mg PO DAILY Jardiance 25 mg tablet 25 mg PO QAM Discontinued omeprazole 20 mg capsule,delayed release(DR/EC) 20 mg PO BID Qty: 180 1RF Discharge Orders: Discharge Order (Routine); Ordered 07/09/22 Ordered By: Alexys Pantoja/Other Patient Handouts: Cardiac Catheterization Dc Admission Data Admit Date/Time: 07/07/22 04:46 Attending Provider: Alexys Clemons Admit Provider: Tree Ortiz Primary Care Provider: Mesha Ramos Other Providers: Tree Ortiz ; Mehul Barrett ; Demian Morgan Other Interventions: Discharge Summary Assessment (RN) Last Done: 07/09/22 11:11 Coding Level of Care Code D/C DAY MANAGEMENT >30 MINS Diagnoses CAD (coronary artery disease) I25.10 Acute encephalopathy G93.40 Cardiomyopathy I42.9 Stage I carcinoma of colon C18.9 Hypertension I10 Type 2 diabetes mellitus E11.9 Hypothyroid E03.9
--- NOTE | 2022-07-10 21:31 | Electrocardiogram Report ---
Test Reason : Blood Pressure : / mmHG Vent. Rate : 096 BPM Atrial Rate : 096 BPM P-R Int : 152 ms QRS Dur : 144 ms QT Int : 414 ms P-R-T Axes : 039 -26 119 degrees QTc Int : 523 ms Poor data quality, interpretation may be adversely affected Normal sinus rhythm Left bundle branch block Abnormal ECG When compared with ECG of 07-JUL-2022 11:24, No significant change was found Confirmed by Mehul Barrett ([id number]) on 07/10/2022 9:31:24 PM Referred By: REFERRED SELF Confirmed By:Mehul Barrett
== END 2022-07-09 12:12 | disposition home or self-care (01) | DRG 247 ==
LOC: ED 01:48 → SUATTDRO 04:46 → 2N 04:46 → 2S 16:50
DX: T41.45XA Adverse effect of unspecified anesthetic, initial encounter; E78.5 Hyperlipidemia, unspecified; I21.4 Non-ST elevation (NSTEMI) myocardial infarction; Z88.2 Allergy status to sulfonamides; I42.7 Cardiomyopathy due to drug and external agent; I25.110 Atherosclerotic heart disease of native coronary artery with unstable angina pectoris; Z79.82 Long term (current) use of aspirin; Z85.038 Personal history of other malignant neoplasm of large intestine; Z79.4 Long term (current) use of insulin; I50.9 Heart failure, unspecified; Y92.239 Unspecified place in hospital as the place of occurrence of the external cause; I11.0 Hypertensive heart disease with heart failure; T45.1X5A Adverse effect of antineoplastic and immunosuppressive drugs, initial encounter; G93.40 Encephalopathy, unspecified

== ENCOUNTER 2025-06-14 20:26 | Observation (INO) ==
[2025-06-14 21:45] LABS: Hematocrit (blood only) 39.5 % (37.0-47.0); Hemoglobin 12.8 g/dl (12.0-16.0); Immature Granulocytes # (auto) 0.02 K/uL (0.01-0.20); Immature Granulocytes % (auto) 0.3 %; Mean Corpuscular Hemoglobin 27.4 pg (25.0-34.0); Mean Corpuscular Volume 84.4 fL (80.0-100.0); Platelet Count 169 K/uL (130-400); RDW Standard Deviation 39.2 fL (36.4-46.3); Red Blood Count 4.68 M/uL (4.20-5.40); White Blood Count 7.90 K/ul (4.8-10.8)
[2025-06-14] MEDS: ACETAMINOPHEN 1,000 MG/100 ML VIAL IV STA (21:48)
[2025-06-14] MEDS: FAMOTIDINE 20MG IV PUSH 20 MG/5 ML SYR IV STA (21:48)
[2025-06-14] MEDS: SODIUM CHLORIDE 0.9% 1,000 ML IV SCH (21:48)
[2025-06-14 21:53] LABS: Alanine Aminotransferase 74.0 U/L (7-52); Albumin Globulin Ratio 1.1 (0.9-2); Albumin Level 3.7 gm/dl (3.4-5.0); Alkaline Phosphatase 135.0 U/L (34-104); Anion Gap 9.0 (3-11); Bilirubin,Total 0.7 mg/dl (0.2-1.0); Blood Urea Nitrogen 39.0 mg/dl (6-23); Calcium 9.2 mg/dl (8.6-10.3); Carbon Dioxide 25.0 mmol/L (21-32); Chloride 106.0 mmol/L (98-107); Creatinine Clr Calc Pharmacy 28.1 ml/min; Globulin 3.4 gm/dl (2.5-4.0); Glucose 78.0 mg/dl (70-99(Fasting)); Lipase 240.0 U/L (11-82); Magnesium 2.4 mg/dl (1.7-2.4); Potassium 3.8 mmol/L (3.5-5.1); Sodium 140.0 mmol/L (136-145); Total Protein 7.1 gm/dl (6.0-8.3)
[2025-06-14 22:09] LABS: Thyroid Stimulating Hormone 1.268 uIu/ml (0.300-4.500)
[2025-06-14 22:22] LABS: INR 1.0 (0.9-1.1)
[2025-06-14 22:26] LABS: Prothrombin Time 10.6 Seconds (9.0-12.0)
[2025-06-14] MEDS: OPTIRAY 320 100ml IV ONE (22:31)
--- NOTE | 2025-06-14 22:49 | Emergency Department Note ---
Impression & Plan Abdominal pain, Elevated lipase, Ambulatory dysfunction ED Provider Note ED Provider Note NAME: KUMAR JACOBO AGE:80 SEX: Female : 1945 ARRIVES VIA: EMS INFORMANT: Patient ED PROVIDER(s): Cindy Hinds DO CHIEF COMPLAINT: Upper abdominal pain HPI: This is a 80-year-old female who presents emergency department after being told to contact EMS and present here when she called a nurse hotline due to concern for upper abdominal pain which she describes as a sense of "heartburn". Patient states they were concerned that she could be having another heart attack. She does have a prior history of heart attack and placement of a stent. She used to follow with Dr. De Jesus and is now seeing Gamaliel Acharya PA-C. She states no other recent chest pain or difficulty breathing. No recent change in medications or diet. She did have some accompanying nausea although did not have any vomiting. No recent change in bowel or bladder function although did note some mildly loose stools today. No black or bloody stools noted. She denies any recent fevers, chills, or URI symptoms. PAST MEDICAL HISTORY:See Below PAST SURGICAL HISTORY:See Below FAMILY HISTORY:See Below SOCIAL HISTORY:See Below HOME MEDICATIONS:See Below ALLERGIES:See Below VITALS:See Below PHYSICAL EXAMINATION: GENERAL: alert, well appearing, well nourished, no distress, non-toxic EYE EXAM: normal conjunctiva, PERRL and EOM's grossly intact OROPHARYNX: no exudate, no erythema, lips, buccal mucosa, and tongue normal and mucous membranes are moist NECK: supple, no nuchal rigidity, no adenopathy, non-tender LUNGS: Clear to auscultation. Normal chest wall mechanics, no w/r/r HEART: no murmurs, S1 normal and S2 normal ABDOMEN: abdomen soft, non-tender, normo-active bowel sounds, no masses, no rebound or guarding. SKIN: no rashes, petechiae, orbruising UPPER EXTREMITIES: upper extremities are grossly normal. FROM, nml pulses b/l. LOWER EXTREMITIES: No pitting edema. FROM, nml pulses b/l. NEURO EXAM: Normal sensorium, cranial nerves II-XII grossly intact, normal speech, no facial droop,nogross weakness of arms, no gross weakness of legs. Gross sensation intact. No ataxia. Vital Signs: reviewed and remarkable Differential Diagnosis: Gastritis, viral syndrome, pancreatitis, cholecystitis, foodborne illness, medication ADR, ACS, AAA, dissection, pneumonia, GERD, as well as others were considered MEDICAL DECISION MAKING: This is a 80-year-old female who presents to the emergency department with concern for upper abdominal pain after being instructed to come here from a telehealth nurse. Patient afebrile and hemodynamically stable. Labs drawn and sent, IV established, EKG and CXR performed and interpreted at bedside, and patient placed on telemetry. Patient initially mildly hypoglycemic, she was allowed to eat and drink at bedside and reported feeling improved with decrease in the upper abdominal discomfort. Patient was concern for cardiac etiology of her pain given prior history of heart attack. Patient's initial troponin negative. Patient was noted to have elevated LFTs and elevated lipase. On review of EMR patient has had a prior cholecystectomy. No acute EKG changes noted. Patient remained hemodynamically stable but continued to have waxing waning upper abdominal pain. Chest x-ray was reassuring and she was sent for CT abdomen pelvis. She was given gentle IV fluid hydration, IV Pepcid, and IV Tylenol. Patient did attempt to ambulate to the bathroom and was noted to be markedly unsteady even with using her cane and required additional nursing assistance. Patient does live alone. No obvious abnormalities noted on CT of abdomen pelvis as read by outside radiology. We discussed the results at bedside and given she continued to have waxing and waning pain, was unsteady during ambulatory trial, and has multiple risk factors and prior history of CAD, case was discussed with the hospitalist team for additional evaluation management. Consultation(s): 0008: Discussed with Dr. Barraza, hospitalist team, for additional evaluation and management. ER Treatment Provided: See below [id number]: Patient reports feeling improved. No symptoms at this time. Diagnostics Interpreted By Me: -ECG: Patient's normal sinus at 82, leftward axis, right bundle branch block, nonspecific ST/T wave changes; no significant change compared to January 27, 2025 -Cardiac Monitoring: An order was placed for continuous cardiac monitoring. The monitor shows a rate of 80 with normal sinus rhythm. -Laboratory studies: As stated above and show below. -Imaging studies: X-ray Chest: A single view study of the chest was reviewed and was negative for cardiomegaly, focal infiltrate, effusion, pulmonary edema, or wide mediastinum. Triage Nursing Note Reviewed Prior/Outside Records Reviewed Past Med/Surg History Problem List (Updated 06/16/25 @ 13:38 by Cindy Hinds DO) Ambulatory dysfunction (Acute) Elevated lipase (Acute) Abdominal pain (Acute) Presence of drug-eluting stent in anterior descending branch of left coronary artery Knee pain, bilateral Type 2 diabetes mellitus with peripheral neuropathy Fibromyalgia (Acute) Wears hearing aid in both ears Phonak Audeo L70R disp 09/2022 CAD (coronary artery disease) (Chronic) Hypertension (Chronic) Hyperlipidemia (Chronic) Anxiety (Chronic) Asthma (Chronic) Hypothyroid (Chronic) GERD (gastroesophageal reflux disease) (Chronic) Vitamin D deficiency (Chronic) Uncontrolled type 2 diabetes mellitus with stage 3 chronic kidney disease, with long-term current use of insulin (Chronic) Sensorineural hearing loss of both ears (Chronic) Polyarthritis (Chronic) Peripheral neuropathy (Chronic) Mitral regurgitation (Chronic) Lymphedema (Chronic) bilat arms Insomnia, persistent (Chronic) Gait disturbance (Chronic) Cardiomyopathy (Chronic) 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, 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 Uncontrolled type 2 diabetes mellitus with hyperglycemia, with long-term current use of insulin (Chronic) Seasonal allergies Chronic venous insufficiency Globus sensation Dysphagia Bilateral hearing loss Esophageal dysphagia Rectal bleeding Heart failure with mid-range ejection fraction Obesity (BMI 30-39.9) Sensorineural hearing loss (SNHL) of both ears History of colon cancer Elevated serum creatinine Medical History History of anesthesia reaction hallucinations; slow to wake History of non-ST elevation myocardial infarction (NSTEMI) (06/2022) Status post insertion of drug-eluting stent into left anterior descending (LAD) artery (07/08/22) 06/2022, [facility] Stage I carcinoma of colon dx 2021, and sx 2021 Colon cancer dx 2021>has surgery Hematochezia "still happens from time to time, has medication to help with" LBBB (left bundle branch block) Triceps tendinitis ongoing Trapezius muscle strain ongoing Hx of myocardial infarction multiple, most recent 2016 cardiac cath 2017 with no stents Hx of thrombophlebitis RLE Urinary incontinence GERD (gastroesophageal reflux disease) Hypothyroidism Hearing deficit Hypertension Hyperlipidemia Asthma inhaler prn- uses rarely Surgical History History of esophagogastroduodenoscopy (EGD) last 02/2023 @ [facility] Hx of endoscopic retrograde cholangiopancreatography History of right cataract extraction H/O colectomy (04/11/22) Laparoscopic convert to laparotomy low anterior resection colectomy - Jonathan Nation DO; performed due to colon cancer History of surgery of liver stent placed and removed History of cholecystectomy 08/29/2021: Grade 1 view, elective glidescope #3, ETT#7.0. Hx of colonoscopy 2021 History of surgery on arm sarcoma removal of right arm History of left breast biopsy benign History of bilateral tubal ligation History of bilateral carpal tunnel release x2 Hx of varicose vein ligation right leg History of tooth extraction under local History of left cataract extraction History of vascular access device removed 2007 History of cardiac cath 2016 @ [facility] > no stents 2021 @ [facility]>x1 stent Family History Mother Family history of diabetes mellitus Myocardial infarction Allergies Cardiac disorder Hypertension Grandfather (Maternal) Family history of diabetes mellitus Grandfather (Paternal) Family history of diabetes mellitus Daughter Family hx of colon cancer Colorectal cancer Allergies Father Stroke Myocardial infarction Brother Brain tumor Renal failure Grandmother (Maternal) Cardiac disorder Other Bleeding disorder Denies family history of Ovarian cancer Prostate cancer Breast cancer Social History Smoking Status: Never smoker Second Hand Exposure: Yes (hx-while working); Do You Dip or Chew Tobacco: No; Hx Alcohol Use: No Hx Substance Use: No Preferred Language: Central African Communication Ability: Effective Visual Impairment: No Limitations Hearing Ability: Hard of Hearing Global Sales Manager Required: No Beliefs That Will Affect Care: None marital status: Current Living Situation: Alone current occupational status: retired current occupation: Retired How many Children do You have: 4 Feels Safe at Home: Yes Childhood Exposure to Second-Hand Smoke: Yes Diet: diabetic caffeine: No during the past year weight has: increased > 10 lbs Dental Care, Regularly: No Physical Activity Frequency: Does not Exercise Physical Activity Frequency Comment: limited d/t housing Seatbelt Use: always Sunscreen Use: Yes Assistive Devices: Cane and Walker Allergies Allergies Allergy/AdvReac Type Severity Reaction Status Date / Time gabapentin Allergy Severe Swelling Verified 05/10/25 13:56 of Lip/Tongue/Throat pollen extracts Allergy Severe Difficulty Verified 05/10/25 13:56 Breathing adhesive Allergy Intermediate SKIN TEARS Verified 05/10/25 13:56 AND HEALING ISSUES Barbiturates Allergy Intermediate Hives Verified 05/10/25 13:56 propoxyphene Allergy Unknown Unknown Verified 05/10/25 13:56 hydrochlorothiazide AdvReac Intermediate Gastrointestinal Verified 05/10/25 13:56 Upset pantoprazole AdvReac Intermediate "did not Verified 05/10/25 13:56 work as well as as Prilosec" phenobarbital AdvReac Intermediate heart Verified 05/10/25 13:56 racing pseudoephedrine AdvReac Intermediate light Verified 05/10/25 13:56 headed, heart racing sertraline AdvReac Intermediate light Verified 05/10/25 13:56 headed, dizzy Sulfa (Sulfonamide AdvReac Intermediate Vomiting Verified 05/10/25 13:56 Antibiotics) triamterene AdvReac Intermediate Gastrointestinal Verified 05/10/25 13:56 Upset Home Meds Home Medications Medication Instructions Recorded Confirmed aspirin 81 mg tablet,delayed 81 mg PO QAM 07/28/18 05/10/25 release (Gerda Low Dose Aspirin) lancets 30 gauge (OneTouch Delica #25 ea 02/08/19 05/10/25 Lancets) multivitamin 1 tab PO QAM 02/08/19 05/10/25 glucosam 750 mg-chondroi 100 2 tab PO QAM 01/12/20 05/10/25 mg-hyalur 1.65 mg-CF borate 108 mg tablet ([facility]) cranberry 500 mg capsule 500 mg PO QAM 05/21/21 05/10/25 turmeric 400 mg capsule 400 mg PO QAM 05/21/21 05/10/25 cholecalciferol (vitamin D3) 50 50 mcg PO QAM 08/25/21 05/10/25 mcg (2,000 unit) capsule (Vitamin D3) acetaminophen 500 mg tablet 500 mg PO TID PRN Pain 12/12/21 05/10/25 (Tylenol Extra Strength) zinc gluconate 30 mg tablet 30 mg PO QAM 12/12/21 05/10/25 loratadine 10 mg tablet (Allergy 10 mg PO QAM 09/03/22 05/10/25 Relief (loratadine)) metoprolol tartrate 25 mg tablet See Rx Instructions PO UD 10/22/24 05/10/25 magnesium oxide 400 mg (241.3 mg 400 mg PO DAILY 11/11/24 05/10/25 magnesium) tablet Previous Rx's Medication Instructions Recorded albuterol sulfate 90 mcg/actuation 1 - 2 puff inhalation Q6H PRN 09/28/21 aerosol inhaler (Ventolin HFA) Shortness Of Breath #6.7 grams fluticasone propionate 50 2 spray intranasal DAILY #15.8 mL 10/03/22 mcg/actuation nasal spray,suspension diclofenac sodium 1 % topical gel 4 g topical QID PRN pain #500 grams 04/29/23 blood sugar diagnostic #300 ea 12/16/23 furosemide 40 mg tablet 40 mg PO QAM #90 tabs 06/16/24 levothyroxine 50 mcg tablet 50 mcg PO QAM #90 tabs 06/16/24 blood sugar diagnostic #300 ea 07/02/24 carvedilol 12.5 mg tablet 12.5 mg PO BID #180 tabs 09/02/24 tirzepatide 7.5 mg/0.5 mL 7.5 mg (0.5 mL) subcut Q7D #6 mL 10/22/24 subcutaneous pen injector empagliflozin 25 mg tablet 25 mg PO QAM #90 tabs 01/06/25 (Jardiance) omeprazole 40 mg capsule,delayed 40 mg PO QAM #90 caps 01/12/25 release ezetimibe 10 mg tablet 10 mg PO DAILY #90 tabs 01/19/25 ipratropium bromide 21 mcg (0.03 2 spray intranasal TID PRN Allergy 01/19/25 %) nasal spray Symptoms #30 mL olmesartan 40 mg tablet (Benicar) 40 mg PO QAM #90 tabs 02/03/25 pregabalin 25 mg capsule See Rx Instructions PO .COMPLEX #4 03/07/25 caps atorvastatin 80 mg tablet 80 mg PO QPM #90 tabs 03/09/25 pen needle, diabetic 32 gauge x #500 ea 03/30/2532" insulin glargine U-300 conc 300 See Rx Instructions .Route 04/28/25 unit/mL (1.5 mL) subcutaneous pen .COMPLEX #13.5 mL (Toujeo SoloStar U-300 Insulin) insulin lispro 100 unit/mL See Rx Instructions .Route 04/28/25 subcutaneous pen (Humalog KwikPen .COMPLEX #60 mL (U-100) Insulin) Results & Data (ED) Vital Signs Vital Signs - 24 hr 06/14/25 20:37 06/14/25 20:37 06/14/25 20:37 Temperature 36.6 C 36.6 C Temperature Source Oral Oral Pulse Rate 83 Pulse Rate [Left Finger] 81 Pulse Rhythm Regular Pulse Rhythm [Left Finger] Regular Pulse Strength Normal Pulse Strength [Left Finger] Normal Respiratory Rate 18 18 Respiratory Effort / Characteristics Non-Labored Spontaneous Non-Labored Spontaneous Respiratory Depth Normal Normal Respiratory Pattern Regular Regular Blood Pressure 120/51 L Blood Pressure [Left Arm] 120/51 L Blood Pressure Mean 74 Blood Pressure Mean [Left Arm] 74 Blood Pressure Position Lying Blood Pressure Position [Left Arm] Lying Pulse Oximetry 97 99 Oxygen Delivery Method Room Air Room Air Room Air Sepsis Recent Fever Within 48 Hours No Sepsis New/Unexplained Change in Mental Status N/A Sepsis Action Taken by Nursing No Action Required 06/14/25 20:45 06/14/25 23:12 Temperature Temperature Source Pulse Rate 83 Pulse Rate [Left Finger] 83 Pulse Rhythm Pulse Rhythm [Left Finger] Regular Pulse Strength Pulse Strength [Left Finger] Normal Respiratory Rate 12 Respiratory Effort / Characteristics Non-Labored Spontaneous Respiratory Depth Normal Respiratory Pattern Regular Blood Pressure Blood Pressure [Left Arm] 116/64 Blood Pressure Mean Blood Pressure Mean [Left Arm] 81 Blood Pressure Position Blood Pressure Position [Left Arm] Lying Pulse Oximetry 100 Oxygen Delivery Method Room Air Sepsis Recent Fever Within 48 Hours Sepsis New/Unexplained Change in Mental Status Sepsis Action Taken by Nursing Laboratory Data 06/16/25 07:53 06/16/25 07:53 Lab Results 06/14/25 06/14/25 06/14/25 Range/Units 20:35 21:40 22:42 WBC 7.90 (4.8-10.8) K/ul RBC 4.68 (4.20-5.40) M/uL Hgb 12.8 (12.0-16.0) g/dl Hct 39.5 (37.0-47.0) % MCV 84.4 (80.0-100.0) fL MCH 27.4 (25.0-34.0) pg MCHC 32.4 (32.0-36.0) g/dL RDW Std Deviation 39.2 (36.4-46.3) fL RDW Coeff of Barbara 12.8 (11.5-14.5) % Plt Count 169 (130-400) K/uL MPV 10.8 (9.4-12.4) fL Immature Gran % (Auto) 0.3 % Neut % (Auto) 55.2 % Lymph % (Auto) 35.2 % Charles % (Auto) 9.0 % Eos % (Auto) 0.0 % Baso % (Auto) 0.3 % Neut # (Auto) 4.37 (1.40-6.50) K/uL Lymph # (Auto) 2.78 (1.20-3.40) K/uL Charles # (Auto) 0.71 H (0.11-0.59) K/uL Eos # (Auto) 0.00 (0.00-0.50) K/uL Baso # (Auto) 0.02 (0.00-0.20) K/uL Immature Gran # (Auto) 0.02 (0.01-0.20) K/uL PT 10.6 (9.0-12.0) Seconds INR 1.0 (0.9-1.1) D-Dimer 850 H* (0-500) ug/L FEU Sodium 140 (136-145) mmol/L Potassium 3.8 (3.5-5.1) mmol/L Chloride 106 (98-107) mmol/L Carbon Dioxide 25 (21-32) mmol/L Anion Gap 9 (3-11) BUN 39 H (6-23) mg/dl Creatinine 1.55 H (0.6-1.2) mg/dl Est Cr Clr Drug Dosing 28.1 ml/min eGFR 33.87 BUN/Creatinine Ratio 25.2 H (10-20) Glucose 78 (70-99(Fasting)) mg/dl POC Glucose 69 L* 72 (70-99) mg/dl Calcium 9.2 (8.6-10.3) mg/dl Magnesium 2.4 (1.7-2.4) mg/dl Total Bilirubin 0.7 (0.2-1.0) mg/dl AST 127 H (13-39) U/L ALT 74 H (7-52) U/L Alkaline Phosphatase 135 H (34-104) U/L Troponin I High Sens 13.3 (0-14) pg/ml Total Protein 7.1 (6.0-8.3) gm/dl Albumin 3.7 (3.4-5.0) gm/dl Globulin 3.4 (2.5-4.0) gm/dl Albumin/Globulin Ratio 1.1 (0.9-2) Lipase 240 H (11-82) U/L TSH 1.268 (0.300-4.500) uIu/ml 06/15/25 Range/Units 00:20 WBC (4.8-10.8) K/ul RBC (4.20-5.40) M/uL Hgb (12.0-16.0) g/dl Hct (37.0-47.0) % MCV (80.0-100.0) fL MCH (25.0-34.0) pg MCHC (32.0-36.0) g/dL RDW Std Deviation (36.4-46.3) fL RDW Coeff of Barbara (11.5-14.5) % Plt Count (130-400) K/uL MPV (9.4-12.4) fL Immature Gran % (Auto) % Neut % (Auto) % Lymph % (Auto) % Charles % (Auto) % Eos % (Auto) % Baso % (Auto) % Neut # (Auto) (1.40-6.50) K/uL Lymph # (Auto) (1.20-3.40) K/uL Charles # (Auto) (0.11-0.59) K/uL Eos # (Auto) (0.00-0.50) K/uL Baso # (Auto) (0.00-0.20) K/uL Immature Gran # (Auto) (0.01-0.20) K/uL PT (9.0-12.0) Seconds INR (0.9-1.1) D-Dimer (0-500) ug/L FEU Sodium (136-145) mmol/L Potassium (3.5-5.1) mmol/L Chloride (98-107) mmol/L Carbon Dioxide (21-32) mmol/L Anion Gap (3-11) BUN (6-23) mg/dl Creatinine (0.6-1.2) mg/dl Est Cr Clr Drug Dosing ml/min eGFR BUN/Creatinine Ratio (10-20) Glucose (70-99(Fasting)) mg/dl POC Glucose 78 (70-99) mg/dl Calcium (8.6-10.3) mg/dl Magnesium (1.7-2.4) mg/dl Total Bilirubin (0.2-1.0) mg/dl AST (13-39) U/L ALT (7-52) U/L Alkaline Phosphatase (34-104) U/L Troponin I High Sens (0-14) pg/ml Total Protein (6.0-8.3) gm/dl Albumin (3.4-5.0) gm/dl Globulin (2.5-4.0) gm/dl Albumin/Globulin Ratio (0.9-2) Lipase (11-82) U/L TSH (0.300-4.500) uIu/ml Administered Medications Discontinued Medications Acetaminophen (Acetaminophen 325 Mg Tab) 650 mg PO Q4H PRN PRN Reason: Pain or Fever Stop: 07/15/25 02:23 Last Admin: 06/15/25 09:24 Dose: 650 mg Documented By: TIFFANY Aspirin (Aspirin 81 Mg Ectab) 81 mg PO QAM [facility] Stop: 07/15/25 08:59 Last Admin: 06/16/25 08:31 Dose: 81 mg Documented By: Admin: 06/15/25 09:20 Dose: 81 mg Documented By: TIFFANY Carvedilol (Carvedilol 12.5 Mg Tab) 12.5 mg PO BIDM [facility] Stop: 07/15/25 07:59 Last Admin: 06/16/25 08:31 Dose: 12.5 mg Documented By: Admin: 06/15/25 18:00 Dose: 12.5 mg Documented By: Admin: 06/15/25 09:20 Dose: 12.5 mg Documented By: TIFFANY Ezetimibe (Ezetimibe 10 Mg Tab) 10 mg PO DAILY [facility] Stop: 07/15/25 08:59 Last Admin: 06/16/25 08:31 Dose: 10 mg Documented By: Admin: 06/15/25 09:20 Dose: 10 mg Documented By: TIFFANY Enoxaparin Sodium (Enoxaparin Inj 30 Mg/0.3 Ml Syr) 30 mg SQ NOW ONE Stop: 06/15/25 02:31 Last Admin: 06/15/25 04:16 Dose: 30 mg Documented By: MACY Furosemide (Furosemide 40 Mg Tab) 40 mg PO QAM [facility] Stop: 07/15/25 08:59 Last Admin: 06/16/25 08:31 Dose: 40 mg Documented By: Admin: 06/15/25 09:20 Dose: 40 mg Documented By: TIFFANY Sodium Chloride (Nss) 1,000 mls @ 125 mls/hr IV .Q8H [facility] Stop: 06/17/25 21:44 Last Infusion: 06/15/25 02:43 Dose: Infused Documented By: Infusion: 06/15/25 02:43 Dose: Infused Documented By: Admin: 06/14/25 21:48 Dose: 125 mls/hr Documented By: KADEN Famotidine (Pepcid 20mg Iv Push) 20 mg in 5 mls @ 2.5 mls/min IV NOW STA Stop: 06/14/25 21:36 Last Admin: 06/14/25 21:48 Dose: 2.5 mls/min Documented By: KADEN Acetaminophen (Ofirmev) 1,000 mg in 100 mls @ 400 mls/hr IV NOW STA Stop: 06/14/25 21:49 Last Infusion: 06/15/25 00:16 Dose: Infused Documented By: Admin: 06/14/25 21:48 Dose: 400 mls/hr Documented By: KADEN Lactated Ringer's (Lr) 1,000 mls @ 80 mls/hr IV .[id number] [facility] Stop: 06/15/25 14:53 Last Infusion: 06/15/25 14:11 Dose: Infused Documented By: Infusion: 06/15/25 11:59 Dose: 80 mls/hr Documented By: Infusion: 06/15/25 10:09 Dose: 0 mls/hr Documented By: Admin: 06/15/25 02:47 Dose: 80 mls/hr Documented By: MACY Insulin Aspart (Insulin Aspart Per Unit Charge) 0 units SC ACHS [facility] Stop: 07/15/25 07:29 Last Admin: 06/16/25 08:28 Dose: 4 units Documented By: PACO Co-signed By: MAURICIO Admin: 06/15/25 20:13 Dose: Not Given Documented By: MACY Co-signed By: TLB Admin: 06/15/25 18:06 Dose: 2 units Documented By: TIFFANY Co-signed By: KARIN Admin: 06/15/25 13:08 Dose: 2 units Documented By: TIFFANY Co-signed By: YESI Admin: 06/15/25 09:15 Dose: 3 units Documented By: TIFFANY Co-signed By: YESI Insulin Glargine (Lantus Per Unit Charge) 12 units SQ BID [facility] Stop: 07/15/25 08:59 Last Admin: 06/16/25 08:28 Dose: 12 units Documented By: PACO Co-signed By: MAURICIO Admin: 06/15/25 20:23 Dose: 12 units Documented By: MACY Co-signed By: [id number] Admin: 06/15/25 09:15 Dose: 12 units Documented By: TIFFANY Co-signed By: YESI Ioversol (Optiray 320 100ml) 93 ml IV ONCE ONE Stop: 06/14/25 22:31 Last Admin: 06/14/25 22:31 Dose: 93 ml Documented By: MARLEEN Levothyroxine Sodium (Levothyroxine Sodium 50 Mcg Tablet) 50 mcg PO DAILYBB [facility] Stop: 07/15/25 06:29 Last Admin: 06/16/25 05:53 Dose: 50 mcg Documented By: Admin: 06/15/25 06:14 Dose: 50 mcg Documented By: MACY Lorazepam (Lorazepam 1 Mg/1 Ml Syr Ed Inj Use) 0.25 mg IV ONE STA Stop: 06/15/25 00:09 Last Admin: 06/15/25 00:16 Dose: 0.25 mg Documented By: KADEN Losartan Potassium (Losartan Potassium 50 Mg Tab) 100 mg PO QAM [facility] Stop: 07/15/25 08:59 Last Admin: 06/16/25 08:31 Dose: 100 mg Documented By: Admin: 06/15/25 09:20 Dose: 100 mg Documented By: TIFFANY Pantoprazole Sodium (Pantoprazole 40 Mg Tab) 40 mg PO QAM [facility] Stop: 07/15/25 08:59 Last Admin: 06/16/25 08:32 Dose: 40 mg Documented By: Admin: 06/15/25 09:20 Dose: 40 mg Documented By: TIFFANY Imaging Data Radiologist's Impression: Chest X-Ray 06/14/25 21:35 Exam(s): XR CXR 1 VIEW EXAM: XR Chest, 1 View CLINICAL HISTORY: Reason for exam: chest pain. TECHNIQUE: Frontal view of the chest. COMPARISON: January 27, 2025. FINDINGS: Lungs: Unremarkable. No acute infiltration, atelectasis or mass. Pleural space: Unremarkable. No pneumothorax or pleural fluid. Heart: Unremarkable. No cardiomegaly. Mediastinum: Unremarkable. Normal mediastinal contour. Bones/joints: No acute findings. IMPRESSION: No acute findings in the chest. Electronically signed by: Simon Gallagher MD 06/14/25 22:56 PM Discharge Plan Visit Data Chief Complaint: Cardiac Assessment Stated Complaint: "HEARTBURN" ED Provider: Cindy Hinds Discharge Problem: Abdominal pain, Elevated lipase, Ambulatory dysfunction Patient Disposition: Admitted As Inpatient Condition: Fair Discharge Instructions Interventions: ED Discharge Assessment Last Done: 06/15/25 01:56
--- NOTE | 2025-06-14 22:57 | XRay Report ---
Exam(s): XR CXR 1 VIEW EXAM: XR Chest, 1 View CLINICAL HISTORY: Reason for exam: chest pain. TECHNIQUE: Frontal view of the chest. COMPARISON: January 27, 2025. FINDINGS: Lungs: Unremarkable. No acute infiltration, atelectasis or mass. Pleural space: Unremarkable. No pneumothorax or pleural fluid. Heart: Unremarkable. No cardiomegaly. Mediastinum: Unremarkable. Normal mediastinal contour. Bones/joints: No acute findings. IMPRESSION: No acute findings in the chest. Electronically signed by: Simon Gallagher MD 06/14/25 22:56 PM
--- NOTE | 2025-06-14 23:33 | CT Scan Report ---
Exam(s): CT ABDOMEN + PELVIS With Contrast IV Amt: 93 ml [id number] EXAM: CT Abdomen and Pelvis With Intravenous Contrast CLINICAL HISTORY: Reason for exam: upper abd pain, elevated lipase. TECHNIQUE: Axial computed tomography images of the abdomen and pelvis with intravenous contrast. CTDI is 27.71 mGy and DLP is 1296.39 mGy-cm. Automated exposure control was utilized for the study. A dose lowering technique was utilized adhering to the principles of ALARA. CONTRAST: Patient received 93 ml [id number] of IV contrast COMPARISON: Previous CT May 10, 2025. FINDINGS: ABDOMEN: Liver: Unremarkable. No mass. Gallbladder and bile ducts: Cholecystectomy. No ductal dilation. Pancreas: No peripancreatic edema. No mass. No ductal dilation. Spleen: Unremarkable. No splenomegaly. Adrenals: Unremarkable. No mass. Kidneys and ureters: Unremarkable. No solid mass. No hydronephrosis. Stomach and bowel: Unremarkable. No obstruction. No mucosal thickening. PELVIS: Appendix: No findings to suggest acute appendicitis. Bladder: Unremarkable. No mass. ABDOMEN and PELVIS: Intraperitoneal space: Unremarkable. No free air. No significant fluid collection. Bones/joints: No acute findings. Soft tissues: Unremarkable. Vasculature: Unremarkable. No abdominal aortic aneurysm. Lymph nodes: Unremarkable. No enlarged lymph nodes. IMPRESSION: No acute findings in the abdomen or pelvis. Electronically signed by: Simon Gallagher MD 06/14/25 23:32 PM
[2025-06-15] MEDS: LORazepam 1 MG/1 ML SYR ED Inj Use IV STA (00:16)
--- NOTE | 2025-06-15 00:39 | History & Physical Report ---
Date of Service June 15, 2025 Assessment & Plan (1) Abdominal pain: (2) CAD (coronary artery disease): (3) Type 2 diabetes mellitus with peripheral neuropathy: (4) Hypertension: (5) Hyperlipidemia: (6) GERD (gastroesophageal reflux disease): Plan 80yo female presenting with feeling "off" today. Ongoing abdominal discomfort. Has mildly elevated lipase. Myoclonic jerking of RUE in the ER. #Abdominal pain/Abnormal LFTs -Observation to medical with telemetry -Repeat LFTs in the AM -Gentle hydration with LR at 80mL/hr x 1L #CAD - no chest pain. Troponin WNL -Continue ASA, Atorvastatin, Zetia, Carvedilol, Losartan #Diabetes -Monitor blood sugars, have been low since being in the ER -Lantus 12uBID -ISS #Hypertension -Continue Carvedilol, Losartan -Monitor #Hyperlipidemia -Continue Atorvastatin and Zetia #GERD -Continue Protonix DVT ppx - Lovenox History of Present Illness Chief Complaint: feeling "off" Primary Care Provider: Mesha Farah MD Yolis Lu is a 80yo female with history of CAD s/p MARIO ALBERTO to LAD in 2021, HTN, HLP and DM presenting with feeling "Off". Patient reports she felt "off" when she woke this morning but really cannot further describe her symptoms. She had an appointment today for hearing aid evaluation - reports that she had to walk further than usual to get to this appointment and did not bring her walker. After her appointment she felt exhausted. She got home and sat down around 15:30 then took a nap until 18:30. When she woke up she had some epigastric and band-like upper abdominal pain. She took her insulin then heated up some leftovers for dinner. After she started eating she became slightly nauseated so she didn't eat much. She reports her abdominal pain has been worsening so she decided to come to the ER. She had some mild nausea with eating otherwise no complaints. Denies fever, chills, chest pain, cough, SOB She has had some post-menopausal spotting which she is having worked up soon. Allergies Allergy/AdvReac Type Severity Reaction Status Date / Time gabapentin Allergy Severe Swelling Verified 05/10/25 13:56 of Lip/Tongue/Throat pollen extracts Allergy Severe Difficulty Verified 05/10/25 13:56 Breathing adhesive Allergy Intermediate SKIN TEARS Verified 05/10/25 13:56 AND HEALING ISSUES Barbiturates Allergy Intermediate Hives Verified 05/10/25 13:56 propoxyphene Allergy Unknown Unknown Verified 05/10/25 13:56 hydrochlorothiazide AdvReac Intermediate Gastrointestinal Verified 05/10/25 13:56 Upset pantoprazole AdvReac Intermediate "did not Verified 05/10/25 13:56 work as well as as Prilosec" phenobarbital AdvReac Intermediate heart Verified 05/10/25 13:56 racing pseudoephedrine AdvReac Intermediate light Verified 05/10/25 13:56 headed, heart racing sertraline AdvReac Intermediate light Verified 05/10/25 13:56 headed, dizzy Sulfa (Sulfonamide AdvReac Intermediate Vomiting Verified 05/10/25 13:56 Antibiotics) triamterene AdvReac Intermediate Gastrointestinal Verified 05/10/25 13:56 Upset Home Medications Medication Instructions Recorded Confirmed Type aspirin 81 mg tablet,delayed 81 mg PO QAM 07/28/18 05/10/25 History release (Gerda Low Dose Aspirin) lancets 30 gauge ([employer] 02/08/19 05/10/25 History Lancets) multivitamin 1 tab PO QAM 02/08/19 05/10/25 History glucosam 750 mg-chondroi 100 2 tab PO QAM 01/12/20 05/10/25 History mg-hyalur 1.65 mg-CF borate 108 mg tablet ([facility]) cranberry 500 mg capsule 500 mg PO QAM 05/21/21 05/10/25 History turmeric 400 mg capsule 400 mg PO QAM 05/21/21 05/10/25 History cholecalciferol (vitamin D3) 50 50 mcg PO QAM 08/25/21 05/10/25 History mcg (2,000 unit) capsule (Vitamin D3) albuterol sulfate 90 mcg/actuation 1 - 2 puff inhalation Q6H PRN 09/28/21 05/10/25 Rx aerosol inhaler (Ventolin HFA) Shortness Of Breath #6.7 grams acetaminophen 500 mg tablet 500 mg PO TID PRN Pain 12/12/21 05/10/25 History (Tylenol Extra Strength) zinc gluconate 30 mg tablet 30 mg PO QAM 12/12/21 05/10/25 History loratadine 10 mg tablet (Allergy 10 mg PO QAM 09/03/22 05/10/25 History Relief (loratadine)) fluticasone propionate 50 2 spray intranasal DAILY #15.8 mL 10/03/22 05/10/25 Rx mcg/actuation nasal spray,suspension diclofenac sodium 1 % topical gel 4 g topical QID PRN pain #500 grams 04/29/23 05/10/25 Rx blood sugar diagnostic #300 ea 12/16/23 05/10/25 Rx furosemide 40 mg tablet 40 mg PO QAM #90 tabs 06/16/24 05/10/25 Rx levothyroxine 50 mcg tablet 50 mcg PO QAM #90 tabs 06/16/24 05/10/25 Rx blood sugar diagnostic #300 ea 07/02/24 05/10/25 Rx carvedilol 12.5 mg tablet 12.5 mg PO BID #180 tabs 09/02/24 05/10/25 Rx metoprolol tartrate 25 mg tablet See Rx Instructions PO UD 10/22/24 05/10/25 History tirzepatide 7.5 mg/0.5 mL 7.5 mg (0.5 mL) subcut Q7D #6 mL 10/22/24 05/10/25 Rx subcutaneous pen injector magnesium oxide 400 mg (241.3 mg 400 mg PO DAILY 11/11/24 05/10/25 History magnesium) tablet empagliflozin 25 mg tablet 25 mg PO QAM #90 tabs 01/06/25 05/10/25 Rx (Jardiance) omeprazole 40 mg capsule,delayed 40 mg PO QAM #90 caps 01/12/25 05/10/25 Rx release ezetimibe 10 mg tablet 10 mg PO DAILY #90 tabs 01/19/25 05/10/25 Rx ipratropium bromide 21 mcg (0.03 2 spray intranasal TID PRN Allergy 01/19/25 05/10/25 Rx %) nasal spray Symptoms #30 mL olmesartan 40 mg tablet (Benicar) 40 mg PO QAM #90 tabs 02/03/25 05/10/25 Rx pregabalin 25 mg capsule See Rx Instructions PO .COMPLEX #4 03/07/25 05/10/25 Rx caps atorvastatin 80 mg tablet 80 mg PO QPM #90 tabs 03/09/25 05/10/25 Rx pen needle, diabetic 32 gauge x #500 ea 03/30/25 05/10/25 Rx " insulin glargine U-300 conc 300 See Rx Instructions .Route 04/28/25 05/10/25 Rx unit/mL (1.5 mL) subcutaneous pen .COMPLEX #13.5 mL (Tou[employer] SoloStar U-300 Insulin) insulin lispro 100 unit/mL See Rx Instructions .Route 04/28/25 05/10/25 Rx subcutaneous pen (Humalog KwikPen .COMPLEX #60 mL (U-100) Insulin) Past Med/Surg History Problem List Abdominal pain (Acute) Presence of drug-eluting stent in anterior descending branch of left coronary artery Knee pain, bilateral Type 2 diabetes mellitus with peripheral neuropathy Fibromyalgia (Acute) Wears hearing aid in both ears Phonak Audeo L70R disp 09/2022 CAD (coronary artery disease) (Chronic) Hypertension (Chronic) Hyperlipidemia (Chronic) Anxiety (Chronic) Asthma (Chronic) Hypothyroid (Chronic) GERD (gastroesophageal reflux disease) (Chronic) Vitamin D deficiency (Chronic) Uncontrolled type 2 diabetes mellitus with stage 3 chronic kidney disease, with long-term current use of insulin (Chronic) Sensorineural hearing loss of both ears (Chronic) Polyarthritis (Chronic) Peripheral neuropathy (Chronic) Mitral regurgitation (Chronic) Lymphedema (Chronic) bilat arms Insomnia, persistent (Chronic) Gait disturbance (Chronic) Cardiomyopathy (Chronic) 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, 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 Uncontrolled type 2 diabetes mellitus with hyperglycemia, with long-term current use of insulin (Chronic) Seasonal allergies Chronic venous insufficiency Globus sensation Dysphagia Bilateral hearing loss Esophageal dysphagia Rectal bleeding Heart failure with mid-range ejection fraction Obesity (BMI 30-39.9) Sensorineural hearing loss (SNHL) of both ears History of colon cancer Elevated serum creatinine Medical History History of anesthesia reaction hallucinations; slow to wake History of non-ST elevation myocardial infarction (NSTEMI) (06/2022) Status post insertion of drug-eluting stent into left anterior descending (LAD) artery (07/08/22) 06/2022, [facility] Stage I carcinoma of colon dx 2021, and sx 2021 Colon cancer dx 2021>has surgery Hematochezia "still happens from time to time, has medication to help with" LBBB (left bundle branch block) Triceps tendinitis ongoing Trapezius muscle strain ongoing Hx of myocardial infarction multiple, most recent 2016 cardiac cath 2017 with no stents Hx of thrombophlebitis RLE Urinary incontinence GERD (gastroesophageal reflux disease) Hypothyroidism Hearing deficit Hypertension Hyperlipidemia Asthma inhaler prn- uses rarely Surgical History History of esophagogastroduodenoscopy (EGD) last 02/2023 @ [facility] Hx of endoscopic retrograde cholangiopancreatography History of right cataract extraction H/O colectomy (04/11/22) Laparoscopic convert to laparotomy low anterior resection colectomy - Jonathan Nation DO; performed due to colon cancer History of surgery of liver stent placed and removed History of cholecystectomy 08/29/2021: Grade 1 view, elective glidescope #3, ETT#7.0. Hx of colonoscopy 2021 History of surgery on arm sarcoma removal of right arm History of left breast biopsy benign History of bilateral tubal ligation History of bilateral carpal tunnel release x2 Hx of varicose vein ligation right leg History of tooth extraction under local History of left cataract extraction History of vascular access device removed 2007 History of cardiac cath 2016 @ [facility] > no stents 2021 @ [facility]>x1 stent Family History Mother Family history of diabetes mellitus Myocardial infarction Allergies Cardiac disorder Hypertension Grandfather (Maternal) Family history of diabetes mellitus Grandfather (Paternal) Family history of diabetes mellitus Daughter Family hx of colon cancer Colorectal cancer Allergies Father Stroke Myocardial infarction Brother Brain tumor Renal failure Grandmother (Maternal) Cardiac disorder Other Bleeding disorder Denies family history of Ovarian cancer Prostate cancer Breast cancer Social History Smoking Status: Never smoker Second Hand Exposure: Yes (hx-while working); Do You Dip or Chew Tobacco: No; Hx Alcohol Use: No Hx Substance Use: No Preferred Language: Indonesian Communication Ability: Effective Visual Impairment: No Limitations Hearing Ability: Hard of Hearing Deck Specialist Required: No Beliefs That Will Affect Care: None marital status: Current Living Situation: Alone current occupational status: retired current occupation: Retired How many Children do You have: 4 Feels Safe at Home: Yes Childhood Exposure to Second-Hand Smoke: Yes Diet: diabetic caffeine: No during the past year weight has: increased > 10 lbs Dental Care, Regularly: No Physical Activity Frequency: Does not Exercise Physical Activity Frequency Comment: limited d/t housing Seatbelt Use: always Sunscreen Use: Yes Assistive Devices: Cane, Glasses and Hearing Aid - Bilateral Review of Systems Review of Systems: All systems reviewed & are unremarkable except as noted in HPI & below Physical Exam Physical Exam: General: patient resting comfortably, NAD, non-toxic in appearance, AA&O x 4 Skin: warm, dry, intact, no rashes or lesions HEENT: NC/AT, PERRL, EOMI, anicteric sclera, conjunctiva without injection, e xternal ear normal to inspection and nontender, nares patent, moist mucus membranes, dentition intact, no oropharyngeal lesions, neck supple, trachea midline, no LAD, no thyromegaly, no JVD Heart: +S1/S2, regular, no m/r/g Lungs: equal air entry bilaterally, no rales/rhonchi/wheezes Abd: +BS, soft, NT/ND, no masses/organomegaly/ascites Ext: warm, 2+ pulses in UE/LE bilaterally, no clubbing/cyanosis or edema Neuro: nonfocal, patient AA&O x 4, speech intact, no facial droop, moving all extremities on command with equal strength 5/5, myoclonic jerking of RUE Results & Data Results & Data Vital Signs (Past 12 Hours) Vital Signs Temp Pulse Pulse Resp BP BP Pulse Ox 06/14/25 23:12 83 12 116/64 100 06/14/25 20:45 83 06/14/25 20:37 36.6 C 81 18 120/51 L 99 06/14/25 20:37 06/14/25 20:37 36.6 C 83 18 120/51 L 97 O2 Del Method 06/14/25 23:12 Room Air 06/14/25 20:45 06/14/25 20:37 Room Air 06/14/25 20:37 Room Air 06/14/25 20:37 Room Air Laboratory Results Laboratory Results WBC 7.90 K/ul (4.8-10.8) 06/14/25 20:35 RBC 4.68 M/uL (4.20-5.40) 06/14/25 20:35 Hgb 12.8 g/dl (12.0-16.0) 06/14/25 20: Hct 39.5 % (37.0-47.0) 06/14/25 20:35 MCV 84.4 fL (80.0-100.0) 06/14/25 20: MCH 27.4 pg (25.0-34.0) 06/14/25 20: MCHC 32.4 g/dL (32.0-36.0) 06/14/25 20:35 RDW Std Deviation 39.2 fL (36.4-46.3) 06/14/25 20: RDW Coeff of Barbara 12.8 % (11.5-14.5) 06/14/25 20:35 Plt Count 169 K/uL (130-400) 06/14/25 20:35 MPV 10.8 fL (9.4-12.4) 06/14/25 20:35 Immature Gran % (Auto) 0.3 % 06/14/25 20:35 Neut % (Auto) 55.2 % 06/14/25 20:35 Lymph % (Auto) 35.2 % 06/14/25 20:35 Sawyer % (Auto) 9.0 % 06/14/25 20:35 Eos % (Auto) 0.0 % 06/14/25 20:35 Baso % (Auto) 0.3 % 06/14/25 20:35 Neut # (Auto) 4.37 K/uL (1.40-6.50) 06/14/25 20:35 Lymph # (Auto) 2.78 K/uL (1.20-3.40) 06/14/25 20:35 Sawyer # (Auto) 0.71 K/uL (0.11-0.59) H 06/14/25 20:35 Eos # (Auto) 0.00 K/uL (0.00-0.50) 06/14/25 20:35 Baso # (Auto) 0.02 K/uL (0.00-0.20) 06/14/25 20:35 Immature Gran # (Auto) 0.02 K/uL (0.01-0.20) 06/14/25 20:35 PT 10.6 Seconds (9.0-12.0) 06/14/25 20:35 INR 1.0 (0.9-1.1) 06/14/25 20:35 D-Dimer 850 ug/L FEU (0-500) H* 06/14/25 20:35 Sodium 140 mmol/L (136-145) 06/14/25 20:35 Potassium 3.8 mmol/L (3.5-5.1) 06/14/25 20:35 Chloride 106 mmol/L (98-107) 06/14/25 20:35 Carbon Dioxide 25 mmol/L (21-32) 06/14/25 20:35 Anion Gap 9 (3-11) 06/14/25 20:35 BUN 39 mg/dl (6-23) H 06/14/25 20:35 Creatinine 1.55 mg/dl (0.6-1.2) H 06/14/25 20:35 Est Cr Clr Drug Dosing 28.1 ml/min 06/14/25 20:35 eGFR 33.87 06/14/25 20:35 BUN/Creatinine Ratio 25.2 (10-20) H 06/14/25 20:35 Glucose 78 mg/dl (70-99(Fasting)) 06/14/25 20:35 POC Glucose 104 mg/dl (70-99) H 06/15/25 02:14 Calcium 9.2 mg/dl (8.6-10.3) 06/14/25 20:35 Magnesium 2.4 mg/dl (1.7-2.4) 06/14/25 20:35 Total Bilirubin 0.7 mg/dl (0.2-1.0) 06/14/25 20:35 AST 127 U/L (13-39) H 06/14/25 20:35 ALT 74 U/L (7-52) H 06/14/25 20:35 Alkaline Phosphatase 135 U/L (34-104) H 06/14/25 20:35 Troponin I High Sens 13.3 pg/ml (0-14) 06/14/25 20:35 Total Protein 7.1 gm/dl (6.0-8.3) 06/14/25 20:35 Albumin 3.7 gm/dl (3.4-5.0) 06/14/25 20:35 Globulin 3.4 gm/dl (2.5-4.0) 06/14/25 20:35 Albumin/Globulin Ratio 1.1 (0.9-2) 06/14/25 20:35 Lipase 240 U/L (11-82) H 06/14/25 20:35 TSH 1.268 uIu/ml (0.300-4.500) 06/14/25 20:35 Impressions Chest X-Ray 06/14/25 21:35 Exam(s): XR CXR 1 VIEW EXAM: XR Chest, 1 View CLINICAL HISTORY: Reason for exam: chest pain. TECHNIQUE: Frontal view of the chest. COMPARISON: January 27, 2025. FINDINGS: Lungs: Unremarkable. No acute infiltration, atelectasis or mass. Pleural space: Unremarkable. No pneumothorax or pleural fluid. Heart: Unremarkable. No cardiomegaly. Mediastinum: Unremarkable. Normal mediastinal contour. Bones/joints: No acute findings. IMPRESSION: No acute findings in the chest. Electronically signed by: Simon Gallagher MD 06/14/25 22:56 PM Abdomen/Pelvis CT 06/14/25 22:04 Exam(s): CT ABDOMEN + PELVIS With Contrast IV Amt: 93 ml EXAM: CT Abdomen and Pelvis With Intravenous Contrast CLINICAL HISTORY: Reason for exam: upper abd pain, elevated lipase. TECHNIQUE: Axial computed tomography images of the abdomen and pelvis with intravenous contrast. CTDI is 27.71 mGy and DLP is 1296.39 mGy-cm. Automated exposure control was utilized for the study. A dose lowering technique was utilized adhering to the principles of ALARA. CONTRAST: Patient received 93 ml [id number] of IV contrast COMPARISON: Previous CT May 10, 2025. FINDINGS: ABDOMEN: Liver: Unremarkable. No mass. Gallbladder and bile ducts: Cholecystectomy. No ductal dilation. Pancreas: No peripancreatic edema. No mass. No ductal dilation. Spleen: Unremarkable. No splenomegaly. Adrenals: Unremarkable. No mass. Kidneys and ureters: Unremarkable. No solid mass. No hydronephrosis. Stomach and bowel: Unremarkable. No obstruction. No mucosal thickening. PELVIS: Appendix: No findings to suggest acute appendicitis. Bladder: Unremarkable. No mass. ABDOMEN and PELVIS: Intraperitoneal space: Unremarkable. No free air. No significant fluid collection. Bones/joints: No acute findings. Soft tissues: Unremarkable. Vasculature: Unremarkable. No abdominal aortic aneurysm. Lymph nodes: Unremarkable. No enlarged lymph nodes. IMPRESSION: No acute findings in the abdomen or pelvis. Electronically signed by: Simon Gallagher MD 06/14/25 23:32 PM PG Care Time/CCT Total # of Minutes Spent Total Time Spent with Patient: Total time spent is greater than 50% in coordination of care (as documented) at patient's floor/unit and/or counseling patient: Coding Level of Care Code 43299 INT INP/OBS CARE 3/75MIN Diagnoses Abdominal pain R10.9 Coronary artery disease involving [place] coronary artery of [place] heart without angina pectoris I25.10 Coronary Disease-Associated Artery/Lesion type: [place] artery [place] vs. transplanted heart: [place] heart Associated angina: without angina Type 2 diabetes mellitus with peripheral neuropathy E11.42 Primary hypertension I10 Hypertension type: primary hypertension Mixed hyperlipidemia E78.2 Hyperlipidemia type: mixed hyperlipidemia GERD (gastroesophageal reflux disease) K21.9 (2) CAD (coronary artery disease) Coronary Disease-Associated Artery/Lesion type: [place] artery [place] vs. transplanted heart: [place] heart Associated angina: without angina Qualified Code(s): I25.10 - Atherosclerotic heart disease of [place] coronary artery w ithout angina pectoris (4) Hypertension Hypertension type: primary hypertension Qualified Code(s): I10 - Essential (primary) hypertension (5) Hyperlipidemia Hyperlipidemia type: mixed hyperlipidemia Qualified Code(s): E78.2 - Mixed hyperlipidemia
[2025-06-15] MEDS ORDERED: ONDANSETRON INJ 2 MG/ML 2 ML VIAL IV PRN (02:24)
[2025-06-15] MEDS ORDERED: DOCUSATE SODIUM 100 MG CAP PO PRN (02:24)
[2025-06-15] MEDS ORDERED: MELATONIN 3 MG TAB PO PRN (02:24)
[2025-06-15] MEDS: LACTATED RINGER'S 1,000 ML IV SCH (02:47)
[2025-06-15] MEDS ORDERED: GLUCOSE 40% GEL 15 GM TUBE PO PRN (03:14)
[2025-06-15] MEDS ORDERED: DEXTROSE 50% 50 ML SYRINGE IV PRN (03:14)
[2025-06-15] MEDS ORDERED: CARBOHYDRATES FOR HYPOGLYCEMIA PO PRN (03:14)
[2025-06-15] MEDS ORDERED: GLUCOSE 10 TAB/TUBE PO PRN (03:14)
[2025-06-15] MEDS ORDERED: GLUCAGON FOR INJ 1 MG VIAL SQ PRN (03:14)
[2025-06-15] MEDS ORDERED: PREGABALIN 25 MG CAP PO SCH (03:15)
[2025-06-15] MEDS: ENOXAPARIN INJ 30 MG/0.3 ML SYR SQ ONE (04:16)
[2025-06-15] MEDS: LEVOTHYROXINE SODIUM 50 MCG TABLET PO SCH (06:14)
[2025-06-15] MEDS: INSULIN ASPART PER UNIT CHARGE SC SCH (09:15)
[2025-06-15] MEDS: LANTUS PER UNIT CHARGE SQ SCH (09:15)
[2025-06-15 09:19] LABS: Albumin Level 3.5 gm/dl (3.4-5.0); Bilirubin,Total 0.5 mg/dl (0.2-1.0)
[2025-06-15] MEDS: ASPIRIN 81 MG ECTAB PO SCH (09:20)
[2025-06-15] MEDS: LOSARTAN POTASSIUM 50 MG TAB PO SCH (09:20)
[2025-06-15] MEDS: EZETIMIBE 10 MG TAB PO SCH (09:20)
[2025-06-15] MEDS: FUROSEMIDE 40 MG TAB PO SCH (09:20)
[2025-06-15] MEDS: ACETAMINOPHEN 325 MG TAB PO PRN (09:24)
[2025-06-15 09:25] LABS: Alanine Aminotransferase 157.0 U/L (7-52); Alkaline Phosphatase 164.0 U/L (34-104); Total Protein 6.7 gm/dl (6.0-8.3)
--- NOTE | 2025-06-15 11:13 | Ultrasound Report ---
ABDOMINAL ULTRASOUND, RIGHT UPPER QUADRANT HISTORY: abdominal pain, elevated LFTs. COMPARISON: CT 06/14/2025, 05/10/2025. FINDINGS: Pancreas: The pancreas demonstrates a normal echotexture. Liver: Unremarkable measuring 16 cm in length. Gallbladder: Cholecystectomy. CBD: 1.3 cm, unchanged from 05/10/2025. Right kidney: No hydronephrosis. IMPRESSION: 1. Unremarkable exam status post cholecystectomy. 2. Dilation of the biliary tree is likely on a postsurgical basis. ACT 112: Negative or not required by law. Electronically signed by: Javed Jo M.D. 06/15/2025 11:12 AM
--- NOTE | 2025-06-15 11:49 | Electrocardiogram Report ---
Test Reason : Blood Pressure : */* mmHG Vent. Rate : 82 BPM Atrial Rate : 82 BPM P-R Int : 198 ms QRS Dur : 140 ms QT Int : 414 ms P-R-T Axes : 73 -36 120 degrees QTcB Int : 483 ms Normal sinus rhythm Left axis deviation Left bundle branch block Abnormal ECG When compared with ECG of 27-Jan-2025 17:20, No significant change was found Confirmed by Emil Vidales ([id number]) on 06/15/2025 11:49:36 AM Referred By: REFERRED SELF Confirmed By: Emil Vidales
--- NOTE | 2025-06-15 14:05 | Hospitalist Progress Note ---
Date of Service June 15, 2025 Assessment & Plan (1) Abdominal pain: (2) CAD (coronary artery disease): (3) Type 2 diabetes mellitus with peripheral neuropathy: (4) Hypertension: (5) Hyperlipidemia: (6) GERD (gastroesophageal reflux disease): Plan 80yo female presenting with feeling "off" today. Ongoing abdominal discomfort. Has mildly elevated lipase. Myoclonic jerking of RUE in the ER. #Abdominal pain/Abnormal LFTs -Observation to medical with telemetry -Repeat LFTs in the AM -Gentle hydration with LR at 80mL/hr x 1L #CAD - no chest pain. Troponin WNL -Continue ASA, Atorvastatin, Zetia, Carvedilol, Losartan #Diabetes -Monitor blood sugars, have been low since being in the ER -Lantus 12uBID -ISS #Hypertension -Continue Carvedilol, Losartan -Monitor #Hyperlipidemia -Continue Atorvastatin and Zetia #GERD -Continue Protonix DVT ppx - Lovenox Admission and Anticipated Discharge Date Admission Date: June 15, 2025 Results & Data Results & Data Vital Signs (Past 12 Hours) Vital Signs Temp Pulse Pulse Resp BP Pulse Ox O2 Del Method 06/15/25 11:11 36.2 C L 83 20 144/79 H 100 Room Air 06/15/25 09:49 82 06/15/25 07:39 36.4 C L 80 20 144/84 H 99 Room Air 06/15/25 02:20 36.4 C L 82 20 98/63 L 98 Room Air 06/15/25 02:19 82 PG Care Time/CCT Total # of Minutes Spent Total Time Spent with Patient: Total time spent is greater than 50% in coordination of care (as documented) at patient's floor/unit and/or counseling patient: Coding Diagnoses Abdominal pain R10.9 Coronary artery disease involving [place] coronary artery of [place] heart without angina pectoris I25.10 Coronary Disease-Associated Artery/Lesion type: [place] artery [place] vs. transplanted heart: [place] heart Associated angina: without angina Type 2 diabetes mellitus with peripheral neuropathy E11.42 Primary hypertension I10 Hypertension type: primary hypertension Mixed hyperlipidemia E78.2 Hyperlipidemia type: mixed hyperlipidemia GERD (gastroesophageal reflux disease) K21.9 (2) CAD (coronary artery disease) Coronary Disease-Associated Artery/Lesion type: [place] artery [place] vs. transplanted heart: [place] heart Associated angina: without angina Qualified Code(s): I25.10 - Atherosclerotic heart disease of [place] coronary artery without angina pectoris (4) Hypertension Hypertension type: primary hypertension Qualified Code(s): I10 - Essential (primary) hypertension (5) Hyperlipidemia Hyperlipidemia type: mixed hyperlipidemia Qualified Code(s): E78.2 - Mixed hyperlipidemia
[2025-06-15 16:50] LABS: Hep B Surface Ag with confirm Prelim Positive (Negative)
--- NOTE | 2025-06-15 18:48 | Communication Note ---
Date of Service: June 15, 2025 Patient seen and examined but admitted the same day therefore I will not be billing for this encounter. LFTs continue to uptrend although patient without abdominal pain this morning. US liver unremarkable. Stop acetaminophen and atorvastatin. Hepatitis viral panel. Tick borne illness and acetaminophen levels taken. Unclear cause of elevated LFTs at this time but if related to abdominal pain suspect they will improve tomorrow and will repeat with AM labs.
[2025-06-15 19:24] VITALS: RESP 18
[2025-06-15] MEDS ORDERED: ATORVASTATIN 40 MG TAB PO SCH (21:00)
[2025-06-16] MEDS ORDERED: ENOXAPARIN INJ 30 MG/0.3 ML SYR SQ SCH (06:00)
[2025-06-16 06:58] VITALS: BP 167/83; PULSE 80; TEMP 98.1; O2SAT 96
[2025-06-16 08:05] LABS: Appearance Urine Clear (Clear); Bacteria Urine Automated None Seen (None Seen); Cast Urine Automated 0-2 /lpf (0-2); Epithelial Cell Urine Auto 0-2 /hpf (0-2); Glucose Urine UA 3+ (Negative); RBC Urine Automated 0-2 /hpf (0-2); WBC Urine Automated 0-5 /hpf (0-5)
[2025-06-16 08:51] LABS: Hematocrit (blood only) 38.2 % (37.0-47.0); Hemoglobin 12.8 g/dl (12.0-16.0); Mean Corpuscular Hemoglobin 28.4 pg (25.0-34.0); Mean Corpuscular Volume 84.7 fL (80.0-100.0); Platelet Count 148 K/uL (130-400); RDW Standard Deviation 38.8 fL (36.4-46.3); Red Blood Count 4.51 M/uL (4.20-5.40); White Blood Count 6.23 K/ul (4.8-10.8)
[2025-06-16 09:01] LABS: Alanine Aminotransferase 94.0 U/L (7-52); Albumin Level 3.5 gm/dl (3.4-5.0); Alkaline Phosphatase 144.0 U/L (34-104); Anion Gap 7.0 (3-11); Bilirubin,Total 0.5 mg/dl (0.2-1.0); Blood Urea Nitrogen 29.0 mg/dl (6-23); Calcium 9.1 mg/dl (8.6-10.3); Carbon Dioxide 28.0 mmol/L (21-32); Chloride 107.0 mmol/L (98-107); Creatinine Clr Calc Pharmacy 30.2 ml/min; Glucose 96.0 mg/dl (70-99(Fasting)); Potassium 4.0 mmol/L (3.5-5.1); Sodium 142.0 mmol/L (136-145); Total Protein 7.2 gm/dl (6.0-8.3)
--- NOTE | 2025-06-16 10:13 | Discharge Summary ---
Discharge Summary Date of Service June 16, 2025 Principal Dx & Hospital Course #1 = Principal Diagnosis (1) Abdominal pain: (2) CAD (coronary artery disease): (3) Type 2 diabetes mellitus with peripheral neuropathy: (4) Hypertension: (5) Hyperlipidemia: (6) GERD (gastroesophageal reflux disease): Plan Yolis Wiley is a 80 year old female observed at [facility] from June 14 - 2024 due to abdominal pain and elevated liver function tests. Her abdominal pain resolved without intervention overnight. Unclear what caused this but possible biliary sludge temporarily caused abdominal pain and rise in liver function tests. Recommend continuing on your usual medication including acetaminophen and atorvastatin and following up with your primary care provider for repeat liver functions tests in 1-2 weeks to check they have normalized. Imaging with CT and ultrasound were unremarkable. Of note hepatitis B surface antigen was preliminary positive. Low suspicion this is what caused your pain and rise in LFTs since they are improving. Confirmation of this is outstanding on discharge and recommend following up with your primary care provider for eventual results. Notes For Next Care Provider Follow up hepatitis B surface antigen confirmation Follow up LFTs in 1-2 weeks to check they have normalized back on her usual Admission HPI Per Admitting Provider Yolis Wiley is a 80yo female with history of CAD s/p MARIO ALBERTO to LAD in 2021, HTN, HLP and DM presenting with feeling "Off". Patient reports she felt "off" when she woke this morning but really cannot further describe her symptoms. She had an appointment today for hearing aid evaluation - reports that she had to walk further than usual to get to this appointment and did not bring her walker. After her appointment she felt exhausted. She got home and sat down around 15:30 then took a nap until 18:30. When she woke up she had some epigastric and band-like upper abdominal pain. She took her insulin then heated up some leftovers for dinner. After she started eating she became slightly nauseated so she didn't eat much. She reports her abdominal pain has been worsening so she decided to come to the ER. She had some mild nausea with eating otherwise no complaints. Denies fever, chills, chest pain, cough, SOB She has had some post-menopausal spotting which she is having worked up soon. Discharge Exam Gastrointestinal (Abdomen) normal bowel sounds, soft, nontender, no hepatosplenomegaly Discharge Plan Discharge Items Patient Disposition: Home - Self-Care Reason For Visit: ABDOMINAL PAIN Discharge Diagnosis: Elevated liver function tests Abdominal pain Activity: Resume your previous activity Non-emergency contact: Primary Care Provider Call non-emergency contact if: you have any medication questions and your symptoms worsen Follow-up/Referrals: Mesha Farah MD [Primary Care Provider] - Diet: Regular Addtl Attending Provider Instructions: You were observed at [facility] from June 14 - 2024 due to abdominal pain and elevated liver function tests. Unclear what caused this but possible biliary sludge temporarily abdominal pain and rise in liver function tests. Recommend continuing on your usual medication including acetaminophen and atorvastatin and following up with your primary care provider for repeat liver functions tests in 1-2 weeks to check they have normalized. Imaging with CT and ultrasound were unremarkable. Of note hepatitis B surface antigen was preliminary positive. Low suspicion this is what caused your pain and rise in LFTs since they are improving. Confirmation of this is outstanding on discharge and recommend following up with your primary care provider for eventual results. Pending Studies at Discharge: Yes Stand-Alone Forms: My [facility], Smoking Cessation Medications and DC Order Prescriptions: Continued albuterol sulfate [Ventolin HFA] 90 mcg/actuation HFA aerosol inhaler 1 - 2 puff INHALATION Q6H PRN (Reason: Shortness Of Breath) Qty: 6.7 3RF (DME) blood sugar diagnostic Strip See Rx Instructions .ROUTE .MEDSUPPLY Qty: 300 1RF Dose Instruction: As directed Rx Instructions: Check blood sugar three times a day. OneTouch Ultra Blue (DME) blood sugar diagnostic Strip See Rx Instructions .ROUTE .MEDSUPPLY Qty: 300 3RF Rx Instructions: use to check blood sugar TID carvedilol 12.5 mg tablet 12.5 mg PO BID Qty: 180 3RF Rx Instructions: must administer with a meal/food Jardiance 25 mg tablet 25 mg PO QAM Qty: 90 3RF omeprazole 40 mg capsule,delayed release(DR/EC) 40 mg PO QAM Qty: 90 3RF ezetimibe 10 mg tablet 10 mg PO DAILY Qty: 90 3RF ipratropium bromide 21 mcg (0.03 %) spray,non-aerosol 2 spray INTNAS TID PRN (Reason: Allergy Symptoms) Qty: 30 5RF atorvastatin 80 mg tablet 80 mg PO QPM Qty: 90 3RF Patient Comments: currently finishing her 40mg per day prescription (DME) pen needle, diabetic 32 gauge x /32" needle See Rx Instructions .ROUTE .MEDSUPPLY Qty: 500 3RF Rx Instructions: use 5 a day; use with insulin injections Toualfreda SoloStar U-300 Insulin 300 unit/mL (1.5 mL) insulin pen See Rx Instructions .ROUTE .COMPLEX Qty: 13.5 3RF Rx Instructions: Inject 24 units before supper; insulin lispro [Humalog KwikPen Insulin] 100 unit/mL insulin pen See Rx Instructions .ROUTE .COMPLEX MDD 60 units Qty: 60 3RF Rx Instructions: 14 units with breakfast, sliding scale for lunch, 20 with dinner acetaminophen [Tylenol Extra Strength] 500 mg tablet 500 mg PO TID PRN (Reason: Pain) zinc gluconate 30 mg tablet 30 mg PO QAM diclofenac sodium 1 % gel 4 g TOP QID PRN (Reason: pain) Qty: 500 2RF Rx Instructions: apply to single knee, ankle, foot; for foot includes sole/toes/top of foot cranberry 500 mg capsule 500 mg PO QAM Rx Instructions: administer with meal turmeric 400 mg capsule 400 mg PO QAM fluticasone propionate 50 mcg/actuation spray,suspension 2 spray intranasal DAILY Qty: 15.8 2RF Rx Instructions: administer into each nostril multivitamin tablet 1 tab PO QAM (DME) lancets [OneTouch Delica Lancets] 30 gauge misc See Dose Instructions .ROUTE .MEDSUPPLY Qty: 25 Rx Instructions: As directed Move Vinted 750 mg-100 mg- 1.65 mg-108 mg tablet 2 tab PO QAM loratadine [Allergy Relief (loratadine)] 10 mg tablet 10 mg PO QAM magnesium oxide 400 mg (241.3 mg magnesium) tablet 400 mg PO DAILY furosemide 40 mg tablet 40 mg PO QAM Qty: 90 3RF levothyroxine 50 mcg tablet 50 mcg PO QAM Qty: 90 3RF olmesartan [Benicar] 40 mg tablet 40 mg PO QAM Qty: 90 3RF pregabalin 25 mg capsule See Rx Instructions PO .COMPLEX Qty: 4 0RF Rx Instructions: Do Not Take. Bring to allergy clinic for testing. flu vacc [id number](65yr up)-PF 180 mcg/0.5 mL syringe 0.5 ml IM ONCE Qty: 0.5 0RF metoprolol tartrate 25 mg tablet See Rx Instructions PO UD Rx Instructions: 50 mg QAM & 25 mg QPM PO daily; tirzepatide 7.5 mg/0.5 mL pen injector 7.5 mg subcut Q7D Qty: 6 5RF aspirin [Gerda Low Dose Aspirin] 81 mg Tablet,Delayed Release (Dr/Ec) 81 mg PO QAM cholecalciferol (vitamin D3) [Vitamin D3] 50 mcg (2,000 unit) Capsule 50 mcg PO QAM Discharge Orders: Discharge Order (Routine); Ordered 06/16/25 Ordered By: Augusto Hameed Admission Data Admit Date/Time: 06/15/25 00:47 Attending Provider: Augusto Hameed Admit Provider: Joelle Barraza Primary Care Provider: Mesha Farah Other Providers: Joelle Barraza Hospital Stay Data Consultations 06/15/25 00:08 ED Decision to Admit Stat Diagnostic Imagining Performed 06/14/25 22:04 CT abd pelvis IV con only Stat 06/15/25 07:47 US liver Urgent Pending Results Patient Have Any Pending Studies at Discharge: Yes Discharge Instructions Given to Patient (Per Discharging Provider) You were observed at [facility] from June 14 - 2024 due to abdominal pain and elevated liver function tests. Unclear what caused this but possible biliary sludge temporarily abdominal pain and rise in liver function tests. Recommend continuing on your usual medication including acetaminophen and atorvastatin and following up with your primary care provider for repeat liver functions tests in 1-2 weeks to check they have normalized. Imaging with CT and ultrasound were unremarkable. Of note hepatitis B surface antigen was preliminary positive. Low suspicion this is what caused your pain and rise in LFTs since they are improving. Confirmation of this is outstanding on discharge and recommend following up with your primary care provider for eventual results. Total Time Total Time Spent Total Time Spent (In Minutes): 25 Total Time Includes: Examination of the Patient, Discharge Planning and Medication Reconciliation Coding Diagnoses Abdominal pain R10.9 Coronary artery disease involving [place] coronary artery of [place] heart without angina pectoris I25.10 Coronary Disease-Associated Artery/Lesion type: [place] artery [place] vs. transplanted heart: [place] heart Associated angina: without angina Type 2 diabetes mellitus with peripheral neuropathy E11.42 Primary hypertension I10 Hypertension type: primary hypertension Mixed hyperlipidemia E78.2 Hyperlipidemia type: mixed hyperlipidemia GERD (gastroesophageal reflux disease) K21.9
[2025-06-16 19:39] LABS: Hep C Ab Rflx HepCQuant RNA Negative (Negative)
[2025-06-18 14:33] LABS: Hepatitis A Antibody IgM NON-REACTIVE (NON-REACTIVE); Hepatitis B Core Antibody IgM NON-REACTIVE (NON-REACTIVE)
== END 2025-06-16 11:20 | disposition home or self-care (01) ==
LOC: 2N 20:26 → ED 20:26 → SUATTDRO 06-15 00:47 → 2N 06-15 01:56 → 3W 06-15 23:01